=== PATIENT | female | born 1950 | race Caucasian/White ===

== ENCOUNTER 2019-08-11 16:07 | Outpatient (CLI) | payer MEDICARE, SELFPAY ==
[2019-08-11 16:37] LABS: Add Urine Microscopic? YES; Appearance Urine Clear (Clear); Bilirubin Urine Negative (Negative); Blood Urine Negative (Negative); Color Urine Yellow (Yellow); Glucose Urine UA Negative (Negative); Ketones Urine Negative (Negative); Leukocyte Esterase Ur Trace (Negative); Nitrate Urine Negative (Negative); Protein Urine Negative (Negative); Urobilinogen Urine 0.2 mg/dL (0.2-1.0); pH Urine 6.5 (5.0-8.0)
[2019-08-11 16:40] LABS: RBC Urine None seen /hpf (0-2); Squamous Epithelial Cell Urine Few /hpf (Few)
[2019-08-11 16:41] LABS: Bacteria Urine Trace /hpf
== END 2019-08-11 16:08 | disposition home or self-care (01) ==
PROVIDERS: PCP Internal Medicine; Visit Provider Internal Medicine
DX: R35.0 Frequency of micturition (principal); N39.0 Urinary tract infection, site not specified
CPT/HCPCS: 81001; 87077; 87086; 87088; 87186

== ENCOUNTER 2019-08-21 15:23 | Outpatient (CLI) | payer MEDICARE, MEDICAID, SELFPAY ==
--- NOTE | ~2019-08-21 | XR_ITS ---
EXAMINATION: XR chest 2V DATE: 08/21/2019 15:47 INDICATION: Cough, COPD TECHNIQUE: PA and lateral views of the chest are obtained. COMPARISON: 12/23/2018 FINDINGS: The lungs are free of acute opacities. There is no pleural effusion or pneumothorax. The ca rdiomediastinal silhouette is normal. There is moderate thoracic spondylosis. Surgical clips in the u pper abdomen on the lateral view are likely from prior cholecystectomy. IMPRESSION: 1. No acute cardiopulmonary abnormality. Reviewed, dictated and finalized at location A.
[2019-08-21 15:36] LABS: Basophils Absolute Auto 0.05 K/mm3 (0.00-0.10); Basophils Percent Auto 0.8 % (0.0-1.0); Eosinophils Absolute Auto 0.18 K/mm3 (0.02-0.50); Eosinophils Percent Auto 2.8 % (1.0-6.0); Hematocrit 39.3 % (35.0-42.0); Hemoglobin 12.8 g/dL (11.7-13.8); Immature Granulocyte Absolute 0.02 K/mm3 (0.00-0.00); Immature Granulocyte Percent A 0.3 % (0.0-0.0); Lymphocytes Absolute Auto 1.96 K/mm3 (1.10-4.50); Mean Corpuscular HGB Conc 32.6 g/dL (32.0-36.0); Mean Platelet Volume 10.1 fl (9.2-11.8); Monocytes Absolute Auto 0.64 K/mm3 (0.10-0.90); Monocytes Percent Auto 10.1 % (2.0-11.0); Neutrophils Absolute Auto 3.5 K/mm3 (1.7-7.2); Platelet Count Result 297 K/mm3 (150-420); Red Blood Count 4.27 M/mm3 (4.20-5.40); Red Cell Distribution Width 13.8 % (11.6-14.4); White Blood Count 6.3 K/mm3 (4.8-10.8)
[2019-08-21 16:25] LABS: Alanine Aminotransferase 20 U/L (14-59); Albumin Level 3.3 g/dL (3.4-5.0); Alkaline Phosphatase 68 U/L (46-116); Anion Gap 8.9 mmol/L (7-16); Aspartate Amino Transferase 21 U/L (15-37); Bilirubin,Total 0.3 mg/dL (0.00-1.00); Blood Urea Nitrogen 14 mg/dL (7-18); Calcium 9.4 mg/dL (8.5-10.1); Carbon Dioxide 32 mmol/L (21-32); Chloride 107 mmol/L (98-108); Estimated Glomerular Filt Rate > 60; Glucose 93 mg/dL (70-99); Osmolality Calculated 298 mOsm/kg (285-295); Potassium 3.9 mmol/L (3.5-5.1); Sodium 144 mmol/L (136-145); Total Protein 6.9 g/dL (6.4-8.2)
== END 2019-08-21 15:24 | disposition home or self-care (01) ==
LOC: CHSLAB 15:26
PROVIDERS: PCP Internal Medicine; Visit Provider Nurse Practitioner Family
DX: R05 Cough (principal); J44.9 Chronic obstructive pulmonary disease, unspecified
CPT/HCPCS: 36415; 71046; 80053; 85025

== ENCOUNTER 2019-08-24 14:34 | Outpatient (CLI) | payer MEDICARE, SELFPAY ==
[2019-08-24 15:01] LABS: Add Urine Microscopic? NO; Appearance Urine Clear (Clear); Bilirubin Urine Negative (Negative); Blood Urine Negative (Negative); Color Urine Yellow (Yellow); Glucose Urine UA Negative (Negative); Ketones Urine Negative (Negative); Leukocyte Esterase Ur Negative (Negative); Nitrate Urine Negative (Negative); Protein Urine Negative (Negative); Specific Grav Ur 1.015 (1.010-1.020); Urobilinogen Urine 0.2 mg/dL (0.2-1.0); pH Urine 5.5 (5.0-8.0)
== END 2019-08-24 14:35 | disposition home or self-care (01) ==
LOC: CHSLAB 14:36
PROVIDERS: PCP Internal Medicine; Visit Provider Nurse Practitioner Family
DX: N39.0 Urinary tract infection, site not specified (principal)
CPT/HCPCS: 81003; 87086; 87088

== ENCOUNTER 2019-09-07 08:07 | Outpatient (CLI) | payer MEDICARE, SELFPAY ==
--- NOTE | ~2019-09-07 | MM_ITS ---
EXAMINATION: MM screening [facility] BI w ginny HISTORY: Screening mammogram TECHNIQUE: Craniocaudal and mediolateral oblique 3-D tomosynthesis images were obtained and synthetic 2-D images were generated. CAD analysis was submitted and interpreted. COMPARISON: 07/08/2018, 07/05/2018, 06/24/2017, 06/21/2015 BREAST PARENCHYMAL COMPOSITION: There are scattered areas of fibroglandular density. FINDINGS: There is unchanged focal asymmetry in the upper outer quadrant of the left breast. There is no evidence of suspicious mass, calcification, or architectural distortion to suggest malignancy in either breast. There has been no suspicious interval change. IMPRESSION: 1. No mammographic evidence of malignancy. 2. Recommend routine screening mammography in one year. BI-RADS Category 2: Benign finding(s). Reviewed, dictated and finalized at location A.
== END 2019-09-07 08:08 | disposition home or self-care (01) ==
LOC: CHSIMG 08:09
PROVIDERS: PCP Internal Medicine; Visit Provider Internal Medicine
DX: Z12.31 Encounter for screening mammogram for malignant neoplasm of breast (principal)
CPT/HCPCS: 77063; 77067

== ENCOUNTER 2020-03-12 12:21 | Outpatient (CLI) | payer MEDICARE, MEDICAID, SELFPAY ==
--- NOTE | 2020-03-12 12:25 | ECG_ITS ---
Measurements Intervals [place] Rate: 74 P: 47 DC: 173 QRS: -26 QRSD: 115 T: 40 QT: 408 QTc: 455 Interpretive Statements SINUS RHYTHM ATRIAL COUPLET INTRAVENTRICULAR CONDUCTION DELAY VOLTAGE CRITERIA FOR LVH BORDERLINE R WAVE PROGRESSION, ANTERIOR LEADS MINIMAL Q WAVES- HIGH LATERAL LEADS BORDERLINE ECG Electronically Signed On 03-12-2020 12:44:07 CDT by Ronnie Schmidt D.O.
[2020-03-12 13:00] LABS: Anion Gap 8 mmol/L (8-16); Blood Urea Nitrogen 14 mg/dL (7-17); Calcium 9.3 mg/dL (8.4-10.2); Carbon Dioxide 33 mmol/L (22-30); Chloride 101 mmol/L (98-107); Estimated Glomerular Filt Rate > 60; Glucose 94 mg/dL (65-105); Potassium 3.6 mmol/L (3.4-5.0); Sodium 142 mmol/L (137-145)
== END 2020-03-12 12:22 | disposition home or self-care (01) ==
LOC: ANHSURGERY 12:25
PROVIDERS: Anesthesiology; PCP Internal Medicine; Visit Provider Urology
DX: Z01.812 Encounter for preprocedural laboratory examination (principal); N39.3 Stress incontinence (female) (male); I10 Essential (primary) hypertension; I45.9 Conduction disorder, unspecified
CPT/HCPCS: 36415; 80048; 87086; 93005

== ENCOUNTER 2020-03-14 13:00 | Outpatient (CLI) | payer MEDICARE, MEDICAID, SELFPAY ==
--- NOTE | 2020-03-14 13:09 | ECHO_ITS ---
Patient Info Name: Christiano Warner Age: 69 years : 1950 Gender: Female Ht: 62 in Wt: 261 lbs BSA: 2.35 m2 HR: 67 bpm BP: 211 / 94 mmHg Technical Quality: Fair Exam Date: 03/14/2020 1:47 PM Exam Location: [facility] Patient Status: Outpatient Admit Date: 03/14/2020 Staff Ordering Physician: Kj Carrillo MD Return To Service Inspector: Hortencia Muniz RDCS Attending Provider: Kj Carrillo MD Exam Type: CA echo dop color flow w con Study Info Indications R01.1 - Cardiac murmur, unspecified R53.83 - Other fatigue Complete two-dimensional, color flow and Doppler transthoracic echocardiogram is performed with contrast to opacify the left ventricle and to improve the deliniation of the left ventricle endocardial borders. Strain analysis performed. Contrast/Agitated Saline Contrast/Ag. Saline: Definity Amount: 5.00 ml New IV Access: Antecubital Space and Right Site Condition: No extravasation, Site dressing applied and IV removed History/Risk Factors Hypertension: Yes Dyslipidemia: No Congenital Heart Disease (CHD): No Peripheral Arterial Disease (PAD): No Myocardial Infarction (DE): No Chronic Lung Disease: No Obesity: Yes Renal Disease: No Coronary Artery Disease (CAD) No Congestive Heart Failure (CHF): No Cardiomyopathy/LV Systolic Dysfunction: No Diabetes Mellitus: No COPD: No Tobacco Use: Former Cerebrovascular Disease: No Family History: Diabetes Mellitus Deep Vein Thrombosis (DVT): None Dialysis: None Frailty Scale (CSHA): 3: Managing Well Cardiac Arrest: No Summary 1. Left ventricular chamber dimension is mildly enlarged. 2. Left ventricular systolic function is normal, estimated at 60-65%. 3. There is moderately increased left ventricular wall thickness. 4. The left ventricular diastolic function is grade I diastolic dysfunction. 5. Definity contrast administered improved wall motion interpretation. 6. E/e' 12 is mildly elevated. 7. Global longitudinal strain is normal at -20.1%. 8. Left atrial chamber dimension is mildly enlarged. 9. The mitral valve has mildy calcified annulus. 10. There is mild mitral valve regurgitation. 11. Mild pulmonary hypertension, estimated pulmonary arterial systolic pressure is 40 mmHg. 12. There is trace pulmonic regurgitation. Left Ventricle Definity contrast administered improved wall motion interpretation. E/e' 12 is mildly elevated. Global longitudinal strain is normal at -20.1%. Left ventricular chamber dimension is mildly enlarged. Left ventricular systolic function is normal, estimated at 60-65%. There is moderately increased left ventricular wall thickness. The left ventricular diastolic function is grade I diastolic dysfunction. Right Ventricle Right ventricular chamber dimension is normal. Right ventricular systolic function is normal. Left Atria Left atrial chamber dimension is mildly enlarged. Right Atria Right atrial chamber dimension is normal. Aortic Valve The aortic valve is trileaflet. There is no aortic valve stenosis. There is no aortic valve regurgitation. Pulmonic Valve There is trace pulmonic regurgitation. Mitral Valve The mitral valve has mildy calcified annulus. There is no mitral valve stenosis. There is mild mitral valve regurgitation. Tricuspid Valve There is no tricuspid valve regurgitation. Mild pulmonary hypertension, estimat
== END 2020-03-14 13:01 | disposition home or self-care (01) ==
LOC: CHSIMG 13:01
PROVIDERS: PCP Internal Medicine; Visit Provider Internal Medicine
DX: R01.1 Cardiac murmur, unspecified (principal); R53.83 Other fatigue
CPT/HCPCS: C8929

== ENCOUNTER 2020-03-15 02:41 | Outpatient (CLI) | payer MEDICARE, MEDICAID, SELFPAY ==
[2020-03-15 23:12] LABS: SARS-CoV-2 RNA PCR Negative
== END 2020-03-15 02:42 | disposition home or self-care (01) ==
LOC: ANHCOVIDDT 02:42
PROVIDERS: PCP Internal Medicine; Visit Provider Urology
DX: Z01.812 Encounter for preprocedural laboratory examination (principal); Z20.828 Contact with and (suspected) exposure to other viral communicable diseases
CPT/HCPCS: 87635; C9803; U0003

== ENCOUNTER 2020-03-18 00:15 | Day surgery (SDC) | payer MEDICARE, MEDICAID, SELFPAY ==
--- NOTE | 2020-03-09 14:18 | PM.IMHP ---
H&P: HPI History of Present Illness Date/Time: 03/09/20 14:18 Chief complaint: stress incontinence Narrative: Christiano Warner is a 69 year old female with stress incontinence. Her overactive bladder is treated with Botox. Review of Systems Review of Systems: All systems reviewed & are unremarkable except as noted in HPI and below PMFSH Family History Family History (Updated 10/29/16 @ 16:00 by DOCTOR UNKNOWN) Father Hypertension Family history of renal failure Mother Asthma Other Cerebrovascular accident Diabetes mellitus Family history of alcoholism Family history of arthritis Family history of blood dyscrasia Family history of coronary artery disease Family history of lung disease Family history of malignant neoplasm Family history of mental disorder Social History Social History Smoking status: Former smoker Alcohol intake: current Meds Home Medications and Allergies Allergies Allergy/AdvReac Type Severity Reaction Status Date / Time codeine Allergy Unknown Verified 05/07/17 13:09 Sulfa (Sulfonamide Allergy Unknown Verified 05/07/17 13:09 Antibiotics) Exam Const: General: no acute distress HENMT: Mouth: Yes moist mucous membranes Eyes: General: appearance normal, both eyes and all related structures Neck: Neck: supple Resp: Effort & Inspection: normal respiratory effort GI: GI Palp: Yes Soft to palpation Skin: General skin exam: normal color Neuro: Motor exam (neuro): Normal motor muscle tone present throughout Extrem: General: normal to inspection Psych: Mental Status: mental status grossly normal Assessment and Plan Assessment and plan (1) MELINDA (stress urinary incontinence, female): Code(s): N39.3 - Stress incontinence (female) (male) Status: Acute Assessment and Plan: urethral sling
[2020-03-11 08:52] VITALS: BMI 47.7
--- NOTE | 2020-03-18 10:02 | WPDHPUPDATE1 ---
History and Physical Update Update Date/Time: 03/18/20 10:02 History and Physical has been reviewed, including an updated exam of the patient. There are NO changes in the patient's condition. Risks, benefits, and alternatives have been discussed and questions answered. Patient agrees to proceed with procedure.
[2020-03-18 12:08] VITALS: BP 151/75; PULSE 60; RESP 18; TEMP 36.8; O2SAT 100
[2020-03-18] MEDS: LACTATED RINGERS 1,000 ML 30 ML IV CONT (12:40)
--- NOTE | 2020-03-18 13:58 | WPDANESEPPF ---
Anes - Initial Pre Proc Eval Procedure: Operation Date: 03/18/20 14:30 Proposed Procedures p Urethral Sling - Shaq Starks MD Date/Time: 03/18/20 13:58 Surgeon: Shaq Starks MD Pre Op Diagnosis: stress incontinence Patient Data Age: 69 Gender: F Height: 5 ft 2 in Weight: 117 kg Last Vital Signs Temp 36.8 C 03/18/20 12:08 Pulse 60 03/18/20 12:08 Resp 18 03/18/20 12:08 BP 151/75 H 03/18/20 12:08 Pulse Ox 100 03/18/20 12:08 Allergies Allergy/AdvReac Type Severity Reaction Status Date / Time codeine Allergy Unknown Confusion Verified 03/18/20 12:29 Sulfa (Sulfonamide Allergy Unknown HIVES AND Verified 03/18/20 12:29 Antibiotics) ITCHING Home Medications Medication Instructions Recorded Confirmed Type acetaminophen [Tylenol Extra 1,000 mg PO Q6H PRN 03/11/20 03/18/20 History Strength] albuterol sulfate [Ventolin HFA] 2 puff INHALATION QID PRN 03/11/20 03/18/20 History budesonide-formoterol [Symbicort] 2 puff INHALATION BID 03/11/20 03/18/20 History calcium carbonate-vitamin D3 1 cap PO QAM 03/11/20 03/18/20 History [Calcium 600 with Vitamin D3] cyclobenzaprine 5 mg PO HS PRN 03/11/20 03/18/20 History escitalopram oxalate 20 mg PO QAM 03/11/20 03/18/20 History famotidine 40 mg PO QPM 03/11/20 03/18/20 History hydrocodone-acetaminophen 1 tablet PO Q6H PRN 03/11/20 03/18/20 History levothyroxine 125 mcg PO QAM 03/11/20 03/18/20 History mirabegron [Myrbetriq] 25 mg PO QPM 03/11/20 03/18/20 History montelukast 10 mg PO HS 03/11/20 03/18/20 History multivitamin,ua-brcg-ldfmkpfj 1 tablet PO DAILY 03/11/20 03/18/20 History [Complete Multivitamin] nortriptyline 10 mg PO HS 03/11/20 03/18/20 History omeprazole 20 mg PO DAILY 03/11/20 03/18/20 History pregabalin 75 mg PO QAM 03/11/20 03/18/20 History pregabalin 150 mg PO HS 03/11/20 03/18/20 History spironolacton-hydrochlorothiaz 1 tablet PO QAM 03/11/20 03/18/20 History Patient hx anesthesia problems: none Family hx anesthesia problems: none [facility] Past Medical History Medical History (Updated 03/18/20 @ 13:59 by Ken Will MD) HTN (hypertension) Hypothyroidism Morbid obesity Surgical History Surgical History (Updated 03/18/20 @ 13:59 by Ken Will MD) History of appendectomy History of total knee arthroplasty Family History Family History Father Hypertension Family history of renal failure Mother Asthma Other Cerebrovascular accident Diabetes mellitus Family history of alcoholism Family history of arthritis Family history of blood dyscrasia Family history of coronary artery disease Family history of lung disease Family history of malignant neoplasm Family history of mental disorder Social History Social History Years smoked: 10 Smoking status: Former smoker Tobacco type: cigarettes Smoking end date: 06/07/69 Alcohol intake: current Living arrangements: alone Spiritual care concerns: No Anes - Eval Final PreProcedure Day of Procedure 03/18/20 13:58 Patient weight: morbidly obese Heart: regular rate and rhythm Lungs: clear to auscultation Airway: Mallampati scale class II Neurological: alert and oriented Last oral intake: >/= 8 hours ASA classification: III Anesthetic plan: proceed Anesthesia type and monitoring: general GIVS and standard monitoring Informed Consent: The patient's anesthetic plan and its attendant risks and benefits were discussed with the patient/family/POA. Questions were solicited and answers provided to the satisfaction of the patient/family/POA.
[2020-03-18] MEDS: ceFAZolin 2 GM/D5W 50 ML 2 GM/50 ML BAG IVPB (14:39)
[2020-03-18] MEDS: BUPIVACAINE/EPINEPHRINE 0.25% 50 ML VIAL INFILTRATE (15:01)
--- NOTE | 2020-03-18 15:08 | PM.PROC ---
Procedure Note - Detailed Date of procedure: 03/18/20 Pre-op diagnosis: stress incontinence Stress urinary incontinence Post-op diagnosis: same Procedure performed: Transobturator Mid-urethral sling Cystoscopy Description of procedure: Anesthesia: MAC/Local This is a patient with confirmed stress urinary incontinence. She desires correction. She understands the risks of bleeding, infection, damage to the urinary tract, lack of cure of stress incontinence, recurrence of stress incontinence, postoperative voiding dysfunction including incontinence and retention, need for ancillary procedures to loosen remove the sling, postoperative voiding dysfunction including retention and overactive bladder, hip and leg pain, dyspareunia, mesh related complications including exposure and extrusion. She agrees to proceed. She understands it will not help overactive bladder symptoms if present. She was correctly identified and informed consent obtained. She is brought to the operating room. She was given appropriate anesthesia. She was placed in the dorsal lithotomy position. All pressure points were padded. She was given appropriate perioperative antibiotics and a time-out performed. A Valdez catheter is placed. I marked out the thigh incisions anesthetize the skin and made those incisions. I anesthetized the anterior vaginal wall over the mid urethra. I made a 1 cm incision. I dissected out laterally taking great care not to injure the urethra or the vaginal wall. Passed the helical trocars 1st on the left and then on the right from the thigh incision towards the vaginal incision. Sling was connected to the trocars and brought out through the thigh incision. I tensioned the sling appropriately. I cut and removed the plastic sheaths. I closed the incision with 2 0 Vicryl. I then performed cystoscopy. There was no surgical artifact or abnormalities inside the bladder. The urethra was normal without surgical artifact. I cut the excess sling material. I closed the incisions with glue. She was awakened and transferred to the PACU in stable condition. Implants: Mid urethral sling Surgeon: Shaq Starks MD Drains: No Packing: No Pathology: none sent Complications: No immediate complications Condition: stable Disposition: PACU
[2020-03-18 15:10] VITALS: BP 138/65; PULSE 60; RESP 14; O2SAT 98
[2020-03-18 15:40] VITALS: BP 177/82; PULSE 55; RESP 14
[2020-03-18 16:51] VITALS: BP 165/76; PULSE 59; RESP 14
== END 2020-03-18 16:10 | disposition home or self-care (01) ==
PROVIDERS: PCP Internal Medicine; Visit Provider Urology
PROC: (CPT 57288; principal; 2020-03-18 14:30)
DX: N39.3 Stress incontinence (female) (male) (principal); I10 Essential (primary) hypertension; E03.9 Hypothyroidism, unspecified; E66.01 Morbid (severe) obesity due to excess calories; Z68.42 Body mass index [BMI] 45.0-49.9, adult; Z87.891 Personal history of nicotine dependence
CPT/HCPCS: 57288; A9270; C1771; J0690; J2704; J3010; J7030; J7120

== ENCOUNTER 2020-05-11 10:29 | Outpatient (CLI) | payer MEDICARE, SELFPAY ==
[2020-05-11 11:11] LABS: SARS-CoV-2 Ag Positive (Negative)
== END 2020-05-11 10:30 | disposition home or self-care (01) ==
LOC: CHSLAB 10:31
PROVIDERS: PCP Internal Medicine; Visit Provider Emergency Medicine
DX: U07.1 COVID-19 (principal)
CPT/HCPCS: 87426

== ENCOUNTER 2020-05-14 03:41 | Inpatient (IN) | payer MEDICARE, MEDICAID, SELFPAY ==
[2020-05-14] VITALS (9 sets, daily range): BP systolic 132–181; BP diastolic 68–96; PULSE 64–88; RESP 20–28; TEMP 35.9–37.2; O2SAT 89–97; BMI 46.1
--- NOTE | ~2020-05-14 | XR_ITS ---
EXAMINATION: XR chest 1V portable DATE: 05/14/2020 04:12 INDICATION: COPD, COVID and shortness of breath TECHNIQUE: frontal view of the chest was obtained. COMPARISON: Chest radiograph dated 08/21/19 FINDINGS: There are patchy bilateral airspace opacities throughout both lungs. No pleural effusion or pneumotho rax. The cardiomediastinal silhouette is normal. IMPRESSION: 1. Patchy bilateral airspace opacities consistent with pneumonia. Reviewed, dictated and finalized at location A. CE MACHINES WIRER
--- NOTE | ~2020-05-14 | XR_ITS ---
EXAMINATION: XR chest 1V portable DATE: 05/15/2020 09:17 INDICATION: Proximal aorta. Abnormal breath sounds. TECHNIQUE: frontal view of the chest was obtained. COMPARISON: Chest radiograph dated 05/14/2020 FINDINGS: Interval increase in the patchy bilateral airspace opacities throughout both lungs consistent with wo rsening multifocal pneumonia. No pleural effusion or pneumothorax. Cardiomegaly. IMPRESSION: 1. Worsening multifocal pneumonia. 2. Cardiomegaly. Reviewed, dictated and finalized at location A. HARMACEUTICAL REP
--- NOTE | ~2020-05-14 | CT_ITS ---
EXAMINATION: CTA chest PE protocol DATE: 05/14/2020 06:55 INDICATION: COPD and COVID presenting with shortness of breath TECHNIQUE: Computed tomography (CT) pulmonary angiogram of the chest was performed with 100 mL Omnipa que-350 intravenous contrast. Additional 3D reconstructions utilizing coronal maximum intensity proje ction (MIP) were performed. Automated exposure control and iterative reconstruction technique were em ployed. The dose-length product was 784.20 mGy-cm. COMPARISON: None FINDINGS: Good contrast opacification of the pulmonary arteries. There is mild streak artifact from dense contr ast in the superior vena cava and right atrium which does not significantly limit evaluation. No sign ificant motion artifact. Diffuse bilateral patchy lung disease consistent with COVID pneumonia. No se ptal line thickening to suggest pulmonary edema. Calcified nodules in the right lung consistent with old granulomatous disease. No pleural effusion or pneumothorax. Cardiomegaly. No pericardial effusion . Ectatic ascending thoracic aorta measuring up to 3.8 cm in maximal diameter. Enlargement of the miguel tral pulmonary arteries consistent with pulmonary arterial hypertension. Likely reactive mediastinal and bilateral hilar lymphadenopathy. Small sliding-type hiatal hernia with postoperative changes of l ikely prior sleeve gastrectomy. Moderate thoracic spondylosis. IMPRESSION: 1. No pulmonary embolism. 2. Diffuse bilateral lung disease consistent with computed pneumonia. 3. Cardiomegaly. 4. Enlargement of the central pulmonary arteries consistent with pulmonary arterial hypertension. 5. Small sliding-type hiatal hernia. Reviewed, dictated and finalized at location A. OR WEB APPLICATIONS DEVELOPER IMPRESSION: 1. No pulmonary embolism. 2. Diffuse bilateral lung disease consistent with computed pneumonia. 3. Cardiomegaly. 4. Enlargement of the central pulmonary arteries consistent with pulmonary cece rial hypertension. 5. Small sliding-type hiatal hernia.
--- NOTE | 2020-05-14 04:23 | ECG_ITS ---
Measurements Intervals [place] Rate: 79 P: 26 [place]: 174 QRS: -39 QRSD: 113 T: 19 QT: 391 QTc: 450 Interpretive Statements SINUS RHYTHM ATRIAL AND VENTRICULAR PREMATURE COMPLEXES LEFT AXIS DEVIATION INTRAVENTRICULAR CONDUCTION DELAY VOLTAGE CRITERIA FOR LVH POOR R WAVE PROGRESSION, ANTERIOR LEADS MINIMAL Q WAVES- HIGH LATERAL LEADS BORDERLINE ECG Electronically Signed On 05-14-2020 7:06:07 ALL AROUND GEAR MACHINE OPERATOR by Ronnie Schmidt D.O.
--- NOTE | 2020-05-14 04:38 | ED.SOB ---
HPI - SOB/Dyspnea General Chief Complaint: Shortness of Breath/Dyspnea Stated Complaint: SOB Source: patient and family Mode of arrival: ambulatory Limitations: no limitations History of Present Illness HPI Narrative: Patient comes in with COVID +, and she has had increasing shortness of breath for the last couple of days. She believes she was exposed on Thanksgiving, but is not clear on this. She has had fevers, but not lately. She was started on dexamethasone and Zithromax and had the first dose of both yesterday. Coughing has been a big issue and apparently has been wearing her out. Shortness of breath has been ongoing increasing in severity especially since yesterday. Phenergan with codeine at home has helped the cough some. She has codeine listed as an allergy, but only because it can sometimes cause confusion. She denies chest pain. She denies any leg pain, or tenderness, or history of DVT. Pertinent past history: other (HTN) Exacerbating factors: exertion, movement and coughing Relieving factors: oxygen, rest, bronchodilators and other (Bronchodilators have had minimal benefit. ) Associated symptoms: denies other symptoms Treatment prior to arrival: bronchodilator Related Data Home oxygen amount: none Home Medications Medication Instructions Recorded Confirmed Complete Multivitamin 1 tablet PO DAILY 03/11/20 05/14/20 Myrbetriq 25 mg PO QPM 03/11/20 05/14/20 acetaminophen [Tylenol Extra 1,000 mg PO Q6H PRN 03/11/20 05/14/20 Strength] albuterol sulfate [Ventolin HFA] 2 puff INHALATION QID PRN 03/11/20 05/14/20 budesonide-formoterol [Symbicort] 2 puff INHALATION BID 03/11/20 05/14/20 calcium carbonate-vitamin D3 500 cap PO QAM 03/11/20 05/14/20 [Calcium 600 with Vitamin D3] cyclobenzaprine 5 mg PO HS PRN 03/11/20 05/14/20 escitalopram oxalate 20 mg PO QAM 03/11/20 05/14/20 famotidine 40 mg PO QPM 03/11/20 05/14/20 hydrocodone-acetaminophen 1 tablet PO Q6H PRN 03/11/20 05/14/20 levothyroxine 125 mcg PO QAM 03/11/20 05/14/20 montelukast 10 mg PO HS 03/11/20 05/14/20 nortriptyline 10 mg PO HS 03/11/20 05/14/20 omeprazole 20 mg PO DAILY 03/11/20 05/14/20 pregabalin 75 mg PO QAM 03/11/20 05/14/20 pregabalin 150 mg PO HS 03/11/20 05/14/20 spironolacton-hydrochlorothiaz 1 tablet PO QAM 03/11/20 05/14/20 Allergies Allergy/AdvReac Type Severity Reaction Status Date / Time codeine Allergy Unknown Confusion Verified 05/14/20 03:57 Sulfa (Sulfonamide Allergy Unknown HIVES AND Verified 03/18/20 12:29 Antibiotics) ITCHING Review of Systems Constitutional: Comments: fatigue, malaise, frequent cough wearing her out Eyes: Eyes: Reports no additional eye complaints ENT: Reports system reviewed and no additional complaints, except as documented Cardiovascular: Cardiovascular: Reports no additional cardiovascular complaints Comments: denies chest pain Respiratory: Respiratory: Reports cough and Reports dyspnea Gastrointestinal: Gastrointestinal: Reports no additional gastrointestinal complaints Genitourinary: Genitourinary: Reports no additional female genitourinary complaints Musculoskeletal: Musculoskeletal: Reports myalgias Integumentary/Breasts: Skin/Breast: Reports system reviewed and no additional complaints, except as docu Neurologic: Reports system reviewed and no additional complaints, except as documented Psychiatric: Psychiatric: Reports no additional psychiatric complaints Endocrine: Endocrine: Reports no additional endocrine complaints Hematologic/Lymphatic: Hematologic/Lymphatic: Reports no additional hematologic/lymphatic complaints Allergic/Immunologic: Allergic/Immunologic: Reports no additional allergic/immunologic complaints [facility] Past Medical History Medical History HTN (hypertension) Hypothyroidism Morbid obesity Surgical History Surgical History History of appendectomy History of to
[2020-05-14 04:49] LABS: HCO3 ABG 24.1 mmol/L (23-29); Oxygen Content ABG 20.2 %vol (16.0-22.0); Oxygen Saturation ABG 95.5 % (95-97); Oxyhemoglobin 94.6 % (94-100); PCO2 ABG 34.4 mmHg (35-45); PO2 ABG 70.2 mmHg (75-85); Total Hemoglobin 15.2 g/dL; pH ABG 7.46 (7.35-7.45)
[2020-05-14 04:51] LABS: Hematocrit 43.5 % (35.0-42.0); Mean Corpuscular HGB Conc 32.2 g/dL (32.0-36.0); Mean Corpuscular Hemoglobin 29.2 pg (27.0-31.0); Mean Corpuscular Volume 90.6 fL (78.0-102.0); Mean Platelet Volume 11.1 fl (9.2-11.8); Platelet Count Result 231 K/mm3 (150-420); Red Cell Distribution Width 13.7 % (11.6-14.4); White Blood Count 3.6 K/mm3 (4.8-10.8)
[2020-05-14] MEDS: KETOROLAC 30 MG/ML VIAL (*BKC) IV PUSH (05:00)
[2020-05-14 05:11] LABS: Band Neutrophils Percent 0 % (0-6); Basophils Percent Manual 0 % (0-1); Eosinophils Percent Manual 0 % (1-6); Lymphocytes Absolute Manual 0.32 K/mm3 (1.1-4.5); Lymphocytes Percent Manual 9 % (18-44); Monocytes Absolute Manual 0.18 K/mm3 (0.1-0.90); Monocytes Percent Manual 5 % (3-9); Neutrophils Absolute Manual 3.09 K/mm3 (1.7-7.2); Neutrophils Percent Manual 86 % (46-73); Platelet Estimate Adequate (Adequate)
[2020-05-14 05:12] LABS: Device NASAL CANNULA; Modified Allen's Test Pass; Site Drawn RIGHT RADIAL
[2020-05-14 05:13] LABS: D Dimer 0.68 mg/L (0.19-0.50)
[2020-05-14 05:13] LABS: Alanine Aminotransferase 164 U/L (14-59); Albumin Level 2.8 g/dL (3.4-5.0); Alkaline Phosphatase 279 U/L (46-116); Anion Gap 10 mmol/L (8-16); Aspartate Amino Transferase 203 U/L (15-37); Bilirubin,Total 0.3 mg/dL (0.00-1.00); Blood Urea Nitrogen 11 mg/dL (7-18); Calcium 9.1 mg/dL (8.5-10.1); Carbon Dioxide 27 mmol/L (21-32); Chloride 102 mmol/L (98-108); Estimated Glomerular Filt Rate > 60; Glucose 122 mg/dL (70-99); Osmolality Calculated 288 mOsm/kg (285-295); Potassium 3.6 mmol/L (3.5-5.1); Sodium 139 mmol/L (136-145); Total Protein 7.9 g/dL (6.4-8.2); Troponin I 17.3 ng/L (0.00-60.4)
--- NOTE | 2020-05-14 05:14 | PC.NURSE ---
0515-Received call from Aubree in lab, states that patient has high critical D-dimer of 0.68, report given to Dr. Christianson and Mary Grace GILBERT.
[2020-05-14 05:29] LABS: Lactate Dehydrogenase 354 U/L (81-234)
[2020-05-14 05:34] LABS: Lactic Acid Reflex 1.3 mmol/L (0.4-2.0)
[2020-05-14 06:02] LABS: Influenza Control Valid (Valid)
[2020-05-14 06:02] LABS: BNP 112 pg/mL (0-100)
[2020-05-14 06:20] LABS: Lipase 92 U/L (73-393)
--- NOTE | 2020-05-14 06:20 | PC.NURSE ---
pt transported to Ct scanner via stretcher. 02 changed to 10L via regular mask for the duration of transportation between er/radiology/[address] [place] [address].
[2020-05-14 06:24] LABS: Erythrocyte Sedimentation Rate 36 mm/hr (0-20)
--- NOTE | 2020-05-14 08:33 | PM.IMHP ---
H&P: HPI History of Present Illness Date/Time: 05/14/20 08:33 <SANIA Carbajal - Last Filed: 05/14/20 12:36> Chief complaint: SOB COVID <SANIA Carbajal - Last Filed: 05/14/20 12:36> Narrative: Christiano Warner is a 70 year old female who tested positive for COVID on 05/11/2020. Patient has had increased shortness of breath for a couple days prior to coming to the hospital. She was started on Decadron and azithromycin with her 1st dose being yesterday. Patient states that she does feel little bit better this morning. Patient has a history of COPD, hypothyroidism, hypertension. <SANIA Carbajal - Last Filed: 05/14/20 12:36> Review of Systems Constitutional: Constitutional: Reports weakness <SANIA Carbajal - Last Filed: 05/14/20 12:36> Cardiovascular: Cardiovascular: Reports no additional cardiovascular complaints, Denies chest pain, Denies chest pain at rest and Denies chest pain with activity <SANIA Carbajal - Last Filed: 05/14/20 12:36> Respiratory: Respiratory: Reports cough (Occasional) and Reports dyspnea (with activity) <SANIA Carbajal - Last Filed: 05/14/20 12:36> Gastrointestinal: Gastrointestinal: Reports no additional gastrointestinal complaints <SANIA Carbajal - Last Filed: 05/14/20 12:36> Neurologic: Reports system reviewed and no additional complaints, except as documented, Denies vertigo, Denies dizziness, Denies syncope and Denies headache(s) <SANIA Carbajal - Last Filed: 05/14/20 12:36> [facility] Past Medical History Medical History: Medical History (Updated 05/14/20 @ 12:23 by SANIA Carbajal) HTN (hypertension) Hypothyroidism Morbid obesity <SANIA Carbajal - Last Filed: 05/14/20 12:36> Surgical History Surgical History: Surgical History History of appendectomy History of total knee arthroplasty <SANIA Carbajal - Last Filed: 05/14/20 12:36> Family History Family History: Family History Father Hypertension Family history of renal failure Mother Asthma Other Cerebrovascular accident Diabetes mellitus Family history of alcoholism Family history of arthritis Family history of blood dyscrasia Family history of coronary artery disease Family history of lung disease Family history of malignant neoplasm Family history of mental disorder <SANIA Carbajal - Last Filed: 05/14/20 12:36> Social History Social History: Social History Smoking packs per day: 10 Smoking cigarettes per day: 200.0 Years smoked: 10 Smoking pack-years: 100.00 Smoking status: Former smoker Tobacco type: cigarettes Smoking end date: 06/07/69 Alcohol intake: former Drinks per week: 1 Substance use: never Gender identity (if verbalized by the patient): Female Spiritual care concerns: No <SANIA Carbajal - Last Filed: 05/14/20 12:36> Meds Home Medications and Allergies Home medications: Home Medications Medication Instructions Recorded Confirmed Type Complete Multivitamin 1 tablet PO DAILY 03/11/20 05/14/20 History Myrbetriq 25 mg PO QPM 03/11/20 05/14/20 History acetaminophen [Tylenol Extra 1,000 mg PO Q6H PRN 03/11/20 05/14/20 History Strength] albuterol sulfate [Ventolin HFA] 2 puff INHALATION QID PRN 03/11/20 05/14/20 History budesonide-formoterol [Symbicort] 2 puff INHALATION BID 03/11/20 05/14/20 History calcium carbonate-vitamin D3 500 cap PO QAM 03/11/20 05/14/20 History [Calcium 600 with Vitamin D3] cyclobenzaprine 5 mg PO HS PRN 03/11/20 05/14/20 History escitalopram oxalate 20 mg PO QAM 03/11/20 05/14/20 History famotidine 40 mg PO QPM 10/05/20 12/08/20 History hydrocodone-acetaminophen 1 tablet PO Q6H PRN 03/11/20 05/14/20 History levothyroxine 125 mcg
[2020-05-14] MEDS: ENOXAPARIN 40 MG/0.4 ML SYRINGE SUB-Q (10:12)
[2020-05-14] MEDS: DEXAMETHASONE SOD PHOS INJ 4 MG/ML VIAL 6 MG IV PUSH (10:13)
[2020-05-14] MEDS: PANTOPRAZOLE SODIUM IV 40 MG VIAL IV PUSH (10:13)
[2020-05-14] MEDS: AZITHROMYCIN 250 MG TABLET 500 MG PO (10:13)
[2020-05-14] MEDS: HYDROcodone/acetaminophen (*CRX) 5-325 MG TABLET 1 TAB PO (10:14)
[2020-05-14] MEDS: hydroCHLOROthiazide 25 MG TABLET PO (10:14)
[2020-05-14] MEDS: SPIRONOLACTONE 25 MG TABLET PO (10:14)
[2020-05-14] MEDS: PREGABALIN (*CRX) 25 MG CAPSULE 75 MG PO (10:15)
[2020-05-14] MEDS: LEVOTHYROXINE SODIUM 25 MCG TABLET PO (10:15)
[2020-05-14] MEDS: CALCIUM CARBONATE (OSCAL) 500 MG TABLET PO (10:15)
[2020-05-14] MEDS: ESCITALOPRAM OXALATE 10 MG TABLET 20 MG PO (10:15)
[2020-05-14] MEDS: BUDESONIDE/FORMOTEROL 80/4.5 MCG 6.9 GM INHALER (*SP) 2 PUFF INHALATION ×2 (10:16→17:15)
[2020-05-14] MEDS: ALBUTEROL SULFATE (*SP) INHALER 2 PUFF INHALATION ×4 (10:20→22:39)
[2020-05-14] MEDS: MIRABEGRON 25 MG ER TABLET PO (17:15)
[2020-05-14] MEDS: PREGABALIN (*CRX) 50 MG CAPSULE 150 MG PO (20:58)
[2020-05-14] MEDS: MONTELUKAST SODIUM 10 MG TABLET PO (20:58)
[2020-05-14] MEDS: ACETAMINOPHEN 500 MG TABLET 1000 MG PO (23:13)
[2020-05-14] MEDS: ZOLPIDEM TARTRATE (*CRX) 5 MG TABLET 2.5 MG PO (23:13)
[2020-05-15] VITALS (10 sets, daily range): BP systolic 127–168; BP diastolic 56–90; PULSE 53–70; RESP 20–28; TEMP 35.5–37.1; O2SAT 88–100
--- NOTE | 2020-05-15 02:09 | PC.NURSE ---
Patient resting with eyes closed. Respirations regular and even.
[2020-05-15] MEDS: ALBUTEROL SULFATE (*SP) INHALER 2 PUFF INHALATION ×3 (03:30→11:15)
--- NOTE | 2020-05-15 05:01 | PC.NURSE ---
Resting quietly, respirations non labored at rest, oxygen remains at 5 L NC, droplet isolation maintained
[2020-05-15] MEDS: LEVOTHYROXINE SODIUM 25 MCG TABLET PO (05:34)
[2020-05-15] MEDS: LEVOTHYROXINE SODIUM 100 MCG TABLET PO (05:34)
[2020-05-15 05:56] LABS: Hematocrit 41.9 % (35.0-42.0); Hemoglobin 13.3 g/dL (11.7-13.8); Mean Corpuscular HGB Conc 31.7 g/dL (32.0-36.0); Mean Corpuscular Hemoglobin 29.1 pg (27.0-31.0); Mean Corpuscular Volume 91.7 fL (78.0-102.0); Mean Platelet Volume 10.9 fl (9.2-11.8); Platelet Count Result 267 K/mm3 (150-420); Red Blood Count 4.57 M/mm3 (4.20-5.40); Red Cell Distribution Width 14.1 % (11.6-14.4); White Blood Count 6.9 K/mm3 (4.8-10.8)
[2020-05-15 06:34] LABS: Alanine Aminotransferase 128 U/L (14-59); Albumin Level 2.7 g/dL (3.4-5.0); Alkaline Phosphatase 224 U/L (46-116); Anion Gap 10 mmol/L (8-16); Aspartate Amino Transferase 122 U/L (15-37); Bilirubin Direct 0.1 mg/dL (0-0.2); Bilirubin,Total 0.3 mg/dL (0.00-1.00); Blood Urea Nitrogen 20 mg/dL (7-18); Calcium 9.2 mg/dL (8.5-10.1); Carbon Dioxide 29 mmol/L (21-32); Chloride 103 mmol/L (98-108); Estimated CRCL calculation 65 ml/min; Estimated Glomerular Filt Rate > 60; Glucose 146 mg/dL (70-99); Osmolality Calculated 299 mOsm/kg (285-295); Potassium 4.3 mmol/L (3.5-5.1); Sodium 142 mmol/L (136-145)
[2020-05-15 06:43] LABS: Thyroid Stimulating Hormone 0.15 uIU/mL (0.36-3.74)
[2020-05-15] MEDS: BUDESONIDE/FORMOTEROL 80/4.5 MCG 6.9 GM INHALER (*SP) 2 PUFF INHALATION (08:04)
[2020-05-15] MEDS: PANTOPRAZOLE SODIUM IV 40 MG VIAL IV PUSH (08:05)
[2020-05-15] MEDS: DEXAMETHASONE SOD PHOS INJ 4 MG/ML VIAL 6 MG IV PUSH (08:05)
[2020-05-15] MEDS: PREGABALIN (*CRX) 25 MG CAPSULE 75 MG PO (08:06)
[2020-05-15] MEDS: AZITHROMYCIN 250 MG TABLET 500 MG PO (08:06)
[2020-05-15] MEDS: ESCITALOPRAM OXALATE 10 MG TABLET 20 MG PO (08:06)
[2020-05-15] MEDS: SPIRONOLACTONE 25 MG TABLET PO (08:06)
[2020-05-15] MEDS: hydroCHLOROthiazide 25 MG TABLET PO (08:06)
[2020-05-15] MEDS: CALCIUM CARBONATE (OSCAL) 500 MG TABLET PO (08:06)
[2020-05-15] MEDS: ENOXAPARIN 40 MG/0.4 ML SYRINGE SUB-Q (08:07)
[2020-05-15 09:09] LABS: Base Excess ABG 1.5 mmol/L (0-2); HCO3 ABG 26.4 mmol/L (23-29); Modified Allen's Test Pass; Oxygen Content ABG 19.1 %vol (16.0-22.0); Oxygen Saturation ABG 94.3 % (95-97); Oxyhemoglobin 93.5 % (94-100); PCO2 ABG 42.8 mmHg (35-45); PO2 ABG 67.5 mmHg (75-85); Site Drawn RIGHT RADIAL; Total Hemoglobin 14.5 g/dL; pH ABG 7.41 (7.35-7.45)
[2020-05-15 09:10] LABS: Device SIMPLE MASK
[2020-05-15 10:38] LABS: HCO3 ABG 23.4 mmol/L (23-29); Oxygen Content ABG 20.1 %vol (16.0-22.0); Oxygen Saturation ABG 98.8 % (95-97); Oxyhemoglobin 98.2 % (94-100); PCO2 ABG 37.9 mmHg (35-45); PO2 ABG 131.9 mmHg (75-85); Total Hemoglobin 14.4 g/dL; pH ABG 7.41 (7.35-7.45)
[2020-05-15 10:39] LABS: Modified Allen's Test Pass; Site Drawn LEFT RADIAL
[2020-05-15 10:40] LABS: Device HIGH FLOW NASAL CANN
[2020-05-15] MEDS: LORazepam INJ (*CRX) 2 MG/ML VIAL 0.5 MG IV PUSH (11:16)
--- NOTE | 2020-05-15 13:15 | PC.NURSE ---
consent for transfer obtained, ambulance called for transfer
--- NOTE | 2020-05-15 13:20 | PM.DS ---
DS: Admitting Diagnosis Admitting Diagnosis Admitting Diagnosis: SOB COVID <Elpidio DawsonALEXANDRIA WallaceC - Last Filed: 05/15/20 14:01> DS: Discharge Diagnosis Discharge Diagnosis (1) Hypothyroidism: Code(s): E03.9 - Hypothyroidism, unspecified <Elpidio DawsonTommy Horn APN-C - Last Filed: 05/15/20 14:01> Status: Inactive <Elpidio DawsonSANIA Wallace - Last Filed: 05/15/20 14:01> Assessment and Plan: 05/14/2020 chronic condition continue 125 mcg levothyroxine 05/15/2020 TSH 0.15 continue with current levothyroxine dose <Elpidio DawsonTommy Horn APN-C - Last Filed: 05/15/20 14:01> (2) HTN (hypertension): Code(s): I10 - Essential (primary) hypertension <Elpidio DawsonTommy Horn APN-C - Last Filed: 05/15/20 14:01> Status: Inactive <Elpidio DawsonSANIA Wallace - Last Filed: 05/15/20 14:01> Assessment and Plan: 05/14/2020 continue spironolactone and hydrochlorothiazide, monitor vital signs, will consider adding other blood pressure medications, BP has been 130s to 180s systolic over past 24 hours 05/15/2020 over last 24 hours blood pressure high was 168/90 otherwise vital signs stable afebrile <Elpidio DawsonTommy Horn APN-C - Last Filed: 05/15/20 14:01> (3) MELINDA (stress urinary incontinence, female): Code(s): N39.3 - Stress incontinence (female) (male) <Elpidio DawsonTommy Horn APN-C - Last Filed: 05/15/20 14:01> Status: Acute <Elpidio DawsonSANIA Wallace - Last Filed: 05/15/20 14:01> Assessment and Plan: 05/14/2020 continue with home medication Myrbetriq 05/15/2020 continue as above <Elpidio Tera Horn APN-C - Last Filed: 05/15/20 14:01> (4) COVID-19 virus detected: Code(s): U07.1 - COVID-19 <SANIA Carbajal - Last Filed: 05/15/20 14:01> Status: Acute <Elpidio DawsonSANIA Wallace - Last Filed: 05/15/20 14:01> Assessment and Plan: 05/14/2020 patient currently taking azithromycin and Decadron Remdesivir not given at this time ALT was 164, supplemental oxygen to maintain SpO2 above 92%, Albuterol and Symbicort 05/15/2020 called into the room this morning patient was up having breakfast SpO2 was in the 70s, sensor was on her finger hands were cold to the touch, nasal cannula change to simple mask at 10 liters/minute, SpO2 sensor placed on warm toe with reading of 88%, chest x-ray and ABG obtained, radiology report is as follows: FINDINGS: Interval increase in the patchy bilateral airspace opacities throughout both lungs consistent with worsening multifocal pneumonia. No pleural effusion or pneumothorax. Cardiomegaly. IMPRESSION: 1. Worsening multifocal pneumonia. 2. Cardiomegaly, initial ABG: pH 7.41 pCO2 42.8 PO2 67.5 bicarb 26.4 O2 saturation 94.3, patient changed to high-flow nasal cannula and at this time she has been weaned down to FiO2 75% flow rate 45 SpO2 maintained at 93%, ABG obtained 30 minutes after this change as follows: pH 7.41 pCO2 37.9 PO2 131.9 bicarb 23.4 O2 saturation 98.8, Dr. joel shah discussed patient condition with deputy treasurer at [facility] and with hospitalist Liz Daley who has agreed to accept this patient due to her high risk of COVID, COPD, morbid obesity, and increased oxygen demands with worsening lung images, Azithromycin and Decadron started 05/14/2020, Remdesivir not started due to elevated ALT 164 which did improve to AST 122 ALT 128, CTA from 05/14/2020 radiologist IMPRESSION:1. No pulmonary embolism. 2. Diffuse bilateral lung disease consistent with computed pneumonia. 3. Cardiomegaly. 4. Enlargement of the central pulmonary arteries consistent with pulmonary arterial hypertension. 5. Small sliding-type hiatal hernia. <SANIA Carbajal - Last Filed: 05/15/20 14:01> DS: Summary Time Spent with Patient Time attestation: Total time spent providing and/or coordinating discharge services: > 45 minutes <SANIA Carbajal - Last Filed: 05/15/20 14:01> Exam Const: General: cooperative, alert, awake and unco
[2020-05-15 13:47] LABS: Base Excess ABG -1.2 mmol/L (0-2); HCO3 ABG 23.7 mmol/L (23-29); Oxygen Content ABG 19.9 %vol (16.0-22.0); Oxygen Saturation ABG 95.5 % (95-97); Oxyhemoglobin 94.9 % (94-100); PCO2 ABG 40.2 mmHg (35-45); PO2 ABG 73.1 mmHg (75-85); Total Hemoglobin 14.9 g/dL; pH ABG 7.39 (7.35-7.45)
[2020-05-15 13:50] LABS: Device HIGH FLOW NASAL CANN; Modified Allen's Test Pass; Site Drawn LEFT RADIAL
== END 2020-05-15 14:05 | disposition short-term general hospital (02) | DRG 177 ==
LOC: CHSED 06:00 → CHS2ND 06:43
PROVIDERS: Family Medicine; Nurse Practitioner Family; Admitting Provider Emergency Medicine; Emergency Provider Emergency Medicine; PCP Internal Medicine; Visit Provider Emergency Medicine
DX: U07.1 COVID-19 (principal); J12.89 Other viral pneumonia; I10 Essential (primary) hypertension; E03.9 Hypothyroidism, unspecified; E66.01 Morbid (severe) obesity due to excess calories; Z96.659 Presence of unspecified artificial knee joint; Z87.891 Personal history of nicotine dependence; N39.3 Stress incontinence (female) (male)
CPT/HCPCS: 36415; 36600; 71045; 71275; 80053; 82248; 82805; 83605; 83615; 83690; 83880; 84145; 84443; 84484; 85025; 85027; 85380; 85652; 87804; 93005; 94667; 94668; 96374; 99285; A9270; C9113; J0696; J1100; J1650; J1885; J2060; Q9965; Q9967

== ENCOUNTER 2020-05-15 16:19 | Inpatient (IN) | payer MEDICARE, MEDICAID, SELFPAY ==
--- NOTE | ~2020-05-15 | XR_ITS ---
EXAMINATION: XR chest 1V portable DATE: 05/24/2020 12:00 INDICATION: COVID-19 pneumonia. Hypoxic respiratory failure. TECHNIQUE: A single frontal view of the chest was obtained. COMPARISON: Chest single view 05/18/2020, chest CT 05/14/2020 FINDINGS: There are patchy airspace opacities throughout the lungs bilaterally. No pleural effusion o r pneumothorax. Cardiomegaly is noted. A right upper extremity peripherally inserted central venous c atheter (PICC) is seen with tip at the superior cavoatrial junction. IMPRESSION: 1. Diffuse lung disease with slight improvement, consistent with pneumonia versus pulmonary edema. 2. Cardiomegaly. Reviewed, dictated and finalized at location A. LOADER IMPRESSION: 1. Diffuse lung disease with slight improvement, consistent with pneumonia vers us pulmonary edema. 2. Cardiomegaly.
--- NOTE | ~2020-05-15 | XR_ITS ---
EXAMINATION: XR chest 1V portable DATE: 05/18/2020 11:58 INDICATION: PICC line placement TECHNIQUE: frontal view of the chest was obtained. COMPARISON: Chest radiograph dated 05/15/2020 FINDINGS: Right upper extremity peripherally inserted central venous catheter (PICC) which coils in the cephala d to mid superior vena cava. Diffuse bilateral patchy airspace opacities throughout both lungs. No pl eural effusion or pneumothorax. Cardiomegaly. IMPRESSION: 1. Right PICC line which coils upon itself in the cephalad to mid superior vena cava. 2. No significant change in diffuse bilateral patchy airspace opacities consistent with pneumonia or less likely pulmonary edema 3. Cardiomegaly. Reviewed, dictated and finalized at location A. UNT DEVELOPMENT ASSOCIATE IMPRESSION: 1. Right PICC line which coils upon itself in the cephalad to mid superior vena cava. 2. No significant change in diffuse bilateral patchy airspace opacities consist ent with pneumonia or less likely pulmonary edema 3. Cardiomegaly.
--- NOTE | ~2020-05-15 | XR_ITS ---
EXAMINATION: XR chest 1V portable DATE: 05/18/2020 13:12 INDICATION: Reevaluate positioning of recently placed right upper extremity peripherally inserted miguel tral venous catheter. TECHNIQUE: frontal view of the chest was obtained. COMPARISON: Chest radiograph dated 05/18/2020 FINDINGS: The previously coiled distal portion of the right upper extremity peripherally inserted central venou s catheter (PICC) is uncoiled with distal tip now in the right atrium. No interval change in the diff use bilateral patchy airspace opacities throughout both lungs. No pleural effusion or pneumothorax. C ardiomegaly. IMPRESSION: 1. Right PICC line tip in the right atrium. Consider withdrawal by 3-[address] the tip at the exp ected level of the superior cavoatrial junction. 2. No significant change in diffuse bilateral patchy airspace opacities consistent with pneumonia or less likely pulmonary edema. 3. Cardiomegaly. Reviewed, dictated and finalized at location A. ING MACHINE OPERATOR IMPRESSION: 1. Right PICC line tip in the right atrium. Consider withdrawal by 3-[address] michelle the tip at the expected level of the superior cavoatrial junction. 2. No significant change in diffuse bilateral patchy airspace opacities consist ent with pneumonia or less likely pulmonary edema. 3. Cardiomegaly.
[2020-05-15 14:30] VITALS: PULSE 72; O2SAT 91
--- NOTE | 2020-05-15 15:16 | ADMIMU ---
This patient, Christiano Warner, was admitted to IMU status, and placed in Intensive Care Unit-10. Patient/family oriented to hospital policies and general routines including ID bracelet, bed and alarms, visiting hours, pain management, procedures, bathroom and other care routines, personal items, smoking policy, room service/diet, and visiting hours. Valuables list has been completed. Information on how to activate the Rapid Response Team has been discussed. Patient/Family are encouraged to report perceived risks to care and to ask questions if they do not understand what they are told or what they should do.
[2020-05-15 16:00] VITALS: BP 150/73; PULSE 62; RESP 26; TEMP 36.8; O2SAT 96
--- NOTE | 2020-05-15 16:22 | PM.IMHP ---
H&P: HPI History of Present Illness Date/Time: 05/15/20 16:22 Chief complaint: COVID pneumonia Narrative: Christiano Warner is a 70 year old female who is a direct admit from [facility]. Report was given to me by Dr. ramos she had tested COVID positive on 05/11/2020. She came to the hospital because of increased shortness of breath a couple days prior to coming hospital. The patient had been started on Decadron and and azithromycin. She has a history of COPD, hypothyroidism, and hypertension. 6 L per nasal cannula and it was felt that the patient condition was getting worse so it was decided that the patient needed to come to [facility] for further evaluation and possible ICU admission. The patient had been admitted to IMU here. She is on 6 L and her O2 saturations are in the mid 90s. She does not appear to be in any distress. Patient's AST is 122, ALT is 128 alkaline phosphatase 224. Her LDH had been 354. From what I could tell she has not been started on REM does severe because of the elevated liver enzymes. However her ALT is not 5 times the upper limit. And it appears that the patient had been on Decadron. The patient had been continued with her inhalers at [facility]. Worsening multifocal pneumonia and cardiomegaly. It was felt that she was deteriorating at [facility]. Even though the transportation sales consultant does not involve the case we did briefly discuss it. He is not on the case at this time. But he was updated in the event that the patient would get worse during the night. The patient is being admitted into inpatient status in icu as IMU status ondate of service 05/15/2020 Review of Systems Review of Systems: All systems reviewed & are unremarkable except as noted in HPI and below Constitutional: Constitutional: Reports as per HPI and Reports no additional constitutional complaints Eyes: Eyes: Reports as per HPI and Reports no additional eye complaints ENT: Reports system reviewed and no additional complaints, except as documented and Reports Normal hearing present Cardiovascular: Cardiovascular: Reports no additional cardiovascular complaints Respiratory: Respiratory: Reports no additional respiratory complaints and Reports no additional respiratory complaints Gastrointestinal: Gastrointestinal: Reports as per HPI and Reports no additional gastrointestinal complaints Musculoskeletal: Musculoskeletal: Reports no additional musculoskeletal complaints Integumentary/Breasts: Skin/Breast: Reports system reviewed and no additional complaints, except as docu and Reports as per HPI Neurologic: Reports system reviewed and no additional complaints, except as documented, Reports as per HPI and Reports Normal hearing present Psychiatric: Psychiatric: Reports no additional psychiatric complaints and Reports as per HPI Endocrine: Endocrine: Reports no additional endocrine complaints Hematologic/Lymphatic: Hematologic/Lymphatic: Reports no additional hematologic/lymphatic complaints Allergic/Immunologic: Allergic/Immunologic: Reports no additional allergic/immunologic complaints [facility] Past Medical History Medical History (Updated 05/15/20 @ 16:52 by Liz Sheikh NP) HTN (hypertension) Hypothyroidism Morbid obesity Nerve entrapment syndrome of lower extremity Surgery to repair foot drop on the right leg after right knee surgery Neuropathy Overactive bladder Surgical History Surgical History (Updated 05/15/20 @ 16:41 by Liz Sheikh NP) H/O bilateral cataract extraction History of appendectomy History of carpal tunnel release History of total knee arthroplasty Hx of cholecystectomy S/P tonsillectomy and adenoidectomy Family History Family History (Updated 05/15/20 @ 16:43 by Liz Sheikh NP) Father Hypertension Family history of renal failure Diabetes mellitus Mother Asthma Other Cerebrovascular accident Family history of alcoholism Family history of arthritis Fami
[2020-05-15 17:06] LABS: Basophils Percent Auto 0.1 % (0.2-1.2); Hematocrit 42.7 % (37.0-47.0); Immature Granulocyte Absolute 0.07 K/mm3 (0.00-0.031); Immature Granulocyte Percent A 0.8 % (0-0.5); Lymphocytes Absolute Auto 0.36 K/mm3 (0.9-3.2); Mean Corpuscular HGB Conc 32.8 g/dl (32-36); Mean Corpuscular Hemoglobin 29.7 pg (26-34); Mean Corpuscular Volume 90.7 fl (80-100); Mean Platelet Volume 10.8 fl (7.4-10.4); Monocytes Absolute Auto 0.5 K/mm3 (0.1-0.6); Monocytes Percent Auto 5.9 % (2.6-8.5); Neutrophils Percent Auto 89.2 % (45.5-73.1); Platelet Count Result 272 k/mm3 (150-375); Red Blood Count 4.71 M/mm3 (4.2-5.4); White Blood Count 8.9 K/mm3 (4.5-10.0)
[2020-05-15 17:12] LABS: Magnesium 2.1 mg/dL (1.6-2.3)
[2020-05-15] MEDS: REMDESIVIR 200 MG/NS 250 ML 200 MG/250 ML BAG 250 MG IVPB (17:53)
[2020-05-15] MEDS: MIRABEGRON 25 MG ER TABLET PO (17:55)
[2020-05-15] MEDS: FAMOTIDINE 20 MG TABLET 40 MG PO (17:55)
[2020-05-15 18:00] VITALS: PULSE 78
[2020-05-15 20:00] VITALS: BP 158/78; PULSE 60; PULSE 64; RESP 19; TEMP 36.3; O2SAT 95; O2SAT 99
[2020-05-15] MEDS: MONTELUKAST SODIUM 10 MG TABLET PO (20:43)
[2020-05-15] MEDS: PREGABALIN (*CRX) 75 MG CAPSULE 150 MG PO (20:43)
[2020-05-15] MEDS: NORTRIPTYLINE HCL 10 MG CAPSULE PO (20:43)
[2020-05-15] MEDS: ACETAMINOPHEN 500 MG TABLET 1000 MG PO (20:57)
[2020-05-15 22:00] VITALS: BP 143/78; PULSE 57; PULSE 59; RESP 25; O2SAT 97
[2020-05-15 22:37] LABS: Add Urine Microscopic? NO; Appearance Urine Clear (Clear); Bilirubin Urine Negative (Negative); Blood Urine Negative (Negative); Color Urine Yellow (Yellow); Glucose Urine UA Negative (Negative); Ketones Urine Negative (Negative); Leukocyte Esterase Ur Negative LEU/UL (NEGATIVE); Nitrate Urine Negative (Negative); Protein Urine Negative (Negative); Specific Grav Ur 1.015 (1.001-1.035); Urobilinogen Urine Negative mg/dL (<2.0)
[2020-05-16] VITALS (17 sets, daily range): BP systolic 125–171; BP diastolic 73–89; PULSE 52–72; RESP 22–28; TEMP 35.9–36.9; O2SAT 90–100
[2020-05-16] MEDS: LEVOTHYROXINE SODIUM 125 MCG TABLET PO (06:58)
[2020-05-16] MEDS: PREGABALIN (*CRX) 75 MG CAPSULE PO (08:24)
[2020-05-16] MEDS: PANTOPRAZOLE 40 MG TABLET PO (08:25)
[2020-05-16] MEDS: THERAPEUTIC MULTIVITAMINS/MINERALS TAB (*BKC) 1 TABLET PO (08:25)
[2020-05-16] MEDS: CYCLOBENZAPRINE HCL 5 MG TABLET PO (08:25)
--- NOTE | 2020-05-16 08:25 | PCOTNOTE ---
OT evaluation attempted. Per nursing patient is unable to tolerate therapy evaluation at this time due to increased oxygen demands and shortness of breath. Will attempt as appropriate.
[2020-05-16] MEDS: SPIRONOLACTONE 25 MG TABLET PO (08:26)
[2020-05-16] MEDS: ESCITALOPRAM OXALATE 10 MG TABLET 20 MG PO (08:26)
[2020-05-16] MEDS: DEXAMETHASONE SOD PHOS INJ 4 MG/ML VIAL 6 MG IV PUSH (08:27)
[2020-05-16] MEDS: hydroCHLOROthiazide 25 MG TABLET PO (08:27)
[2020-05-16] MEDS: ENOXAPARIN 40 MG/0.4 ML SYRINGE SUB-Q (08:27)
--- NOTE | 2020-05-16 08:29 | PCPTNOTE ---
Attempted PT evaluation this AM, per mnursing hold this AM due to increasing SOB on 15L on non rebreather and decreased saturation with repositioning in bed. Will attempt later if condition improves.
[2020-05-16] MEDS: ACETAMINOPHEN 500 MG TABLET 1000 MG PO (08:48)
[2020-05-16 12:26] LABS: Basophils Percent Auto 0.1 % (0.2-1.2); Hematocrit 42.4 % (37.0-47.0); Immature Granulocyte Percent A 0.9 % (0-0.5); Lymphocytes Percent Auto 3.4 % (18.3-44.2); Mean Corpuscular Hemoglobin 29.6 pg (26-34); Mean Corpuscular Volume 89.6 fl (80-100); Mean Platelet Volume 10.2 fl (7.4-10.4); Monocytes Absolute Auto 0.8 K/mm3 (0.1-0.6); Monocytes Percent Auto 6.8 % (2.6-8.5); Neutrophils Absolute Auto 10.3 K/mm3 (1.3-6.7); Neutrophils Percent Auto 88.8 % (45.5-73.1); Platelet Count Result 284 k/mm3 (150-375); Red Blood Count 4.73 M/mm3 (4.2-5.4); White Blood Count 11.6 K/mm3 (4.5-10.0)
[2020-05-16 12:35] LABS: INR 0.9; Prothrombin Time 13.1 Seconds (11.1-14.7)
[2020-05-16 12:36] LABS: Partial Thromboplastin Time 28.1 SECONDS (22.3-36.8)
[2020-05-16 12:37] LABS: Alanine Aminotransferase 90 U/L (4-35); Albumin Level 3.3 g/dL (3.5-5.1); Alkaline Phosphatase 178 U/L (38-126); Anion Gap 4 mmol/L (8-16); Aspartate Amino Transferase 115 U/L (14-36); Bilirubin,Total 0.4 mg/dL (0.2-1.3); Blood Urea Nitrogen 20 mg/dL (7-17); Calcium 9.2 mg/dL (8.4-10.2); Carbon Dioxide 33 mmol/L (22-30); Chloride 101 mmol/L (98-107); Estimated Glomerular Filt Rate > 60; Glucose 115 mg/dL (65-105); Magnesium 1.9 mg/dL (1.6-2.3); Potassium 4.2 mmol/L (3.4-5.0); Sodium 138 mmol/L (137-145)
[2020-05-16 12:41] LABS: Aspartate Amino Transferase 121 U/L (14-36)
[2020-05-16] MEDS: ACETAMINOPHEN 325 MG TABLET PO (16:39)
[2020-05-16] MEDS: MIRABEGRON 25 MG ER TABLET PO (18:34)
[2020-05-16] MEDS: FAMOTIDINE 20 MG TABLET 40 MG PO (18:34)
[2020-05-16] MEDS: MONTELUKAST SODIUM 10 MG TABLET PO (22:28)
[2020-05-16] MEDS: NORTRIPTYLINE HCL 10 MG CAPSULE PO (22:28)
[2020-05-16] MEDS: HYDROcodone/acetaminophen (*CRX) 5-325 MG TABLET 1 TAB PO (22:29)
[2020-05-16] MEDS: PREGABALIN (*CRX) 75 MG CAPSULE 150 MG PO (22:30)
[2020-05-16] MEDS: REMDESIVIR 100 MG/NS 250 ML 100 MG/250 ML BAG 250 MG IVPB (22:32)
[2020-05-17] VITALS (17 sets, daily range): BP systolic 148–174; BP diastolic 81–89; PULSE 50–76; RESP 20–24; TEMP 36.3–37.2; O2SAT 84–97
--- NOTE | 2020-05-17 02:55 | PC.NURSE ---
This patient, Christiano Warner, was transferred to [IMU room 209 ] on 05/17/20 at 0045. Personal belongings sent with patient. Report given to [RAY GILBERT ]. Appropriate documentation sent with patient.
[2020-05-17] MEDS: LEVOTHYROXINE SODIUM 125 MCG TABLET PO (04:54)
[2020-05-17 06:59] LABS: Basophils Percent Auto 0.2 % (0.2-1.2); Hematocrit 43.1 % (37.0-47.0); Hemoglobin 14.1 g/dL (12.0-15.0); Immature Granulocyte Absolute 0.14 K/mm3 (0.00-0.031); Immature Granulocyte Percent A 1.2 % (0-0.5); Lymphocytes Absolute Auto 0.79 K/mm3 (0.9-3.2); Lymphocytes Percent Auto 6.7 % (18.3-44.2); Mean Corpuscular HGB Conc 32.7 g/dl (32-36); Mean Corpuscular Hemoglobin 29.6 pg (26-34); Mean Corpuscular Volume 90.5 fl (80-100); Mean Platelet Volume 10.5 fl (7.4-10.4); Monocytes Absolute Auto 0.7 K/mm3 (0.1-0.6); Monocytes Percent Auto 5.6 % (2.6-8.5); Neutrophils Absolute Auto 10.1 K/mm3 (1.3-6.7); Neutrophils Percent Auto 86.3 % (45.5-73.1); Platelet Count Result 288 k/mm3 (150-375); Red Blood Count 4.76 M/mm3 (4.2-5.4); White Blood Count 11.7 K/mm3 (4.5-10.0)
[2020-05-17 07:09] LABS: Partial Thromboplastin Time 27.3 SECONDS (22.3-36.8); Prothrombin Time 13.6 Seconds (11.1-14.7)
[2020-05-17 07:12] LABS: Alanine Aminotransferase 82 U/L (4-35); Albumin Level 3.2 g/dL (3.5-5.1); Alkaline Phosphatase 179 U/L (38-126); Anion Gap 3 mmol/L (8-16); Aspartate Amino Transferase 72 U/L (14-36); Bilirubin,Total 0.5 mg/dL (0.2-1.3); Blood Urea Nitrogen 18 mg/dL (7-17); Calcium 9.3 mg/dL (8.4-10.2); Carbon Dioxide 35 mmol/L (22-30); Chloride 101 mmol/L (98-107); Estimated Glomerular Filt Rate > 60; Glucose 99 mg/dL (65-105); Magnesium 1.9 mg/dL (1.6-2.3); Potassium 4.2 mmol/L (3.4-5.0); Sodium 139 mmol/L (137-145)
[2020-05-17] MEDS: ENOXAPARIN 40 MG/0.4 ML SYRINGE SUB-Q ×2 (08:38→20:53)
[2020-05-17] MEDS: DEXAMETHASONE SOD PHOS INJ 4 MG/ML VIAL 6 MG IV PUSH (08:38)
[2020-05-17] MEDS: PANTOPRAZOLE 40 MG TABLET PO (08:38)
[2020-05-17] MEDS: SPIRONOLACTONE 25 MG TABLET PO (08:38)
[2020-05-17] MEDS: THERAPEUTIC MULTIVITAMINS/MINERALS TAB (*BKC) 1 TABLET PO (08:39)
[2020-05-17] MEDS: hydroCHLOROthiazide 25 MG TABLET PO (08:39)
[2020-05-17] MEDS: PREGABALIN (*CRX) 75 MG CAPSULE PO (08:39)
[2020-05-17] MEDS: ESCITALOPRAM OXALATE 10 MG TABLET 20 MG PO (08:39)
[2020-05-17] MEDS: ALPRAZolam (*CRX) 0.25 MG TABLET PO (12:38)
[2020-05-17] MEDS: HYDROcodone/acetaminophen (*CRX) 5-325 MG TABLET 1 TAB PO (12:39)
--- NOTE | 2020-05-17 13:35 | PCOTNOTE ---
05/17/20: Per nursing hold therapy until further notice due to O2/medical concerns ; patient currently on Airvo/High flow 60L at 90%; will follow up as appropriate for therapy session at later time/date.
--- NOTE | 2020-05-17 14:13 | PCPTNOTE ---
The PT treatment was unable to be completed today due to change in patient's medical condition. Per RN hold PT/OT services until patients SpO2 improves.
[2020-05-17] MEDS: FAMOTIDINE 20 MG TABLET 40 MG PO (18:12)
[2020-05-17] MEDS: MIRABEGRON 25 MG ER TABLET PO (18:12)
--- NOTE | 2020-05-17 18:32 | PM.IMPN ---
Progress Note: A&P Assessment and Plan (1) 2019 novel coronavirus–infected pneumonia (NCIP)#8211;infected pneumonia (NCIP): Code(s): U07.1 - COVID-19; J12.89 - Other viral pneumonia Status: Acute Assessment and Plan: Continue to monitor her liver enzymes. At this point her ALT is not 5 times above the high end of normal. So she is able to get room does severe and Decadron at this time. Encouraged incentive spirometer and encourage the patient to get up. I also encouraged the patient to lie prone if able. The patient is on oxygen at 6 L per nasal cannula. Make consider changing her to air bubble. May also downgrade her to another floor if she is not requiring more oxygen. However she is IMU status placed inside of ICU at this time. Patient is a full code. Continue with her inhalers. Encouraged the patient to sit on the side the bed get up in the chair. 05/17/20 18:32 Patient is an 78-year-old female with history of COPD hypertension patient was tested positive for COVID-19 on May 11 and was admitted at the [facility] patient was started on dexamethasone azithromycin and requiring 6 L of oxygen feel the patient's symptoms or worsening and patient was transferred to the hospital here. Here patient was started on Remdesivir patient baseline LFT are will continue to monitor not to reach 5 times a normal level, currently patient is on high-flow oxygen FiO2 80, and flow rate 60, patient does complaint of cough shortness of breath but no fever, will continue to monitor will consult boilermaker fitter for further recommendation. (2) Asthma: Code(s): J45.909 - Unspecified asthma, uncomplicated Status: Acute Assessment and Plan: Continue with Singulair and her Symbicort (3) HTN (hypertension): Code(s): I10 - Essential (primary) hypertension Status: Chronic Assessment and Plan: Continue with her home medications. (4) Neuropathy: Code(s): G62.9 - Polyneuropathy, unspecified Status: Chronic Assessment and Plan: Continue with gabapentin. (5) Hypothyroidism: Code(s): E03.9 - Hypothyroidism, unspecified Status: Chronic Assessment and Plan: She had a recent TSH and continue with her levothyroxine. (6) MELINDA (stress urinary incontinence, female): Code(s): N39.3 - Stress incontinence (female) (male) Status: Acute Assessment and Plan: Continue Myrbetriq if we have it. Time Spent With Patient Time with patient: 15 - 25 minutes Subjective Date/time seen: 05/17/20 18:32 Patient is an 78-year-old female with history of COPD hypertension patient was tested positive for COVID-19 on May 11 and was admitted at the [facility] patient was started on dexamethasone azithromycin and requiring 6 L of oxygen feel the patient's symptoms or worsening and patient was transferred to the hospital here. Here patient was started on Remdesivir patient baseline LFT are will continue to monitor not to reach 5 times a normal level, currently patient is on high-flow oxygen FiO2 80, and flow rate 60, patient does complaint of cough shortness of breath but no fever, will continue to monitor will consult boilermaker fitter for further recommendation. Review of Systems Review of Systems: ROS unobtainable: Yes unobtainable due to medical condition Objective Data Vital Signs Vital Signs: Vital Signs - 24 hr 05/16/20 20:00 05/16/20 20:41 05/16/20 20:42 Temperature 97.6 F Pulse Rate 63 64 72 Respiratory Rate 27 H 28 H 22 H Blood Pressure 171/83 H Pulse Oximetry 94 92 05/16/20 22:00 05/16/20 23:53 05/17/20 00:00 Temperature 97.8 F Pulse Rate 60 56 L 56 L Respiratory Rate 23 H 23 H Blood Pressure 154/88 H 154/88 H Pulse Oximetry 92 92 05/17/20 02:00 05/17/20 03:40 05/17/20 04:00 Temperature 97.3 F L Pulse Rate 50 L 51 L 51 L Respiratory Rate 20 Blood Pressure 157/81 H Pulse Oximetry 97
[2020-05-17] MEDS: PREGABALIN (*CRX) 75 MG CAPSULE 150 MG PO (20:53)
[2020-05-17] MEDS: REMDESIVIR 100 MG/NS 250 ML 100 MG/250 ML BAG 250 MG IVPB (20:53)
[2020-05-17] MEDS: NORTRIPTYLINE HCL 10 MG CAPSULE PO (20:53)
[2020-05-17] MEDS: MONTELUKAST SODIUM 10 MG TABLET PO (20:53)
[2020-05-18] VITALS (19 sets, daily range): BP systolic 147–186; BP diastolic 74–102; PULSE 61–102; RESP 20–40; TEMP 36–37.9; O2SAT 90–97
[2020-05-18] MEDS: ALPRAZolam (*CRX) 0.25 MG TABLET PO (04:00)
[2020-05-18 04:56] LABS: Basophils Percent Auto 0.2 % (0.2-1.2); Hematocrit 43.3 % (37.0-47.0); Hemoglobin 14.3 g/dL (12.0-15.0); Immature Granulocyte Absolute 0.19 K/mm3 (0.00-0.031); Immature Granulocyte Percent A 1.6 % (0-0.5); Lymphocytes Absolute Auto 0.71 K/mm3 (0.9-3.2); Lymphocytes Percent Auto 5.9 % (18.3-44.2); Mean Corpuscular Hemoglobin 29.6 pg (26-34); Mean Corpuscular Volume 89.6 fl (80-100); Mean Platelet Volume 10.3 fl (7.4-10.4); Monocytes Absolute Auto 0.7 K/mm3 (0.1-0.6); Monocytes Percent Auto 5.4 % (2.6-8.5); Neutrophils Absolute Auto 10.5 K/mm3 (1.3-6.7); Neutrophils Percent Auto 86.9 % (45.5-73.1); Platelet Count Result 248 k/mm3 (150-375); Red Blood Count 4.83 M/mm3 (4.2-5.4); Red Cell Distribution Width 13.9 % (11.5-14.5); White Blood Count 12.1 K/mm3 (4.5-10.0)
[2020-05-18 05:11] LABS: INR 1.1; Partial Thromboplastin Time 30.5 SECONDS (22.3-36.8); Prothrombin Time 14.7 Seconds (11.1-14.7)
[2020-05-18 05:12] LABS: Alanine Aminotransferase 64 U/L (4-35); Albumin Level 3.1 g/dL (3.5-5.1); Alkaline Phosphatase 162 U/L (38-126); Anion Gap 5 mmol/L (8-16); Aspartate Amino Transferase 51 U/L (14-36); Bilirubin,Total 0.6 mg/dL (0.2-1.3); Blood Urea Nitrogen 19 mg/dL (7-17); Calcium 9.5 mg/dL (8.4-10.2); Carbon Dioxide 31 mmol/L (22-30); Chloride 101 mmol/L (98-107); Estimated Glomerular Filt Rate > 60; Glucose 111 mg/dL (65-105); Magnesium 1.7 mg/dL (1.6-2.3); Potassium 3.9 mmol/L (3.4-5.0); Sodium 137 mmol/L (137-145)
[2020-05-18] MEDS: LEVOTHYROXINE SODIUM 125 MCG TABLET PO (05:39)
--- NOTE | 2020-05-18 08:13 | PCPTNOTE ---
Patient placed on hold per Dr. Menon due to patient desaturating with activity. Spoke with Dr. Menon on the phone concerning this patient.
[2020-05-18] MEDS: PREGABALIN (*CRX) 75 MG CAPSULE PO (09:57)
[2020-05-18] MEDS: ENOXAPARIN 40 MG/0.4 ML SYRINGE SUB-Q ×2 (09:58→21:56)
[2020-05-18] MEDS: DEXAMETHASONE SOD PHOS INJ 4 MG/ML VIAL 6 MG IV PUSH (09:58)
[2020-05-18] MEDS: PANTOPRAZOLE 40 MG TABLET PO (09:59)
[2020-05-18] MEDS: ESCITALOPRAM OXALATE 10 MG TABLET 20 MG PO (09:59)
--- NOTE | 2020-05-18 10:56 | PM.CNPUL ---
Assessment and Plan Assessment and plan (1) COVID-19 virus detected: Code(s): U07.1 - COVID-19 Status: Acute Assessment and Plan: - Will start BIPAP as she is showing signs of respiratory muscle fatigue. 18/01, backup rate of 18 and titrate FiO2 for sats of 88% or better. She can alternate between high flow and BIPAP based on comfort and toleratbility. - I did explain to her daughters that she may have to get intubated and the were in agreement with that although I told them that her prognosis for recovery is very low at this point - agree with Dexamathsone 6 mg IV daily X 10 days and Remdesivir 100 mg IV daily for 5-10 days depending on response. Monitor LFT's and Cr, LFT upper limit is > 10X the upper limit of normal. - she's also dehdrated today so I will hold her HCTZ, Spironlactone and start LR at 75 cc/hr. - She may have to go back to ICU if she does not improve with BIPAP (2) Asthma: Code(s): J45.909 - Unspecified asthma, uncomplicated Status: Acute Assessment and Plan: - will hold Symbicort and start Pulmicort 0.5 mg Q12h + albuterol 2.5 mg/Atrovent 0.5 mg Q6h History of Present Illness History of Present Illness Consult date: 05/18/20 Chief complaint: COVID pneumonia Narrative: 70 y/o female with history of Asthma, chronic pain, neuropathy presents with COVID-19. Her daughter were on speaker phone and they tell me that she started for feel ill on 05/04/20 but didn't get tested until 05/10/20 when she was found to be positive for SARS-CoV-2. She has diffuse bilateral multiple infiltrates and she's in acute hypoxemic respiratory. She's currently on high flow nasal cannula at 60 liters and 80% but claims that she feels fatigue and tired. She's a bit lethargic and has no appetite and appears slightly dehydrated. She's on Remdesivir and Dexamethsone day 3 today. Review of Systems Review of Systems: All systems reviewed & are unremarkable except as noted in HPI and below PMFSH Past Medical History Medical History (Updated 05/15/20 @ 16:52 by Liz Sheikh NP) HTN (hypertension) Hypothyroidism Morbid obesity Nerve entrapment syndrome of lower extremity Surgery to repair foot drop on the right leg after right knee surgery Neuropathy Overactive bladder Surgical History Surgical History (Updated 05/15/20 @ 16:41 by Liz Sheikh NP) H/O bilateral cataract extraction History of appendectomy History of carpal tunnel release History of total knee arthroplasty Hx of cholecystectomy S/P tonsillectomy and adenoidectomy Family History Family History (Updated 05/15/20 @ 16:43 by Liz Sheikh NP) Father Hypertension Family history of renal failure Diabetes mellitus Mother Asthma Other Cerebrovascular accident Family history of alcoholism Family history of arthritis Family history of blood dyscrasia Family history of coronary artery disease Family history of lung disease Family history of malignant neoplasm Family history of mental disorder Social History Social History (Updated 05/15/20 @ 16:47 by Liz Sheikh NP) Social History: The patient stated that she never and had 2 children. Both of her daughters Lex and mark she desires to have is her durable power personal injury attorney for healthcare. The patient is a full code. 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 She quit smoking in the 70s. She does not use any alcohol marijuana or illicit drugs. Smoking packs per day: 10 Smoking cigarettes per day: 200.0 Years smoked: 10 Smoking pack-years: 100.00 Smoking status: Former smoker Tobacco type: cigarettes Smoking end date: 06/07/69 Alcohol intake: never Drinks per week: 1 Substance use: never Gender identity (if verbalized by the patient): Female Spiritual care concerns: No Meds Home Medications and Allergies Home Medications Medication Instructions Recorded Confirmed Type Complete
[2020-05-18] MEDS: LIDOCAINE HCL 1% PF INJ 5 ML VIAL INFILTRATE (12:05)
[2020-05-18] MEDS: IPRATROPIUM BR 0.02% INH SOLN 0.5 MG/2.5 ML VIAL INHALATION ×2 (13:08→21:04)
[2020-05-18] MEDS: BUDESONIDE RESPULE NEB 0.5 MG/2 ML AMP INHALATION ×2 (13:08→21:05)
[2020-05-18] MEDS: ALBUTEROL SULFATE NEB 2.5 MG/0.5 ML INH INHALATION ×2 (13:08→21:05)
--- NOTE | 2020-05-18 13:28 | PC.NURSE ---
Geoffrey Presley, PICC nurse with [facility], notified of chest x-ray that PICC needs to be withdrawn 3-4cm for correct positioning. he stated I will return to the facility as soon as I am available.
--- NOTE | 2020-05-18 14:20 | PC.NURSE ---
Geoffrey, PICC nurse, arrived to facility and withdrew PICC line 3 cm per radiologist request. New dressing applied
[2020-05-18] MEDS: MIDAZOLAM HCL (*CRX) 2 MG/2 ML VIAL 1 MG IV PUSH (14:25)
--- NOTE | 2020-05-18 15:49 | PM.IMPN ---
Progress Note: A&P Assessment and Plan (1) 2019 novel coronavirus–infected pneumonia (NCIP)#8211;infected pneumonia (NCIP): Code(s): U07.1 - COVID-19; J12.89 - Other viral pneumonia Status: Acute Assessment and Plan: Continue to monitor her liver enzymes. At this point her ALT is not 5 times above the high end of normal. So she is able to get room does severe and Decadron at this time. Encouraged incentive spirometer and encourage the patient to get up. I also encouraged the patient to lie prone if able. The patient is on oxygen at 6 L per nasal cannula. Make consider changing her to air bubble. May also downgrade her to another floor if she is not requiring more oxygen. However she is IMU status placed inside of ICU at this time. Patient is a full code. Continue with her inhalers. Encouraged the patient to sit on the side the bed get up in the chair. 05/18/20 15:49 Patient is an 78-year-old female with history of COPD hypertension patient was tested positive for COVID-19 on May 11 and was admitted at the [facility] patient was started on dexamethasone azithromycin and requiring 6 L of oxygen feel the patient's symptoms or worsening and patient was transferred to the hospital here. Here patient was started on Remdesivir patient baseline LFT were elevated upon arrival now trending down, patient was on high-flow oxygen and was seen by flour mixer today and switch her over to BiPAP as her symptoms are worsening and patient may need to be intubated if there is no improvement, appreciated flour mixer, will continue to monitor patient (2) Asthma: Code(s): J45.909 - Unspecified asthma, uncomplicated Status: Acute Assessment and Plan: Continue with Singulair and her Symbicort (3) HTN (hypertension): Code(s): I10 - Essential (primary) hypertension Status: Chronic Assessment and Plan: Continue with her home medications. (4) Neuropathy: Code(s): G62.9 - Polyneuropathy, unspecified Status: Chronic Assessment and Plan: Continue with gabapentin. (5) Hypothyroidism: Code(s): E03.9 - Hypothyroidism, unspecified Status: Chronic Assessment and Plan: She had a recent TSH and continue with her levothyroxine. (6) MELINDA (stress urinary incontinence, female): Code(s): N39.3 - Stress incontinence (female) (male) Status: Acute Assessment and Plan: Continue Myrbetriq if we have it. Subjective Date/time seen: 05/18/20 15:49 Patient is an 78-year-old female with history of COPD hypertension patient was tested positive for COVID-19 on May 11 and was admitted at the [facility] patient was started on dexamethasone azithromycin and requiring 6 L of oxygen feel the patient's symptoms or worsening and patient was transferred to the hospital here. Here patient was started on Remdesivir patient baseline LFT were elevated upon arrival now trending down, patient was on high-flow oxygen and was seen by flour mixer today and switch her over to BiPAP as her symptoms are worsening and patient may need to be intubated if there is no improvement, appreciated flour mixer, will continue to monitor patient Review of Systems Review of Systems: ROS unobtainable: Yes unobtainable due to medical condition Exam Narrative: Exam Narrative: Elderly frail Patient is comfortable, NAD HEENT: On BiPAP LUNGS: Mild respiratory distress ABD: Minimally distended Lower extremities: no edema SKIN: nonjaundiced Neuro: On BiPAP. Objective Data Vital Signs Vital Signs: Vital Signs - 24 hr 05/17/20 16:00 05/17/20 18:00 05/17/20 20:00 Temperature 97.3 F L 97.4 F L Pulse Rate 58 L 64 56 L Respiratory Rate 22 H 20 Blood Pressure 162/85 H 174/84 H Pulse Oximetry 91 90 05/17/20 21:25 05/17/20 22:00 05/18/20 00:00 Temperature 97.5 F L Pulse Rate 63 61 Respiratory Rate 22 H Blood Pressur
[2020-05-18] MEDS: LACTATED RINGERS 1,000 ML 75 ML IV CONT (18:09)
[2020-05-18] MEDS: ACETAMINOPHEN 325 MG TABLET PO (18:10)
[2020-05-18] MEDS: REMDESIVIR 100 MG/NS 250 ML 100 MG/250 ML BAG 250 MG IVPB (21:56)
[2020-05-18] MEDS: FAMOTIDINE 20 MG/2 ML VIAL 40 MG IV PUSH (21:57)
[2020-05-18] MEDS: LORazepam INJ (*CRX) 2 MG/ML VIAL 0.5 MG IV PUSH (21:57)
[2020-05-18] MEDS: CENTRAL LINE FLUSH 10 ML IV PUSH (21:58)
[2020-05-19] VITALS (27 sets, daily range): BP systolic 146–178; BP diastolic 77–93; PULSE 63–100; RESP 12–34; TEMP 35.7–36.5; O2SAT 86–97
[2020-05-19] MEDS: IPRATROPIUM BR 0.02% INH SOLN 0.5 MG/2.5 ML VIAL INHALATION ×4 (02:00→20:20)
[2020-05-19] MEDS: LEVOTHYROXINE SODIUM INJ 100 MCG/5 ML VIAL 62.5 MCG IV PUSH (07:32)
[2020-05-19] MEDS: CENTRAL LINE FLUSH 10 ML IV PUSH ×3 (07:33→21:19)
[2020-05-19 07:48] LABS: Basophils Percent Auto 0.2 % (0.2-1.2); Hematocrit 41.2 % (37.0-47.0); Immature Granulocyte Absolute 0.24 K/mm3 (0.00-0.031); Immature Granulocyte Percent A 1.8 % (0-0.5); Lymphocytes Absolute Auto 0.48 K/mm3 (0.9-3.2); Lymphocytes Percent Auto 3.5 % (18.3-44.2); Mean Corpuscular Volume 85.5 fl (80-100); Mean Platelet Volume 9.8 fl (7.4-10.4); Monocytes Absolute Auto 0.7 K/mm3 (0.1-0.6); Monocytes Percent Auto 4.8 % (2.6-8.5); Neutrophils Absolute Auto 12.3 K/mm3 (1.3-6.7); Neutrophils Percent Auto 89.7 % (45.5-73.1); Platelet Count Result 250 k/mm3 (150-375); Red Blood Count 4.82 M/mm3 (4.2-5.4); Red Cell Distribution Width 13.6 % (11.5-14.5); White Blood Count 13.7 K/mm3 (4.5-10.0)
[2020-05-19 07:59] LABS: INR 1.2
[2020-05-19 08:00] LABS: Partial Thromboplastin Time 33.2 SECONDS (22.3-36.8)
[2020-05-19 08:05] LABS: Alanine Aminotransferase 48 U/L (4-35); Alkaline Phosphatase 154 U/L (38-126); Anion Gap 9 mmol/L (8-16); Aspartate Amino Transferase 44 U/L (14-36); Bilirubin,Total 0.7 mg/dL (0.2-1.3); Blood Urea Nitrogen 19 mg/dL (7-17); Calcium 9.3 mg/dL (8.4-10.2); Carbon Dioxide 25 mmol/L (22-30); Chloride 104 mmol/L (98-107); Estimated Glomerular Filt Rate > 60; Glucose 107 mg/dL (65-105); Magnesium 1.7 mg/dL (1.6-2.3); Sodium 138 mmol/L (137-145)
[2020-05-19] MEDS: ALBUTEROL SULFATE NEB 2.5 MG/0.5 ML INH INHALATION ×3 (09:32→20:20)
[2020-05-19] MEDS: BUDESONIDE RESPULE NEB 0.5 MG/2 ML AMP INHALATION ×2 (09:33→20:20)
[2020-05-19] MEDS: LACTATED RINGERS 1,000 ML 75 ML IV CONT ×2 (09:56→20:18)
[2020-05-19] MEDS: DEXAMETHASONE SOD PHOS INJ 4 MG/ML VIAL 6 MG IV PUSH (10:12)
[2020-05-19] MEDS: PANTOPRAZOLE SODIUM IV 40 MG VIAL IV PUSH (10:12)
[2020-05-19] MEDS: ENOXAPARIN 40 MG/0.4 ML SYRINGE SUB-Q ×2 (10:13→20:18)
--- NOTE | 2020-05-19 13:42 | PM.PNPUL ---
Progress Note: A&P Assessment and Plan (1) Pneumonia due to COVID-19 virus: Code(s): U07.1 - COVID-19; J12.89 - Other viral pneumonia Status: Acute Assessment and Plan: - continue Dexamethasone 6 mg daily for 10 days - I renewed her Remedesivir today to continue for a total of 10 days (2) Acute hypoxemic respiratory failure: Code(s): J96.01 - Acute respiratory failure with hypoxia Status: Acute Assessment and Plan: - change BIPAP settings to 05/14 today with backup rate of 18, titrate FiO2 for sats of 88% or better. - alternate between HFNC 60 liters/90% and BIPAP as tolerated. (3) ARDS (adult respiratory distress syndrome): Code(s): J80 - Acute respiratory distress syndrome Status: Acute (4) Asthma: Code(s): J45.909 - Unspecified asthma, uncomplicated Status: Acute Assessment and Plan: - continue current nebulized albuterol/atrovent/pulmicort as ordered. Subjective Date/time seen: 05/19/20 13:42 Interval history: She's more awake today, feels a little better she tells me. Tolerating BIPAP therapy. Review of Systems Review of Systems: All systems reviewed & are unremarkable except as noted in HPI and below Exam Const: General: ill appearing and tired appearing Nutritional Appearance: overweight Orientation/consciousness: oriented to person, oriented to place, oriented to time and lethargic HENMT: Head: normal to inspection, normocephalic and atraumatic Eyes: General: appearance normal, both eyes and all related structures Neck: Neck: trachea midline and supple Resp: Effort & Inspection: labored Auscultation: clear to auscultation bilaterally and diminished lung sounds Cardio: Jugular venous distension: no JVD Rate: regular rate Rhythm: regular rhythm Heart sounds: S1 normal heart sound present and S2 normal heart sound present GI: Inspection: normal to inspection Auscultation: normal bowel sounds Skin: General skin exam: no rashes or lesions noted Neuro: General: oriented to person, oriented to place and oriented to time Speech: normal speech Psych: Appearance: grossly normal Objective Data Vital Signs Vital Signs: Vital Signs - 24 hr 05/18/20 14:00 05/18/20 15:45 05/18/20 16:00 Temperature 37.9 C H Pulse Rate 75 78 80 Respiratory Rate 40 H 26 H Blood Pressure 167/102 H Pulse Oximetry 90 97 05/18/20 18:00 05/18/20 20:00 05/18/20 21:05 Temperature 36.0 C L Pulse Rate 73 66 67 Respiratory Rate 30 H 28 H Blood Pressure 157/74 H Pulse Oximetry 92 95 05/18/20 21:10 05/18/20 22:00 05/19/20 00:00 Temperature 36.0 C L Pulse Rate 67 70 71 Respiratory Rate 28 H 30 H Blood Pressure 152/85 H Pulse Oximetry 94 05/19/20 01:45 05/19/20 02:00 05/19/20 02:25 Temperature Pulse Rate 70 71 Respiratory Rate 32 H Blood Pressure Pulse Oximetry 95 94 05/19/20 04:00 05/19/20 06:00 05/19/20 08:00 Temperature 36.3 C L 36.5 C Pulse Rate 70 70 63 Respiratory Rate 32 H 24 H Blood Pressure 159/91 H 173/93 H Pulse Oximetry 92 97 05/19/20 09:34 05/19/20 10:00 05/19/20 10:07 Temperature Pulse Rate 99 81 92 Respiratory Rate 32 H 34 H Blood Pressure Pulse Oximetry 90 05/19/20 11:57 Temperature Pulse Rate Respiratory Rate Blood Pressure Pulse Oximetry 97 Intake/Output Intake/Output: Intake & Output 05/16/20 05/17/20 05/18/20 05/19/20 23:59 23:59 23:59 23:59 Intake Total 1280 204 320 8447 Output Total 1475 1600 1050 200 Balance -195 -760 -300 800 Meds/Results Medications: Active Medications Generic Name Dose Route Start Last Admin Trade Name Freq PRN Reason Stop Dose Admin Acetaminophen 325 mg 05/16/20 16:20 05/18/20 18:10 Acetaminophen 325 Mg Tablet PO 325 mg Q6H PRN Administration Mild Pain (1-3) or Fever Hydrocodone Bitart/Acetaminophen 1 tab 05/15/20 16:54 05/17/20 12:39 Hydrocodone/Acetaminophen (*Crx) 5-325 Mg Tabl
--- NOTE | 2020-05-19 16:47 | PM.IMPN ---
Progress Note: A&P Assessment and Plan (1) 2019 novel coronavirus–infected pneumonia (NCIP)#8211;infected pneumonia (NCIP): Code(s): U07.1 - COVID-19; J12.89 - Other viral pneumonia Status: Acute Assessment and Plan: Continue to monitor her liver enzymes. At this point her ALT is not 5 times above the high end of normal. So she is able to get room does severe and Decadron at this time. Encouraged incentive spirometer and encourage the patient to get up. I also encouraged the patient to lie prone if able. The patient is on oxygen at 6 L per nasal cannula. Make consider changing her to air bubble. May also downgrade her to another floor if she is not requiring more oxygen. However she is IMU status placed inside of ICU at this time. Patient is a full code. Continue with her inhalers. Encouraged the patient to sit on the side the bed get up in the chair. 05/19/20 16:47 Patient is an 78-year-old female with history of COPD hypertension patient was tested positive for COVID-19 on May 11 and was admitted at the [facility] patient was started on dexamethasone azithromycin and requiring 6 L of oxygen feel the patient's symptoms or worsening and patient was transferred to the hospital here. Here patient was started on Remdesivir patient baseline LFT are will continue to monitor not to reach 5 times a normal level, currently patient is on high-flow oxygen FiO2 80, and flow rate 60, patient does complaint of cough shortness of breath but no fever, patient is seen by horizontal boring mill set up operator adjusted BiPAP, patient completed today 5 days of Remdesivir and pulmonology recommended to continue another 5 days for total of 10 days, will continue dexamethasone 11/14 patient clinically symptoms are stable will continue to monitor and further recommendation to follow (2) Asthma: Code(s): J45.909 - Unspecified asthma, uncomplicated Status: Acute Assessment and Plan: Continue with Singulair and her Symbicort (3) HTN (hypertension): Code(s): I10 - Essential (primary) hypertension Status: Chronic Assessment and Plan: Continue with her home medications. (4) Neuropathy: Code(s): G62.9 - Polyneuropathy, unspecified Status: Chronic Assessment and Plan: Continue with gabapentin. (5) Hypothyroidism: Code(s): E03.9 - Hypothyroidism, unspecified Status: Chronic Assessment and Plan: She had a recent TSH and continue with her levothyroxine. (6) MELINDA (stress urinary incontinence, female): Code(s): N39.3 - Stress incontinence (female) (male) Status: Acute Assessment and Plan: Continue Myrbetriq if we have it. Subjective Date/time seen: 05/19/20 16:47 Patient is an 78-year-old female with history of COPD hypertension patient was tested positive for COVID-19 on May 11 and was admitted at the [facility] patient was started on dexamethasone azithromycin and requiring 6 L of oxygen feel the patient's symptoms or worsening and patient was transferred to the hospital here. Here patient was started on Remdesivir patient baseline LFT are will continue to monitor not to reach 5 times a normal level, currently patient is on high-flow oxygen FiO2 80, and flow rate 60, patient does complaint of cough shortness of breath but no fever, patient is seen by horizontal boring mill set up operator adjusted BiPAP, patient completed today 5 days of Remdesivir and pulmonology recommended to continue another 5 days for total of 10 days, will continue dexamethasone 11/14 patient clinically symptoms are stable will continue to monitor and further recommendation to follow Review of Systems Review of Systems: ROS unobtainable: Yes unobtainable due to medical condition Exam Narrative: Exam Narrative: Elderly frail Patient is comfortable, NAD HEENT: On BiPAP LUNGS: Mild respiratory distress ABD: Minimally distended Lower extremities: no edema SKIN: nonjaundice
[2020-05-19] MEDS: fentaNYL CITRATE INJ (*CRX) 100 MCG/2 ML VIAL 25 MCG IV PUSH (20:10)
[2020-05-19] MEDS: LORazepam INJ (*CRX) 2 MG/ML VIAL 0.5 MG IV PUSH (20:12)
[2020-05-19] MEDS: FAMOTIDINE 20 MG/2 ML VIAL 40 MG IV PUSH (20:18)
[2020-05-19 21:03] LABS: Alanine Aminotransferase 44 U/L (4-35)
[2020-05-19] MEDS: REMDESIVIR 100 MG/NS 250 ML 100 MG/250 ML BAG 250 MG IVPB (21:19)
--- NOTE | 2020-05-19 22:03 | PC.NURSE ---
INSTRUCTED PATIENT WHILE SHE WAS FACE TIMING WITH DAUGHTER THAT I WAS OK WITH IT UNTIL SHE STARTS TO DECOMPENSATE. ONCE IT STARTS TO AFFECT HER HEALTH THEN I WILL INTERFERE. UNTIL THEN I AM OK. I TOLD HER THAT SHE IS MY PRIORITY AND THAT I HAVE TO TAKE CARE OF HER AND I WILL UPDATE THE DAUGHTER NEEDED.
[2020-05-20] VITALS (27 sets, daily range): BP systolic 146–163; BP diastolic 70–96; PULSE 60–93; RESP 20–42; TEMP 35.7–37; O2SAT 90–94
[2020-05-20] MEDS: ALBUTEROL SULFATE NEB 2.5 MG/0.5 ML INH INHALATION ×5 (02:00→20:16)
[2020-05-20] MEDS: IPRATROPIUM BR 0.02% INH SOLN 0.5 MG/2.5 ML VIAL INHALATION ×4 (02:41→20:16)
[2020-05-20 05:49] LABS: Basophils Percent Auto 0.2 % (0.2-1.2); Hematocrit 40.4 % (37.0-47.0); Hemoglobin 13.8 g/dL (12.0-15.0); Immature Granulocyte Absolute 0.29 K/mm3 (0.00-0.031); Immature Granulocyte Percent A 1.8 % (0-0.5); Lymphocytes Absolute Auto 0.33 K/mm3 (0.9-3.2); Mean Corpuscular HGB Conc 34.2 g/dl (32-36); Mean Corpuscular Hemoglobin 29.3 pg (26-34); Mean Corpuscular Volume 85.8 fl (80-100); Mean Platelet Volume 10.9 fl (7.4-10.4); Monocytes Percent Auto 6.2 % (2.6-8.5); Neutrophils Absolute Auto 14.9 K/mm3 (1.3-6.7); Neutrophils Percent Auto 89.8 % (45.5-73.1); Platelet Count Result 297 k/mm3 (150-375); Red Blood Count 4.71 M/mm3 (4.2-5.4); Red Cell Distribution Width 13.6 % (11.5-14.5); White Blood Count 16.6 K/mm3 (4.5-10.0)
[2020-05-20 05:59] LABS: INR 1.3; Prothrombin Time 16.4 Seconds (11.1-14.7)
[2020-05-20 06:01] LABS: Alanine Aminotransferase 40 U/L (4-35); Alkaline Phosphatase 139 U/L (38-126); Anion Gap 6 mmol/L (8-16); Aspartate Amino Transferase 42 U/L (14-36); Bilirubin,Total 0.6 mg/dL (0.2-1.3); Blood Urea Nitrogen 19 mg/dL (7-17); Calcium 9.4 mg/dL (8.4-10.2); Carbon Dioxide 27 mmol/L (22-30); Chloride 104 mmol/L (98-107); Estimated Glomerular Filt Rate > 60; Glucose 114 mg/dL (65-105); Magnesium 1.8 mg/dL (1.6-2.3); Potassium 4.2 mmol/L (3.4-5.0); Sodium 137 mmol/L (137-145)
[2020-05-20] MEDS: LEVOTHYROXINE SODIUM INJ 100 MCG/5 ML VIAL 62.5 MCG IV PUSH (06:19)
[2020-05-20] MEDS: CENTRAL LINE FLUSH 10 ML IV PUSH ×3 (06:20→20:30)
[2020-05-20] MEDS: BUDESONIDE RESPULE NEB 0.5 MG/2 ML AMP INHALATION ×2 (08:36→20:16)
[2020-05-20] MEDS: LORazepam INJ (*CRX) 2 MG/ML VIAL 0.5 MG IV PUSH ×2 (09:29→16:01)
[2020-05-20] MEDS: ENOXAPARIN 40 MG/0.4 ML SYRINGE SUB-Q ×2 (09:30→20:30)
[2020-05-20] MEDS: LACTATED RINGERS 1,000 ML 75 ML IV CONT ×2 (09:30→19:30)
[2020-05-20] MEDS: DEXAMETHASONE SOD PHOS INJ 4 MG/ML VIAL 6 MG IV PUSH (09:30)
[2020-05-20] MEDS: PANTOPRAZOLE SODIUM IV 40 MG VIAL IV PUSH (09:30)
--- NOTE | 2020-05-20 15:16 | PM.PNPUL ---
Progress Note: A&P Assessment and Plan (1) Pneumonia due to COVID-19 virus: Code(s): U07.1 - COVID-19; J12.89 - Other viral pneumonia Status: Acute Assessment and Plan: - continue Dexamethasone 6 mg daily for 10 days - I renewed her Remedesivir today to continue for a total of 10 days (2) Acute hypoxemic respiratory failure: Code(s): J96.01 - Acute respiratory failure with hypoxia Status: Acute Assessment and Plan: - change BIPAP settings to 8 today with backup rate of 18, titrate FiO2 for sats of 88% or better. - alternate between HFNC 60 liters/90% and BIPAP as tolerated. (3) ARDS (adult respiratory distress syndrome): Code(s): J80 - Acute respiratory distress syndrome Status: Acute (4) Asthma: Code(s): J45.909 - Unspecified asthma, uncomplicated Status: Acute Assessment and Plan: - continue current nebulized albuterol/atrovent/pulmicort as ordered. Subjective Date/time seen: 05/20/20 15:16 Interval history: Seems to be slowly improving with decrease in oxygen demands. Currently on BIPAP 05/14 with backup rate of 18 and FiO2 of around 50%. Will try HFNC while taking oral intake Review of Systems Review of Systems: All systems reviewed & are unremarkable except as noted in HPI and below Exam Const: General: ill appearing and tired appearing Nutritional Appearance: overweight Orientation/consciousness: oriented to person, oriented to place, oriented to time and lethargic HENMT: Head: normal to inspection, normocephalic and atraumatic Eyes: General: appearance normal, both eyes and all related structures Neck: Neck: trachea midline and supple Resp: Effort & Inspection: labored Auscultation: clear to auscultation bilaterally and diminished lung sounds Cardio: Jugular venous distension: no JVD Rate: regular rate Rhythm: regular rhythm Heart sounds: S1 normal heart sound present and S2 normal heart sound present GI: Inspection: normal to inspection Auscultation: normal bowel sounds Skin: General skin exam: no rashes or lesions noted Neuro: General: oriented to person, oriented to place and oriented to time Speech: normal speech Psych: Appearance: grossly normal Objective Data Vital Signs Vital Signs: Vital Signs - 24 hr 05/19/20 15:45 05/19/20 16:00 05/19/20 17:02 Temperature 35.7 C L Pulse Rate 72 75 Respiratory Rate 28 H 29 H Blood Pressure 178/93 H Pulse Oximetry 86 L 96 93 05/19/20 18:00 05/19/20 20:00 05/19/20 20:29 Temperature 36.3 C L Pulse Rate 76 71 72 Respiratory Rate 31 H 34 H Blood Pressure 177/80 H Pulse Oximetry 91 91 05/19/20 20:30 05/19/20 20:39 05/19/20 22:00 Temperature Pulse Rate 72 88 74 Respiratory Rate 34 H 31 H Blood Pressure Pulse Oximetry 05/19/20 23:05 05/19/20 23:45 05/20/20 00:00 Temperature 36.2 C L Pulse Rate 83 83 72 Respiratory Rate 30 H 33 H 33 H Blood Pressure 146/77 H Pulse Oximetry 94 93 93 05/20/20 02:00 05/20/20 02:42 05/20/20 02:56 Temperature Pulse Rate 69 72 83 Respiratory Rate 27 H 42 H Blood Pressure Pulse Oximetry 92 05/20/20 03:05 05/20/20 04:00 05/20/20 06:00 Temperature 36.4 C L Pulse Rate 89 67 Respiratory Rate 34 H Blood Pressure 150/73 H Pulse Oximetry 93 90 05/20/20 08:00 05/20/20 08:01 05/20/20 08:25 Temperature 36.1 C L Pulse Rate 73 82 Respiratory Rate 30 H 30 H Blood Pressure 146/76 H Pulse Oximetry 93 93 05/20/20 08:35 05/20/20 08:45 05/20/20 10:00 Temperature Pulse Rate 71 73 79 Respiratory Rate 30 H 30 H Blood Pressure Pulse Oximetry 05/20/20 12:00 05/20/20 12:39 05/20/20 14:00 Temperature 37.0 C Pulse Rate 76 93 69 Respiratory Rate 33 H Blood Pressure 159/75 H Pulse Oximetry 93 Intake/Output Intake/Output: Intake & Output 05/17/20 05/18/20 05/19/20 05/20/20 23:59 23:59 23:59 23:59 Intake Total 041 652 8255 1540 Output To
[2020-05-20] MEDS: ACETAMINOPHEN 325 MG TABLET PO (16:01)
--- NOTE | 2020-05-20 18:01 | PM.IMPN ---
Progress Note: A&P Assessment and Plan (1) 2019 novel coronavirus–infected pneumonia (NCIP)#8211;infected pneumonia (NCIP): Code(s): U07.1 - COVID-19; J12.89 - Other viral pneumonia Status: Acute Assessment and Plan: Continue to monitor her liver enzymes. At this point her ALT is not 5 times above the high end of normal. So she is able to get room does severe and Decadron at this time. Encouraged incentive spirometer and encourage the patient to get up. I also encouraged the patient to lie prone if able. The patient is on oxygen at 6 L per nasal cannula. Make consider changing her to air bubble. May also downgrade her to another floor if she is not requiring more oxygen. However she is IMU status placed inside of ICU at this time. Patient is a full code. Continue with her inhalers. Encouraged the patient to sit on the side the bed get up in the chair. 05/20/20 18:001 Patient is an 78-year-old female with history of COPD hypertension patient was tested positive for COVID-19 on May 11 and was admitted at the [facility] patient was started on dexamethasone azithromycin and requiring 6 L of oxygen feel the patient's symptoms or worsening and patient was transferred to the hospital here. Here patient was started on Remdesivir patient baseline LFT are will continue to monitor not to reach 5 times a normal level, currently patient is on high-flow oxygen FiO2 80, and flow rate 60, patient does complaint of cough shortness of breath but no fever, patient is seen by chairman & chief executive officer adjusted BiPAP, patient completed 5 days of Remdesivir on 05/19 and pulmonology recommended to continue another 5 days for total of 610 days, will continue dexamethasone 11/14, today 05/20 patient's symptoms are improving she is able to be off BiPAP long enough to eat some and take her oral medication while on high-flow nasal cannula, patient is seen by pulmonology recommending to alternate with BiPAP and high-flow oxygen, patient states is feeling better, no fever or chills (2) Asthma: Code(s): J45.909 - Unspecified asthma, uncomplicated Status: Acute Assessment and Plan: Continue with Singulair and her Symbicort (3) HTN (hypertension): Code(s): I10 - Essential (primary) hypertension Status: Chronic Assessment and Plan: Continue with her home medications. (4) Neuropathy: Code(s): G62.9 - Polyneuropathy, unspecified Status: Chronic Assessment and Plan: Continue with gabapentin. (5) Hypothyroidism: Code(s): E03.9 - Hypothyroidism, unspecified Status: Chronic Assessment and Plan: She had a recent TSH and continue with her levothyroxine. (6) MELINDA (stress urinary incontinence, female): Code(s): N39.3 - Stress incontinence (female) (male) Status: Acute Assessment and Plan: Continue Myrbetriq if we have it. Subjective Date/time seen: 05/20/20 18:001 Patient is an 78-year-old female with history of COPD hypertension patient was tested positive for COVID-19 on May 11 and was admitted at the [facility] patient was started on dexamethasone azithromycin and requiring 6 L of oxygen feel the patient's symptoms or worsening and patient was transferred to the hospital here. Here patient was started on Remdesivir patient baseline LFT are will continue to monitor not to reach 5 times a normal level, currently patient is on high-flow oxygen FiO2 80, and flow rate 60, patient does complaint of cough shortness of breath but no fever, patient is seen by chairman & chief executive officer adjusted BiPAP, patient completed 5 days of Remdesivir on 05/19 and pulmonology recommended to continue another 5 days for total of 610 days, will continue dexamethasone 11/14, today 05/20 patient's symptoms are improving she is able to be off BiPAP long enough to eat some and take her oral medication while on high-flow nasal cannula, patient is seen by pulmonology rec
[2020-05-20] MEDS: fentaNYL CITRATE INJ (*CRX) 100 MCG/2 ML VIAL 25 MCG IV PUSH (19:30)
[2020-05-20] MEDS: REMDESIVIR 100 MG/NS 250 ML 100 MG/250 ML BAG 250 MG IVPB (20:29)
[2020-05-20] MEDS: FAMOTIDINE 20 MG/2 ML VIAL 40 MG IV PUSH (20:29)
[2020-05-21] VITALS (26 sets, daily range): BP systolic 146–187; BP diastolic 76–99; PULSE 57–98; RESP 20–28; TEMP 35.5–36.4; O2SAT 89–95
[2020-05-21] MEDS: ALBUTEROL SULFATE NEB 2.5 MG/0.5 ML INH INHALATION ×4 (01:55→22:14)
[2020-05-21] MEDS: IPRATROPIUM BR 0.02% INH SOLN 0.5 MG/2.5 ML VIAL INHALATION ×4 (01:55→22:14)
[2020-05-21] MEDS: fentaNYL CITRATE INJ (*CRX) 100 MCG/2 ML VIAL 25 MCG IV PUSH ×3 (05:10→17:24)
[2020-05-21] MEDS: LEVOTHYROXINE SODIUM INJ 100 MCG/5 ML VIAL 62.5 MCG IV PUSH (05:11)
[2020-05-21] MEDS: CENTRAL LINE FLUSH 10 ML IV PUSH ×3 (05:11→20:16)
[2020-05-21] MEDS: LACTATED RINGERS 1,000 ML 75 ML IV CONT (05:12)
[2020-05-21 05:28] LABS: Basophils Percent Auto 0.2 % (0.2-1.2); Hemoglobin 13.3 g/dL (12.0-15.0); Lymphocytes Absolute Auto 0.45 K/mm3 (0.9-3.2); Mean Corpuscular HGB Conc 34.1 g/dl (32-36); Mean Platelet Volume 10.4 fl (7.4-10.4); Monocytes Percent Auto 6.3 % (2.6-8.5); Neutrophils Absolute Auto 13.3 K/mm3 (1.3-6.7); Neutrophils Percent Auto 88.5 % (45.5-73.1); Platelet Count Result 298 k/mm3 (150-375); Red Blood Count 4.59 M/mm3 (4.2-5.4); Red Cell Distribution Width 13.6 % (11.5-14.5); White Blood Count 15.1 K/mm3 (4.5-10.0)
[2020-05-21 05:41] LABS: INR 1.2; Prothrombin Time 15.5 Seconds (11.1-14.7)
[2020-05-21 05:42] LABS: Partial Thromboplastin Time 32.9 SECONDS (22.3-36.8)
[2020-05-21 05:52] LABS: Alanine Aminotransferase 34 U/L (4-35); Albumin Level 2.8 g/dL (3.5-5.1); Alkaline Phosphatase 120 U/L (38-126); Anion Gap 3 mmol/L (8-16); Aspartate Amino Transferase 39 U/L (14-36); Bilirubin,Total 0.6 mg/dL (0.2-1.3); Blood Urea Nitrogen 16 mg/dL (7-17); Calcium 9.1 mg/dL (8.4-10.2); Carbon Dioxide 29 mmol/L (22-30); Chloride 105 mmol/L (98-107); Estimated CRCL calculation 103 ml/min; Estimated Glomerular Filt Rate > 60; Glucose 101 mg/dL (65-105); Magnesium 1.8 mg/dL (1.6-2.3); Potassium 4.1 mmol/L (3.4-5.0); Sodium 137 mmol/L (137-145)
[2020-05-21] MEDS: BUDESONIDE RESPULE NEB 0.5 MG/2 ML AMP INHALATION ×2 (08:34→22:14)
[2020-05-21] MEDS: ENOXAPARIN 40 MG/0.4 ML SYRINGE SUB-Q ×2 (08:48→20:13)
[2020-05-21] MEDS: PANTOPRAZOLE SODIUM IV 40 MG VIAL IV PUSH (08:48)
[2020-05-21] MEDS: LORazepam INJ (*CRX) 2 MG/ML VIAL 0.5 MG IV PUSH ×2 (08:48→20:15)
[2020-05-21] MEDS: DEXAMETHASONE SOD PHOS INJ 4 MG/ML VIAL 6 MG IV PUSH (08:48)
--- NOTE | 2020-05-21 13:00 | PM.PNPUL ---
Progress Note: A&P Assessment and Plan (1) Pneumonia due to COVID-19 virus: Code(s): U07.1 - COVID-19; J12.89 - Other viral pneumonia Status: Acute Assessment and Plan: - continue Dexamethasone 6 mg daily for 10 days - I renewed her Remedesivir today to continue for a total of 10 days (2) Acute hypoxemic respiratory failure: Code(s): J96.01 - Acute respiratory failure with hypoxia Status: Acute Assessment and Plan: - change BIPAP settings to 05/14 today with backup rate of 18, titrate FiO2 for sats of 88% or better. - alternate between HFNC and BIPAP as tolerated. Would wean FiO2 down to 50% first before starting to wean flow - agree with holding or minimizing sedatives and narcotics as she is a bit more sleepy today. (3) ARDS (adult respiratory distress syndrome): Code(s): J80 - Acute respiratory distress syndrome Status: Acute (4) Asthma: Code(s): J45.909 - Unspecified asthma, uncomplicated Status: Acute Assessment and Plan: - continue current nebulized albuterol/atrovent/pulmicort as ordered. Subjective Date/time seen: 05/21/20 13:00 Interval history: Seems to be tolerating high flow nasal cannula much better today. Currently at 45 liters and 60%. She's more sleep today though but arouses to commands. Review of Systems Review of Systems: All systems reviewed & are unremarkable except as noted in HPI and below Exam Const: General: ill appearing and tired appearing Nutritional Appearance: overweight Orientation/consciousness: oriented to person, oriented to place, oriented to time and lethargic HENMT: Head: normal to inspection, normocephalic and atraumatic Eyes: General: appearance normal, both eyes and all related structures Neck: Neck: trachea midline and supple Resp: Effort & Inspection: labored Auscultation: clear to auscultation bilaterally and diminished lung sounds Cardio: Jugular venous distension: no JVD Rate: regular rate Rhythm: regular rhythm Heart sounds: S1 normal heart sound present and S2 normal heart sound present GI: Inspection: normal to inspection Auscultation: normal bowel sounds Skin: General skin exam: no rashes or lesions noted Neuro: General: oriented to person, oriented to place and oriented to time Speech: normal speech Psych: Appearance: grossly normal Objective Data Vital Signs Vital Signs: Vital Signs - 24 hr 05/20/20 14:00 05/20/20 16:00 05/20/20 17:00 Temperature Pulse Rate 69 70 Respiratory Rate Blood Pressure Pulse Oximetry 94 93 05/20/20 17:48 05/20/20 18:00 05/20/20 20:00 Temperature 35.7 C L 36.2 C L Pulse Rate 66 76 72 Respiratory Rate 23 H 22 H Blood Pressure 146/70 H 163/96 H Pulse Oximetry 93 90 05/20/20 20:17 05/20/20 20:37 05/20/20 22:00 Temperature Pulse Rate 77 73 65 Respiratory Rate 28 H 26 H Blood Pressure Pulse Oximetry 94 05/20/20 23:28 05/20/20 23:52 05/21/20 00:00 Temperature 36.2 C L Pulse Rate 60 68 Respiratory Rate 20 Blood Pressure 159/79 H Pulse Oximetry 90 90 05/21/20 01:56 05/21/20 02:00 05/21/20 02:07 Temperature Pulse Rate 77 58 L 80 Respiratory Rate 26 H 28 H Blood Pressure Pulse Oximetry 05/21/20 04:00 05/21/20 06:00 05/21/20 08:00 Temperature 36.4 C L 35.8 C L Pulse Rate 63 57 L 75 Respiratory Rate 20 24 H Blood Pressure 149/76 H 187/99 H Pulse Oximetry 90 89 L 05/21/20 08:30 05/21/20 08:34 05/21/20 08:44 Temperature Pulse Rate 75 77 Respiratory Rate 20 20 Blood Pressure Pulse Oximetry 89 L 92 05/21/20 10:00 05/21/20 11:52 Temperature 35.6 C L Pulse Rate 62 67 Respiratory Rate 24 H Blood Pressure 178/77 H Pulse Oximetry 90 Intake/Output Intake/Output: Intake & Output 05/18/20 05/19/20 05/20/20 05/21/20 23:59 23:59 23:59 23:59 Intake Total 750 2170 2910 1000 Output Total 2962 150 4291 600 Balance -300 1370 1810 400 Meds/Result
--- NOTE | 2020-05-21 15:15 | PM.IMPN ---
Progress Note: A&P Assessment and Plan (1) ARDS (adult respiratory distress syndrome): Code(s): J80 - Acute respiratory distress syndrome Status: Acute Assessment and Plan: Currently requiring BiPAP alternating with HFNC O2 sats at around 88% Appreciate Pulmonology note. (2) Acute hypoxemic respiratory failure: Code(s): J96.01 - Acute respiratory failure with hypoxia Status: Acute Assessment and Plan: Requiring NIPPV and HFNC. (3) Pneumonia due to COVID-19 virus: Code(s): U07.1 - COVID-19; J12.89 - Other viral pneumonia Status: Acute Assessment and Plan: Remdesivir and Dexamethasone (4) Neuropathy: Code(s): G62.9 - Polyneuropathy, unspecified Status: Chronic Assessment and Plan: Unchanged Continue Pregabalin (5) Asthma: Code(s): J45.909 - Unspecified asthma, uncomplicated Status: Acute Assessment and Plan: Albuterol, Budesonide,Montelukast. (6) HTN (hypertension): Code(s): I10 - Essential (primary) hypertension Status: Chronic Assessment and Plan: Stable Continue home meds. Subjective Date/time seen: 05/21/20 15:15 I'm fine. Review of Systems Review of Systems: Narrative: Unable to obtain as patient is currently on HFNC and nonrebreather. Exam Narrative: Exam Narrative: Lying in bed. Const: General: cooperative, comfortable, tired appearing and other (Sleepy but easily arousable.) Nutritional Appearance: average body habitus Limitations: no limitations HENMT: Head: normal to inspection and normocephalic Eyes: General: appearance normal, both eyes and all related structures Pupils: Equal, round and reactive pupils present EOM: EOMs intact bilaterally Neck: Neck: normal visual inspection, no lymphadenopathy, supple and no JVD Resp: Effort & Inspection: normal respiratory effort Auscultation: diminished lung sounds Cardio: Rate: regular rate Rhythm: regular rhythm GI: Inspection: normal to inspection GI Palp: Yes Soft to palpation and Yes No hepatosplenomegaly present Skin: General skin exam: normal color Lesions: no lesions Wounds: no wounds Neuro: General: patient oriented x3, CN's II-XI intact bilaterally and other (Drowsy but easily arousable to command.) Cranial nerves: Yes CN's II-XII intact bilaterally Cognition (Neuro): normal cognition Speech: normal speech Motor exam (neuro): 5/5 motor strength present throughout Sensory Exam: normal sensation Extrem: General: full ROM and no pedal edema Objective Data Vital Signs Vital Signs: Vital Signs - 24 hr 05/20/20 16:00 05/20/20 17:00 05/20/20 17:48 Temperature 96.2 F L Pulse Rate 70 66 Respiratory Rate 23 H Blood Pressure 146/70 H Pulse Oximetry 94 93 93 05/20/20 18:00 05/20/20 20:00 05/20/20 20:17 Temperature 97.1 F L Pulse Rate 76 72 77 Respiratory Rate 22 H 28 H Blood Pressure 163/96 H Pulse Oximetry 90 94 05/20/20 20:37 05/20/20 22:00 05/20/20 23:28 Temperature 97.2 F L Pulse Rate 73 65 60 Respiratory Rate 26 H 20 Blood Pressure 159/79 H Pulse Oximetry 90 05/20/20 23:52 05/21/20 00:00 05/21/20 01:56 Temperature Pulse Rate 68 77 Respiratory Rate 26 H Blood Pressure Pulse Oximetry 90 05/21/20 02:00 05/21/20 02:07 05/21/20 04:00 Temperature 97.5 F L Pulse Rate 58 L 80 63 Respiratory Rate 28 H 20 Blood Pressure 149/76 H Pulse Oximetry 90 05/21/20 06:00 05/21/20 08:00 05/21/20 08:30 Temperature 96.4 F L Pulse Rate 57 L 75 Respiratory Rate 24 H Blood Pressure 187/99 H Pulse Oximetry 89 L 89 L 05/21/20 08:34 05/21/20 08:44 05/21/20 10:00 Temperature Pulse Rate 75 77 62 Respiratory Rate 20 20 Blood Pressure Pulse Oximetry 92 05/21/20 11:52 05/21/20 12:00 05/21/20 13:47 Temperature 96.1 F L Pulse Rate 67 61 72 Respiratory Rate 24 H 20 Blood Pressure 178/77 H Pulse Oximetry 90 90 05/21/20 13:57
[2020-05-21] MEDS: ACETAMINOPHEN 325 MG TABLET PO (20:13)
[2020-05-21] MEDS: FAMOTIDINE 20 MG/2 ML VIAL 40 MG IV PUSH (20:13)
[2020-05-21] MEDS: REMDESIVIR 100 MG/NS 250 ML 100 MG/250 ML BAG 250 MG IVPB (20:14)
[2020-05-22] VITALS (29 sets, daily range): BP systolic 120–161; BP diastolic 56–92; PULSE 54–78; RESP 18–30; TEMP 35.9–36.6; O2SAT 89–97; BMI 48.4
[2020-05-22] MEDS: IPRATROPIUM BR 0.02% INH SOLN 0.5 MG/2.5 ML VIAL INHALATION ×4 (04:13→22:15)
[2020-05-22] MEDS: ALBUTEROL SULFATE NEB 2.5 MG/0.5 ML INH INHALATION ×4 (04:13→22:14)
[2020-05-22] MEDS: ACETAMINOPHEN 325 MG TABLET PO ×3 (05:38→20:24)
[2020-05-22] MEDS: CENTRAL LINE FLUSH 10 ML IV PUSH ×3 (05:39→20:34)
[2020-05-22] MEDS: LEVOTHYROXINE SODIUM INJ 100 MCG/5 ML VIAL 62.5 MCG IV PUSH (05:45)
[2020-05-22 06:14] LABS: Alanine Aminotransferase 33 U/L (4-35)
[2020-05-22] MEDS: LACTATED RINGERS 1,000 ML 50 ML IV CONT (07:14)
[2020-05-22] MEDS: PANTOPRAZOLE SODIUM IV 40 MG VIAL IV PUSH (08:09)
[2020-05-22] MEDS: DEXAMETHASONE SOD PHOS INJ 4 MG/ML VIAL 6 MG IV PUSH (08:09)
[2020-05-22] MEDS: ENOXAPARIN 40 MG/0.4 ML SYRINGE SUB-Q ×2 (08:10→20:24)
[2020-05-22] MEDS: BUDESONIDE RESPULE NEB 0.5 MG/2 ML AMP INHALATION ×2 (08:16→22:15)
[2020-05-22] MEDS: fentaNYL CITRATE INJ (*CRX) 100 MCG/2 ML VIAL 25 MCG IV PUSH ×2 (08:27→17:31)
[2020-05-22] MEDS: LORazepam INJ (*CRX) 2 MG/ML VIAL 0.5 MG IV PUSH ×2 (08:27→21:03)
--- NOTE | 2020-05-22 12:48 | PM.IMPN ---
Progress Note: A&P Assessment and Plan (1) Acute hypoxemic respiratory failure: Code(s): J96.01 - Acute respiratory failure with hypoxia Status: Acute Assessment and Plan: Continue BiPAP and high flow Down on her requirements from yesterday Continues pulse ox. (2) Pneumonia due to COVID-19 virus: Code(s): U07.1 - COVID-19; J12.89 - Other viral pneumonia Status: Acute Assessment and Plan: On Remdesivir and Dexamethasone Breathing treatments. (3) HTN (hypertension): Code(s): I10 - Essential (primary) hypertension Status: Chronic Assessment and Plan: Stable Continue to monitor Subjective Date/time seen: 05/22/20 12:48 Patient is feeling better today. Review of Systems Review of Systems: Narrative: States that feels better today.Unable to get a thorough review as patient still having high requirements of Oxygen. Exam Narrative: Exam Narrative: Lying in bed. Const: General: cooperative, alert, awake, Physically active and ill appearing Nutritional Appearance: average body habitus Orientation/consciousness: patient oriented x3 HENMT: Head: normocephalic Ears: hearing grossly normal bilaterally General nose exam: Normal external nose present Face and sinus: normal facial exam Eyes: General: appearance normal, both eyes and all related structures Pupils: Equal, round and reactive pupils present EOM: EOMs intact bilaterally Neck: Neck: normal visual inspection, no lymphadenopathy and no JVD Resp: Auscultation: diminished lung sounds Cardio: Jugular venous distension: no JVD Rate: regular rate Rhythm: regular rhythm GI: GI Palp: Yes Soft to palpation and Yes No hepatosplenomegaly present Skin: General skin exam: normal color Rashes: no rashes Neuro: General: patient oriented x3 and CN's II-XI intact bilaterally Cranial nerves: Yes CN's II-XII intact bilaterally and Yes Equal, round and reactive pupils present Cognition (Neuro): normal cognition Speech: normal speech Motor exam (neuro): 5/5 motor strength present throughout Extrem: General: full ROM, no joint enlargement and no pedal edema Objective Data Vital Signs Vital Signs: Vital Signs - 24 hr 05/21/20 13:47 05/21/20 13:57 05/21/20 14:00 Temperature Pulse Rate 72 74 66 Respiratory Rate 20 20 Blood Pressure Pulse Oximetry 05/21/20 15:43 05/21/20 15:46 05/21/20 16:00 Temperature 96 F L Pulse Rate 98 76 Respiratory Rate 24 H Blood Pressure 146/81 H Pulse Oximetry 93 95 05/21/20 18:00 05/21/20 20:00 05/21/20 22:00 Temperature 96.2 F L Pulse Rate 88 67 61 Respiratory Rate 20 Blood Pressure 155/81 H Pulse Oximetry 93 05/21/20 22:14 05/21/20 22:16 05/21/20 22:44 Temperature Pulse Rate 57 L 57 L 62 Respiratory Rate 26 H 20 26 H Blood Pressure Pulse Oximetry 93 05/21/20 23:57 05/22/20 00:00 05/22/20 02:00 Temperature 97.6 F Pulse Rate 60 59 L 54 L Respiratory Rate 20 Blood Pressure 170/79 H Pulse Oximetry 95 05/22/20 04:00 05/22/20 04:13 05/22/20 04:14 Temperature 97.7 F Pulse Rate 59 L 59 L 59 L Respiratory Rate 20 22 H 22 H Blood Pressure 155/74 H Pulse Oximetry 95 95 05/22/20 04:20 05/22/20 06:00 05/22/20 07:55 Temperature 97.3 F L Pulse Rate 58 L 57 L 60 Respiratory Rate 22 H 26 H Blood Pressure 148/73 H Pulse Oximetry 89 L 05/22/20 08:00 05/22/20 08:10 05/22/20 08:21 Temperature Pulse Rate 62 62 Respiratory Rate 18 Blood Pressure Pulse Oximetry 92 93 05/22/20 08:31 05/22/20 10:00 05/22/20 12:00 Temperature 96.7 F L Pulse Rate 62 63 65 Respiratory Rate 18 30 H Blood Pressure 154/72 H Pulse Oximetry 93 Intake/Output Intake/Output: Intake & Output 05/19/20 05/20/20 05/21/20 05/22/20 23:59 23:59 23:59 23:59 Intake Total 2170 2910 1500 870 Output Total 800 1100 1925 400 Balance 1370 1810 -425 470 Meds/Results Medications: Active Medications
--- NOTE | 2020-05-22 15:26 | PM.PNPUL ---
Progress Note: A&P Assessment and Plan (1) Pneumonia due to COVID-19 virus: Code(s): U07.1 - COVID-19; J12.89 - Other viral pneumonia Status: Acute Assessment and Plan: - continue Dexamethasone 6 mg daily for 10 days - I renewed her Remedesivir today to continue for a total of 10 days (2) Acute hypoxemic respiratory failure: Code(s): J96.01 - Acute respiratory failure with hypoxia Status: Acute Assessment and Plan: - change BIPAP settings to 05/14 today with backup rate of 18, titrate FiO2 for sats of 88% or better. - alternate between HFNC and BIPAP as tolerated. Would wean FiO2 down to 50% first before starting to wean flow - agree with holding or minimizing sedatives and narcotics as she is a bit more sleepy today. (3) ARDS (adult respiratory distress syndrome): Code(s): J80 - Acute respiratory distress syndrome Status: Acute (4) Asthma: Code(s): J45.909 - Unspecified asthma, uncomplicated Status: Acute Assessment and Plan: - continue current nebulized albuterol/atrovent/pulmicort as ordered. Subjective Date/time seen: 05/22/20 15:26 Interval history: Seems to be slowly improving. Tolerating high flow weaning. taking oral intake a bit more Objective Data Vital Signs Vital Signs: Vital Signs - 24 hr 05/21/20 15:43 05/21/20 15:46 05/21/20 16:00 Temperature 35.5 C L Pulse Rate 98 76 Respiratory Rate 24 H Blood Pressure 146/81 H Pulse Oximetry 93 95 05/21/20 18:00 05/21/20 20:00 05/21/20 22:00 Temperature 35.7 C L Pulse Rate 88 67 61 Respiratory Rate 20 Blood Pressure 155/81 H Pulse Oximetry 93 05/21/20 22:14 05/21/20 22:16 05/21/20 22:44 Temperature Pulse Rate 57 L 57 L 62 Respiratory Rate 26 H 20 26 H Blood Pressure Pulse Oximetry 93 05/21/20 23:57 05/22/20 00:00 05/22/20 02:00 Temperature 36.4 C Pulse Rate 60 59 L 54 L Respiratory Rate 20 Blood Pressure 170/79 H Pulse Oximetry 95 05/22/20 04:00 05/22/20 04:13 05/22/20 04:14 Temperature 36.5 C Pulse Rate 59 L 59 L 59 L Respiratory Rate 20 22 H 22 H Blood Pressure 155/74 H Pulse Oximetry 95 95 05/22/20 04:20 05/22/20 06:00 05/22/20 07:55 Temperature 36.3 C L Pulse Rate 58 L 57 L 60 Respiratory Rate 22 H 26 H Blood Pressure 148/73 H Pulse Oximetry 89 L 05/22/20 08:00 05/22/20 08:10 05/22/20 08:21 Temperature Pulse Rate 62 62 Respiratory Rate 18 Blood Pressure Pulse Oximetry 92 93 05/22/20 08:31 05/22/20 10:00 05/22/20 12:00 Temperature 35.9 C L Pulse Rate 62 63 64 Respiratory Rate 18 30 H Blood Pressure 154/72 H Pulse Oximetry 93 05/22/20 14:00 05/22/20 14:36 05/22/20 14:40 Temperature Pulse Rate 60 67 61 Respiratory Rate 18 Blood Pressure Pulse Oximetry 94 05/22/20 14:46 Temperature Pulse Rate 67 Respiratory Rate 18 Blood Pressure Pulse Oximetry Intake/Output Intake/Output: Intake & Output 05/19/20 05/20/20 05/21/20 05/22/20 23:59 23:59 23:59 23:59 Intake Total 2170 2910 1500 870 Output Total 800 1100 1925 400 Balance 1370 1810 -425 470 Meds/Results Medications: Active Medications Generic Name Dose Route Start Last Admin Trade Name Freq PRN Reason Stop Dose Admin Acetaminophen 325 mg 05/16/20 16:20 05/22/20 13:25 Acetaminophen 325 Mg Tablet PO 325 mg Q6H PRN Administration Mild Pain (1-3) or Fever Hydrocodone Bitart/Acetaminophen 1 tab 05/15/20 16:54 05/17/20 12:39 Hydrocodone/Acetaminophen (*Crx) 5-325 Mg Tablet PO 1 tab Q6H PRN Administration Pain (Scale Score 4-6) Albuterol 2 puff 05/15/20 16:54 Albuterol Sulfate (*Sp) Aerosol 1 Puff INHALATION QID PRN Shortness Of Breath Albuterol 2.5 mg 05/18/20 11:05 05/22/20 14:36 Albuterol Sulfate Neb 2.5 Mg/0.5 Ml Inh INHALATION 2.5 mg Q6HRT COOKIE Administration Alprazolam 0.25 mg 05/17/20 12:28 05/18/20 04:00 Alprazol
[2020-05-22] MEDS: REMDESIVIR 100 MG/NS 250 ML 100 MG/250 ML BAG 250 MG IVPB (20:24)
[2020-05-22] MEDS: FAMOTIDINE 20 MG/2 ML VIAL 40 MG IV PUSH (20:25)
[2020-05-23] VITALS (27 sets, daily range): BP systolic 144–158; BP diastolic 69–82; PULSE 53–103; RESP 18–32; TEMP 35.6–36.9; O2SAT 90–98
[2020-05-23] MEDS: IPRATROPIUM BR 0.02% INH SOLN 0.5 MG/2.5 ML VIAL INHALATION ×5 (03:23→19:35)
[2020-05-23] MEDS: ALBUTEROL SULFATE NEB 2.5 MG/0.5 ML INH INHALATION ×5 (03:23→19:35)
[2020-05-23] MEDS: LACTATED RINGERS 1,000 ML 50 ML IV CONT (03:47)
[2020-05-23 04:18] LABS: Anion Gap 3 mmol/L (8-16); Blood Urea Nitrogen 19 mg/dL (7-17); Calcium 8.9 mg/dL (8.4-10.2); Carbon Dioxide 30 mmol/L (22-30); Chloride 103 mmol/L (98-107); Estimated CRCL calculation 105 ml/min; Estimated Glomerular Filt Rate > 60; Glucose 98 mg/dL (65-105); Magnesium 1.8 mg/dL (1.6-2.3); Potassium 4.1 mmol/L (3.4-5.0); Sodium 136 mmol/L (137-145)
[2020-05-23 04:19] LABS: Alanine Aminotransferase 32 U/L (4-35)
[2020-05-23] MEDS: CENTRAL LINE FLUSH 10 ML IV PUSH ×3 (05:10→22:19)
[2020-05-23] MEDS: LEVOTHYROXINE SODIUM INJ 100 MCG/5 ML VIAL 62.5 MCG IV PUSH (05:11)
[2020-05-23] MEDS: fentaNYL CITRATE INJ (*CRX) 100 MCG/2 ML VIAL 25 MCG IV PUSH (05:12)
--- NOTE | 2020-05-23 06:14 | PC.NURSE ---
Pt had 2 episodes of torsades asymptomatic approx 0330 05/23/2020. I notified Dr. Gandhi, did EKG, and sent down stat BMP and mag.
[2020-05-23] MEDS: BUDESONIDE RESPULE NEB 0.5 MG/2 ML AMP INHALATION ×2 (08:13→19:36)
[2020-05-23] MEDS: DEXAMETHASONE SOD PHOS INJ 4 MG/ML VIAL 6 MG IV PUSH (08:34)
[2020-05-23] MEDS: ENOXAPARIN 40 MG/0.4 ML SYRINGE SUB-Q ×2 (08:35→21:10)
[2020-05-23] MEDS: PANTOPRAZOLE SODIUM IV 40 MG VIAL IV PUSH (08:35)
[2020-05-23] MEDS: LORazepam INJ (*CRX) 2 MG/ML VIAL 0.5 MG IV PUSH ×2 (09:22→22:10)
--- NOTE | 2020-05-23 10:28 | PM.PNPUL ---
Progress Note: A&P Assessment and Plan (1) Pneumonia due to COVID-19 virus: Code(s): U07.1 - COVID-19; J12.89 - Other viral pneumonia Status: Acute Assessment and Plan: - continue Dexamethasone 6 mg daily for 10 days - I renewed her Remedesivir today to continue for a total of 10 days from start (2) Acute hypoxemic respiratory failure: Code(s): J96.01 - Acute respiratory failure with hypoxia Status: Acute Assessment and Plan: - change BIPAP settings to 12 today with backup rate of 18, titrate FiO2 for sats of 88% or better. - alternate between HFNC and BIPAP as tolerated. Would wean FiO2 down to 50% first before starting to wean flow - agree with holding or minimizing sedatives and narcotics as she is a bit more sleepy today. (3) ARDS (adult respiratory distress syndrome): Code(s): J80 - Acute respiratory distress syndrome Status: Acute (4) Asthma: Code(s): J45.909 - Unspecified asthma, uncomplicated Status: Acute Assessment and Plan: - continue current nebulized albuterol/atrovent/pulmicort as ordered. Subjective Date/time seen: 05/23/20 10:28 Interval history: Seems to be doing better. Tolerating more oral diet. HFNC is weaning Review of Systems Review of Systems: All systems reviewed & are unremarkable except as noted in HPI and below Exam Const: General: ill appearing and tired appearing Nutritional Appearance: overweight Orientation/consciousness: oriented to person, oriented to place, oriented to time and lethargic HENMT: Head: normal to inspection, normocephalic and atraumatic Eyes: General: appearance normal, both eyes and all related structures Neck: Neck: trachea midline and supple Resp: Effort & Inspection: labored Auscultation: clear to auscultation bilaterally and diminished lung sounds Cardio: Jugular venous distension: no JVD Rate: regular rate Rhythm: regular rhythm Heart sounds: S1 normal heart sound present and S2 normal heart sound present GI: Inspection: normal to inspection Auscultation: normal bowel sounds Skin: General skin exam: no rashes or lesions noted Neuro: General: oriented to person, oriented to place and oriented to time Speech: normal speech Psych: Appearance: grossly normal Objective Data Vital Signs Vital Signs: Vital Signs - 24 hr 05/22/20 12:00 12/16/20 14:00 05/22/20 14:36 Temperature 35.9 C L Pulse Rate 64 60 67 Respiratory Rate 30 H 18 Blood Pressure 154/72 H Pulse Oximetry 93 05/22/20 14:40 05/22/20 14:46 05/22/20 15:35 Temperature Pulse Rate 61 67 Respiratory Rate 18 Blood Pressure Pulse Oximetry 94 93 05/22/20 15:36 05/22/20 16:00 05/22/20 18:00 Temperature 36.4 C Pulse Rate 76 63 78 Respiratory Rate 26 H Blood Pressure 120/62 Pulse Oximetry 92 05/22/20 18:41 05/22/20 19:59 05/22/20 20:00 Temperature 36.5 C 36.5 C Pulse Rate 72 62 58 L Respiratory Rate 22 H 20 Blood Pressure 140/56 L 153/84 H Pulse Oximetry 93 95 95 05/22/20 22:00 05/22/20 22:15 05/22/20 23:48 Temperature 36.6 C Pulse Rate 58 L 70 55 L Respiratory Rate 20 20 Blood Pressure 161/92 H Pulse Oximetry 93 97 05/22/20 23:56 05/23/20 00:00 05/23/20 02:00 Temperature Pulse Rate 54 L 53 L Respiratory Rate Blood Pressure Pulse Oximetry 95 05/23/20 03:29 05/23/20 03:30 05/23/20 03:36 Temperature Pulse Rate 74 74 55 L Respiratory Rate Blood Pressure Pulse Oximetry 98 05/23/20 04:00 05/23/20 06:00 05/23/20 08:00 Temperature 36.9 C Pulse Rate 59 L 58 L 62 Respiratory Rate 20 Blood Pressure 158/79 H Pulse Oximetry 95 05/23/20 08:06 05/23/20 08:14 05/23/20 08:15 Temperature 36.1 C L Pulse Rate 62 53 L 53 L Respiratory Rate 32 H Blood Pressure 152/82 H Pulse Oximetry 91 93 05/23/20 10:00 Temperature Pulse Rate 67 Respiratory Rate Blood Pressure Pulse Oximetry Intake/Outpu
[2020-05-23] MEDS: ACETAMINOPHEN 325 MG TABLET PO ×2 (10:30→22:11)
--- NOTE | 2020-05-23 13:59 | PM.IMPN ---
Progress Note: A&P Assessment and Plan (1) ARDS (adult respiratory distress syndrome): Code(s): J80 - Acute respiratory distress syndrome Status: Acute Assessment and Plan: On high flow oxygen by Airvo alternating the use of BiPAP Weaning FiO2 down (2) Acute hypoxemic respiratory failure: Code(s): J96.01 - Acute respiratory failure with hypoxia Status: Acute Assessment and Plan: There has been some improvement but still very tenuous Airvo/BiPAP Appreciate Pulmonology note. (3) Pneumonia due to COVID-19 virus: Code(s): U07.1 - COVID-19; J12.89 - Other viral pneumonia Status: Acute Assessment and Plan: Remdesivir + Dexamethasone. (4) Asthma: Code(s): J45.909 - Unspecified asthma, uncomplicated Status: Acute Assessment and Plan: Breathing treatments schedulled. (5) HTN (hypertension): Code(s): I10 - Essential (primary) hypertension Status: Chronic Assessment and Plan: Stable Continue home meds. Subjective Date/time seen: 05/23/20 13:59 States that feels tired. Review of Systems Review of Systems: Narrative: Feels tired.Unable to get a thorough review as patient is on high flow oxygen. Exam Narrative: Exam Narrative: Lying in bed. Const: General: ill appearing and tired appearing Nutritional Appearance: overweight Orientation/consciousness: patient oriented x3 HENMT: Head: normal to inspection, normocephalic and atraumatic Face and sinus: normal facial exam Eyes: General: appearance normal, both eyes and all related structures Pupils: Equal, round and reactive pupils present EOM: EOMs intact bilaterally Neck: Neck: no lymphadenopathy, supple and no JVD Resp: Auscultation: diminished lung sounds Cardio: Jugular venous distension: no JVD Rate: regular rate Rhythm: regular rhythm GI: GI Palp: Yes Soft to palpation and Yes No hepatosplenomegaly present Skin: General skin exam: normal color Lesions: no lesions Rashes: no rashes Neuro: General: patient oriented x3 and CN's II-XI intact bilaterally Cranial nerves: Yes CN's II-XII intact bilaterally and Yes Equal, round and reactive pupils present Cognition (Neuro): normal cognition Motor exam (neuro): 5/5 motor strength present throughout Extrem: General: no joint enlargement and no pedal edema Objective Data Vital Signs Vital Signs: Vital Signs - 24 hr 05/22/20 14:00 05/22/20 14:36 05/22/20 14:40 Temperature Pulse Rate 60 67 61 Respiratory Rate 18 Blood Pressure Pulse Oximetry 94 05/22/20 14:46 05/22/20 15:35 05/22/20 15:36 Temperature 97.6 F Pulse Rate 67 76 Respiratory Rate 18 26 H Blood Pressure 120/62 Pulse Oximetry 93 92 05/22/20 16:00 05/22/20 18:00 05/22/20 18:41 Temperature 97.7 F Pulse Rate 63 78 72 Respiratory Rate 22 H Blood Pressure 140/56 L Pulse Oximetry 93 05/22/20 19:59 05/22/20 20:00 05/22/20 22:00 Temperature 97.7 F Pulse Rate 62 58 L 58 L Respiratory Rate 20 Blood Pressure 153/84 H Pulse Oximetry 95 95 05/22/20 22:15 05/22/20 23:48 05/22/20 23:56 Temperature 97.8 F Pulse Rate 70 55 L Respiratory Rate 20 20 Blood Pressure 161/92 H Pulse Oximetry 93 97 95 05/23/20 00:00 05/23/20 02:00 05/23/20 03:29 Temperature Pulse Rate 54 L 53 L 74 Respiratory Rate Blood Pressure Pulse Oximetry 98 05/23/20 03:30 05/23/20 03:36 05/23/20 04:00 Temperature 98.5 F Pulse Rate 74 55 L 59 L Respiratory Rate 20 Blood Pressure 158/79 H Pulse Oximetry 95 05/23/20 06:00 05/23/20 08:00 05/23/20 08:06 Temperature 97.0 F L Pulse Rate 58 L 62 62 Respiratory Rate 32 H Blood Pressure 152/82 H Pulse Oximetry 93 91 05/23/20 08:14 05/23/20 08:15 05/23/20 10:00 Temperature Pulse Rate 53 L 53 L 67 Respiratory Rate Blood Pressure Pulse Oximetry 93 05/23/20 11:19 05/23/20 11:33 05/23/20 12:00 Temperature 96.1 F L
[2020-05-23] MEDS: ACETAMINOPHEN 500 MG TABLET 1000 MG PO (17:17)
[2020-05-23] MEDS: FAMOTIDINE 20 MG/2 ML VIAL 40 MG IV PUSH (21:10)
[2020-05-23] MEDS: REMDESIVIR 100 MG/NS 250 ML 100 MG/250 ML BAG 250 MG IVPB (22:11)
[2020-05-24] VITALS (32 sets, daily range): BP systolic 126–155; BP diastolic 68–95; PULSE 69–105; RESP 22–40; TEMP 36.1–36.6; O2SAT 90–100
[2020-05-24] MEDS: IPRATROPIUM BR 0.02% INH SOLN 0.5 MG/2.5 ML VIAL INHALATION ×5 (00:04→21:04)
[2020-05-24] MEDS: ALBUTEROL SULFATE NEB 2.5 MG/0.5 ML INH INHALATION ×5 (00:04→21:04)
[2020-05-24] MEDS: LACTATED RINGERS 1,000 ML 50 ML IV CONT ×2 (00:27→21:47)
[2020-05-24] MEDS: ACETAMINOPHEN 325 MG TABLET PO ×3 (05:48→21:45)
[2020-05-24] MEDS: LEVOTHYROXINE SODIUM INJ 100 MCG/5 ML VIAL 62.5 MCG IV PUSH (05:48)
[2020-05-24] MEDS: CENTRAL LINE FLUSH 10 ML IV PUSH ×2 (05:49→12:51)
[2020-05-24] MEDS: BUDESONIDE RESPULE NEB 0.5 MG/2 ML AMP INHALATION ×2 (07:43→21:04)
[2020-05-24] MEDS: DEXAMETHASONE SOD PHOS INJ 4 MG/ML VIAL 6 MG IV PUSH (07:57)
[2020-05-24] MEDS: ENOXAPARIN 40 MG/0.4 ML SYRINGE SUB-Q ×2 (07:58→20:08)
[2020-05-24] MEDS: PANTOPRAZOLE SODIUM IV 40 MG VIAL IV PUSH (07:58)
[2020-05-24] MEDS: LORazepam INJ (*CRX) 2 MG/ML VIAL 0.5 MG IV PUSH ×2 (09:06→21:44)
[2020-05-24 09:44] LABS: Alanine Aminotransferase 32 U/L (4-35)
[2020-05-24 09:55] LABS: Basophils Percent Auto 0.2 % (0.2-1.2); Hematocrit 42.6 % (37.0-47.0); Hemoglobin 14.4 g/dL (12.0-15.0); Immature Granulocyte Absolute 0.32 K/mm3 (0.00-0.031); Immature Granulocyte Percent A 1.7 % (0-0.5); Lymphocytes Absolute Auto 0.57 K/mm3 (0.9-3.2); Lymphocytes Percent Auto 3.1 % (18.3-44.2); Mean Corpuscular HGB Conc 33.8 g/dl (32-36); Mean Corpuscular Hemoglobin 29.2 pg (26-34); Mean Corpuscular Volume 86.4 fl (80-100); Mean Platelet Volume 10.4 fl (7.4-10.4); Monocytes Absolute Auto 1.5 K/mm3 (0.1-0.6); Monocytes Percent Auto 7.9 % (2.6-8.5); Neutrophils Absolute Auto 16.1 K/mm3 (1.3-6.7); Neutrophils Percent Auto 87.1 % (45.5-73.1); Platelet Count Result 355 k/mm3 (150-375); Red Blood Count 4.93 M/mm3 (4.2-5.4); Red Cell Distribution Width 13.6 % (11.5-14.5); White Blood Count 18.5 K/mm3 (4.5-10.0)
--- NOTE | 2020-05-24 11:27 | PM.PNPUL ---
Progress Note: A&P Assessment and Plan (1) Pneumonia due to COVID-19 virus: Code(s): U07.1 - COVID-19; J12.89 - Other viral pneumonia Status: Acute Assessment and Plan: - continue Dexamethasone 6 mg daily for 10 days - I renewed her Remedesivir today to continue for a total of 10 days from start (2) Acute hypoxemic respiratory failure: Code(s): J96.01 - Acute respiratory failure with hypoxia Status: Acute Assessment and Plan: - continue BIPAP 12/8 with backuprate of 18 and titrate for sats of 88% or better. - tachypnea will worsen her gas exchange and hypoxia. Ok to give small doses of benzos or narcotics from time to time to slow her breathing down - alternate between HFNC and BIPAP as tolerated. Would wean FiO2 down to 50% first before starting to wean flow (3) ARDS (adult respiratory distress syndrome): Code(s): J80 - Acute respiratory distress syndrome Status: Acute (4) Asthma: Code(s): J45.909 - Unspecified asthma, uncomplicated Status: Acute Assessment and Plan: - continue current nebulized albuterol/atrovent/pulmicort as ordered. Subjective Date/time seen: 05/24/20 11:27 Interval history: She had an episode of acute worsening of hypoxia while she was being turned for routine care last night and has has difficult time recovering. She's currently back on BIPAP 12/8 with 100% FiO2 and RR in mid 30's but she's a wake and alert and is feeling a bit better. Review of Systems Review of Systems: All systems reviewed & are unremarkable except as noted in HPI and below Exam Const: General: ill appearing and tired appearing Nutritional Appearance: overweight Orientation/consciousness: oriented to person, oriented to place, oriented to time and lethargic HENMT: Head: normal to inspection, normocephalic and atraumatic Eyes: General: appearance normal, both eyes and all related structures Neck: Neck: trachea midline and supple Resp: Effort & Inspection: labored Auscultation: clear to auscultation bilaterally and diminished lung sounds Cardio: Jugular venous distension: no JVD Rate: regular rate Rhythm: regular rhythm Heart sounds: S1 normal heart sound present and S2 normal heart sound present GI: Inspection: normal to inspection Auscultation: normal bowel sounds Skin: General skin exam: no rashes or lesions noted Neuro: General: oriented to person, oriented to place and oriented to time Speech: normal speech Psych: Appearance: grossly normal Objective Data Vital Signs Vital Signs: Vital Signs - 24 hr 05/23/20 11:33 05/23/20 12:00 05/23/20 14:00 Temperature 35.6 C L Pulse Rate 62 62 70 Respiratory Rate 32 H Blood Pressure 144/72 H Pulse Oximetry 94 93 05/23/20 15:06 05/23/20 15:22 05/23/20 16:00 Temperature Pulse Rate 65 62 70 Respiratory Rate Blood Pressure Pulse Oximetry 94 92 05/23/20 16:43 05/23/20 18:00 05/23/20 19:37 Temperature 36.6 C Pulse Rate 73 103 H 88 Respiratory Rate 28 H Blood Pressure 149/77 H Pulse Oximetry 94 92 05/23/20 19:39 05/23/20 19:49 05/23/20 20:00 Temperature 36.2 C L Pulse Rate 95 98 102 H Respiratory Rate 18 24 H 24 H Blood Pressure 145/80 H Pulse Oximetry 97 97 05/23/20 22:00 05/23/20 23:53 05/24/20 00:00 Temperature 36.3 C L Pulse Rate 86 71 70 Respiratory Rate 18 22 H Blood Pressure 151/69 H Pulse Oximetry 90 90 05/24/20 00:05 05/24/20 00:15 05/24/20 02:00 Temperature Pulse Rate 69 75 82 Respiratory Rate 22 H 22 H Blood Pressure Pulse Oximetry 05/24/20 03:45 05/24/20 03:53 05/24/20 04:00 Temperature 36.4 C Pulse Rate 69 75 88 Respiratory Rate 22 H Blood Pressure 148/70 H Pulse Oximetry 90 05/24/20 05:45 05/24/20 06:00 05/24/20 07:44 Temperature Pulse Rate 86 79 86 Respiratory Rate 35 H 35 H Blood Pressure Pulse Oximetry 93 05/24/20 07:45 05/24/20 08:00 05/24/20 08:03 T
--- NOTE | 2020-05-24 11:47 | PCNFU ---
Nutrition Follow-Up Complete: Suboptimal oral intake related to COVID pneumonia as evidenced by intakes 50% or less. Goal: Patient to consume 50% of meals/supplements or greater. Patient is progressing towards goal. We will continue current goal. Pt current nutrition is Heart Healthy. Nutrition recommendation: Agree. Last recorded weight is 114.6 kg down from 120.2 kg. Bowel Motility:NO BM reported Labs Reviewed:Cr 0.5,BUN 19,Na 136 Meds Noted:Remdesivir, Protonix,Synthroid, LR. Additional Notes: Nutrition follow up. Spoke with nursing today due to COVID precautions. Patient currently on continuous Bipap. Had a bad night, refused breakfast. She will remain on a heart heathy diet with Ensure Enlive TID, providing an additional 350 kcals and 20 gms protein. Monitoring: Follow up every 3 days.
--- NOTE | 2020-05-24 13:34 | PM.IMPN ---
Progress Note: A&P Assessment and Plan (1) ARDS (adult respiratory distress syndrome): Code(s): J80 - Acute respiratory distress syndrome Status: Acute Assessment and Plan: On HNC and BiPAP Breathing treatments (2) Acute hypoxemic respiratory failure: Code(s): J96.01 - Acute respiratory failure with hypoxia Status: Acute Assessment and Plan: Continuous BiPAP at night time Alternate day time with HFNC/Airvo Appreciate Pulmonology note (3) Pneumonia due to COVID-19 virus: Code(s): U07.1 - COVID-19; J12.89 - Other viral pneumonia Status: Acute Assessment and Plan: Will complete 10 days of Remdesivir Dexamethasone as well (4) HTN (hypertension): Code(s): I10 - Essential (primary) hypertension Status: Chronic Assessment and Plan: Continue to monitor Continue home meds. (5) Asthma: Code(s): J45.909 - Unspecified asthma, uncomplicated Status: Acute Assessment and Plan: Breathing treatments Likely exacerbated with superimposed ARDS/Covid pneumonia. Subjective Date/time seen: 05/24/20 13:34 Feels ok. Overnight there was an episode of desaturation while she was turned for routine care. Review of Systems Review of Systems: Narrative: Unable to get a full reviewed as patient is on BiPAP. Exam Narrative: Exam Narrative: Lying in bed on BiPAP. Const: General: cooperative, no acute distress (However on BiPAP), alert, awake and Physically active Nutritional Appearance: well nourished HENMT: Head: normal to inspection and normocephalic Ears: hearing grossly normal bilaterally General nose exam: Normal external nose present Face and sinus: normal facial exam Eyes: General: appearance normal, both eyes and all related structures Pupils: Equal, round and reactive pupils present EOM: EOMs intact bilaterally Neck: Neck: normal visual inspection, no lymphadenopathy, supple and no JVD Resp: Auscultation: diminished lung sounds Cardio: Rate: regular rate Rhythm: regular rhythm GI: Inspection: normal to inspection GI Palp: Yes Soft to palpation and Yes No hepatosplenomegaly present Skin: General skin exam: normal color Rashes: no rashes Neuro: General: patient oriented x3 and CN's II-XI intact bilaterally Cranial nerves: Yes CN's II-XII intact bilaterally Cognition (Neuro): normal cognition Motor exam (neuro): 5/5 motor strength present throughout Extrem: General: no pedal edema Objective Data Vital Signs Vital Signs: Vital Signs - 24 hr 05/23/20 14:00 05/23/20 15:06 05/23/20 15:22 Temperature Pulse Rate 70 65 62 Respiratory Rate Blood Pressure Pulse Oximetry 94 05/23/20 16:00 05/23/20 16:43 05/23/20 18:00 Temperature 97.9 F Pulse Rate 70 73 103 H Respiratory Rate 28 H Blood Pressure 149/77 H Pulse Oximetry 92 94 05/23/20 19:37 05/23/20 19:39 05/23/20 19:49 Temperature 97.2 F L Pulse Rate 88 95 98 Respiratory Rate 18 24 H Blood Pressure 145/80 H Pulse Oximetry 92 97 05/23/20 20:00 05/23/20 22:00 05/23/20 23:53 Temperature 97.3 F L Pulse Rate 102 H 86 71 Respiratory Rate 24 H 18 Blood Pressure 151/69 H Pulse Oximetry 97 90 05/24/20 00:00 05/24/20 00:05 05/24/20 00:15 Temperature Pulse Rate 70 69 75 Respiratory Rate 22 H 22 H 22 H Blood Pressure Pulse Oximetry 90 05/24/20 02:00 05/24/20 03:45 05/24/20 03:53 Temperature Pulse Rate 82 69 75 Respiratory Rate Blood Pressure Pulse Oximetry 05/24/20 04:00 05/24/20 05:45 05/24/20 06:00 Temperature 97.6 F Pulse Rate 88 86 79 Respiratory Rate 22 H 35 H Blood Pressure 148/70 H Pulse Oximetry 90 93 05/24/20 07:44 05/24/20 07:45 05/24/20 08:00 Temperature 97.9 F Pulse Rate 86 86 81 Respiratory Rate 35 H 35 H 22 H Blood Pressure 148/94 H Pulse Oximetry 93 93 05/24/20 08:03 05/24/20 11:35 05/24/20 11:36 Temperature Pulse Rate 100 75 75 Respiratory
[2020-05-24] MEDS: FAMOTIDINE 20 MG/2 ML VIAL 40 MG IV PUSH (20:07)
[2020-05-24] MEDS: REMDESIVIR 100 MG/NS 250 ML 100 MG/250 ML BAG 250 MG IVPB (21:45)
[2020-05-25] VITALS (22 sets, daily range): BP systolic 123–144; BP diastolic 73–94; PULSE 69–106; RESP 20–33; TEMP 36.2–36.8; O2SAT 92–99
--- NOTE | 2020-05-25 02:03 | PCRCNOTE ---
Window of time for administration has passed. See next scheduled administration.
[2020-05-25] MEDS: CENTRAL LINE FLUSH 10 ML IV PUSH ×4 (02:07→23:07)
[2020-05-25] MEDS: ALBUTEROL SULFATE NEB 2.5 MG/0.5 ML INH INHALATION ×5 (03:39→20:26)
[2020-05-25] MEDS: IPRATROPIUM BR 0.02% INH SOLN 0.5 MG/2.5 ML VIAL INHALATION ×5 (03:39→20:26)
[2020-05-25] MEDS: LEVOTHYROXINE SODIUM INJ 100 MCG/5 ML VIAL 62.5 MCG IV PUSH (06:16)
[2020-05-25] MEDS: ENOXAPARIN 40 MG/0.4 ML SYRINGE SUB-Q ×2 (07:33→22:25)
[2020-05-25] MEDS: PANTOPRAZOLE SODIUM IV 40 MG VIAL IV PUSH (07:33)
[2020-05-25] MEDS: DEXAMETHASONE SOD PHOS INJ 4 MG/ML VIAL 6 MG IV PUSH (07:33)
[2020-05-25] MEDS: ACETAMINOPHEN 325 MG TABLET PO ×2 (07:34→22:26)
[2020-05-25] MEDS: BUDESONIDE RESPULE NEB 0.5 MG/2 ML AMP INHALATION ×2 (09:25→20:25)
[2020-05-25] MEDS: LORazepam INJ (*CRX) 2 MG/ML VIAL 0.5 MG IV PUSH ×2 (11:23→22:25)
--- NOTE | 2020-05-25 13:56 | PM.PNPUL ---
Progress Note: A&P Assessment and Plan (1) Pneumonia due to COVID-19 virus: Code(s): U07.1 - COVID-19; J12.89 - Other viral pneumonia Status: Acute Assessment and Plan: - this is the 14th day from her (+) SARS-CoV-2 PCR, so she is not considered infectious any longer, - she completed Dexamethasone 6 mg daily for 10 days - she completed Remedesivir yesterday - last CXR was May 24, yesterday with decreasing mild bilateral infiltrates (2) Acute hypoxemic respiratory failure: Code(s): J96.01 - Acute respiratory failure with hypoxia Status: Acute Assessment and Plan: - continue BIPAP 05/14 with back up rate of 18 and titrate for sats of 88% or better when she exerts herself or sleeps - as tachypnea will worsen her gas exchange and hypoxia, it's Ok to give small doses of benzos or narcotics from time to time to slow her breathing down - alternate between HFNC and BIPAP as tolerated; she is doing well with regular NC at 6 L/min now, improving. (3) Asthma: Qualifiers: Asthma complication type: unspecified Asthma persistence: unspecified Asthma severity: unspecified severity Qualified Code(s): J45.909 - Unspecified asthma, uncomplicated Code(s): J45.909 - Unspecified asthma, uncomplicated Status: Acute Assessment and Plan: - continue current nebulized albuterol/atrovent/pulmicort as ordered. Subjective Date/time seen: 05/25/20 13:56 Interval history: This 70 year-old female is seen in follow up for COVID pneumonia with acute hypoxemic respiratory. She feels better today, still tired and has a headache. She has been using BIPAP 05/14 with 100% FiO2 when she turns to use the bedpan or exerts herself because she has little reserve and desaturates. She has PT scheduled, but says she has not gotten out of her bed lately. Review of Systems Review of Systems: ROS unobtainable: Yes other (headaches) Exam Narrative: Exam Narrative: Alert, speaks clearly, appears tired but not in distress. Const: General: ill appearing and tired appearing Nutritional Appearance: overweight Orientation/consciousness: oriented to person, oriented to place, oriented to time and lethargic HENMT: Head: normal to inspection, normocephalic and atraumatic Eyes: General: appearance normal, both eyes and all related structures Neck: Neck: trachea midline and supple Resp: Effort & Inspection: labored Auscultation: clear to auscultation bilaterally and diminished lung sounds Cardio: Jugular venous distension: no JVD Rate: regular rate Rhythm: regular rhythm Heart sounds: S1 normal heart sound present and S2 normal heart sound present GI: Inspection: normal to inspection Auscultation: normal bowel sounds Skin: General skin exam: no rashes or lesions noted Neuro: General: oriented to person, oriented to place and oriented to time Speech: normal speech Extrem: General: no clubbing, cyanosis or edema Psych: Appearance: grossly normal Mental Status: mental status grossly normal Objective Data Vital Signs Vital Signs: Vital Signs - 24 hr 05/24/20 14:00 05/24/20 15:54 05/24/20 16:00 Temperature 36.4 C Pulse Rate 96 92 97 Respiratory Rate 24 H Blood Pressure 155/85 H Pulse Oximetry 90 93 05/24/20 16:51 05/24/20 16:59 05/24/20 18:00 Temperature Pulse Rate 92 90 94 Respiratory Rate 24 H 24 H Blood Pressure Pulse Oximetry 05/24/20 20:00 05/24/20 21:05 05/24/20 21:06 Temperature 36.4 C L Pulse Rate 91 87 85 Respiratory Rate 22 H 22 H Blood Pressure 149/95 H Pulse Oximetry 92 90 05/24/20 21:21 05/24/20 22:00 05/24/20 23:38 Temperature 36.1 C L Pulse Rate 94 105 H 93 Respiratory Rate 26 H 36 H Blood Pressure 126/68 Pulse Oximetry 95
--- NOTE | 2020-05-25 14:49 | PM.IMPN ---
Progress Note: A&P Assessment and Plan (1) ARDS (adult respiratory distress syndrome): Code(s): J80 - Acute respiratory distress syndrome Status: Acute Assessment and Plan: Improved Will continue with BiPAP/HFNC Continuous BiPAP at night time for naps and after exertion HFNC in between. Continue systemic steroids (2) Acute hypoxemic respiratory failure: Code(s): J96.01 - Acute respiratory failure with hypoxia Status: Acute Assessment and Plan: Breathing treatments O2 sat at 88% or higher. (3) Pneumonia due to COVID-19 virus: Code(s): U07.1 - COVID-19; J12.89 - Other viral pneumonia Status: Acute Assessment and Plan: One more dose of Remdesivir to complete 10 days Will continue Dexamethasone 6 mg po daily. (4) Neuropathy: Code(s): G62.9 - Polyneuropathy, unspecified Status: Chronic Assessment and Plan: Continue home meds. (5) Asthma: Qualifiers: Asthma severity: unspecified severity Asthma persistence: unspecified Asthma complication type: unspecified Qualified Code(s): J45.909 - Unspecified asthma, uncomplicated Code(s): J45.909 - Unspecified asthma, uncomplicated Status: Acute Assessment and Plan: No wheezing Will continue breathing treatments. (6) HTN (hypertension): Code(s): I10 - Essential (primary) hypertension Status: Chronic Assessment and Plan: Stable Continue home meds. Subjective Date/time seen: 05/25/20 14:49 Feeling much better today. Review of Systems Review of Systems: Narrative: Unable to get a thorough review as patient is still with mild respiratory distress, currently at the time seen was receiving a treatment. However states that she feels much better. Exam Narrative: Exam Narrative: Sitting in bed. Const: General: cooperative, comfortable, no acute distress, alert, awake and Physically active Nutritional Appearance: well nourished Limitations: no limitations HENMT: Head: normal to inspection and normocephalic Ears: hearing grossly normal bilaterally General nose exam: Normal external nose present Face and sinus: normal facial exam Eyes: General: appearance normal, both eyes and all related structures Pupils: Equal, round and reactive pupils present EOM: EOMs intact bilaterally Neck: Neck: no lymphadenopathy, supple and no JVD Resp: Auscultation: diminished lung sounds Cardio: Rate: regular rate Rhythm: regular rhythm GI: GI Palp: Yes Soft to palpation and Yes No hepatosplenomegaly present Skin: General skin exam: normal color Lesions: no lesions Rashes: no rashes Wounds: no wounds Neuro: General: patient oriented x3 and CN's II-XI intact bilaterally Cranial nerves: Yes CN's II-XII intact bilaterally and Yes Equal, round and reactive pupils present Cognition (Neuro): normal cognition Speech: normal speech Motor exam (neuro): 5/5 motor strength present throughout Extrem: General: normal to inspection, full ROM and no pedal edema Objective Data Vital Signs Vital Signs: Vital Signs - 24 hr 05/24/20 15:54 05/24/20 16:00 05/24/20 16:51 Temperature 97.6 F Pulse Rate 92 97 92 Respiratory Rate 24 H 24 H Blood Pressure 155/85 H Pulse Oximetry 90 93 05/24/20 16:59 05/24/20 18:00 05/24/20 20:00 Temperature 97.5 F L Pulse Rate 90 94 91 Respiratory Rate 24 H 22 H Blood Pressure 149/95 H Pulse Oximetry 92 05/24/20 21:05 05/24/20 21:06 05/24/20 21:21 Temperature Pulse Rate 87 85 94 Respiratory Rate 22 H 26 H Blood Pressure Pulse Oximetry 90 05/24/20 22:00 05/24/20 23:38 05/24/20 23:59 Temperature 96.9 F L Pulse Rate 105 H 93 82 Respiratory Rate 36 H 30 H Blood Pressure 126/68 Pulse Oximetry 95 95 05/25/20 00:00 05/25/20 02:00 05/25/20 03:40 Temperature Pulse Rate 89 77 78 Respiratory Rate 22 H Blood Pressure Pulse Oximetry 95 05/25/20 03:48 05/25/20 03:49 05/25/20 04
[2020-05-25] MEDS: LACTATED RINGERS 1,000 ML 50 ML IV CONT (15:45)
[2020-05-25] MEDS: FAMOTIDINE 20 MG/2 ML VIAL 40 MG IV PUSH (22:25)
[2020-05-26] VITALS (18 sets, daily range): BP systolic 123–155; BP diastolic 66–82; PULSE 66–111; RESP 18–40; TEMP 35.6–36.7; O2SAT 91–97
[2020-05-26] MEDS: IPRATROPIUM BR 0.02% INH SOLN 0.5 MG/2.5 ML VIAL INHALATION ×4 (02:58→20:12)
[2020-05-26] MEDS: ALBUTEROL SULFATE NEB 2.5 MG/0.5 ML INH INHALATION ×4 (02:58→20:12)
[2020-05-26] MEDS: LEVOTHYROXINE SODIUM INJ 100 MCG/5 ML VIAL 62.5 MCG IV PUSH (06:52)
[2020-05-26] MEDS: CENTRAL LINE FLUSH 10 ML IV PUSH ×3 (06:56→22:07)
[2020-05-26] MEDS: ENOXAPARIN 40 MG/0.4 ML SYRINGE SUB-Q ×2 (07:40→21:54)
[2020-05-26] MEDS: PANTOPRAZOLE SODIUM IV 40 MG VIAL IV PUSH (07:41)
[2020-05-26] MEDS: DEXAMETHASONE 2 MG TABLET 6 MG PO (07:41)
[2020-05-26] MEDS: BUDESONIDE RESPULE NEB 0.5 MG/2 ML AMP INHALATION ×2 (08:25→20:13)
--- NOTE | 2020-05-26 09:25 | PCDIET ---
Nutrition Follow-Up Complete: Suboptimal oral intake related to COVID pneumonia as evidenced by intakes 50% or less. Patient to consume 50% of meals/supplements or greater. Goal:Goal met. Continue goal. Pt current nutrition is Heart Healthy + Enlive TID Nutrition recommendation: agree Last recorded weight is 115.5 kg (down from 120.2kg on assessment) Labs Reviewed:WBC 18.5 Meds: Remdesivir, Dexamethasone, Synthroid, Multivitamin, Lactated ringers Additional Notes: Pt on a heart healthy diet, getting Ensure Enlive TID. Ensure Enlive provides 350kcal, 20g of protein, and 26 essential vitamins and minerals per serving. Pt is drinking shake and eating an average of 56% of meals. We will continue to monitor for adequate intake every five days.
[2020-05-26] MEDS: LACTATED RINGERS 1,000 ML 50 ML IV CONT (11:51)
[2020-05-26] MEDS: LORazepam INJ (*CRX) 2 MG/ML VIAL 0.5 MG IV PUSH ×2 (11:51→22:31)
[2020-05-26] MEDS: ACETAMINOPHEN 325 MG TABLET PO ×2 (12:41→22:30)
--- NOTE | 2020-05-26 14:27 | PM.IMPN ---
Progress Note: A&P Assessment and Plan (1) ARDS (adult respiratory distress syndrome): Code(s): J80 - Acute respiratory distress syndrome Status: Acute Assessment and Plan: Improved oxygen needs Continue BiPAP alternating with HFNC Weaning as needed (2) Acute hypoxemic respiratory failure: Code(s): J96.01 - Acute respiratory failure with hypoxia Status: Acute Assessment and Plan: Improved. BiPAP continuous at night time PRN BiPAP during day time HFNC as needed (3) Pneumonia due to COVID-19 virus: Code(s): U07.1 - COVID-19; J12.89 - Other viral pneumonia Status: Acute Assessment and Plan: To complete 10 days of Remdesivir. Continue Dexamethasone. (4) HTN (hypertension): Code(s): I10 - Essential (primary) hypertension Status: Chronic Assessment and Plan: Stable Continue home meds (5) Physical deconditioning: Code(s): R53.81 - Other malaise Status: Acute Assessment and Plan: PT/OT consult. Likely due to acute illness. Subjective Date/time seen: 05/26/20 14:27 I feel better. Review of Systems Review of Systems: Narrative: Unable to obtain a thorough review as patient is very weak. Constitutional: Constitutional: Reports fatigue Exam Narrative: Exam Narrative: Lying in bed. Const: General: cooperative, comfortable, alert, awake, Physically active and ill appearing Nutritional Appearance: overweight HENMT: Head: normal to inspection and normocephalic Ears: hearing grossly normal bilaterally General nose exam: Normal external nose present Face and sinus: normal facial exam Eyes: General: appearance normal, both eyes and all related structures Pupils: Equal, round and reactive pupils present EOM: EOMs intact bilaterally Neck: Neck: no lymphadenopathy, supple and no JVD Resp: Auscultation: diminished lung sounds Cardio: Jugular venous distension: no JVD Rate: regular rate Rhythm: regular rhythm GI: GI Palp: Yes Soft to palpation and Yes No hepatosplenomegaly present Skin: General skin exam: normal color Neuro: General: patient oriented x3 and CN's II-XI intact bilaterally Cranial nerves: Yes CN's II-XII intact bilaterally and Yes Equal, round and reactive pupils present Cognition (Neuro): normal cognition Speech: normal speech Extrem: General: normal to inspection, full ROM and no pedal edema Objective Data Vital Signs Vital Signs: Vital Signs - 24 hr 05/25/20 15:15 05/25/20 16:00 05/25/20 20:00 Temperature 97.8 F 97.1 F L Pulse Rate 95 97 79 Respiratory Rate 22 H 22 H 26 H Blood Pressure 142/81 H 123/94 H Pulse Oximetry 95 92 05/25/20 20:26 05/25/20 23:00 05/26/20 00:00 Temperature 97.2 F L Pulse Rate 75 76 75 Respiratory Rate 22 H 30 H 40 H Blood Pressure 143/69 H Pulse Oximetry 99 91 05/26/20 02:58 05/26/20 02:59 05/26/20 04:00 Temperature 97.4 F L Pulse Rate 66 66 66 Respiratory Rate 27 H 27 H 28 H Blood Pressure 150/73 H Pulse Oximetry 92 96 05/26/20 08:00 05/26/20 08:25 05/26/20 08:35 Temperature Pulse Rate 104 H 101 H 104 H Respiratory Rate 24 H 28 H Blood Pressure Pulse Oximetry 95 05/26/20 08:52 05/26/20 12:00 05/26/20 12:28 Temperature 96.1 F L Pulse Rate 111 H 99 90 Respiratory Rate 32 H 24 H Blood Pressure 155/80 H 134/66 Pulse Oximetry 96 97 05/26/20 12:59 Temperature Pulse Rate Respiratory Rate Blood Pressure Pulse Oximetry 92 Intake/Output Intake/Output: Intake & Output 05/23/20 05/24/20 05/25/20 05/26/20 23:59 23:59 23:59 23:59 Intake Total 2219 2250 1780 1120 Output Total 2850 1750 1725 550 Balance -631 500 55 570 Meds/Results Medications: Active Medications Generic Name Dose Route Start Last Admin Trade Name Freq PRN Reason Stop Dose Admin Acetaminophen 325 mg 05/16/20 16:20 05/26/20 12:41 Acetaminophen 325 Mg Tablet PO 325 mg Q6H PRN Administration Mild Pain (1-3) or
[2020-05-26 15:19] LABS: Basophils Percent Auto 0.3 % (0.2-1.2); Hematocrit 40.8 % (37.0-47.0); Hemoglobin 13.8 g/dL (12.0-15.0); Immature Granulocyte Absolute 0.28 K/mm3 (0.00-0.031); Immature Granulocyte Percent A 1.9 % (0-0.5); Lymphocytes Absolute Auto 0.25 K/mm3 (0.9-3.2); Lymphocytes Percent Auto 1.7 % (18.3-44.2); Mean Corpuscular HGB Conc 33.8 g/dl (32-36); Mean Corpuscular Hemoglobin 30.1 pg (26-34); Mean Corpuscular Volume 88.9 fl (80-100); Mean Platelet Volume 10.2 fl (7.4-10.4); Monocytes Absolute Auto 0.6 K/mm3 (0.1-0.6); Neutrophils Absolute Auto 13.7 K/mm3 (1.3-6.7); Neutrophils Percent Auto 92.1 % (45.5-73.1); Platelet Count Result 353 k/mm3 (150-375); Red Blood Count 4.59 M/mm3 (4.2-5.4); Red Cell Distribution Width 13.8 % (11.5-14.5); White Blood Count 14.9 K/mm3 (4.5-10.0)
--- NOTE | 2020-05-26 15:25 | PCRCNOTE ---
SCHEDULED TIME HAS PASSED. SEE NEXT DOSE.
[2020-05-26 15:30] LABS: Anion Gap 5 mmol/L (8-16); Blood Urea Nitrogen 15 mg/dL (7-17); Calcium 8.8 mg/dL (8.4-10.2); Carbon Dioxide 28 mmol/L (22-30); Chloride 103 mmol/L (98-107); Estimated CRCL calculation 102 ml/min; Estimated Glomerular Filt Rate > 60; Glucose 139 mg/dL (65-105); Potassium 4.2 mmol/L (3.4-5.0); Sodium 136 mmol/L (137-145)
--- NOTE | 2020-05-26 15:55 | PC.NURSE ---
Patient transferred to room 309, all belongings sent with patient. Report given to Leanne GILBERT and all questions answered.
[2020-05-26] MEDS: FAMOTIDINE 20 MG/2 ML VIAL 40 MG IV PUSH (21:54)
[2020-05-27] VITALS (19 sets, daily range): BP systolic 132–161; BP diastolic 60–85; PULSE 61–85; RESP 16–30; TEMP 36.2–36.7; O2SAT 89–100
[2020-05-27] MEDS: ALBUTEROL SULFATE NEB 2.5 MG/0.5 ML INH INHALATION ×6 (02:27→20:57)
[2020-05-27] MEDS: IPRATROPIUM BR 0.02% INH SOLN 0.5 MG/2.5 ML VIAL INHALATION ×6 (02:27→20:57)
[2020-05-27] MEDS: LEVOTHYROXINE SODIUM INJ 100 MCG/5 ML VIAL 62.5 MCG IV PUSH (06:40)
[2020-05-27] MEDS: CENTRAL LINE FLUSH 10 ML IV PUSH ×3 (06:40→21:04)
[2020-05-27] MEDS: PANTOPRAZOLE SODIUM IV 40 MG VIAL IV PUSH (08:17)
[2020-05-27] MEDS: ENOXAPARIN 40 MG/0.4 ML SYRINGE SUB-Q ×2 (08:18→21:06)
[2020-05-27] MEDS: DEXAMETHASONE 2 MG TABLET 6 MG PO (08:18)
[2020-05-27] MEDS: LACTATED RINGERS 1,000 ML 50 ML IV CONT (08:18)
[2020-05-27] MEDS: ACETAMINOPHEN 325 MG TABLET PO (08:26)
[2020-05-27] MEDS: BUDESONIDE RESPULE NEB 0.5 MG/2 ML AMP INHALATION ×2 (08:29→20:56)
--- NOTE | 2020-05-27 14:38 | PM.IMPN ---
Progress Note: A&P Assessment and Plan (1) Physical deconditioning: Code(s): R53.81 - Other malaise Status: Acute Assessment and Plan: Participating with PT/OT in therapy. (2) ARDS (adult respiratory distress syndrome): Code(s): J80 - Acute respiratory distress syndrome Status: Acute Assessment and Plan: Improved BiPAP continuous at night time and prn during day time Doing well with NC Continue to monitor (3) Acute hypoxemic respiratory failure: Code(s): J96.01 - Acute respiratory failure with hypoxia Status: Acute Assessment and Plan: Improved Continue present management. (4) Pneumonia due to COVID-19 virus: Code(s): U07.1 - COVID-19; J12.89 - Other viral pneumonia Status: Acute Assessment and Plan: Completed Remdesivir Continue Dexamethasone. (5) Neuropathy: Code(s): G62.9 - Polyneuropathy, unspecified Status: Chronic Assessment and Plan: Stable. (6) HTN (hypertension): Code(s): I10 - Essential (primary) hypertension Status: Chronic Assessment and Plan: Stable Continue to monitor. Subjective Date/time seen: 05/27/20 14:38 I feel much better. Review of Systems Review of Systems: Narrative: Unable to get as patient just finished working with PT and is recovering. Exam Narrative: Exam Narrative: Sitting in bed. Const: General: cooperative, no acute distress, alert, awake and Physically active Nutritional Appearance: average body habitus Orientation/consciousness: patient oriented x3 Limitations: no limitations HENMT: Head: normal to inspection and normocephalic Ears: hearing grossly normal bilaterally General nose exam: Normal external nose present Face and sinus: normal facial exam Eyes: General: appearance normal, both eyes and all related structures Pupils: Equal, round and reactive pupils present EOM: EOMs intact bilaterally Neck: Neck: normal visual inspection, no lymphadenopathy, supple and no JVD Resp: Auscultation: diminished lung sounds Cardio: Rate: regular rate Rhythm: regular rhythm GI: GI Palp: Yes Soft to palpation and Yes No hepatosplenomegaly present Skin: General skin exam: normal color Wounds: no wounds Neuro: General: patient oriented x3 and CN's II-XI intact bilaterally Cranial nerves: Yes CN's II-XII intact bilaterally and Yes Equal, round and reactive pupils present Cognition (Neuro): normal cognition Speech: normal speech Motor exam (neuro): 5/5 motor strength present throughout Extrem: General: normal to inspection and no pedal edema Objective Data Vital Signs Vital Signs: Vital Signs - 24 hr 05/26/20 15:18 05/26/20 15:30 05/26/20 16:00 Temperature 98.1 F Pulse Rate 74 85 83 Respiratory Rate 24 H 24 H 18 Blood Pressure 141/71 H Pulse Oximetry 95 05/26/20 16:29 05/26/20 20:00 05/26/20 20:10 Temperature 97.9 F Pulse Rate 79 88 Respiratory Rate 18 24 H Blood Pressure 123/82 Pulse Oximetry 96 96 91 05/26/20 22:24 05/27/20 00:00 05/27/20 02:27 Temperature 97.9 F Pulse Rate 82 72 76 Respiratory Rate 33 H 18 24 H Blood Pressure 138/79 Pulse Oximetry 94 96 05/27/20 04:00 05/27/20 04:47 05/27/20 08:00 Temperature 97.4 F L 97.5 F L Pulse Rate 67 68 Respiratory Rate 20 30 H 16 Blood Pressure 132/77 153/75 H Pulse Oximetry 100 95 95 05/27/20 08:21 05/27/20 08:30 05/27/20 08:53 Temperature 97.5 F L Pulse Rate 68 64 Respiratory Rate 22 H 20 Blood Pressure Pulse Oximetry 93 05/27/20 10:21 05/27/20 12:00 05/27/20 12:53 Temperature 97.8 F Pulse Rate 81 61 Respiratory Rate 24 H 20 Blood Pressure 161/74 H Pulse Oximetry 97 95 05/27/20 12:59 Temperature Pulse Rate 70 Respiratory Rate 20 Blood Pressure Pulse Oximetry Intake/Output Intake/Output: Intake & Output 05/24/20 05/25/20 05/26/20 05/27/20 23:59 23:59 23:59 23:59 Intake Total 2250 1780 1540 1610 Output To
[2020-05-27] MEDS: SUMAtriptan SUCCINATE 25 MG TABLET PO (15:01)
--- NOTE | 2020-05-27 19:57 | PM.PNPUL ---
Progress Note: A&P Assessment and Plan (1) Pneumonia due to COVID-19 virus: Code(s): U07.1 - COVID-19; J12.89 - Other viral pneumonia Status: Acute Assessment and Plan: - this is the 14th day from her (+) SARS-CoV-2 PCR, so she is not considered infectious any longer, - she completed Dexamethasone 6 mg daily for 10 days - she completed Remedesivir yesterday - last CXR was May 24, with decreasing mild bilateral infiltrates (2) Acute hypoxemic respiratory failure: Code(s): J96.01 - Acute respiratory failure with hypoxia Status: Acute Assessment and Plan: - stop BIPAP 05/14 with sleep as she is improving and does not rest as well wearing it; Can continue to use for sats of 88% lower when she exerts herself or sleeps - as tachypnea will worsen her gas exchange and hypoxia, it's Ok to give small doses of benzos or narcotics from time to time to slow her breathing down - She has Xanax 0.25 mg on her med list to use Q 6 hours p.r.n anxiety - alternate between HFNC and BIPAP as tolerated; she is doing well with regular NC at 65 L/min now, improving. (3) Asthma: Qualifiers: Asthma severity: unspecified severity Asthma persistence: unspecified Asthma complication type: unspecified Qualified Code(s): J45.909 - Unspecified asthma, uncomplicated Code(s): J45.909 - Unspecified asthma, uncomplicated Status: Acute Assessment and Plan: - continue current nebulized albuterol/atrovent/pulmicort as ordered. (4) Anxiety: Code(s): F41.9 - Anxiety disorder, unspecified Status: Acute Assessment and Plan: she has Xanax 0.25 mg p.r.n. Q 6 hours for anxiety will ask RN to offer to her now and hold off on starting new anxiolytic Subjective Date/time seen: 05/27/20 19:57 Interval history: This 70 year-old female is seen in follow up for COVID pneumonia with acute hypoxemic respiratory. She feels better today, still tired and has a headache. She has been using BIPAP 05/14 with 100% FiO2 with exertion; she does not want to wear it with sleep as it is too tight, and she does not sleep well. She says that she feels panic at times. She has started physical therapy. Feeling less short of breath. Review of Systems Review of Systems: All systems reviewed & are unremarkable except as noted in HPI and below ROS unobtainable: Yes other (headaches) Exam Narrative: Exam Narrative: Alert, speaks clearly, appears tired but not in distress. HENMT: Head: normal to inspection Ears: hearing grossly normal bilaterally Face and sinus: normal facial exam Eyes: General: appearance normal, both eyes and all related structures Chest: Chest palpation & inspection: normal inspection of the chest Resp: Effort & Inspection: normal respiratory effort Auscultation: diminished lung sounds Cardio: Rate: regular rate Rhythm: regular rhythm Heart sounds: S1 normal heart sound present, S2 normal heart sound present, no gallops and no murmurs Skin: General skin exam: normal color and no rashes or lesions noted Extrem: General: no clubbing, cyanosis or edema Psych: Mental Status: mental status grossly normal Objective Data Vital Signs Vital Signs: Vital Signs - 24 hr 05/26/20 20:00 05/26/20 20:10 05/26/20 22:24 Temperature 36.6 C Pulse Rate 79 88 82 Respiratory Rate 18 24 H 33 H Blood Pressure 123/82 Pulse Oximetry 96 91 94 05/27/20 00:00 05/27/20 02:27 05/27/20 04:00 Temperature 36.6 C 36.3 C L Pulse Rate 72 76 67 Respiratory Rate 18 24 H 20 Blood Pressure 138/79 132/77 Pulse Oximetry 96 100 05/27/20 04:47 05/27/20 08:00 05/27/20 08:21 Temperature 36.4 C L 36.4 C L Pulse Rate 68 Respi
[2020-05-27] MEDS: FAMOTIDINE 20 MG/2 ML VIAL 40 MG IV PUSH (21:04)
[2020-05-27] MEDS: LORazepam INJ (*CRX) 2 MG/ML VIAL 0.5 MG IV PUSH (21:05)
[2020-05-28] VITALS (15 sets, daily range): BP systolic 147–155; BP diastolic 71–94; PULSE 61–86; RESP 18–22; TEMP 36.1–36.6; O2SAT 89–99
--- NOTE | 2020-05-28 03:09 | PCRCNOTE ---
Window of time for administration has passed. See next scheduled administration.
[2020-05-28] MEDS: IPRATROPIUM BR 0.02% INH SOLN 0.5 MG/2.5 ML VIAL INHALATION ×5 (03:14→21:09)
[2020-05-28] MEDS: ALBUTEROL SULFATE NEB 2.5 MG/0.5 ML INH INHALATION ×5 (03:14→21:09)
[2020-05-28] MEDS: LACTATED RINGERS 1,000 ML 50 ML IV CONT (05:45)
[2020-05-28] MEDS: LEVOTHYROXINE SODIUM INJ 100 MCG/5 ML VIAL 62.5 MCG IV PUSH (05:45)
[2020-05-28] MEDS: CENTRAL LINE FLUSH 10 ML IV PUSH ×3 (05:47→20:42)
[2020-05-28 07:14] LABS: Basophils Percent Auto 0.2 % (0.2-1.2); Hematocrit 39.8 % (37.0-47.0); Hemoglobin 13.4 g/dL (12.0-15.0); Immature Granulocyte Absolute 0.25 K/mm3 (0.00-0.031); Immature Granulocyte Percent A 2.2 % (0-0.5); Lymphocytes Absolute Auto 0.81 K/mm3 (0.9-3.2); Lymphocytes Percent Auto 7.1 % (18.3-44.2); Mean Corpuscular HGB Conc 33.7 g/dl (32-36); Mean Corpuscular Hemoglobin 29.8 pg (26-34); Mean Corpuscular Volume 88.4 fl (80-100); Monocytes Absolute Auto 1.1 K/mm3 (0.1-0.6); Monocytes Percent Auto 9.5 % (2.6-8.5); Neutrophils Absolute Auto 9.3 K/mm3 (1.3-6.7); Platelet Count Result 410 k/mm3 (150-375); White Blood Count 11.5 K/mm3 (4.5-10.0)
[2020-05-28 07:33] LABS: Anion Gap 2 mmol/L (8-16); Blood Urea Nitrogen 16 mg/dL (7-17); Calcium 9.1 mg/dL (8.4-10.2); Carbon Dioxide 33 mmol/L (22-30); Chloride 101 mmol/L (98-107); Estimated CRCL calculation 87 ml/min; Estimated Glomerular Filt Rate > 60; Glucose 95 mg/dL (65-105); Sodium 136 mmol/L (137-145)
[2020-05-28] MEDS: ACETAMINOPHEN 325 MG TABLET PO ×2 (08:03→20:45)
[2020-05-28] MEDS: DEXAMETHASONE 2 MG TABLET 6 MG PO (08:04)
[2020-05-28] MEDS: ENOXAPARIN 40 MG/0.4 ML SYRINGE SUB-Q ×2 (08:04→20:39)
[2020-05-28] MEDS: PANTOPRAZOLE SODIUM IV 40 MG VIAL IV PUSH (08:04)
[2020-05-28] MEDS: BUDESONIDE RESPULE NEB 0.5 MG/2 ML AMP INHALATION ×2 (08:19→21:09)
--- NOTE | 2020-05-28 08:24 | PCRCNOTE ---
05/26/20 1200 done not given. Window of time for administration has passed. See next scheduled administration.
--- NOTE | 2020-05-28 10:51 | PM.IMPN ---
Progress Note: A&P Assessment and Plan (1) Physical deconditioning: Code(s): R53.81 - Other malaise Status: Acute Assessment and Plan: Participating with PT/OT in therapy. (2) ARDS (adult respiratory distress syndrome): Code(s): J80 - Acute respiratory distress syndrome Status: Acute Assessment and Plan: Improved BiPAP continuous at night time and prn during day time Doing well with NC Continue to monitor oxygen (3) Acute hypoxemic respiratory failure: Code(s): J96.01 - Acute respiratory failure with hypoxia Status: Acute Assessment and Plan: Improved Continue present management. and monitor oxygen (4) Pneumonia due to COVID-19 virus: Code(s): U07.1 - COVID-19; J12.89 - Other viral pneumonia Status: Acute Assessment and Plan: Completed remdesivir and dexamethasone. (5) Neuropathy: Code(s): G62.9 - Polyneuropathy, unspecified Status: Chronic Assessment and Plan: Stable. (6) HTN (hypertension): Code(s): I10 - Essential (primary) hypertension Status: Chronic Assessment and Plan: Stable Continue to monitor. Subjective Date/time seen: 05/28/20 10:51 Interval history: Patient was seen during the morning rounds today, has mild sob,no chest pain, mood slightly anxious. She has been using BIPAP 05/14 with 100% FiO2 with exertion; she does not want to wear it with sleep as it is too tight, and she does not sleep well. She says that she feels panic at times. She has started physical therapy. Review of Systems Review of Systems: All systems reviewed & are unremarkable except as noted in HPI and below ROS unobtainable: Yes unobtainable due to medical condition Constitutional: Constitutional: Reports as per HPI, Reports no additional constitutional complaints and Reports fatigue Eyes: Eyes: Reports as per HPI and Reports no additional eye complaints ENT: Reports system reviewed and no additional complaints, except as documented and Reports Normal hearing present Cardiovascular: Cardiovascular: Reports no additional cardiovascular complaints Respiratory: Respiratory: Reports no additional respiratory complaints and Reports no additional respiratory complaints Gastrointestinal: Gastrointestinal: Reports as per HPI and Reports no additional gastrointestinal complaints Musculoskeletal: Musculoskeletal: Reports no additional musculoskeletal complaints Integumentary/Breasts: Skin/Breast: Reports system reviewed and no additional complaints, except as docu and Reports as per HPI Neurologic: Reports system reviewed and no additional complaints, except as documented, Reports as per HPI and Reports Normal hearing present Psychiatric: Psychiatric: Reports no additional psychiatric complaints and Reports as per HPI Endocrine: Endocrine: Reports no additional endocrine complaints and Reports fatigue Hematologic/Lymphatic: Hematologic/Lymphatic: Reports no additional hematologic/lymphatic complaints Allergic/Immunologic: Allergic/Immunologic: Reports no additional allergic/immunologic complaints Exam Narrative: Exam Narrative: Sitting in bed. Const: General: cooperative, healthy appearing, comfortable, no acute distress, well developed, alert, awake, Physically active, ill appearing, tired appearing and other (Sleepy but easily arousable.) Nutritional Appearance: average body habitus, well nourished and overweight Orientation/consciousness: oriented to person, oriented to place, oriented to time and patient oriented x3 Limitations: no limitations HENMT: Head: normal to inspection, No palpable skull fracture present, normocephalic and atraumatic Ears: hearing grossly normal bilaterally and external ears normal General nose exam: Normal external nose present, Normal nares present and No nasal polyps present Face and sinus: normal facial exam Mouth: Yes Normal oral and palatal mucosa present Eyes: General: appearance
[2020-05-28] MEDS: FAMOTIDINE 20 MG/2 ML VIAL 40 MG IV PUSH (20:39)
[2020-05-29] VITALS (11 sets, daily range): BP systolic 145–150; BP diastolic 75–89; PULSE 66–92; RESP 16–20; TEMP 36.3–36.6; O2SAT 92–96
[2020-05-29] MEDS: IPRATROPIUM BR 0.02% INH SOLN 0.5 MG/2.5 ML VIAL INHALATION ×4 (00:59→21:02)
[2020-05-29] MEDS: ALBUTEROL SULFATE NEB 2.5 MG/0.5 ML INH INHALATION ×4 (00:59→21:02)
[2020-05-29] MEDS: LACTATED RINGERS 1,000 ML 50 ML IV CONT (04:09)
[2020-05-29] MEDS: LORazepam INJ (*CRX) 2 MG/ML VIAL 0.5 MG IV PUSH (04:25)
[2020-05-29] MEDS: CENTRAL LINE FLUSH 10 ML IV PUSH ×3 (06:05→20:44)
[2020-05-29] MEDS: LEVOTHYROXINE SODIUM INJ 100 MCG/5 ML VIAL 62.5 MCG IV PUSH (06:05)
[2020-05-29] MEDS: ENOXAPARIN 40 MG/0.4 ML SYRINGE SUB-Q ×2 (08:09→20:44)
[2020-05-29] MEDS: DEXAMETHASONE 2 MG TABLET 6 MG PO (08:09)
[2020-05-29] MEDS: PANTOPRAZOLE SODIUM IV 40 MG VIAL IV PUSH (08:10)
--- NOTE | 2020-05-29 10:44 | P.PNIM_ITS ---
Progress Note: A&P Assessment and Plan (1) Physical deconditioning: Code(s): R53.81 - Other malaise Status: Acute Assessment and Plan: Participating with PT/OT in therapy. (2) ARDS (adult respiratory distress syndrome): Code(s): J80 - Acute respiratory distress syndrome Status: Acute Assessment and Plan: Improved BiPAP continuous at night time and prn during day time Doing well with NC Continue to monitor oxygen (3) Acute hypoxemic respiratory failure: Code(s): J96.01 - Acute respiratory failure with hypoxia Status: Acute Assessment and Plan: Improved Continue present management. and monitor oxygen (4) Pneumonia due to COVID-19 virus: Code(s): U07.1 - COVID-19; J12.89 - Other viral pneumonia Status: Acute Assessment and Plan: Completed remdesivir and dexamethasone. (5) Neuropathy: Code(s): G62.9 - Polyneuropathy, unspecified Status: Chronic Assessment and Plan: Stable. (6) HTN (hypertension): Code(s): I10 - Essential (primary) hypertension Status: Chronic Assessment and Plan: Stable Continue to monitor. Subjective Date/time seen: 05/29/20 10:44 Interval history: Patient was seen during the morning rounds today, has mild sob,no chest pain, mood slightly anxious. She has been using BIPAP 05/14 with 100% FiO2 with exertion; she does not want to wear it with sleep as it is too tight, and she does not sleep well. She says that she feels panic at times. She has started physical therapy. No new complaints Review of Systems Review of Systems: All systems reviewed & are unremarkable except as noted in HPI and below ROS unobtainable: Yes unobtainable due to medical condition Constitutional: Constitutional: Reports as per HPI, Reports no additional constitutional complaints and Reports fatigue Eyes: Eyes: Reports as per HPI and Reports no additional eye complaints ENT: Reports system reviewed and no additional complaints, except as documented and Reports Normal hearing present Cardiovascular: Cardiovascular: Reports no additional cardiovascular complaints Respiratory: Respiratory: Reports no additional respiratory complaints and Reports no additional respiratory complaints Gastrointestinal: Gastrointestinal: Reports as per HPI and Reports no additional gastrointestinal complaints Musculoskeletal: Musculoskeletal: Reports no additional musculoskeletal complaints Integumentary/Breasts: Skin/Breast: Reports system reviewed and no additional complaints, except as docu and Reports as per HPI Neurologic: Reports system reviewed and no additional complaints, except as documented, Reports as per HPI and Reports Normal hearing present Psychiatric: Psychiatric: Reports no additional psychiatric complaints and Reports as per HPI Endocrine: Endocrine: Reports no additional endocrine complaints and Reports fatigue Hematologic/Lymphatic: Hematologic/Lymphatic: Reports no additional hematologic/lymphatic complaints Allergic/Immunologic: Allergic/Immunologic: Reports no additional allergic/immunologic complaints Exam Narrative: Exam Narrative: Sitting in bed. Const: General: cooperative, healthy appearing, comfortable, no acute distress, well developed, alert, awake, Physically active, ill appearing, tired appearing and other (Sleepy but easily arousable.) Nutritional Appearance: average body habitus, well nourished and overwei
[2020-05-29] MEDS: FAMOTIDINE 20 MG/2 ML VIAL 40 MG IV PUSH (20:44)
[2020-05-29] MEDS: BUDESONIDE RESPULE NEB 0.5 MG/2 ML AMP INHALATION (21:03)
[2020-05-30] MEDS: LACTATED RINGERS 1,000 ML 50 ML IV CONT (00:38)
[2020-05-30] MEDS: ACETAMINOPHEN 325 MG TABLET PO (01:37)
[2020-05-30 03:38] VITALS: PULSE 79; RESP 18
[2020-05-30] MEDS: IPRATROPIUM BR 0.02% INH SOLN 0.5 MG/2.5 ML VIAL INHALATION ×3 (03:38→13:56)
[2020-05-30] MEDS: ALBUTEROL SULFATE NEB 2.5 MG/0.5 ML INH INHALATION ×3 (03:38→13:56)
[2020-05-30] MEDS: LEVOTHYROXINE SODIUM INJ 100 MCG/5 ML VIAL 62.5 MCG IV PUSH (05:28)
[2020-05-30] MEDS: CENTRAL LINE FLUSH 10 ML IV PUSH (05:32)
[2020-05-30 06:00] VITALS: BP 147/73; PULSE 68; RESP 20; TEMP 36.1; O2SAT 97
[2020-05-30 08:30] VITALS: PULSE 79; RESP 18; O2SAT 95
[2020-05-30] MEDS: BUDESONIDE RESPULE NEB 0.5 MG/2 ML AMP INHALATION (08:53)
[2020-05-30 08:56] VITALS: PULSE 79; RESP 18; O2SAT 95
[2020-05-30] MEDS: DEXAMETHASONE 2 MG TABLET 6 MG PO (08:58)
[2020-05-30] MEDS: ENOXAPARIN 40 MG/0.4 ML SYRINGE SUB-Q (08:58)
[2020-05-30] MEDS: PANTOPRAZOLE SODIUM IV 40 MG VIAL IV PUSH (08:58)
[2020-05-30 09:13] VITALS: PULSE 79; RESP 18
--- NOTE | 2020-05-30 09:34 | PM.DS ---
DS: Admitting Diagnosis Admitting Diagnosis Admitting Diagnosis: 1. COVID pneumonia 2. Hypertension 3. Neuropathy DS: Discharge Diagnosis Discharge Diagnosis (1) Physical deconditioning: Code(s): R53.81 - Other malaise Status: Acute Assessment and Plan: Participating with PT/OT in therapy. (2) ARDS (adult respiratory distress syndrome): Code(s): J80 - Acute respiratory distress syndrome Status: Acute Assessment and Plan: Improved BiPAP continuous at night time and prn during day time Doing well with NC Continue to monitor oxygen (3) Acute hypoxemic respiratory failure: Code(s): J96.01 - Acute respiratory failure with hypoxia Status: Acute Assessment and Plan: Improved Continue present management. and monitor oxygen (4) Pneumonia due to COVID-19 virus: Code(s): U07.1 - COVID-19; J12.89 - Other viral pneumonia Status: Acute Assessment and Plan: Completed remdesivir and dexamethasone. (5) Neuropathy: Code(s): G62.9 - Polyneuropathy, unspecified Status: Chronic Assessment and Plan: Stable. (6) HTN (hypertension): Code(s): I10 - Essential (primary) hypertension Status: Chronic Assessment and Plan: Stable Continue to monitor. DS: Summary Hospital Course Reason for hospitalization: 1. COVID pneumonia 2. Neuropathy 3. Hypertension Hospital Course: Chief complaint: COVID pneumonia Narrative: Christiano Warner is a 70 year old female who is a direct admit from [facility]. Report was given to me by Dr. ramos she had tested COVID positive on 05/11/2020. She came to the hospital because of increased shortness of breath a couple days prior to coming hospital. The patient had been started on Decadron and and azithromycin. She has a history of COPD, hypothyroidism, and hypertension. 6 L per nasal cannula and it was felt that the patient condition was getting worse so it was decided that the patient needed to come to [facility] for further evaluation and possible ICU admission. The patient had been admitted to IMU here. She is on 6 L and her O2 saturations are in the mid 90s. She does not appear to be in any distress. Patient's AST is 122, ALT is 128 alkaline phosphatase 224. Her LDH had been 354. From what I could tell she has not been started on REM does severe because of the elevated liver enzymes. However her ALT is not 5 times the upper limit. And it appears that the patient had been on Decadron. The patient had been continued with her inhalers at [facility]. Worsening multifocal pneumonia and cardiomegaly. It was felt that she was deteriorating at [facility]. Even though the delivery and mail sorter does not involve the case we did briefly discuss it. He is not on the case at this time. But he was updated in the event that the patient would get worse during the night. The patient is being admitted into inpatient status in icu as IMU status ondate of service 05/15/2020 Patient was admitted in the hospital. Patient was given treatment for COVID pneumonia. Patient is getting better still requiring some oxygen. Patient will be discharged to long-term [facility] for further treatment, will continue medication and oxygen and taper it off at the time progress. Status at Discharge Cognitive/behavioral status at discharge: Stable Functional status at discharge: independent ambulation (Ambulation with help) Overall status at discharge: patient is progressing back to baseline Time Spent with Patient Time attestation: Total time spent providing and/or coordinating discharge services: Time spent: Greater than 30 minutes Specific discharge activities: Patient will get rehab and physical therapy in the long-term care facility Exam Narrative: Exam Narrative: Sitting in bed. Const: General: cooperative, healthy appearing, comfortable, no acute distress, well developed, alert, awake, Physically active, ill
[2020-05-30] MEDS: LORazepam (*CRX) 0.5 MG TABLET PO (12:53)
[2020-05-30 13:58] VITALS: PULSE 80; RESP 18
--- NOTE | 2020-05-30 15:08 | PC.NURSE ---
picc line removed from right upper arm, tip intact. no bleeding.
== END 2020-05-30 14:25 | DRG 177 ==
LOC: ANHICU 05-16 02:20 → ANHIMU 05-17 11:35 → ANH3MEDSUR 05-30 09:27 → ANHICU 06-03 12:26 → ANHIMU 06-03 12:26
PROVIDERS: Family Medicine; Internal Medicine Critical Care Medicine; Nurse Practitioner; Student in an Organized Health Care Education/Training Program; Admitting Provider Internal Medicine; PCP Internal Medicine; Visit Provider Internal Medicine
DX: U07.1 COVID-19 (principal); J12.89 Other viral pneumonia; J80 Acute respiratory distress syndrome; Z68.42 Body mass index [BMI] 45.0-49.9, adult; J44.9 Chronic obstructive pulmonary disease, unspecified; E03.9 Hypothyroidism, unspecified; I10 Essential (primary) hypertension; I51.7 Cardiomegaly; E66.01 Morbid (severe) obesity due to excess calories; G62.9 Polyneuropathy, unspecified; N32.81 Overactive bladder; Z87.891 Personal history of nicotine dependence; N39.3 Stress incontinence (female) (male)
CPT/HCPCS: 36415; 36569; 71045; 80048; 80053; 81003; 83735; 84450; 84460; 85025; 85610; 85730; 87040; 87086; 94002; 94003; 94640; 97110; 97162; 97165; 97530; 97535; A9270; C1751; C9113; J0131; J1100; J1650; J2060; J2250; J3010; J7120; J8540

== ENCOUNTER 2020-05-30 15:18 | Inpatient (IN) | payer MEDICARE, MEDICAID, SELFPAY ==
--- NOTE | ~2020-05-30 | XR_ITS ---
XR chest 1V portable DATE: 06/10/2020 17:01 INDICATION: Shortness of breath, congestive heart failure. Previous Covid-positive pneumonia. TECHNIQUE: Portable upright AP chest on 06/10/2020 at 1703 hours COMPARISON: 05/24/2020 portable AP chest FINDINGS: There are persistent diffuse bilateral prominent pulmonary infiltrates, which may be due to extensive bilateral pneumonia, ARDS or less likely pulmonary edema. The infiltrates appear moderatel y increased in severity since 05/24/2020. Heart size is not optimally evaluated on AP projection because of magnification but is likely enlarge d. Is aortic arch calcification. No pleural effusion is evident. No pneumothorax is detected. Prominent osteoarthritic change at the left glenohumeral joint. IMPRESSION: Extensive bilateral pulmonary infiltrates, moderately increased in severity since 020 Reviewed, dictated and finalized at location B. UNICATIONS PROGRAMMER IMPRESSION: Extensive bilateral pulmonary infiltrates, moderately increased in severity since 05/24/2020
--- NOTE | ~2020-05-30 | XR_ITS ---
XR chest 1V portable 06/13/2020 09:31 Indication: Shortness of breath and edema. History of Covid. Procedure: AP portable chest Comparison: Comparison to multiple prior studies sequentially, with oldest reviewed study dated 05/07. Findings: Diffuse bilateral airspace disease. No pleural effusion or pneumothorax. Cardiomegaly. No a cute osseous abnormality. Impression: 1: Diffuse bilateral airspace disease, which may represent pneumonia and/or edema. No significant int erval change. Reviewed, dictated and finalized at location A. ERY SUPERVISOR Impression: 1: Diffuse bilateral airspace disease, which may represent pneumonia and/or heavenly ma. No significant interval change.
[2020-05-30 15:25] VITALS: PULSE 80; RESP 20; O2SAT 96; BMI 44.1
--- NOTE | 2020-05-30 15:25 | ADMGEN ---
This patient, Christiano Warner, was admitted to 2nd Floor Room 208-2. Patient/family oriented to hospital policies and general routines including ID bracelet, bed and alarms, visiting hours, pain management, procedures, bathroom and other care routines, personal items, smoking policy, room service/diet, and visiting hours. Information on how to activate the Rapid Response Team has been discussed. Patient/Family are encouraged to report perceived risks to care and to ask questions if they do not understand what they are told or what they should do.
--- NOTE | 2020-05-30 17:27 | PM.IMHP ---
H&P: HPI History of Present Illness Date/Time: 05/30/20 17:27 Chief Complaint: weakness, dyspnea Narrative: 70 year old woman with a history of COPD, HTN, obesity and peripheral neuropathy Transferred from [facility] to our swing bed after being treated for 15 days for ARDS and hypoxic respiratory failure from COVID. patient was admitted to this hospital on May 14 with dyspnea and hypoxia. Her respiratory failure became worse and she was transferred [place] [facility] [place] where she was treated with remdesivir, dexamethasone, NIPPV, and high-flow oxygen. She had no invasive ventilation. On treatment with remdesivir, she had elevation in her LFTs however they did not reach 5 times normal level so the treatment was continued. Review of Systems Constitutional: Constitutional: Denies chills, Reports fatigue and Denies fever(s) Eyes: Eyes: Denies change in vision ENT: Denies otalgia, Denies nasal congestion and Denies sore throat Cardiovascular: Cardiovascular: Denies chest pain and Denies rapid heart rate Respiratory: Respiratory: Reports cough, Denies pain with cough and Reports dyspnea on exertion Gastrointestinal: Gastrointestinal: Denies abdominal pain, Denies diarrhea, Denies nausea and Denies vomiting Genitourinary: Comments: labial pain Musculoskeletal: Musculoskeletal: Denies arthralgias, Denies joint swelling and Denies numbness Integumentary/Breasts: Skin/Breast: Reports skin ulcer Neurologic: Denies confusion, Denies vertigo, Denies focal weakness and Reports weakness Psychiatric: Psychiatric: Reports anxiety Hematologic/Lymphatic: Hematologic/Lymphatic: Denies easy bleeding and Reports easy bruising Allergic/Immunologic: Allergic/Immunologic: Denies urticaria, Denies throat swelling and Denies tongue swelling PMF Past Medical History Medical History HTN (hypertension) Hypothyroidism Morbid obesity Nerve entrapment syndrome of lower extremity Surgery to repair foot drop on the right leg after right knee surgery Neuropathy Overactive bladder Surgical History Surgical History H/O bilateral cataract extraction History of appendectomy History of carpal tunnel release History of total knee arthroplasty Hx of cholecystectomy S/P tonsillectomy and adenoidectomy Family History Family History (Updated 05/15/20 @ 16:43 by Liz Sheikh NP) Father Hypertension Family history of renal failure Diabetes mellitus Mother Asthma Other Cerebrovascular accident Family history of alcoholism Family history of arthritis Family history of blood dyscrasia Family history of coronary artery disease Family history of lung disease Family history of malignant neoplasm Family history of mental disorder Social History Social History Social History: The patient stated that she never and had 2 children. Both of her daughters Lex and mark she desires to have is her durable power state's attorney for healthcare. The patient is a full code. 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 She quit smoking in the 70s. She does not use any alcohol marijuana or illicit drugs. Smoking packs per day: 10 Smoking cigarettes per day: 200.0 Years smoked: 10 Smoking pack-years: 100.00 Smoking status: Former smoker Tobacco type: cigarettes Smoking end date: 06/07/69 Alcohol intake: never Drinks per week: 1 Substance use: never Gender identity (if verbalized by the patient): Female Sexual Orientation (if Verbalized by the Patient): Straight or Heterosexual Spiritual care concerns: No Meds Home Medications and Allergies Home Medications Medication Instructions Recorded Confirmed Type Complete Multivitamin 1 tablet PO DAILY 30 Days #30 05/30/20 05/30/20 Rx tabl
[2020-05-30] MEDS: ALBUTEROL SULFATE NEB 2.5 MG/3 ML INH INHALATION ×2 (17:49→22:46)
[2020-05-30] MEDS: BUDESONIDE RESPULE NEB 0.5 MG/2 ML AMP INHALATION (17:49)
[2020-05-30] MEDS: HYDROcodone/acetaminophen (*CRX) 5-325 MG TABLET 1 TAB PO (17:52)
[2020-05-30] MEDS: FAMOTIDINE 20 MG TABLET 40 MG PO (17:52)
[2020-05-30] MEDS: MIRABEGRON 25 MG ER TABLET PO (17:52)
[2020-05-30 17:53] VITALS: PULSE 53; RESP 20; O2SAT 98
[2020-05-30 18:00] VITALS: PULSE 105; RESP 20; O2SAT 99
[2020-05-30] MEDS: PREGABALIN (*CRX) 50 MG CAPSULE 150 MG PO (21:08)
[2020-05-30] MEDS: MONTELUKAST SODIUM 10 MG TABLET PO (21:08)
[2020-05-30] MEDS: ENOXAPARIN 40 MG/0.4 ML SYRINGE SUB-Q (21:08)
[2020-05-30] MEDS: NORTRIPTYLINE HCL 10 MG CAPSULE PO (21:09)
[2020-05-30 22:48] VITALS: PULSE 65; RESP 18; O2SAT 98
[2020-05-30 22:56] VITALS: PULSE 58; RESP 18; O2SAT 98
[2020-05-30 23:45] VITALS: BP 128/57; PULSE 82; RESP 20; TEMP 37.6; O2SAT 95
[2020-05-31] VITALS (9 sets, daily range): BP systolic 113–142; BP diastolic 58–82; PULSE 62–78; RESP 18–20; TEMP 35.8–36; O2SAT 93–100
--- NOTE | 2020-05-31 02:05 | PC.NURSE ---
pt sleeping, respirations even and regular, no evidence of distress noted
[2020-05-31] MEDS: ALBUTEROL SULFATE NEB 2.5 MG/3 ML INH INHALATION ×3 (05:46→18:21)
[2020-05-31] MEDS: BUDESONIDE RESPULE NEB 0.5 MG/2 ML AMP INHALATION ×2 (05:46→18:21)
[2020-05-31] MEDS: LEVOTHYROXINE SODIUM 25 MCG TABLET PO (05:46)
[2020-05-31] MEDS: LEVOTHYROXINE SODIUM 100 MCG TABLET PO (05:46)
[2020-05-31] MEDS: ENOXAPARIN 40 MG/0.4 ML SYRINGE SUB-Q ×2 (08:59→21:24)
[2020-05-31] MEDS: hydroCHLOROthiazide 25 MG TABLET PO (08:59)
[2020-05-31] MEDS: SPIRONOLACTONE 25 MG TABLET PO (08:59)
[2020-05-31] MEDS: DEXAMETHASONE 2 MG TABLET 6 MG PO (08:59)
[2020-05-31] MEDS: HYDROcodone/acetaminophen (*CRX) 5-325 MG TABLET 1 TAB PO (09:00)
[2020-05-31] MEDS: CALCIUM CARBONATE (OSCAL) 500 MG TABLET PO (09:00)
[2020-05-31] MEDS: PREGABALIN (*CRX) 25 MG CAPSULE 75 MG PO (09:00)
[2020-05-31] MEDS: THERAPEUTIC MULTIVITAMINS/MINERALS TAB (*BKC) 1 TABLET PO (09:00)
[2020-05-31] MEDS: PANTOPRAZOLE 40 MG TABLET PO (09:00)
--- NOTE | 2020-05-31 09:39 | WPDPN ---
Progress Note: A&P Assessment and Plan (1) Physical deconditioning: Code(s): R53.81 - Other malaise Status: Acute Assessment and Plan: Exhibit tolerance during physical activity as evidenced by a normal fluctuation of vital signs during physical activity. ? Patient will be ability to perform required activities of daily living. ? Provide appropriate nutrition for healing and strength. ? Use appropriate to prevent falls. ? Continue physical therapy/occupational therapy. (2) Anxiety: Code(s): F41.9 - Anxiety disorder, unspecified Status: Acute Assessment and Plan: Continue Xanax 0.25 mg p.o. q.6-8 hours (3) Pneumonia due to COVID-19 virus: Code(s): U07.1 - COVID-19; J12.89 - Other viral pneumonia Status: Acute Assessment and Plan: Continue inhalers Completed remdesivir and dexamethasone at [facility] (4) Overactive bladder: Code(s): N32.81 - Overactive bladder Status: Chronic Assessment and Plan: continue mirabegron (5) Neuropathy: Code(s): G62.9 - Polyneuropathy, unspecified Status: Chronic Assessment and Plan: Continue pregabalin (6) Asthma: Qualifiers: Asthma severity: unspecified severity Asthma persistence: unspecified Asthma complication type: unspecified Qualified Code(s): J45.909 - Unspecified asthma, uncomplicated Code(s): J45.909 - Unspecified asthma, uncomplicated Status: Acute Assessment and Plan: Continue inhalers and supplementary oxygen (7) HTN (hypertension): Code(s): I10 - Essential (primary) hypertension Status: Chronic Assessment and Plan: Blood pressure 127/58 Continue HCTZ 25 mg daily and spironolactone 25 mg daily Vital signs as ordered Will adjust medication as needed (8) Hypothyroidism: Code(s): E03.9 - Hypothyroidism, unspecified Status: Chronic Assessment and Plan: Continue Synthroid 125 mg daily (9) MELINDA (stress urinary incontinence, female): Code(s): N39.3 - Stress incontinence (female) (male) Status: Acute Assessment and Plan: continue mirabegron (10) Skin abnormality: Code(s): L98.9 - Disorder of the skin and subcutaneous tissue, unspecified Status: Acute Assessment and Plan: Continue antifungal Skin care orders placed Review of Systems Review of Systems: All systems reviewed & are unremarkable except as noted in HPI and below (10 point system review) ROS unobtainable: Yes unobtainable due to medical condition Exam Narrative: Exam Narrative: GENERAL: This is a well-nourished, well-developed patient, in no apparent distress. HEAD: normocephalic, atraumatic. EYES: PERRL. Sclera clear/white. Vision is grossly intact. EARS: External ears normal, auditory canals clear and without drainage, TMs normal without perforation. Hearing grossly intact. NOSE: External nose normal with no obvious nasal discharge, nares without redness, no rhinorrhea. THROAT: Mucous membranes moist, posterior pharynx clear. NECK: Neck supple, non-tender without lymphadenopathy, masses or thyromegaly. CARDIOVASCULAR: Regular rate and rhythm without murmurs, gallops, or rubs. RESPIRATORY: Clear to auscultation. Breath sounds equal bilaterally. No wheezes, rales, or rhonchi. GASTROINTESTINAL: Abdomen soft, non-tender, nondistended. Bowel sounds are active. No hepato-splenomegaly, or palpable masses. No guarding. SKIN: ulcer at coccyx and buttocks area refer to H&P diagram for specifics, macerated skin to buttock and panniculus NEURO: awake, alert, and oriented to person, place and time. There were no obvious focal neurologic abnormalities. St EXTREMITIES: Normal range of motion. No edema. No calf tenderness. BACK: Nontender without deformity or crepitance. No flank tenderness. Objective Data Vital Signs Vital Signs: Vital Signs - 24 hr 05/30/20 15:25 05/30/20 17:53 05/30/20
[2020-05-31] MEDS: ESCITALOPRAM OXALATE 10 MG TABLET 20 MG PO (09:45)
[2020-05-31] MEDS: ACETAMINOPHEN 325 MG TABLET 650 MG PO (16:39)
[2020-05-31] MEDS: FAMOTIDINE 20 MG TABLET 40 MG PO (18:21)
[2020-05-31] MEDS: MIRABEGRON 25 MG ER TABLET PO (18:21)
[2020-05-31] MEDS: DOCUSATE SODIUM 100 MG CAPSULE PO (21:24)
[2020-05-31] MEDS: NORTRIPTYLINE HCL 10 MG CAPSULE PO (21:24)
[2020-05-31] MEDS: PREGABALIN (*CRX) 50 MG CAPSULE 150 MG PO (21:24)
[2020-05-31] MEDS: diphenhydrAMINE HCl CAP 25 MG CAPSULE 50 MG PO (21:24)
[2020-05-31] MEDS: MONTELUKAST SODIUM 10 MG TABLET PO (21:24)
[2020-06-01] VITALS (11 sets, daily range): BP systolic 138–143; BP diastolic 73–84; PULSE 58–115; RESP 16–20; TEMP 35.8–36.2; O2SAT 90–100
[2020-06-01] MEDS: ALBUTEROL SULFATE NEB 2.5 MG/3 ML INH INHALATION ×4 (00:58→18:04)
[2020-06-01] MEDS: BUDESONIDE RESPULE NEB 0.5 MG/2 ML AMP INHALATION ×2 (06:09→18:04)
[2020-06-01] MEDS: LEVOTHYROXINE SODIUM 25 MCG TABLET PO (06:10)
[2020-06-01] MEDS: LEVOTHYROXINE SODIUM 100 MCG TABLET PO (06:10)
[2020-06-01] MEDS: ALBUTEROL SULFATE (*SP) INHALER 2 PUFF INHALATION (07:40)
[2020-06-01] MEDS: hydroCHLOROthiazide 25 MG TABLET PO (09:14)
[2020-06-01] MEDS: DOCUSATE SODIUM 100 MG CAPSULE PO ×2 (09:14→21:29)
[2020-06-01] MEDS: PANTOPRAZOLE 40 MG TABLET PO (09:14)
[2020-06-01] MEDS: SPIRONOLACTONE 25 MG TABLET PO (09:14)
[2020-06-01] MEDS: CALCIUM CARBONATE (OSCAL) 500 MG TABLET PO (09:14)
[2020-06-01] MEDS: THERAPEUTIC MULTIVITAMINS/MINERALS TAB (*BKC) 1 TABLET PO (09:14)
[2020-06-01] MEDS: PREGABALIN (*CRX) 25 MG CAPSULE 75 MG PO (09:14)
[2020-06-01] MEDS: ENOXAPARIN 40 MG/0.4 ML SYRINGE SUB-Q ×2 (09:15→21:30)
[2020-06-01] MEDS: ESCITALOPRAM OXALATE 10 MG TABLET 20 MG PO (09:15)
[2020-06-01] MEDS: ALPRAZolam (*CRX) 0.25 MG TABLET PO (09:15)
[2020-06-01] MEDS: FAMOTIDINE 20 MG TABLET 40 MG PO (18:03)
[2020-06-01] MEDS: MIRABEGRON 25 MG ER TABLET PO (18:03)
[2020-06-01] MEDS: MONTELUKAST SODIUM 10 MG TABLET PO (21:29)
[2020-06-01] MEDS: PREGABALIN (*CRX) 50 MG CAPSULE 150 MG PO (21:29)
[2020-06-01] MEDS: NORTRIPTYLINE HCL 10 MG CAPSULE PO (21:30)
[2020-06-02] VITALS (7 sets, daily range): BP systolic 111–134; BP diastolic 56–68; PULSE 58–90; RESP 18; TEMP 36.4–36.7; O2SAT 96–100
[2020-06-02] MEDS: ALBUTEROL SULFATE NEB 2.5 MG/3 ML INH INHALATION ×5 (01:14→23:42)
[2020-06-02] MEDS: BUDESONIDE RESPULE NEB 0.5 MG/2 ML AMP INHALATION ×2 (05:45→18:49)
[2020-06-02] MEDS: LEVOTHYROXINE SODIUM 100 MCG TABLET PO (05:45)
[2020-06-02] MEDS: LEVOTHYROXINE SODIUM 25 MCG TABLET PO (05:45)
[2020-06-02 08:38] LABS: Hematocrit 41.3 % (35.0-42.0); Hemoglobin 13.2 g/dL (11.7-13.8); Mean Corpuscular Hemoglobin 28.7 pg (27.0-31.0); Mean Corpuscular Volume 89.8 fL (78.0-102.0); Mean Platelet Volume 10.7 fl (9.2-11.8); Platelet Count Result 426 K/mm3 (150-420); White Blood Count 10.8 K/mm3 (4.8-10.8)
[2020-06-02 08:48] LABS: Anion Gap 9 mmol/L (8-16); Blood Urea Nitrogen 17 mg/dL (7-18); Calcium 9.1 mg/dL (8.5-10.1); Carbon Dioxide 29 mmol/L (21-32); Chloride 96 mmol/L (98-108); Estimated CRCL calculation 67 ml/min; Estimated Glomerular Filt Rate > 60; Glucose 90 mg/dL (70-99); Osmolality Calculated 279 mOsm/kg (285-295); Sodium 134 mmol/L (136-145)
[2020-06-02] MEDS: ENOXAPARIN 40 MG/0.4 ML SYRINGE SUB-Q ×2 (09:20→20:50)
[2020-06-02] MEDS: DOCUSATE SODIUM 100 MG CAPSULE PO (09:20)
[2020-06-02] MEDS: CALCIUM CARBONATE (OSCAL) 500 MG TABLET PO (09:20)
[2020-06-02] MEDS: SPIRONOLACTONE 25 MG TABLET PO (09:20)
[2020-06-02] MEDS: PREGABALIN (*CRX) 25 MG CAPSULE 75 MG PO (09:20)
[2020-06-02] MEDS: ESCITALOPRAM OXALATE 10 MG TABLET 20 MG PO (09:20)
[2020-06-02] MEDS: hydroCHLOROthiazide 25 MG TABLET PO (09:20)
[2020-06-02] MEDS: PANTOPRAZOLE 40 MG TABLET PO (09:20)
[2020-06-02] MEDS: THERAPEUTIC MULTIVITAMINS/MINERALS TAB (*BKC) 1 TABLET PO (09:20)
[2020-06-02 10:11] LABS: Magnesium 1.6 mg/dL (1.8-2.4)
[2020-06-02] MEDS: POTASSIUM CHLORIDE 20 MEQ TABLET 40 MEQ PO (10:26)
[2020-06-02 11:12] LABS: Add Urine Microscopic? YES; Appearance Urine Sl Cloudy (Clear); Bilirubin Urine Negative (Negative); Blood Urine Negative (Negative); Color Urine Yellow (Yellow); Glucose Urine UA Negative (Negative); Ketones Urine Negative (Negative); Leukocyte Esterase Ur 2+ (Negative); Nitrate Urine Positive (Negative); Protein Urine Negative (Negative); Urobilinogen Urine 0.2 mg/dL (0.2-1.0); pH Urine 7.5 (5.0-8.0)
[2020-06-02 11:21] LABS: Bacteria Urine Trace /hpf; RBC Urine 0-2 /hpf (0-2); Squamous Epithelial Cell Urine Occasional /hpf (Few)
--- NOTE | 2020-06-02 13:32 | WPDPN ---
Progress Note: A&P Assessment and Plan (1) Physical deconditioning: Code(s): R53.81 - Other malaise Status: Acute Assessment and Plan: Exhibit tolerance during physical activity as evidenced by a normal fluctuation of vital signs during physical activity. ? Patient will be ability to perform required activities of daily living. ? Provide appropriate nutrition for healing and strength. ? Use appropriate to prevent falls. ? Continue physical therapy/occupational therapy. 06/02/2020 Pt continues to work with PT and is improving (2) Anxiety: Code(s): F41.9 - Anxiety disorder, unspecified Status: Acute Assessment and Plan: Continue Xanax 0.25 mg p.o. q.6-8 hours 06/02/2020 Pt is doing well with this regimen (3) Pneumonia due to COVID-19 virus: Code(s): U07.1 - COVID-19; J12.89 - Other viral pneumonia Status: Acute Assessment and Plan: Continue inhalers Completed remdesivir and dexamethasone at [facility] 06/02/2020 Continues to improve (4) Overactive bladder: Code(s): N32.81 - Overactive bladder Status: Chronic Assessment and Plan: continue mirabegron (5) Neuropathy: Code(s): G62.9 - Polyneuropathy, unspecified Status: Chronic Assessment and Plan: Continue pregabalin (6) Asthma: Qualifiers: Asthma severity: unspecified severity Asthma persistence: unspecified Asthma complication type: unspecified Qualified Code(s): J45.909 - Unspecified asthma, uncomplicated Code(s): J45.909 - Unspecified asthma, uncomplicated Status: Acute Assessment and Plan: Continue inhalers and supplementary oxygen (7) HTN (hypertension): Code(s): I10 - Essential (primary) hypertension Status: Chronic Assessment and Plan: 06/02/2020 Vital signs stable, Continue HCTZ 25 mg daily and spironolactone 25 mg daily (8) Hypothyroidism: Code(s): E03.9 - Hypothyroidism, unspecified Status: Chronic Assessment and Plan: Continue Synthroid 125 mg daily (9) MELINDA (stress urinary incontinence, female): Code(s): N39.3 - Stress incontinence (female) (male) Status: Acute Assessment and Plan: continue mirabegron (10) Skin abnormality: Code(s): L98.9 - Disorder of the skin and subcutaneous tissue, unspecified Status: Acute Assessment and Plan: Continue antifungal Skin care orders placed Review of Systems Constitutional: Constitutional: Reports no additional constitutional complaints Cardiovascular: Cardiovascular: Reports no additional cardiovascular complaints, Denies chest pain, Denies chest pain at rest and Denies chest pain with activity Respiratory: Respiratory: Reports no additional respiratory complaints Gastrointestinal: Gastrointestinal: Reports no additional gastrointestinal complaints Musculoskeletal: Musculoskeletal: Reports muscle weakness Exam Const: General: cooperative, comfortable, no acute distress, alert, awake and Physically active Resp: Effort & Inspection: normal respiratory effort (a little labored with activity) Auscultation: clear to auscultation bilaterally Cardio: Rate: regular rate Rhythm: regular rhythm Heart sounds: S1 normal heart sound present and S2 normal heart sound present GI: GI Palp: Yes Soft to palpation and No Tenderness to palpation present (GI) Auscultation: normal bowel sounds Objective Data Vital Signs Vital Signs: Vital Signs - 24 hr 06/01/20 16:00 06/02/20 00:00 06/02/20 08:00 Temperature 97.1 F L 97.6 F 97.9 F Pulse Rate 82 58 L 74 Respiratory Rate 20 18 18 Blood Pressure 143/73 H 134/64 132/56 L Pulse Oximetry 95 99 99 Intake/Output Intake/Output: Intake & Output 05/30/20 05/31/20 06/01/20 06/02/20 23:59 23:59 23:59 23:59 Intake Total 610 1600 870 640 Output Total 100 1100 1550 Balance 610 9204 -230 910 Meds/Results Medications: Active Medications
[2020-06-02] MEDS: MAGNESIUM OXIDE 400 MG TABLET PO ×2 (13:50→18:47)
[2020-06-02] MEDS: FAMOTIDINE 20 MG TABLET 40 MG PO (18:48)
[2020-06-02] MEDS: MIRABEGRON 25 MG ER TABLET PO (18:48)
[2020-06-02] MEDS: PREGABALIN (*CRX) 50 MG CAPSULE 150 MG PO (20:50)
[2020-06-02] MEDS: MONTELUKAST SODIUM 10 MG TABLET PO (20:50)
[2020-06-02] MEDS: NORTRIPTYLINE HCL 10 MG CAPSULE PO (20:50)
[2020-06-02] MEDS: CIPROFLOXACIN 500 MG TAB PO (20:50)
[2020-06-03] VITALS (14 sets, daily range): BP systolic 115–137; BP diastolic 66–85; PULSE 60–80; RESP 18–20; TEMP 36.6–36.9; O2SAT 90–99
[2020-06-03] MEDS: LEVOTHYROXINE SODIUM 25 MCG TABLET PO (05:49)
[2020-06-03] MEDS: LEVOTHYROXINE SODIUM 100 MCG TABLET PO (05:49)
[2020-06-03] MEDS: ALBUTEROL SULFATE NEB 2.5 MG/3 ML INH INHALATION ×4 (05:53→22:57)
[2020-06-03] MEDS: BUDESONIDE RESPULE NEB 0.5 MG/2 ML AMP INHALATION ×2 (05:54→17:37)
[2020-06-03 07:06] LABS: Hematocrit 38.2 % (35.0-42.0); Hemoglobin 12.1 g/dL (11.7-13.8); Mean Corpuscular HGB Conc 31.7 g/dL (32.0-36.0); Mean Corpuscular Hemoglobin 28.4 pg (27.0-31.0); Mean Corpuscular Volume 89.7 fL (78.0-102.0); Mean Platelet Volume 10.2 fl (9.2-11.8); Platelet Count Result 319 K/mm3 (150-420); Red Blood Count 4.26 M/mm3 (4.20-5.40); Red Cell Distribution Width 14.1 % (11.6-14.4); White Blood Count 9.3 K/mm3 (4.8-10.8)
[2020-06-03 07:17] LABS: Anion Gap 8 mmol/L (8-16); Blood Urea Nitrogen 11 mg/dL (7-18); Calcium 8.8 mg/dL (8.5-10.1); Carbon Dioxide 28 mmol/L (21-32); Chloride 97 mmol/L (98-108); Estimated CRCL calculation 76 ml/min; Estimated Glomerular Filt Rate > 60; Glucose 122 mg/dL (70-99); Magnesium 1.6 mg/dL (1.8-2.4); Osmolality Calculated 276 mOsm/kg (285-295); Potassium 3.3 mmol/L (3.5-5.1); Sodium 133 mmol/L (136-145)
[2020-06-03] MEDS: PREGABALIN (*CRX) 25 MG CAPSULE 75 MG PO (09:01)
[2020-06-03] MEDS: ENOXAPARIN 40 MG/0.4 ML SYRINGE SUB-Q ×2 (09:01→21:09)
[2020-06-03] MEDS: THERAPEUTIC MULTIVITAMINS/MINERALS TAB (*BKC) 1 TABLET PO (09:02)
[2020-06-03] MEDS: hydroCHLOROthiazide 25 MG TABLET PO (09:02)
[2020-06-03] MEDS: CALCIUM CARBONATE (OSCAL) 500 MG TABLET PO (09:02)
[2020-06-03] MEDS: ESCITALOPRAM OXALATE 10 MG TABLET 20 MG PO (09:02)
[2020-06-03] MEDS: MAGNESIUM OXIDE 400 MG TABLET PO ×2 (09:02→17:28)
[2020-06-03] MEDS: CIPROFLOXACIN 500 MG TAB PO ×2 (09:02→21:09)
[2020-06-03] MEDS: POTASSIUM CHLORIDE 20 MEQ TABLET 40 MEQ PO (09:02)
[2020-06-03] MEDS: PANTOPRAZOLE 40 MG TABLET PO (09:02)
[2020-06-03] MEDS: SPIRONOLACTONE 25 MG TABLET PO (09:02)
[2020-06-03] MEDS: HYDROcodone/acetaminophen (*CRX) 5-325 MG TABLET 1 TAB PO (15:12)
[2020-06-03] MEDS: FAMOTIDINE 20 MG TABLET 40 MG PO (17:28)
[2020-06-03] MEDS: MIRABEGRON 25 MG ER TABLET PO (17:28)
[2020-06-03] MEDS: PREGABALIN (*CRX) 50 MG CAPSULE 150 MG PO (21:09)
[2020-06-03] MEDS: MONTELUKAST SODIUM 10 MG TABLET PO (21:09)
[2020-06-03] MEDS: NORTRIPTYLINE HCL 10 MG CAPSULE PO (21:09)
[2020-06-04] VITALS (13 sets, daily range): BP systolic 120–147; BP diastolic 54–79; PULSE 67–96; RESP 18–20; TEMP 36–36.6; O2SAT 80–99
--- NOTE | 2020-06-04 02:27 | PC.NURSE ---
pt sleeping no evidence of distress noted at this time, belongings within reach
[2020-06-04] MEDS: BUDESONIDE RESPULE NEB 0.5 MG/2 ML AMP INHALATION ×2 (05:36→17:42)
[2020-06-04] MEDS: ALBUTEROL SULFATE NEB 2.5 MG/3 ML INH INHALATION ×4 (05:36→22:55)
[2020-06-04] MEDS: LEVOTHYROXINE SODIUM 100 MCG TABLET PO (05:53)
[2020-06-04] MEDS: LEVOTHYROXINE SODIUM 25 MCG TABLET PO (05:53)
[2020-06-04] MEDS: SPIRONOLACTONE 25 MG TABLET PO (08:33)
[2020-06-04] MEDS: ESCITALOPRAM OXALATE 10 MG TABLET 20 MG PO (08:33)
[2020-06-04] MEDS: PANTOPRAZOLE 40 MG TABLET PO (08:33)
[2020-06-04] MEDS: PREGABALIN (*CRX) 25 MG CAPSULE 75 MG PO (08:34)
[2020-06-04] MEDS: CIPROFLOXACIN 500 MG TAB PO ×2 (08:34→20:29)
[2020-06-04] MEDS: hydroCHLOROthiazide 25 MG TABLET PO (08:34)
[2020-06-04] MEDS: MAGNESIUM OXIDE 400 MG TABLET PO ×2 (08:35→17:40)
[2020-06-04] MEDS: ENOXAPARIN 40 MG/0.4 ML SYRINGE SUB-Q ×2 (08:35→20:29)
[2020-06-04] MEDS: THERAPEUTIC MULTIVITAMINS/MINERALS TAB (*BKC) 1 TABLET PO (08:35)
[2020-06-04] MEDS: CALCIUM CARBONATE (OSCAL) 500 MG TABLET PO (08:35)
--- NOTE | 2020-06-04 08:44 | PCPTNOTE ---
Currently OT orders cannot be fullfilled due to our current OT testing positive for Covid 19. The current OT will be removed from isolation precautions on 06/07/20 and OT services with be initiated on this date. PT services will address some upper extremity ADL activities. Henrry Turner, MPT
[2020-06-04] MEDS: FAMOTIDINE 20 MG TABLET 40 MG PO (17:41)
[2020-06-04] MEDS: MIRABEGRON 25 MG ER TABLET PO (17:41)
[2020-06-04] MEDS: MONTELUKAST SODIUM 10 MG TABLET PO (20:28)
[2020-06-04] MEDS: NORTRIPTYLINE HCL 10 MG CAPSULE PO (20:28)
[2020-06-04] MEDS: PREGABALIN (*CRX) 50 MG CAPSULE 150 MG PO (20:29)
[2020-06-04] MEDS: HYDROcodone/acetaminophen (*CRX) 5-325 MG TABLET 1 TAB PO (20:29)
[2020-06-05] VITALS (16 sets, daily range): BP systolic 115–143; BP diastolic 55–75; PULSE 58–98; RESP 18–20; TEMP 36.1–36.7; O2SAT 94–99
--- NOTE | 2020-06-05 02:30 | PC.NURSE ---
Patient sleeping. No apparent distress. Call light and needed items within reach.
[2020-06-05] MEDS: ALBUTEROL SULFATE NEB 2.5 MG/3 ML INH INHALATION ×4 (05:31→22:49)
[2020-06-05] MEDS: BUDESONIDE RESPULE NEB 0.5 MG/2 ML AMP INHALATION ×2 (05:32→17:39)
[2020-06-05 05:54] LABS: Anion Gap 5 mmol/L (8-16); Blood Urea Nitrogen 8 mg/dL (7-18); Calcium 8.8 mg/dL (8.5-10.1); Carbon Dioxide 33 mmol/L (21-32); Chloride 101 mmol/L (98-108); Estimated CRCL calculation 83 ml/min; Estimated Glomerular Filt Rate > 60; Glucose 102 mg/dL (70-99); Magnesium 1.6 mg/dL (1.8-2.4); Osmolality Calculated 286 mOsm/kg (285-295); Potassium 3.3 mmol/L (3.5-5.1); Sodium 139 mmol/L (136-145)
[2020-06-05] MEDS: LEVOTHYROXINE SODIUM 100 MCG TABLET PO (06:04)
[2020-06-05] MEDS: LEVOTHYROXINE SODIUM 25 MCG TABLET PO (06:04)
--- NOTE | 2020-06-05 09:04 | PM.EVENT ---
Event Note Event Note Event Note: 06/05/2020 Monitoring electrolytes, Mag and K have been a touch low, currently tanking 400 mg Mag Ox BID and Potassium 20 mg BID for 3 doses, will need to recheck electrolytes on 06/07/2020. labs already placed for that date.
[2020-06-05] MEDS: POTASSIUM CHLORIDE 20 MEQ TABLET 40 MEQ PO (09:21)
[2020-06-05] MEDS: THERAPEUTIC MULTIVITAMINS/MINERALS TAB (*BKC) 1 TABLET PO (09:22)
[2020-06-05] MEDS: PANTOPRAZOLE 40 MG TABLET PO (09:22)
[2020-06-05] MEDS: MAGNESIUM OXIDE 400 MG TABLET PO ×2 (09:22→16:49)
[2020-06-05] MEDS: CIPROFLOXACIN 500 MG TAB PO ×2 (09:22→20:28)
[2020-06-05] MEDS: PREGABALIN (*CRX) 25 MG CAPSULE 75 MG PO (09:22)
[2020-06-05] MEDS: ESCITALOPRAM OXALATE 10 MG TABLET 20 MG PO (09:22)
[2020-06-05] MEDS: CALCIUM CARBONATE (OSCAL) 500 MG TABLET PO (09:22)
[2020-06-05] MEDS: SPIRONOLACTONE 25 MG TABLET PO (09:22)
[2020-06-05] MEDS: hydroCHLOROthiazide 25 MG TABLET PO (09:23)
[2020-06-05] MEDS: ENOXAPARIN 40 MG/0.4 ML SYRINGE SUB-Q (09:23)
--- NOTE | 2020-06-05 11:15 | PC.NURSE ---
Patient sleeping quietly in recliner with BLE elevated. Patient has call light and belongings in reach. No distress noted.
[2020-06-05 15:32] LABS: Add Urine Microscopic? NO; Appearance Urine Clear (Clear); Bilirubin Urine Negative (Negative); Blood Urine Negative (Negative); Color Urine Yellow (Yellow); Glucose Urine UA Negative (Negative); Ketones Urine Negative (Negative); Leukocyte Esterase Ur Negative (Negative); Nitrate Urine Negative (Negative); Protein Urine Negative (Negative); Specific Grav Ur 1.015 (1.010-1.020); Urobilinogen Urine 0.2 mg/dL (0.2-1.0)
[2020-06-05] MEDS: POTASSIUM CHLORIDE 20 MEQ TABLET PO (16:48)
[2020-06-05] MEDS: MIRABEGRON 25 MG ER TABLET PO (17:03)
[2020-06-05] MEDS: FAMOTIDINE 20 MG TABLET 40 MG PO (17:03)
--- NOTE | 2020-06-05 18:50 | PC.NURSE ---
pt amb to bed, requests to sit up at bedside for a bit, puts on nightgown unassisted, 2l 02 on, call light and phone in reach
[2020-06-05] MEDS: MONTELUKAST SODIUM 10 MG TABLET PO (20:27)
[2020-06-05] MEDS: carvediloL 3.125 MG TABLET PO (20:28)
[2020-06-05] MEDS: NORTRIPTYLINE HCL 10 MG CAPSULE PO (20:28)
[2020-06-05] MEDS: PREGABALIN (*CRX) 50 MG CAPSULE 150 MG PO (20:29)
--- NOTE | 2020-06-05 23:44 | PC.NURSE ---
Pt. sitting up in bed watching TV. Pt. deneis any c/o at this time. Pt. assisted to BR using walker and portable O2. Pt. antelmo well and back to bed. VSS, call aldridge in reach.
[2020-06-06] VITALS (17 sets, daily range): BP systolic 76–124; BP diastolic 35–85; PULSE 53–90; RESP 18–24; TEMP 35.8–37.1; O2SAT 82–99
--- NOTE | 2020-06-06 03:11 | PM.OP ---
Procedure Note - Brief Procedure Note - Brief Date of procedure: 06/06/20 Pre-op diagnosis: Rehab Surgeon: Radames Christianson MD She appears to be doing better, improving slowly. Urine culture not back yet. Reviewed echo. We will stop aldactone, continue HCTZ. We will start lopressor 25mg bid. She ought to have an michelle inhibitor as well, but we will hold on that for now as I doubt she could tolerate both.
[2020-06-06] MEDS: ALBUTEROL SULFATE NEB 2.5 MG/3 ML INH INHALATION ×4 (05:44→22:48)
[2020-06-06] MEDS: BUDESONIDE RESPULE NEB 0.5 MG/2 ML AMP INHALATION ×2 (05:45→17:33)
[2020-06-06] MEDS: LEVOTHYROXINE SODIUM 25 MCG TABLET PO (06:12)
[2020-06-06] MEDS: LEVOTHYROXINE SODIUM 100 MCG TABLET PO (06:12)
--- NOTE | 2020-06-06 08:05 | PC.NURSE ---
o2 sat down low 80's after washing self up and dressing self and walking to and fro from br. o2 back up to 2l per nc and spo2 up 86-88%. pt in room and works with her. sits on side of bed and eats breakfast.-------renny sharp
[2020-06-06] MEDS: DOCUSATE SODIUM 100 MG CAPSULE PO (08:57)
[2020-06-06] MEDS: carvediloL 3.125 MG TABLET PO ×2 (08:57→20:27)
[2020-06-06] MEDS: ESCITALOPRAM OXALATE 10 MG TABLET 20 MG PO (08:57)
[2020-06-06] MEDS: PANTOPRAZOLE 40 MG TABLET PO (08:57)
[2020-06-06] MEDS: ENOXAPARIN 40 MG/0.4 ML SYRINGE SUB-Q (08:57)
[2020-06-06] MEDS: METOPROLOL TARTRATE 25 MG TABLET PO ×2 (08:58→20:28)
[2020-06-06] MEDS: PREGABALIN (*CRX) 25 MG CAPSULE 75 MG PO (08:58)
[2020-06-06] MEDS: CALCIUM CARBONATE (OSCAL) 500 MG TABLET PO (08:58)
[2020-06-06] MEDS: THERAPEUTIC MULTIVITAMINS/MINERALS TAB (*BKC) 1 TABLET PO (08:58)
[2020-06-06] MEDS: hydroCHLOROthiazide 25 MG TABLET PO (08:59)
[2020-06-06] MEDS: POTASSIUM CHLORIDE 20 MEQ TABLET PO ×2 (08:59→17:21)
[2020-06-06] MEDS: MAGNESIUM OXIDE 400 MG TABLET PO ×2 (08:59→17:21)
[2020-06-06] MEDS: CIPROFLOXACIN 500 MG TAB PO ×2 (09:00→20:28)
--- NOTE | 2020-06-06 10:27 | PC.NURSE ---
up to br and back to recliner. 02 drops with exeertion. down to 70's. o2 back up to 2 l. spo2 rises up to 91% when she relaxes and kicks feet up. 91%. o2 back to 1 liter at this time. encouraged to report any sob.
[2020-06-06] MEDS: FAMOTIDINE 20 MG TABLET 40 MG PO (17:20)
[2020-06-06] MEDS: MIRABEGRON 25 MG ER TABLET PO (17:23)
[2020-06-06] MEDS: PREGABALIN (*CRX) 50 MG CAPSULE 150 MG PO (20:28)
[2020-06-06] MEDS: MONTELUKAST SODIUM 10 MG TABLET PO (20:28)
[2020-06-06] MEDS: NORTRIPTYLINE HCL 10 MG CAPSULE PO (20:28)
--- NOTE | 2020-06-06 23:52 | ECG_ITS ---
Measurements Intervals [place] Rate: 65 P: 23 OR: 185 QRS: -24 QRSD: 115 T: 10 QT: 398 QTc: 416 Interpretive Statements SINUS RHYTHM INCOMPLETE RIGHT BUNDLE BRANCH BLOCK VOLTAGE CRITERIA FOR LVH BORDERLINE R WAVE PROGRESSION, ANTERIOR LEADS MINIMAL Q WAVES- HIGH LATERAL LEADS BASELINE ARTIFACT- I, II, III, AVR, AVL, AVF, V1 BORDERLINE ECG Electronically Signed On 06-07-2020 12:00:26 RECREATIONAL THERAPY TECHNICIAN by Ronnie Schmidt D.O.
--- NOTE | 2020-06-06 23:53 | PC.NURSE ---
Dr. Guerrier notified of pt's low blood pressure; New orders received and noted.
--- NOTE | 2020-06-06 23:58 | PC.NURSE ---
Dr. Guerrier here to see pt.
[2020-06-07] VITALS (13 sets, daily range): BP systolic 108–128; BP diastolic 38–78; PULSE 58–80; RESP 18–20; TEMP 36.6–36.7; O2SAT 90–100
[2020-06-07] MEDS: SODIUM CHLORIDE 0.9% IV 1,000 ML 999 ML IV CONT (00:10)
--- NOTE | 2020-06-07 00:42 | PC.NURSE ---
Pt's blood pressure of 111/38 and pulse of [address] Guerrier; No new orders at this time.
--- NOTE | 2020-06-07 01:06 | PC.NURSE ---
Dr. Guerrier notified of pt's blood pressure of 112/53; New orders received and noted.
--- NOTE | 2020-06-07 02:34 | PC.NURSE ---
Brendan Warner RN notified of pt's blood pressure of 112/53; She will relay the results to Dr. Guerrier.
[2020-06-07 05:34] LABS: Anion Gap 5 mmol/L (8-16); Blood Urea Nitrogen 9 mg/dL (7-18); Calcium 8.9 mg/dL (8.5-10.1); Carbon Dioxide 29 mmol/L (21-32); Chloride 104 mmol/L (98-108); Estimated CRCL calculation 92 ml/min; Estimated Glomerular Filt Rate > 60; Glucose 100 mg/dL (70-99); Magnesium 1.5 mg/dL (1.8-2.4); Osmolality Calculated 284 mOsm/kg (285-295); Potassium 3.7 mmol/L (3.5-5.1); Sodium 138 mmol/L (136-145)
[2020-06-07] MEDS: LEVOTHYROXINE SODIUM 25 MCG TABLET PO (05:46)
[2020-06-07] MEDS: ALBUTEROL SULFATE NEB 2.5 MG/3 ML INH INHALATION ×4 (05:46→23:41)
[2020-06-07] MEDS: LEVOTHYROXINE SODIUM 100 MCG TABLET PO (05:46)
[2020-06-07] MEDS: BUDESONIDE RESPULE NEB 0.5 MG/2 ML AMP INHALATION ×2 (05:46→17:53)
[2020-06-07] MEDS: MAGNESIUM OXIDE 400 MG TABLET PO ×2 (08:52→17:52)
[2020-06-07] MEDS: CIPROFLOXACIN 500 MG TAB PO (08:52)
[2020-06-07] MEDS: THERAPEUTIC MULTIVITAMINS/MINERALS TAB (*BKC) 1 TABLET PO (08:52)
[2020-06-07] MEDS: hydroCHLOROthiazide 25 MG TABLET PO (08:52)
[2020-06-07] MEDS: PANTOPRAZOLE 40 MG TABLET PO (08:52)
[2020-06-07] MEDS: PREGABALIN (*CRX) 25 MG CAPSULE 75 MG PO (08:53)
[2020-06-07] MEDS: ENOXAPARIN 40 MG/0.4 ML SYRINGE SUB-Q (08:53)
[2020-06-07] MEDS: CALCIUM CARBONATE (OSCAL) 500 MG TABLET PO (08:53)
[2020-06-07] MEDS: MIRABEGRON 25 MG ER TABLET PO (17:52)
[2020-06-07] MEDS: FAMOTIDINE 20 MG TABLET 40 MG PO (17:53)
[2020-06-07] MEDS: MONTELUKAST SODIUM 10 MG TABLET PO (20:23)
[2020-06-07] MEDS: PREGABALIN (*CRX) 50 MG CAPSULE 150 MG PO (20:23)
[2020-06-07] MEDS: NORTRIPTYLINE HCL 10 MG CAPSULE PO (20:23)
[2020-06-07] MEDS: DOCUSATE SODIUM 100 MG CAPSULE PO (20:23)
[2020-06-08] VITALS (11 sets, daily range): BP systolic 122–137; BP diastolic 48–88; PULSE 70–92; RESP 16–20; TEMP 36.3–37; O2SAT 91–100
[2020-06-08] MEDS: LEVOTHYROXINE SODIUM 100 MCG TABLET PO (05:50)
[2020-06-08] MEDS: LEVOTHYROXINE SODIUM 25 MCG TABLET PO (05:50)
[2020-06-08] MEDS: BUDESONIDE RESPULE NEB 0.5 MG/2 ML AMP INHALATION ×2 (05:51→18:36)
[2020-06-08] MEDS: ALBUTEROL SULFATE NEB 2.5 MG/3 ML INH INHALATION ×4 (05:51→23:22)
--- NOTE | 2020-06-08 08:25 | WPDPN ---
Progress Note: A&P Assessment and Plan (1) Physical deconditioning: Code(s): R53.81 - Other malaise Status: Acute Assessment and Plan: Exhibit tolerance during physical activity as evidenced by a normal fluctuation of vital signs during physical activity. ? Patient will be ability to perform required activities of daily living. ? Provide appropriate nutrition for healing and strength. ? Use appropriate to prevent falls. ? Continue physical therapy/occupational therapy. (2) Anxiety: Code(s): F41.9 - Anxiety disorder, unspecified Status: Acute Assessment and Plan: Continue Xanax 0.25 mg p.o. q.6-8 hours as needed (3) Pneumonia due to COVID-19 virus: Code(s): U07.1 - COVID-19; J12.89 - Other viral pneumonia Status: Acute Assessment and Plan: Continue inhalers Completed remdesivir and dexamethasone at [facility] (4) Overactive bladder: Code(s): N32.81 - Overactive bladder Status: Chronic Assessment and Plan: continue mirabegron (5) Neuropathy: Code(s): G62.9 - Polyneuropathy, unspecified Status: Chronic Assessment and Plan: Continue pregabalin (6) Asthma: Qualifiers: Asthma severity: unspecified severity Asthma persistence: unspecified Asthma complication type: unspecified Qualified Code(s): J45.909 - Unspecified asthma, uncomplicated Code(s): J45.909 - Unspecified asthma, uncomplicated Status: Acute Assessment and Plan: Continue inhalers and supplementary oxygen (7) HTN (hypertension): Code(s): I10 - Essential (primary) hypertension Status: Chronic Assessment and Plan: Blood pressure 129/59 Continue HCTZ 25 mg daily and spironolactone 25 mg daily Vital signs as ordered Will adjust medication as needed (8) Hypothyroidism: Code(s): E03.9 - Hypothyroidism, unspecified Status: Chronic Assessment and Plan: Continue Synthroid 125 mg daily (9) MELINDA (stress urinary incontinence, female): Code(s): N39.3 - Stress incontinence (female) (male) Status: Acute Assessment and Plan: continue mirabegron (10) Skin abnormality: Code(s): L98.9 - Disorder of the skin and subcutaneous tissue, unspecified Status: Acute Assessment and Plan: Continue antifungal Skin care orders placed Review of Systems Review of Systems: All systems reviewed & are unremarkable except as noted in HPI and below (10 point system review) ROS unobtainable: Yes unobtainable due to medical condition Exam Narrative: Exam Narrative: GENERAL: This is a well-nourished, well-developed patient, in no apparent distress. HEAD: normocephalic, atraumatic. EYES: PERRL. Sclera clear/white. Vision is grossly intact. EARS: External ears normal, auditory canals clear and without drainage, TMs normal without perforation. Hearing grossly intact. NOSE: External nose normal with no obvious nasal discharge, nares without redness, no rhinorrhea. THROAT: Mucous membranes moist, posterior pharynx clear. NECK: Neck supple, non-tender without lymphadenopathy, masses or thyromegaly. CARDIOVASCULAR: Regular rate and rhythm without murmurs, gallops, or rubs. RESPIRATORY: Clear to auscultation. Breath sounds equal bilaterally. No wheezes, rales, or rhonchi. GASTROINTESTINAL: Abdomen soft, non-tender, nondistended. Bowel sounds are active. No hepato-splenomegaly, or palpable masses. No guarding. SKIN: ulcer at coccyx and buttocks area refer to H&P diagram for specifics, macerated skin to buttock and panniculus NEURO: awake, alert, and oriented to person, place and time. There were no obvious focal neurologic abnormalities. St EXTREMITIES: Normal range of motion. No edema. No calf tenderness. BACK: Nontender without deformity or crepitance. No flank tenderness. Objective Data Vital Signs Vital Signs: Vital Signs - 24 hr 06/07/20 13:05 06/07/20 13
[2020-06-08] MEDS: MAGNESIUM OXIDE 400 MG TABLET PO ×2 (08:49→17:31)
[2020-06-08] MEDS: CALCIUM CARBONATE (OSCAL) 500 MG TABLET PO (08:50)
[2020-06-08] MEDS: hydroCHLOROthiazide 25 MG TABLET PO (08:50)
[2020-06-08] MEDS: ESCITALOPRAM OXALATE 10 MG TABLET 20 MG PO (08:50)
[2020-06-08] MEDS: PREGABALIN (*CRX) 25 MG CAPSULE 75 MG PO (08:51)
[2020-06-08] MEDS: THERAPEUTIC MULTIVITAMINS/MINERALS TAB (*BKC) 1 TABLET PO (08:51)
[2020-06-08] MEDS: PANTOPRAZOLE 40 MG TABLET PO (08:51)
[2020-06-08] MEDS: ENOXAPARIN 40 MG/0.4 ML SYRINGE SUB-Q (08:52)
[2020-06-08] MEDS: FAMOTIDINE 20 MG TABLET 40 MG PO (17:31)
[2020-06-08] MEDS: MIRABEGRON 25 MG ER TABLET PO (17:31)
[2020-06-08] MEDS: NORTRIPTYLINE HCL 10 MG CAPSULE PO (21:02)
[2020-06-08] MEDS: DOCUSATE SODIUM 100 MG CAPSULE PO (21:03)
[2020-06-08] MEDS: MONTELUKAST SODIUM 10 MG TABLET PO (21:03)
[2020-06-08] MEDS: PREGABALIN (*CRX) 50 MG CAPSULE 150 MG PO (21:03)
[2020-06-08] MEDS: ACETAMINOPHEN 325 MG TABLET 650 MG PO (21:18)
[2020-06-09] VITALS (14 sets, daily range): BP systolic 110–139; BP diastolic 68–74; PULSE 66–84; RESP 16–20; TEMP 36.1–36.9; O2SAT 90–100
--- NOTE | 2020-06-09 02:18 | PC.NURSE ---
pt sleeping, no evidence of distress noted at this time
[2020-06-09] MEDS: BUDESONIDE RESPULE NEB 0.5 MG/2 ML AMP INHALATION ×2 (05:33→17:50)
[2020-06-09] MEDS: ALBUTEROL SULFATE NEB 2.5 MG/3 ML INH INHALATION ×4 (05:34→23:44)
[2020-06-09 05:39] LABS: Magnesium 1.5 mg/dL (1.8-2.4)
[2020-06-09] MEDS: LEVOTHYROXINE SODIUM 25 MCG TABLET PO (05:57)
[2020-06-09] MEDS: LEVOTHYROXINE SODIUM 100 MCG TABLET PO (05:58)
[2020-06-09] MEDS: MAGNESIUM OXIDE 400 MG TABLET PO ×2 (09:59→17:28)
[2020-06-09] MEDS: DOCUSATE SODIUM 100 MG CAPSULE PO ×2 (09:59→20:45)
[2020-06-09] MEDS: THERAPEUTIC MULTIVITAMINS/MINERALS TAB (*BKC) 1 TABLET PO (09:59)
[2020-06-09] MEDS: PANTOPRAZOLE 40 MG TABLET PO (09:59)
[2020-06-09] MEDS: hydroCHLOROthiazide 25 MG TABLET PO (09:59)
[2020-06-09] MEDS: ESCITALOPRAM OXALATE 10 MG TABLET 20 MG PO (10:00)
[2020-06-09] MEDS: CALCIUM CARBONATE (OSCAL) 500 MG TABLET PO (10:00)
[2020-06-09] MEDS: PREGABALIN (*CRX) 25 MG CAPSULE 75 MG PO (10:00)
--- NOTE | 2020-06-09 13:37 | PC.NURSE ---
Pox:100% P:80, R. 18 on 3L O2; Dozing and states headache better since oxygen turned down from 5L per nc. O2 turned down to 2L per n.c.
[2020-06-09] MEDS: FAMOTIDINE 20 MG TABLET 40 MG PO (17:28)
[2020-06-09] MEDS: MIRABEGRON 25 MG ER TABLET PO (17:29)
[2020-06-09] MEDS: NORTRIPTYLINE HCL 10 MG CAPSULE PO (20:44)
[2020-06-09] MEDS: MONTELUKAST SODIUM 10 MG TABLET PO (20:45)
[2020-06-09] MEDS: PREGABALIN (*CRX) 50 MG CAPSULE 150 MG PO (20:45)
[2020-06-09] MEDS: ACETAMINOPHEN 325 MG TABLET 650 MG PO (20:46)
[2020-06-10] VITALS (13 sets, daily range): BP systolic 111–133; BP diastolic 63–85; PULSE 59–89; RESP 16–24; TEMP 36.3–37.1; O2SAT 91–100
--- NOTE | 2020-06-10 02:29 | PC.NURSE ---
pt sleeping, no evidence of distress noted, belongings within reach
[2020-06-10] MEDS: ALBUTEROL SULFATE NEB 2.5 MG/3 ML INH INHALATION ×4 (05:34→22:56)
[2020-06-10] MEDS: BUDESONIDE RESPULE NEB 0.5 MG/2 ML AMP INHALATION ×2 (05:35→18:31)
[2020-06-10] MEDS: LEVOTHYROXINE SODIUM 25 MCG TABLET PO (05:54)
[2020-06-10] MEDS: LEVOTHYROXINE SODIUM 100 MCG TABLET PO (05:54)
[2020-06-10] MEDS: DOCUSATE SODIUM 100 MG CAPSULE PO ×2 (08:54→20:57)
[2020-06-10] MEDS: hydroCHLOROthiazide 25 MG TABLET PO (08:54)
[2020-06-10] MEDS: ESCITALOPRAM OXALATE 10 MG TABLET 20 MG PO (08:54)
[2020-06-10] MEDS: PREGABALIN (*CRX) 25 MG CAPSULE 75 MG PO (08:54)
[2020-06-10] MEDS: MAGNESIUM OXIDE 400 MG TABLET PO ×2 (08:54→17:14)
[2020-06-10] MEDS: PANTOPRAZOLE 40 MG TABLET PO (08:54)
[2020-06-10] MEDS: CALCIUM CARBONATE (OSCAL) 500 MG TABLET PO (08:54)
[2020-06-10] MEDS: THERAPEUTIC MULTIVITAMINS/MINERALS TAB (*BKC) 1 TABLET PO (08:54)
[2020-06-10 17:05] LABS: Basophils Absolute Auto 0.03 K/mm3 (0.00-0.10); Basophils Percent Auto 0.4 % (0.0-1.0); Eosinophils Absolute Auto 0.57 K/mm3 (0.02-0.50); Eosinophils Percent Auto 8.4 % (1.0-6.0); Hematocrit 37.4 % (35.0-42.0); Hemoglobin 11.9 g/dL (11.7-13.8); Immature Granulocyte Absolute 0.02 K/mm3 (0.00-0.00); Immature Granulocyte Percent A 0.3 % (0.0-0.0); Lymphocytes Absolute Auto 1.09 K/mm3 (1.10-4.50); Mean Corpuscular HGB Conc 31.8 g/dL (32.0-36.0); Mean Corpuscular Hemoglobin 29.7 pg (27.0-31.0); Mean Corpuscular Volume 93.3 fL (78.0-102.0); Mean Platelet Volume 10.6 fl (9.2-11.8); Monocytes Absolute Auto 0.64 K/mm3 (0.10-0.90); Monocytes Percent Auto 9.4 % (2.0-11.0); Neutrophils Absolute Auto 4.5 K/mm3 (1.7-7.2); Neutrophils Percent Auto 65.5 % (50.0-70.0); Platelet Count Result 180 K/mm3 (150-420); Red Blood Count 4.01 M/mm3 (4.20-5.40); Red Cell Distribution Width 15.3 % (11.6-14.4); White Blood Count 6.8 K/mm3 (4.8-10.8)
[2020-06-10] MEDS: FAMOTIDINE 20 MG TABLET 40 MG PO (17:14)
[2020-06-10 17:19] LABS: BNP 43.5 pg/mL (0-100)
[2020-06-10 17:38] LABS: Alanine Aminotransferase 29 U/L (14-59); Albumin Level 2.7 g/dL (3.4-5.0); Alkaline Phosphatase 63 U/L (46-116); Anion Gap 5 mmol/L (8-16); Aspartate Amino Transferase 20 U/L (15-37); Bilirubin,Total 0.3 mg/dL (0.00-1.00); Blood Urea Nitrogen 9 mg/dL (7-18); Calcium 9.1 mg/dL (8.5-10.1); Carbon Dioxide 33 mmol/L (21-32); Chloride 102 mmol/L (98-108); Estimated CRCL calculation 94 ml/min; Estimated Glomerular Filt Rate > 60; Glucose 98 mg/dL (70-99); Osmolality Calculated 288 mOsm/kg (285-295); Potassium 3.4 mmol/L (3.5-5.1); Sodium 140 mmol/L (136-145); Total Protein 7.1 g/dL (6.4-8.2)
[2020-06-10 17:41] LABS: Free T4 Free Thyroxine 1.25 ng/dL (0.76-1.46); Thyroid Stimulating Hormone 0.44 uIU/mL (0.36-3.74)
[2020-06-10 17:53] LABS: Magnesium 1.7 mg/dL (1.8-2.4)
[2020-06-10] MEDS: MIRABEGRON 25 MG ER TABLET PO (18:04)
[2020-06-10] MEDS: POTASSIUM CHLORIDE 20 MEQ TABLET 40 MEQ PO (19:29)
[2020-06-10] MEDS: FUROSEMIDE INJ 40 MG/4 ML VIAL IV PUSH (19:30)
[2020-06-10] MEDS: MAGNESIUM SULF 4 GM/WATER100ML 4 GM/100 ML BAG IVPB (19:44)
[2020-06-10] MEDS: PREGABALIN (*CRX) 50 MG CAPSULE 150 MG PO (20:56)
[2020-06-10] MEDS: NORTRIPTYLINE HCL 10 MG CAPSULE PO (20:57)
[2020-06-10] MEDS: POTASSIUM CHLORIDE 20 MEQ TABLET (20:57)
[2020-06-10] MEDS: MONTELUKAST SODIUM 10 MG TABLET PO (20:57)
[2020-06-10] MEDS: ACETAMINOPHEN 325 MG TABLET 650 MG PO (23:48)
[2020-06-11] VITALS (13 sets, daily range): BP systolic 110–141; BP diastolic 70–87; PULSE 70–85; RESP 16–22; TEMP 36–37; O2SAT 92–100
[2020-06-11] MEDS: POTASSIUM CHLORIDE 20 MEQ TABLET 40 MEQ PO ×3 (03:27→17:43)
[2020-06-11] MEDS: BUDESONIDE RESPULE NEB 0.5 MG/2 ML AMP INHALATION ×2 (05:34→17:31)
[2020-06-11] MEDS: ALBUTEROL SULFATE NEB 2.5 MG/3 ML INH INHALATION ×4 (05:34→22:46)
[2020-06-11 06:01] LABS: Anion Gap 5 mmol/L (8-16); Blood Urea Nitrogen 9 mg/dL (7-18); Calcium 8.7 mg/dL (8.5-10.1); Carbon Dioxide 33 mmol/L (21-32); Chloride 104 mmol/L (98-108); Estimated CRCL calculation 83 ml/min; Estimated Glomerular Filt Rate > 60; Glucose 98 mg/dL (70-99); Osmolality Calculated 292 mOsm/kg (285-295); Potassium 3.7 mmol/L (3.5-5.1); Sodium 142 mmol/L (136-145)
[2020-06-11] MEDS: LEVOTHYROXINE SODIUM 25 MCG TABLET PO (06:05)
[2020-06-11] MEDS: LEVOTHYROXINE SODIUM 100 MCG TABLET PO (06:05)
--- NOTE | 2020-06-11 06:38 | PM.OP ---
Procedure Note - Brief Procedure Note - Brief Date of procedure: 06/11/20 Pre-op diagnosis: Rehab Surgeon: Radames Christianson MD Last pm about 5pm I was called to the floor for a care conference in her room. It seems she has gained 6.6 pounds since I discontinued her Aldactone a few days ago. My goal at that time was to start a tiny dose of a beta noe, which I thought would help her more, after I reviewed her echo. She did not seem to have enough blood pressure to manage the HCTZ she was on, the Aldactone and much of a beta noe. Somehow she was given both Coreg and Metoprolol though, and her blood pressure dropped requiring a fluid bolus. Then both drugs were stopped, and she was not resumed on her Aldactone. As a result she had gained weight about 6.6 pounds. At the time when I saw her last pm, she was having increasing difficulty ambulating and increasing shortness of breath. I ordered a BNP, chemistry, Mg, CBC, and a portable chest. Her lung sounds were decreased, but I did not hear any crackles. She had probably 2+ edema in her ankles. Heart sounds were regular and no tachycardia. Her labs were reviewed, the BNP was not elevated above baseline. Her CXR was definitely worse though, even worse than when she first came in and was found to have Covid. She was given lasix 40mg IV, magnesium 4gms IV, and repeated doses of potassium. Labs this am are acceptable, and she has put out two liters. We have resumed her Aldactone and started KCL 40meq bid. I do believe she would benefit from a tiny dose of a beta noe later, but she clearly needs to be kept on the dry side for now.
[2020-06-11] MEDS: DOCUSATE SODIUM 100 MG CAPSULE PO ×2 (08:52→20:50)
[2020-06-11] MEDS: ESCITALOPRAM OXALATE 10 MG TABLET 20 MG PO (08:52)
[2020-06-11] MEDS: SPIRONOLACTONE 25 MG TABLET PO (08:52)
[2020-06-11] MEDS: CALCIUM CARBONATE (OSCAL) 500 MG TABLET PO (08:52)
[2020-06-11] MEDS: PREGABALIN (*CRX) 25 MG CAPSULE 75 MG PO (08:52)
[2020-06-11] MEDS: hydroCHLOROthiazide 25 MG TABLET PO (08:52)
[2020-06-11] MEDS: MAGNESIUM OXIDE 400 MG TABLET PO ×2 (08:53→17:43)
[2020-06-11] MEDS: THERAPEUTIC MULTIVITAMINS/MINERALS TAB (*BKC) 1 TABLET PO (08:53)
[2020-06-11] MEDS: PANTOPRAZOLE 40 MG TABLET PO (08:53)
[2020-06-11] MEDS: MIRABEGRON 25 MG ER TABLET PO (17:43)
[2020-06-11] MEDS: FAMOTIDINE 20 MG TABLET 40 MG PO (17:43)
[2020-06-11] MEDS: NORTRIPTYLINE HCL 10 MG CAPSULE PO (20:49)
[2020-06-11] MEDS: PREGABALIN (*CRX) 50 MG CAPSULE 150 MG PO (20:50)
[2020-06-11] MEDS: MONTELUKAST SODIUM 10 MG TABLET PO (20:50)
[2020-06-12] VITALS (11 sets, daily range): BP systolic 122–150; BP diastolic 66–84; PULSE 62–87; RESP 16–24; TEMP 36.7–36.8; O2SAT 88–100
[2020-06-12] MEDS: ALBUTEROL SULFATE NEB 2.5 MG/3 ML INH INHALATION ×4 (05:33→23:03)
[2020-06-12] MEDS: BUDESONIDE RESPULE NEB 0.5 MG/2 ML AMP INHALATION ×2 (05:33→17:42)
--- NOTE | 2020-06-12 05:35 | PC.NURSE ---
0530-Pt walked to the BR with walker and portable 02 at 4 L. Voided 200 ml dark concentrated urine. Walked back to bed. Spot check of 02 showed 82 %- Increased to 89% after resting. 02 reconnected to wall unit but increased to 3 L. Sp02 increased to 94%. Respiratory here to give morning neb treatment.
[2020-06-12 06:04] LABS: Anion Gap 5 mmol/L (8-16); Blood Urea Nitrogen 11 mg/dL (7-18); Calcium 9.4 mg/dL (8.5-10.1); Carbon Dioxide 31 mmol/L (21-32); Chloride 104 mmol/L (98-108); Estimated CRCL calculation 88 ml/min; Estimated Glomerular Filt Rate > 60; Glucose 86 mg/dL (70-99); Magnesium 1.7 mg/dL (1.8-2.4); Osmolality Calculated 288 mOsm/kg (285-295); Potassium 4.5 mmol/L (3.5-5.1); Sodium 140 mmol/L (136-145)
[2020-06-12] MEDS: LEVOTHYROXINE SODIUM 100 MCG TABLET PO (06:11)
[2020-06-12] MEDS: LEVOTHYROXINE SODIUM 25 MCG TABLET PO (06:11)
[2020-06-12] MEDS: hydroCHLOROthiazide 25 MG TABLET PO (09:09)
[2020-06-12] MEDS: CALCIUM CARBONATE (OSCAL) 500 MG TABLET PO (09:09)
[2020-06-12] MEDS: ESCITALOPRAM OXALATE 10 MG TABLET 20 MG PO (09:10)
[2020-06-12] MEDS: MAGNESIUM OXIDE 400 MG TABLET PO ×2 (09:10→17:21)
[2020-06-12] MEDS: PANTOPRAZOLE 40 MG TABLET PO (09:10)
[2020-06-12] MEDS: PREGABALIN (*CRX) 25 MG CAPSULE 75 MG PO (09:10)
[2020-06-12] MEDS: SPIRONOLACTONE 25 MG TABLET PO (09:10)
[2020-06-12] MEDS: THERAPEUTIC MULTIVITAMINS/MINERALS TAB (*BKC) 1 TABLET PO (09:11)
[2020-06-12] MEDS: POTASSIUM CHLORIDE 20 MEQ TABLET 40 MEQ PO ×2 (09:13→17:21)
[2020-06-12] MEDS: MAGNESIUM SULF 4 GM/WATER100ML 4 GM/100 ML BAG IVPB (09:18)
[2020-06-12] MEDS: DOCUSATE SODIUM 100 MG CAPSULE PO ×2 (09:31→20:16)
--- NOTE | 2020-06-12 11:25 | P.PN_ITS ---
Progress Note: A&P Assessment and Plan (1) Physical deconditioning: Code(s): R53.81 - Other malaise <Elpidio HornALEXIS-C - Last Filed: 06/12/20 12:13> Status: Acute <Elpidio Horn DRAFTING INSTRUCTOR-C - Last Filed: 06/12/20 12:13> Assessment and Plan: 06/12/2020 patient will be working with physical therapy for r econditioning so the patient may return home and be better able to perform activities of daily living with minimal to no assistance, encouraging proper diet, encouraging patient mobility with regard to oxygen needs <Elpidio HornKIRAN-C - Last Filed: 06/12/20 12:13> (2) Anxiety: Code(s): F41.9 - Anxiety disorder, unspecified <Elpidio HornALEXIS-C - Last Filed: 06/12/20 12:13> Status: Acute <Elpidio HornALEXIS-C - Last Filed: 06/12/20 12:13> Assessment and Plan: * Continue Xanax 0.25 mg p.o. q.6-8 hours as needed <Elpidio HornKIRAN-C - Last Filed: 06/12/20 12:13> (3) Pneumonia due to COVID-19 virus: Code(s): U07.1 - COVID-19; J12.89 - Other viral pneumonia <Elpidio HornKIRAN-C - Last Filed: 06/12/20 12:13> Status: Acute <Elpidio HornALEXIS-C - Last Filed: 06/12/20 12:13> Assessment and Plan: * Continue inhalers * Completed remdesivir and dexamethasone at [facility] <Elpidio LongoriaKIRA penaN-C - Last Filed: 06/12/20 12:13> (4) Overactive bladder: Code(s): N32.81 - Overactive bladder <Elpidio Horn DRAFTING INSTRUCTOR-C - Last Filed: 06/12/20 12:13> Status: Chronic <Elpidio HornKIRAN-C - Last Filed: 06/12/20 12:13> Assessment and Plan: * continue mirabegron <Elpidio Horn DRAFTING INSTRUCTOR-C - Last Filed: 06/12/20 12:13> (5) Neuropathy: Code(s): G62.9 - Polyneuropathy, unspecified <KIRA CarbajalN-C - Last Filed: 06/12/20 12:13> Status: Chronic <KIRA CarbaajlN-C - Last Filed: 06/12/20 12:13> Assessment and Plan: * Continue pregabalin <KIRA CarbajalN-C - Last Filed: 06/12/20 12:13> (6) Asthma: Qualifiers: Asthma complication type: unspecified Asthma persistence: unspecified Asthma severity: unspecified severity Qualified Code(s): J45.909 - Unspecified asthma, uncomplicated <Elpidio Horn DRAFTING INSTRUCTOR-C - Last Filed: 06/12/20 12:13> Code(s): J45.909 - Unspecified asthma, uncomplicated <Elpidio Horn DRAFTING INSTRUCTOR-C - Last Filed: 06/12/20 12:13> Status: Acute <KIRA CarbajalN-C - Last Filed: 06/12/20 12:13> Assessment and Plan: * Continue inhalers and supplementary oxygen <Elpidio Horn DRAFTING INSTRUCTOR-C - Last Filed: 06/12/20 12:13> (7) HTN (hypertension): Code(s): I10 - Essential (primary) hypertension <Elpidio HornALEXIS-C - Last Filed: 06/12/20 12:13> Status: Chronic <Elpidio Horn DRAFTING INSTRUCTOR-C - Last Filed: 06/12/20 12:13> Assessment and Plan: * Blood pressure 122/66 today * Continue HCTZ 25 mg daily and spironolactone 25 mg daily * Vital signs as ordered * Will adjust medication as needed <Elpidio HornALEXIS-C - Last Filed: 06/12/20 12:13> (8) Hypothyroidism: Code(s): E03.9 - Hypothyroidism, unspecified <Elpidio HornALEXIS-C - Last Filed: 06/12/20 12:13> Status: Chronic <Elpidio HornALEXIS-C - Last Filed: 06/12/20 12:13> Assessment and Plan: * Continue Synthroid 125 mg daily <SANIA Carbajal - Last Filed: 06/12/20 12:13> (9) MELINDA (stress urinary incontinence, female): Code(s): N39.3 - Stress incontinence (female) (male) <SANIA Carbajal - [place]
--- NOTE | 2020-06-12 11:25 | WPDPN ---
Progress Note: A&P Assessment and Plan (1) Physical deconditioning: Code(s): R53.81 - Other malaise <Elpidio HornALEXIS-C - Last Filed: 06/12/20 12:13> Status: Acute <Elpidio Horn HAIR OR BEAUTY SALON MANAGER-C - Last Filed: 06/12/20 12:13> Assessment and Plan: 06/12/2020 patient will be working with physical therapy for reconditioning so the patient may return home and be better able to perform activities of daily living with minimal to no assistance, encouraging proper diet, encouraging patient mobility with regard to oxygen needs <Elpidio HornKIRAN-C - Last Filed: 06/12/20 12:13> (2) Anxiety: Code(s): F41.9 - Anxiety disorder, unspecified <Elpidio HornALEXIS-C - Last Filed: 06/12/20 12:13> Status: Acute <Elpidio HornALEXIS-C - Last Filed: 06/12/20 12:13> Assessment and Plan: Continue Xanax 0.25 mg p.o. q.6-8 hours as needed <Elpidio HornALEXIS-C - Last Filed: 06/12/20 12:13> (3) Pneumonia due to COVID-19 virus: Code(s): U07.1 - COVID-19; J12.89 - Other viral pneumonia <Elpidio HornALXEIS-C - Last Filed: 06/12/20 12:13> Status: Acute <Elpidio HornALEXIS-C - Last Filed: 06/12/20 12:13> Assessment and Plan: Continue inhalers Completed remdesivir and dexamethasone at [facility] <Elpidio HornKIRAN-C - Last Filed: 06/12/20 12:13> (4) Overactive bladder: Code(s): N32.81 - Overactive bladder <Elpidio HornALEXIS-C - Last Filed: 06/12/20 12:13> Status: Chronic <Elpidio HornALEXIS-C - Last Filed: 06/12/20 12:13> Assessment and Plan: continue mirabegron <Elpidio LongoriaALEXIS pena-C - Last Filed: 06/12/20 12:13> (5) Neuropathy: Code(s): G62.9 - Polyneuropathy, unspecified <KIRA CarbajalN-C - Last Filed: 06/12/20 12:13> Status: Chronic <KIRA CarbajalN-C - Last Filed: 06/12/20 12:13> Assessment and Plan: Continue pregabalin <KIRA CarbajalN-C - Last Filed: 06/12/20 12:13> (6) Asthma: Qualifiers: Asthma complication type: unspecified Asthma persistence: unspecified Asthma severity: unspecified severity Qualified Code(s): J45.909 - Unspecified asthma, uncomplicated <Elpidio Horn HAIR OR BEAUTY SALON MANAGER-C - Last Filed: 06/12/20 12:13> Code(s): J45.909 - Unspecified asthma, uncomplicated <Elpidio Horn HAIR OR BEAUTY SALON MANAGER-C - Last Filed: 06/12/20 12:13> Status: Acute <Elpidio Horn HAIR OR BEAUTY SALON MANAGER-C - Last Filed: 06/12/20 12:13> Assessment and Plan: Continue inhalers and supplementary oxygen <Elpidio Horn HAIR OR BEAUTY SALON MANAGER-C - Last Filed: 06/12/20 12:13> (7) HTN (hypertension): Code(s): I10 - Essential (primary) hypertension <Elpidio Horn HAIR OR BEAUTY SALON MANAGER-C - Last Filed: 06/12/20 12:13> Status: Chronic <Elpidio Horn HAIR OR BEAUTY SALON MANAGER-C - Last Filed: 06/12/20 12:13> Assessment and Plan: Blood pressure 122/66 today Continue HCTZ 25 mg daily and spironolactone 25 mg daily Vital signs as ordered Will adjust medication as needed <Elpidio HornALEXIS-C - Last Filed: 06/12/20 12:13> (8) Hypothyroidism: Code(s): E03.9 - Hypothyroidism, unspecified <Elpidio HornKIRAN-C - Last Filed: 06/12/20 12:13> Status: Chronic <Elpidio Horn HAIR OR BEAUTY SALON MANAGER-C - Last Filed: 06/12/20 12:13> Assessment and Plan: Continue Synthroid 125 mg daily <SANIA Carbajal - Last Filed: 06/12/20 12:13> (9) MELINDA (stress urinary incontinence, female): Code(s): N39.3 - Stress incontinence (female) (male) <SANIA Carbajal - Last Filed: 06/12/20 12:13> Status: Acute <SANIA Carbajal - Last Filed: 06/12/20 12:13> Assessment and Plan: continue mirabegron <SANIA Carbajal - Last Filed: 06/12/20 12:13> (10) Skin abnormality: Code(s): L98.9 - Disorder of the skin and subcutaneous tissue, unspecified <Elpidio Horn A
[2020-06-12] MEDS: FUROSEMIDE INJ 40 MG/4 ML VIAL 20 MG IV PUSH (12:38)
[2020-06-12] MEDS: FAMOTIDINE 20 MG TABLET 40 MG PO (17:21)
[2020-06-12] MEDS: NORTRIPTYLINE HCL 10 MG CAPSULE PO (20:15)
[2020-06-12] MEDS: MIRABEGRON 25 MG ER TABLET PO (20:15)
[2020-06-12] MEDS: MONTELUKAST SODIUM 10 MG TABLET PO (20:15)
[2020-06-12] MEDS: PREGABALIN (*CRX) 50 MG CAPSULE 150 MG PO (20:16)
[2020-06-13] VITALS (27 sets, daily range): BP systolic 115–147; BP diastolic 49–79; PULSE 58–102; RESP 16–20; TEMP 36.6–36.8; O2SAT 75–99
--- NOTE | 2020-06-13 02:17 | PC.NURSE ---
pt sleeping, no evidence of distress noted, belongings within reach
[2020-06-13 05:37] LABS: Hematocrit 35.5 % (35.0-42.0); Hemoglobin 11.1 g/dL (11.7-13.8); Mean Corpuscular HGB Conc 31.3 g/dL (32.0-36.0); Mean Corpuscular Hemoglobin 29.3 pg (27.0-31.0); Mean Corpuscular Volume 93.7 fL (78.0-102.0); Mean Platelet Volume 10.3 fl (9.2-11.8); Platelet Count Result 157 K/mm3 (150-420); Red Blood Count 3.79 M/mm3 (4.20-5.40); Red Cell Distribution Width 15.5 % (11.6-14.4); White Blood Count 6.4 K/mm3 (4.8-10.8)
[2020-06-13] MEDS: BUDESONIDE RESPULE NEB 0.5 MG/2 ML AMP INHALATION ×2 (05:39→17:30)
[2020-06-13] MEDS: ALBUTEROL SULFATE NEB 2.5 MG/3 ML INH INHALATION ×3 (05:39→17:30)
[2020-06-13 05:48] LABS: Anion Gap 4 mmol/L (8-16); Blood Urea Nitrogen 11 mg/dL (7-18); Calcium 9.1 mg/dL (8.5-10.1); Carbon Dioxide 32 mmol/L (21-32); Chloride 104 mmol/L (98-108); Estimated CRCL calculation 78 ml/min; Estimated Glomerular Filt Rate > 60; Glucose 97 mg/dL (70-99); Magnesium 1.7 mg/dL (1.8-2.4); Osmolality Calculated 289 mOsm/kg (285-295); Potassium 4.4 mmol/L (3.5-5.1); Sodium 140 mmol/L (136-145)
[2020-06-13] MEDS: LEVOTHYROXINE SODIUM 100 MCG TABLET PO (05:59)
[2020-06-13] MEDS: LEVOTHYROXINE SODIUM 25 MCG TABLET PO (05:59)
[2020-06-13] MEDS: ACETAMINOPHEN 325 MG TABLET 650 MG PO (07:50)
[2020-06-13] MEDS: MAGNESIUM SULF 4 GM/WATER100ML 4 GM/100 ML BAG IVPB (08:16)
[2020-06-13] MEDS: POTASSIUM CHLORIDE 20 MEQ TABLET 40 MEQ PO ×2 (08:18→17:00)
[2020-06-13] MEDS: MAGNESIUM OXIDE 400 MG TABLET PO ×2 (08:19→17:00)
[2020-06-13] MEDS: ESCITALOPRAM OXALATE 10 MG TABLET 20 MG PO (08:19)
[2020-06-13] MEDS: PANTOPRAZOLE 40 MG TABLET PO (08:19)
[2020-06-13] MEDS: CALCIUM CARBONATE (OSCAL) 500 MG TABLET PO (08:19)
[2020-06-13] MEDS: hydroCHLOROthiazide 25 MG TABLET PO (08:19)
[2020-06-13] MEDS: DOCUSATE SODIUM 100 MG CAPSULE PO (08:19)
[2020-06-13] MEDS: THERAPEUTIC MULTIVITAMINS/MINERALS TAB (*BKC) 1 TABLET PO (08:19)
[2020-06-13] MEDS: SPIRONOLACTONE 25 MG TABLET PO (08:20)
[2020-06-13] MEDS: PREGABALIN (*CRX) 25 MG CAPSULE 75 MG PO (08:20)
[2020-06-13 10:58] LABS: BNP 33 pg/mL (0-100)
--- NOTE | 2020-06-13 14:41 | PM.EVENT ---
Event Note Event Note Event Note: 06/13/[address] Dumont pulmonology regarding miss prudence condition. His recommendations are to continue diuresing the patient while replenishing electrolytes that may be lost. He believes that this is due to COVID scarring. And he states that the goal would be to make sure patient is adequately oxygenated on about 6 L nasal cannula. This should include both at rest and with minimal activity while not becoming hypoxic.
--- NOTE | 2020-06-13 14:53 | HOMEO2EVAL ---
Home Oxygen Evaluation RC: Home Oxygen (O2) Evaluation Start: 06/13/20 12:54 Freq: ONCE Status: Active Protocol: RPE Activity Type Activity Date Activity User E-Sign Co-Sign Detail Recorded Client Recorded Date Recorded By Document 06/13/20 13:35 SJB [id number] 06/13/20 14:53 SJB Document 06/13/20 13:37 SJB [id number] 06/13/20 14:53 SJB Document 06/13/20 13:39 SJB [id number] 06/13/20 14:53 SJB Document 06/13/20 13:41 SJB [id number] 06/13/20 14:53 SJB Document 06/13/20 13:43 SJB [id number] 06/13/20 14:53 SJB Document 06/13/20 13:45 SJB [id number] 06/13/20 14:53 SJB Document 06/13/20 13:47 SJB [id number] 06/13/20 14:53 SJB Document 06/13/20 13:49 SJB [id number] 06/13/20 14:53 SJB Document 06/13/20 13:51 SJB [id number] 06/13/20 14:53 SJB Document 06/13/20 13:53 SJB [id number] 06/13/20 14:53 SJB Document 06/13/20 13:55 SJB [id number] 06/13/20 14:53 SJB Document 06/13/20 13:57 SJB [id number] 06/13/20 14:53 SJB Document 06/13/20 13:59 SJB [id number] 06/13/20 14:53 SJB Document 06/13/20 14:01 SJB [id number] 06/13/20 14:53 SJB Document 06/13/20 14:04 SJB [id number] 06/13/20 14:53 SJB 06/13/20 06/13/20 06/13/20 13:35 13:37 13:39 Home O2 Evaluation Test Phase Resting Exercise Exercise Oxygen Delivery Room Air Room Air Nasal Cannula Oxygen Flow Rate (L/min) 2 Pulse Oximetry (90-100 %) 94 75 L 75 L Pulse Rate (60-100 beats/min) 78 102 H 80 Activity Tolerance Poor Poor Rating of Perceived Dyspnea (PD) +2 Mild, Some +3 Moderate +4 Severe Difficulty, Difficulty, But Difficulty, Noticeable to Can Continue Participant the Observer Cannot Continue Rate of Perceived Exertion (PE) 12 15 Hard 17 Very Hard Ambulation Distance (feet) 15 0 Home Oxygen Evaluation Comments This was still at 15 ft, trying to bring Sp02 up. Will increase O2. Treatment Charges O2 Evaluation 06/13/20 06/13/20 06/13/20 13:41 13:43 13:45 Home O2 Evaluation Test Phase Exercise Exercise Exercise Oxygen Delivery Nasal Cannula Nasal Cannula Nasal Cannula Oxygen Flow Rate (L/min) 3 4 6 Pulse Oximetry (90-100 %) 80 L 82 L 86 L Pulse Rate (60-100 beats/min) 92 88 96 Activity Tolerance Poor Poor Poor Rating of Perceived Dyspnea (PD) +4 Severe +4 Severe +4 Severe Difficulty, Difficulty, Difficulty, Participant Participant Participant Cannot Continue Cannot Continue Cannot Continue Rate of Perceived Exertion (PE) 17 Very Hard 17 Very Hard 17 Very Hard Ambulation Distance (feet) 0 0 0 Home Oxygen Evaluation Comments Will need to Will increase Still standing increase oxygen liter flow at doorway. before again at this Will increase continuing. time. oxygen at this time. Treatment Charges 06/13/20 06/13/20 06/13/20 13:47 13:49 13:51 Home O2 Evaluation Test Phase Exercise Resting Resting Oxygen Delivery Nasal Cannula Nasal Cannula Oxymizer Oxygen Flow Rate (L/min) 8 6 3 Pulse Oximetry (90-100 %) 89 L 94 97 Pulse Rate (60-100 beats/min) 82 80 76 Activity Tolerance Poor Poor Fair Rating of Perceived Dyspnea (PD) +4 Severe +3 Moderate +3 Moderate Difficulty, Difficulty, But Difficulty, But Participant Can Continue Can Continue Cannot Continue Rate of Perceived Exertion (PE) 17 Very Hard 17 Very Hard 15 Hard Ambulation Distance (feet) 0 0 0 Home Oxygen Evaluation Comments Pt uable to PLB continually Pt now on continue encouraged. oxymizer and we standing, back Will recover will restart to chair. back to 3 lpm walk. Complains of and restart nose burning walk. with high liter flow. Treatment Charges 06/13/20 06/13/20 06/13/20 13:53 13:55 13:57 Home O2 Evaluation Test Phase Exercise Exercise Exercise Oxygen Delivery Oxymizer Oxymizer Oxymizer Oxygen Flow
--- NOTE | 2020-06-13 16:51 | PM.DS ---
DS: Admitting Diagnosis Admitting Diagnosis Admitting Diagnosis: Physical deconditioning, Pneumonia r/t COVID (viral) DS: Discharge Diagnosis Discharge Diagnosis (1) Physical deconditioning: Code(s): R53.81 - Other malaise Status: Acute Assessment and Plan: 06/12/2020 patient will be working with physical therapy for reconditioning so the patient may return home and be better able to perform activities of daily living with minimal to no assistance, encouraging proper diet, encouraging patient mobility with regard to oxygen need 06/13/2020 Pt performed a 6 minute walk which the Pt failed to the point it would not be safe to send the Pt home even with home oxygen (2) Anxiety: Code(s): F41.9 - Anxiety disorder, unspecified Status: Acute Assessment and Plan: Continue Xanax 0.25 mg p.o. q.6-8 hours as needed (3) Pneumonia due to COVID-19 virus: Code(s): U07.1 - COVID-19; J12.89 - Other viral pneumonia Status: Acute Assessment and Plan: Continue inhalers Completed remdesivir and dexamethasone at [facility] 06/13/[address] Dumont, straight knife cutter machine, who reviewed the Pt chart with me and the images. The end result was to continue with diuresis while replacing electrolytes with the end goal of maintaining appropriate SpO2 while up and walking so that she can return home with home oxygen. The other part is to have home health with PT/OT for her physical deconditioning. During the 6 minute walk test Pt walked to the door of her room and has decreased SpO2 into the 70%. Per RT it took the Pt a while to recover. Then had Pt attempt to walk with her NC at 6 L/minute. RT increased the NC flow to 8 L/minute and the Pt dropped into the mid 80's%. (4) Overactive bladder: Code(s): N32.81 - Overactive bladder Status: Chronic Assessment and Plan: continue mirabegron (5) Neuropathy: Code(s): G62.9 - Polyneuropathy, unspecified Status: Chronic Assessment and Plan: Continue pregabalin (6) Asthma: Qualifiers: Asthma complication type: unspecified Asthma persistence: unspecified Asthma severity: unspecified severity Qualified Code(s): J45.909 - Unspecified asthma, uncomplicated Code(s): J45.909 - Unspecified asthma, uncomplicated Status: Acute Assessment and Plan: Continue inhalers and supplementary oxygen (7) HTN (hypertension): Code(s): I10 - Essential (primary) hypertension Status: Chronic Assessment and Plan: Blood pressure 122/66 today Continue HCTZ 25 mg daily and spironolactone 25 mg daily Vital signs as ordered Will adjust medication as needed (8) Hypothyroidism: Code(s): E03.9 - Hypothyroidism, unspecified Status: Chronic Assessment and Plan: Continue Synthroid 125 mg daily (9) MELINDA (stress urinary incontinence, female): Code(s): N39.3 - Stress incontinence (female) (male) Status: Acute Assessment and Plan: continue mirabegron (10) Skin abnormality: Code(s): L98.9 - Disorder of the skin and subcutaneous tissue, unspecified Status: Acute Assessment and Plan: Continue antifungal Skin care orders placed DS: Summary Hospital Course Hospital Course: Pt was doing well however she ended up with increased oxygen needs during PT/OT. SpO2 decreased into the 80s with NC at 3-6 L/min. She did not do well with the 6 minute walk test so that she could be sent home. Pt needs to be changed to an inpatient status for further treatment of her lung status post COVID. Time Spent with Patient Time attestation: Total time spent providing and/or coordinating discharge services: > 40 minutes Talking with Pt and daughter regarding admit to inpatient, contacted Dispensary Attendant, discussing with RT the need for 6 minute walk test for home oxygen. Exam Const: General: cooperative, comfortable and no acute distress Resp: Effort &
[2020-06-13] MEDS: FUROSEMIDE INJ 40 MG/4 ML VIAL 20 MG IV PUSH (16:59)
[2020-06-13] MEDS: FAMOTIDINE 20 MG TABLET 40 MG PO (16:59)
[2020-06-13] MEDS: MIRABEGRON 25 MG ER TABLET PO (17:00)
== END 2020-06-13 17:56 | disposition critical access hospital (66) | DRG 177 ==
PROVIDERS: Emergency Medicine; Nurse Practitioner; Nurse Practitioner Family; Admitting Provider Emergency Medicine; PCP Internal Medicine; Visit Provider Emergency Medicine
DX: U07.1 COVID-19 (principal); J12.82 Pneumonia due to coronavirus disease 2019; B94.8 Sequelae of other specified infectious and parasitic diseases; R53.81 Other malaise; R09.02 Hypoxemia; E87.70 Fluid overload, unspecified; I95.2 Hypotension due to drugs; T44.7X5A Adverse effect of beta-adrenoreceptor antagonists, initial encounter; E87.6 Hypokalemia; E83.42 Hypomagnesemia; J44.9 Chronic obstructive pulmonary disease, unspecified; L89.152 Pressure ulcer of sacral region, stage 2; L89.891 Pressure ulcer of other site, stage 1; I10 Essential (primary) hypertension; E66.9 Obesity, unspecified; E03.9 Hypothyroidism, unspecified; N32.81 Overactive bladder; N39.3 Stress incontinence (female) (male); G62.9 Polyneuropathy, unspecified; F41.9 Anxiety disorder, unspecified; Z96.1 Presence of intraocular lens; Z96.659 Presence of unspecified artificial knee joint; Z87.891 Personal history of nicotine dependence; Z98.42 Cataract extraction status, left eye; Z98.41 Cataract extraction status, right eye; Z90.49 Acquired absence of other specified parts of digestive tract
CPT/HCPCS: 36415; 71045; 80048; 80053; 81001; 81003; 83735; 83880; 84439; 84443; 85025; 85027; 87077; 87086; 87088; 87186; 93005; 94618; 94640; 94668; 97110; 97116; 97161; 97165; 97530; 97535; A9270; J1650; J1940; J3475; J7030; J8540

== ENCOUNTER 2020-06-13 17:57 | Inpatient (IN) | payer MEDICARE, MEDICAID, SELFPAY ==
--- NOTE | ~2020-06-13 | CT_ITS ---
EXAMINATION: CTA chest DATE: 06/14/2020 08:16 INDICATION: Dyspnea on exertion. COVID-19 positive on 05/11/2020. TECHNIQUE: Computed tomography angiography (CTA) of the chest was performed with 100 mL Omnipaque-350 intravenous contrast timed to evaluate the pulmonary arteries. Coronal maximum intensity projection 3D-reconstructions were created by the technologist. Automated exposure control and iterative reconst ruction technique were employed. The dose-length product was 693.51 mGy-cm. COMPARISON: Chest CT 05/14/2020, abdomen CT 01/15/2016 FINDINGS: The lung volumes are small. There are airspace and groundglass opacities and septal thicken ing throughout the lungs bilaterally with architectural distortion. Calcified right lung nodules and calcified right hilar lymph nodes are consistent with old granulomatous disease. No pleural effusion. Cardiomegaly is noted. There are coronary artery calcifications. No pericardial effusion. The centra l pulmonary arteries are enlarged, consistent with pulmonary arterial hypertension. There are acute p ulmonary emboli in segmental or subsegmental pulmonary arteries in the right upper lobe, right middle lobe, and right lower lobe. There is a small sliding hiatal hernia. There are surgical changes in th e stomach. Calcifications in the spleen are consistent with old granulomatous disease. There is a 3.8 cm mass in left adrenal gland measuring soft tissue attenuation, stable from 01/15/2016 when it measu red low-attenuation, consistent with an adenoma. There is moderate thoracic spondylosis. IMPRESSION: 1. Acute pulmonary emboli in segmental and subsegmental pulmonary arteries in right lung. I called th is result to Dr. Dukes on 06/14/20 at 8:47 AM. 2. Worsened diffuse lung disease, likely a combination of pneumonia and diffuse alveolar damage. Reviewed, dictated and finalized at location A. CE EQUIPMENT TECHNICIAN IMPRESSION: 1. Acute pulmonary emboli in segmental and subsegmental pulmonary arteries in r ight lung. I called this result to Dr. Dukes on 06/14/20 at 8:47 AM. 2. Worsened diffuse lung disease, likely a combination of pneumonia and diffuse alveolar damage.
--- NOTE | 2020-06-13 18:31 | PM.IMHP ---
H&P: HPI History of Present Illness Date/Time: 06/13/20 18:31 Chief Complaint: Shortness of Breath with Activity Narrative: Christiano Warner is a 70 year old female who initially came to the hospital positive for COVID. Patient was about to be discharged however she had increased oxygen demand requiring her to go into an inpatient status. This began to resolve and she was able to go to swing bed. Unfortunately her respiratory status began to decline again and she was unsuccessful with performing a 6 minutes walk test for home oxygen. Chest images show a wax and wane of improvement with the last x-ray showing slight improvement while she was being treated for fluid overload. Due to the fluid, inability discharge because of increased oxygen demand, and only slight improvement on images patient required to be readmitted as inpatient. Consulted with Dr. Dumont, director geophysical laboratory, who reviewed the Pt chart with me and the images yesterday. The end result was to continue with diuresis while replacing electrolytes with the end goal of maintaining appropriate SpO2 while up and walking so that she can return home with home oxygen. The other part is to have home health with PT/OT for her physical deconditioning. During the 6 minute walk test Pt walked to the door of her room and had decreased SpO2 into the 70%. Per RT it took the Pt a while to recover. Then had Pt attempt to walk with her NC at 6 L/minute. RT increased the NC flow to 8 L/minute and the Pt dropped into the mid 80's%. Review of Systems Constitutional: Constitutional: Denies body ache(s), Denies fatigue, Denies fever(s) and Reports weakness Cardiovascular: Cardiovascular: Denies chest pain, Denies chest pain at rest and Denies chest pain with activity Respiratory: Respiratory: Denies chest congestion, Denies cough, Denies dyspnea and Reports dyspnea on exertion Gastrointestinal: Gastrointestinal: Reports no additional gastrointestinal complaints Genitourinary: Genitourinary: Reports no additional female genitourinary complaints Musculoskeletal: Musculoskeletal: Reports muscle weakness Neurologic: Reports system reviewed and no additional complaints, except as documented PMFSH Past Medical History Medical History HTN (hypertension) Hypothyroidism Morbid obesity Nerve entrapment syndrome of lower extremity Surgery to repair foot drop on the right leg after right knee surgery Neuropathy Overactive bladder Surgical History Surgical History H/O bilateral cataract extraction History of appendectomy History of carpal tunnel release History of total knee arthroplasty Hx of cholecystectomy S/P tonsillectomy and adenoidectomy Family History Family History Father Hypertension Family history of renal failure Diabetes mellitus Mother Asthma Other Cerebrovascular accident Family history of alcoholism Family history of arthritis Family history of blood dyscrasia Family history of coronary artery disease Family history of lung disease Family history of malignant neoplasm Family history of mental disorder Social History Social History Social History: The patient stated that she never and had 2 children. Both of her daughters Lex and mark she desires to have is her durable power privacy attorney for healthcare. The patient is a full code. 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 She quit smoking in the 70s. She does not use any alcohol marijuana or illicit drugs. Smoking packs per day: 10 Smoking cigarettes per day: 200.0 Years smoked: 10 Smoking pack-years: 100.00 Smoking status: Former smoker Tobacco type: cigarettes Second hand tobacco smoke exposure: Yes Smoking end date: 06/07/69 Noni
[2020-06-13 18:36] VITALS: BMI 44.3
[2020-06-13 18:39] VITALS: O2SAT 99
--- NOTE | 2020-06-13 19:31 | ADMGEN ---
This patient, Christiano Warner, was admitted to 2nd Floor Room 208-2. Patient/family oriented to hospital policies and general routines including ID bracelet, bed and alarms, visiting hours, pain management, procedures, bathroom and other care routines, personal items, smoking policy, room service/diet, and visiting hours. Patient moved from swing to inpatient Information on how to activate the Rapid Response Team has been discussed. Patient/Family are encouraged to report perceived risks to care and to ask questions if they do not understand what they are told or what they should do.
[2020-06-13 19:45] VITALS: O2SAT 99
[2020-06-13] MEDS: MONTELUKAST SODIUM 10 MG TABLET PO (21:10)
[2020-06-13] MEDS: NORTRIPTYLINE HCL 10 MG CAPSULE PO (21:10)
[2020-06-13] MEDS: PREGABALIN (*CRX) 50 MG CAPSULE 150 MG PO (21:10)
[2020-06-13] MEDS: DOCUSATE SODIUM 100 MG CAPSULE PO (21:11)
[2020-06-13] MEDS: FAMOTIDINE 20 MG TABLET 40 MG PO (22:25)
[2020-06-13] MEDS: ALBUTEROL SULFATE NEB 2.5 MG/3 ML INH INHALATION (22:48)
[2020-06-13 22:49] VITALS: PULSE 72; RESP 20; O2SAT 99
[2020-06-13 22:59] VITALS: PULSE 75; RESP 20; O2SAT 99
[2020-06-14] VITALS (17 sets, daily range): BP systolic 117–139; BP diastolic 62–79; PULSE 66–97; RESP 16–24; TEMP 36.6–36.9; O2SAT 92–100
[2020-06-14] MEDS: LEVOTHYROXINE SODIUM 100 MCG TABLET PO (05:31)
[2020-06-14] MEDS: LEVOTHYROXINE SODIUM 25 MCG TABLET PO (05:31)
[2020-06-14] MEDS: BUDESONIDE RESPULE NEB 0.5 MG/2 ML AMP INHALATION ×2 (05:33→17:29)
[2020-06-14] MEDS: ALBUTEROL SULFATE NEB 2.5 MG/3 ML INH INHALATION ×4 (05:33→22:48)
[2020-06-14 05:43] LABS: Basophils Absolute Auto 0.04 K/mm3 (0.00-0.10); Basophils Percent Auto 0.7 % (0.0-1.0); Eosinophils Absolute Auto 0.55 K/mm3 (0.02-0.50); Hematocrit 34.9 % (35.0-42.0); Hemoglobin 11.3 g/dL (11.7-13.8); Immature Granulocyte Absolute 0.01 K/mm3 (0.00-0.00); Immature Granulocyte Percent A 0.2 % (0.0-0.0); Lymphocytes Percent Auto 19.9 % (18.0-42.0); Mean Corpuscular HGB Conc 32.4 g/dL (32.0-36.0); Mean Corpuscular Hemoglobin 30.2 pg (27.0-31.0); Mean Corpuscular Volume 93.3 fL (78.0-102.0); Mean Platelet Volume 10.5 fl (9.2-11.8); Monocytes Absolute Auto 0.63 K/mm3 (0.10-0.90); Monocytes Percent Auto 11.4 % (2.0-11.0); Neutrophils Absolute Auto 3.2 K/mm3 (1.7-7.2); Neutrophils Percent Auto 57.8 % (50.0-70.0); Platelet Count Result 154 K/mm3 (150-420); Red Blood Count 3.74 M/mm3 (4.20-5.40); Red Cell Distribution Width 15.3 % (11.6-14.4); White Blood Count 5.5 K/mm3 (4.8-10.8)
[2020-06-14 06:04] LABS: Alanine Aminotransferase 21 U/L (14-59); Albumin Level 2.6 g/dL (3.4-5.0); Alkaline Phosphatase 59 U/L (46-116); Anion Gap 5 mmol/L (8-16); Aspartate Amino Transferase 14 U/L (15-37); Bilirubin,Total 0.6 mg/dL (0.00-1.00); Blood Urea Nitrogen 11 mg/dL (7-18); Carbon Dioxide 32 mmol/L (21-32); Chloride 105 mmol/L (98-108); Estimated CRCL calculation 79 ml/min; Estimated Glomerular Filt Rate > 60; Glucose 87 mg/dL (70-99); Magnesium 1.7 mg/dL (1.8-2.4); Osmolality Calculated 292 mOsm/kg (285-295); Potassium 4.2 mmol/L (3.5-5.1); Sodium 142 mmol/L (136-145); Total Protein 6.2 g/dL (6.4-8.2)
--- NOTE | 2020-06-14 07:36 | ECHO_ITS ---
Patient Info Name: Christiano Warner Age: 70 years : 1950 Gender: Female Ht: 62 in Wt: 242 lbs BSA: 2.26 m2 HR: 76 bpm BP: 152 / 54 mmHg Heart Rhythm: Sinus Rhythm Technical Quality: Fair Exam Date: 06/14/2020 8:06 AM Exam Location: [facility] Patient Status: Inpatient Admit Date: 06/13/2020 Staff Ordering Physician: Elpidio Horn Senior Credit Analyst: Hortencia Muniz RDCS Attending Provider: Henrry Ayala MD Referring Physician: Kory MORALES; Exam Type: CA echo dop color flow w con Study Info Indications J81.0 - Acute pulmonary edema Complete two-dimensional, color flow and Doppler transthoracic echocardiogram is performed with contrast to opacify the left ventricle and to improve the deliniation of the left ventricle endocardial borders. Strain analysis performed. Contrast/Agitated Saline Contrast/Ag. Saline: Definity Amount: 4.00 ml Existing IV Access: Yes IV Access Condition: patent with no signs of infiltration Site Condition: No extravasation History/Risk Factors Hypertension: Yes Dyslipidemia: No Congenital Heart Disease (CHD): No Peripheral Arterial Disease (PAD): No Myocardial Infarction (CT): No Chronic Lung Disease: No Obesity: Yes Renal Disease: No Coronary Artery Disease (CAD) No Congestive Heart Failure (CHF): No Cardiomyopathy/LV Systolic Dysfunction: No Diabetes Mellitus: No COPD: No Tobacco Use: Former Cerebrovascular Disease: No Family History: Diabetes Mellitus Deep Vein Thrombosis (DVT): None Dialysis: None Frailty Scale (CSHA): 3: Managing Well Cardiac Arrest: No Summary 1. Left ventricular chamber dimension is normal. 2. Left ventricular systolic function is normal, estimated at 60-65%. 3. There is moderately increased left ventricular wall thickness. 4. The left ventricular diastolic function is grade I diastolic dysfunction. 5. E/e' 18 is elevated. 6. Global longitudinal strain is normal at -20.8%. 7. There is mild mitral valve regurgitation. 8. There is trace tricuspid valve regurgitation. 9. There is mild pulmonic regurgitation. 10. The aortic root size at the sinus of Valsalva is borderline dilated at 4.0 cm.. Left Ventricle E/e' 18 is elevated. Global longitudinal strain is normal at -20.8%. Left ventricular chamber dimension is normal. Left ventricular systolic function is normal, estimated at 60-65%. There is moderately increased left ventricular wall thickness. The left ventricular diastolic function is grade I diastolic dysfunction. Right Ventricle Right ventricular chamber dimension is normal. Right ventricular systolic function is normal. Left Atria Left atrial chamber dimension is normal. Right Atria Right atrial chamber dimension is normal. Aortic Valve The aortic valve is trileaflet. There is no aortic valve stenosis. There is no aortic valve regurgitation. Pulmonic Valve There is mild pulmonic regurgitation. Mitral Valve There is no mitral valve stenosis. There is mild mitral valve regurgitation. Tricuspid Valve RVSP is not calculated due to an inadequate TR jet. There is trace tricuspid valve regurgitation. Pericardium/Pleural There is no pericardial effusion. Inferior Vena Cava Normal inferior vena cava with >50% collapse upon inspiration consistent with normal right atrial pressure, 5 mmHg. Aorta The a
[2020-06-14] MEDS: MAGNESIUM OXIDE 400 MG TABLET PO ×3 (09:16→16:46)
[2020-06-14] MEDS: POTASSIUM CHLORIDE 20 MEQ TABLET 40 MEQ PO ×2 (09:17→16:47)
[2020-06-14] MEDS: SPIRONOLACTONE 25 MG TABLET PO (09:17)
[2020-06-14] MEDS: DOCUSATE SODIUM 100 MG CAPSULE PO ×2 (09:17→20:39)
[2020-06-14] MEDS: hydroCHLOROthiazide 25 MG TABLET PO (09:17)
[2020-06-14] MEDS: CALCIUM CARBONATE (OSCAL) 500 MG TABLET PO (09:18)
[2020-06-14] MEDS: ESCITALOPRAM OXALATE 10 MG TABLET 20 MG PO (09:18)
[2020-06-14] MEDS: THERAPEUTIC MULTIVITAMINS/MINERALS TAB (*BKC) 1 TABLET PO (09:18)
[2020-06-14] MEDS: PREGABALIN (*CRX) 25 MG CAPSULE 75 MG PO (09:18)
[2020-06-14] MEDS: PANTOPRAZOLE SODIUM IV 40 MG VIAL IV PUSH (09:19)
[2020-06-14] MEDS: FAMOTIDINE 20 MG TABLET 40 MG PO ×2 (09:19→20:39)
[2020-06-14] MEDS: FUROSEMIDE INJ 40 MG/4 ML VIAL 20 MG IV PUSH ×2 (09:19→17:28)
[2020-06-14] MEDS: ENOXAPARIN 120 MG/0.8 ML SYRINGE 110 MG SUB-Q ×2 (09:20→20:39)
[2020-06-14] MEDS: MAGNESIUM SULF 4 GM/WATER100ML 4 GM/100 ML BAG IVPB (09:42)
--- NOTE | 2020-06-14 10:16 | WPDPN ---
Progress Note: A&P Assessment and Plan (1) Physical deconditioning: Code(s): R53.81 - Other malaise Status: Acute Assessment and Plan: 06/13/2020 patient will be working with physical therapy and occupational therapy to increase strength that the patient can return home and perform most activities of daily living 06/14/2020 continue torque physical therapy and occupational therapy as tolerated (2) Pneumonia due to COVID-19 virus: Code(s): U07.1 - COVID-19; J12.89 - Other viral pneumonia Status: Acute Assessment and Plan: 06/13/2020 spoke with radius corner machine operator likely patient having sequelae from her COVID infection such as COVID scarring, images of the chest indicate edema, patient will be diuresed with closely monitoring fluid status and electrolytes as well as respiratory status 06/14/2020 CTA this morning indicates PE (3) HTN (hypertension): Code(s): I10 - Essential (primary) hypertension Status: Chronic Assessment and Plan: 06/13/2020 continue with HCTZ and spironolactone, monitor vital signs closely, adjust medications as needed 06/14/2020 continue to monitor closely 134/75 (4) Asthma: Qualifiers: Asthma complication type: unspecified Asthma persistence: unspecified Asthma severity: unspecified severity Qualified Code(s): J45.909 - Unspecified asthma, uncomplicated Code(s): J45.909 - Unspecified asthma, uncomplicated Status: Acute Assessment and Plan: 06/13/2020 continue albuterol and budesonide, make any additions or changes as needed 06/14/2020 patient has had no complaints of wheezing or increased shortness of breath in addition to her baseline (5) Neuropathy: Code(s): G62.9 - Polyneuropathy, unspecified Status: Chronic Assessment and Plan: 06/13/2020 continue pregabalin 06/14/2020 patient has had no complaints will continue with regimen (6) Anxiety: Code(s): F41.9 - Anxiety disorder, unspecified Status: Acute Assessment and Plan: 06/13/2020 continue Xanax and nortriptyline 06/14/2020 continue as above (7) Skin abnormality: Code(s): L98.9 - Disorder of the skin and subcutaneous tissue, unspecified Status: Acute Assessment and Plan: 06/13/2020 continue with antifungal 06/14/2020 no change (8) Increased oxygen demand: Code(s): R68.89 - Other general symptoms and signs Status: Acute Assessment and Plan: 06/13/2020 patient has increased oxygen demand while up and active, she has not been able to be as active as previously, will attempt to wean oxygen down while maintaining appropriate SpO2, will continue to diurese while monitoring blood pressure and respiratory status 06/14/2020 patient was found to have a pulmonary embolism on the right-hand side via CTA and radiology report today likely a major contributor factor to this increased oxygen demand, will continue to monitor respiratory status and maintain appropriate SpO2 (9) Overactive bladder: Code(s): N32.81 - Overactive bladder Status: Chronic Assessment and Plan: 06/13/2020 continue Myrbetriq 06/14/2020 no changes (10) Hypomagnesemia: Code(s): E83.42 - Hypomagnesemia Status: Acute Assessment and Plan: 06/14/2020 Magnesium 1.7 this morning replaced with 4 g IV magnesium will recheck in the morning (11) Pulmonary emboli: Code(s): I26.99 - Other pulmonary embolism without acute cor pulmonale Status: Acute Assessment and Plan: 06/14/2020 CTA radiology report indicates PE right side, initiated therapeutic Lovenox, will monitor respiratory status Review of Systems Constitutional: Constitutional: Reports no additional constitutional complaints Cardiovascular: Cardiovascular: Reports no additional cardiovascular complaints, Denies chest pain, Denies chest pain at rest and Denies chest pain with activity Respiratory: Respiratory: Reports no additional respiratory complaints, D
[2020-06-14 12:58] LABS: Phosphorus 4.1 mg/dL (2.6-4.7)
[2020-06-14] MEDS: MIRABEGRON 25 MG ER TABLET PO (16:48)
--- NOTE | 2020-06-14 17:18 | PC.NURSE ---
food tray given, no complaints or needs at this time. able to feed self.
--- NOTE | 2020-06-14 18:07 | PC.NURSE ---
up to commode. tolerating well.
--- NOTE | 2020-06-14 19:18 | PC.NURSE ---
report to lila lópez. pt resting in bed. no complaints or needs at this time.
[2020-06-14] MEDS: MONTELUKAST SODIUM 10 MG TABLET PO (20:39)
[2020-06-14] MEDS: PREGABALIN (*CRX) 50 MG CAPSULE 150 MG PO (20:40)
[2020-06-14] MEDS: NORTRIPTYLINE HCL 10 MG CAPSULE PO (20:40)
[2020-06-14] MEDS: ACETAMINOPHEN 325 MG TABLET PO (23:47)
[2020-06-15] VITALS (18 sets, daily range): BP systolic 93–130; BP diastolic 47–81; PULSE 64–136; RESP 16–20; TEMP 36.3–37.1; O2SAT 96–100
[2020-06-15] MEDS: BUDESONIDE RESPULE NEB 0.5 MG/2 ML AMP INHALATION ×2 (05:44→17:31)
[2020-06-15] MEDS: LEVOTHYROXINE SODIUM 100 MCG TABLET PO (05:44)
[2020-06-15] MEDS: LEVOTHYROXINE SODIUM 25 MCG TABLET PO (05:44)
[2020-06-15] MEDS: ALBUTEROL SULFATE NEB 2.5 MG/3 ML INH INHALATION ×3 (05:44→17:31)
[2020-06-15 06:06] LABS: Hematocrit 33.9 % (35.0-42.0); Hemoglobin 10.8 g/dL (11.7-13.8); Mean Corpuscular HGB Conc 31.9 g/dL (32.0-36.0); Mean Corpuscular Hemoglobin 29.5 pg (27.0-31.0); Mean Corpuscular Volume 92.6 fL (78.0-102.0); Mean Platelet Volume 10.9 fl (9.2-11.8); Platelet Count Result 165 K/mm3 (150-420); Red Blood Count 3.66 M/mm3 (4.20-5.40); Red Cell Distribution Width 15.2 % (11.6-14.4); White Blood Count 5.1 K/mm3 (4.8-10.8)
[2020-06-15 06:17] LABS: Anion Gap 7 mmol/L (8-16); Blood Urea Nitrogen 13 mg/dL (7-18); Calcium 9.1 mg/dL (8.5-10.1); Carbon Dioxide 32 mmol/L (21-32); Chloride 104 mmol/L (98-108); Estimated CRCL calculation 85 ml/min; Estimated Glomerular Filt Rate > 60; Glucose 89 mg/dL (70-99); Magnesium 1.9 mg/dL (1.8-2.4); Osmolality Calculated 295 mOsm/kg (285-295); Sodium 143 mmol/L (136-145)
--- NOTE | 2020-06-15 06:25 | PC.NURSE ---
pt sitting on the side of bed washing up and getting dressed, no assistance needed other than setup.
--- NOTE | 2020-06-15 08:12 | PM.IMPN ---
Progress Note: A&P Assessment and Plan (1) Physical deconditioning: Code(s): R53.81 - Other malaise Status: Acute Assessment and Plan: 06/13/2020 patient will be working with physical therapy and occupational therapy to increase strength that the patient can return home and perform most activities of daily living 06/14/2020 continue torque physical therapy and occupational therapy as tolerated 06/15/2020 Discussed with patient working with physical occupational therapy, given this is the weekend not sure which day PT OT will be here, patient is looking forward to continue working with them (2) Pneumonia due to COVID-19 virus: Code(s): U07.1 - COVID-19; J12.89 - Other viral pneumonia Status: Acute Assessment and Plan: 06/13/2020 spoke with ophthalmic aide likely patient having sequelae from her COVID infection such as COVID scarring, images of the chest indicate edema, patient will be diuresed with closely monitoring fluid status and electrolytes as well as respiratory status 06/14/2020 CTA this morning indicates PE 06/15/2020 continue with Lovenox with the intent of transitioning to Eliquis however will have case management check insurance to ensure Eliquis is covered. (3) HTN (hypertension): Code(s): I10 - Essential (primary) hypertension Status: Chronic Assessment and Plan: 06/13/2020 continue with HCTZ and spironolactone, monitor vital signs closely, adjust medications as needed 06/14/2020 continue to monitor closely 134/75 06/15/2020 Blood pressure has been stable however patient has new onset atrial fibrillation requiring Cardizem so will be monitoring blood pressure closely (4) Asthma: Qualifiers: Asthma complication type: unspecified Asthma persistence: unspecified Asthma severity: unspecified severity Qualified Code(s): J45.909 - Unspecified asthma, uncomplicated Code(s): J45.909 - Unspecified asthma, uncomplicated Status: Acute Assessment and Plan: 06/13/2020 continue albuterol and budesonide, make any additions or changes as needed 06/14/2020 patient has had no complaints of wheezing or increased shortness of breath in addition to her baseline 06/15/2020 patient has been without any wheezing or asthma symptoms (5) Neuropathy: Code(s): G62.9 - Polyneuropathy, unspecified Status: Chronic Assessment and Plan: 06/13/2020 continue pregabalin 06/14/2020 patient has had no complaints will continue with regimen 06/15/2020 continue (6) Anxiety: Code(s): F41.9 - Anxiety disorder, unspecified Status: Acute Assessment and Plan: 06/13/2020 continue Xanax and nortriptyline 06/14/2020 continue as above 06/15/2020 patient appears relaxed (7) Skin abnormality: Code(s): L98.9 - Disorder of the skin and subcutaneous tissue, unspecified Status: Acute Assessment and Plan: 06/13/2020 continue with antifungal 06/14/2020 no change 06/15/2020 continue (8) Increased oxygen demand: Code(s): R68.89 - Other general symptoms and signs Status: Acute Assessment and Plan: 06/13/2020 patient has increased oxygen demand while up and active, she has not been able to be as active as previously, will attempt to wean oxygen down while maintaining appropriate SpO2, will continue to diurese while monitoring blood pressure and respiratory status 06/14/2020 patient was found to have a pulmonary embolism on the right-hand side via CTA and radiology report today likely a major contributor factor to this increased oxygen demand, will continue to monitor respiratory status and maintain appropriate SpO2 06/15/2020 patient states her breathing is good at rest, has concern about the PE, understands treatment, is accepting this well (9) Overactive bladder: Code(s): N32.81 - Overactive bladder Status: Chronic Assessment and Plan: 06/13/2020 continue Myrbetriq 06/14/2020 no changes 06/15/2020 continue (10) Hypomagnesemia:
[2020-06-15] MEDS: ENOXAPARIN 120 MG/0.8 ML SYRINGE 110 MG SUB-Q ×2 (09:27→20:47)
[2020-06-15] MEDS: MAGNESIUM SULF 2 GM/WATER 50ML 2 GM/50 ML BAG IVPB (09:27)
[2020-06-15] MEDS: PANTOPRAZOLE SODIUM IV 40 MG VIAL IV PUSH (09:27)
[2020-06-15] MEDS: FUROSEMIDE INJ 40 MG/4 ML VIAL 20 MG IV PUSH ×2 (09:28→16:47)
[2020-06-15] MEDS: THERAPEUTIC MULTIVITAMINS/MINERALS TAB (*BKC) 1 TABLET PO (09:28)
[2020-06-15] MEDS: FAMOTIDINE 20 MG TABLET 40 MG PO ×2 (09:28→20:45)
[2020-06-15] MEDS: POTASSIUM CHLORIDE 20 MEQ TABLET 40 MEQ PO ×2 (09:28→16:47)
[2020-06-15] MEDS: CALCIUM CARBONATE (OSCAL) 500 MG TABLET PO (09:29)
[2020-06-15] MEDS: ESCITALOPRAM OXALATE 10 MG TABLET 20 MG PO (09:29)
[2020-06-15] MEDS: MAGNESIUM OXIDE 400 MG TABLET PO ×3 (09:29→16:47)
[2020-06-15] MEDS: DOCUSATE SODIUM 100 MG CAPSULE PO ×2 (09:29→20:46)
[2020-06-15] MEDS: PREGABALIN (*CRX) 25 MG CAPSULE 75 MG PO (09:29)
[2020-06-15] MEDS: SPIRONOLACTONE 25 MG TABLET PO (09:29)
[2020-06-15] MEDS: hydroCHLOROthiazide 25 MG TABLET PO (09:29)
--- NOTE | 2020-06-15 09:47 | ECG_ITS ---
Measurements Intervals [place] Rate: 112 P: LA: 0 QRS: -30 QRSD: 110 T: 17 QT: 336 QTc: 460 Interpretive Statements ATRIAL FLUTTER/TACHYCARDIA WITH RAPID VENTRICULAR RESPONSE INCOMPLETE RIGHT BUNDLE BRANCH BLOCK VOLTAGE CRITERIA FOR LVH POOR R WAVE PROGRESSION, ANTERIOR LEADS MINIMAL Q WAVES- HIGH LATERAL LEADS BORDERLINE T WAVE ABNORMALITY- INFERIOR LEADS ABNORMAL ECG Electronically Signed On 06-16-2020 16:39:58 DIELECTRIC TESTER by Ronnie Schmidt D.O.
[2020-06-15] MEDS: dilTIAZem HCl INJ 25 MG/5 ML VIAL 10 MG IV PUSH (11:20)
[2020-06-15] MEDS: ACETAMINOPHEN 325 MG TABLET PO (11:28)
[2020-06-15] MEDS: dilTIAZem HCL CD 180 MG CAP.ER.24H PO (13:00)
[2020-06-15] MEDS: MIRABEGRON 25 MG ER TABLET PO (20:45)
[2020-06-15] MEDS: PREGABALIN (*CRX) 50 MG CAPSULE 150 MG PO (20:46)
[2020-06-15] MEDS: NORTRIPTYLINE HCL 10 MG CAPSULE PO (20:46)
[2020-06-15] MEDS: MONTELUKAST SODIUM 10 MG TABLET PO (20:47)
[2020-06-16] VITALS (12 sets, daily range): BP systolic 117–142; BP diastolic 51–78; PULSE 64–82; RESP 18–22; TEMP 36.2–36.7; O2SAT 97–100
[2020-06-16] MEDS: ALBUTEROL SULFATE NEB 2.5 MG/3 ML INH INHALATION ×4 (00:38→17:57)
[2020-06-16] MEDS: LEVOTHYROXINE SODIUM 100 MCG TABLET PO (05:33)
[2020-06-16] MEDS: LEVOTHYROXINE SODIUM 25 MCG TABLET PO (05:33)
[2020-06-16] MEDS: BUDESONIDE RESPULE NEB 0.5 MG/2 ML AMP INHALATION ×2 (05:35→17:57)
[2020-06-16 06:26] LABS: Hematocrit 35.4 % (35.0-42.0); Hemoglobin 11.3 g/dL (11.7-13.8); Mean Corpuscular HGB Conc 31.9 g/dL (32.0-36.0); Mean Corpuscular Hemoglobin 29.8 pg (27.0-31.0); Mean Corpuscular Volume 93.4 fL (78.0-102.0); Mean Platelet Volume 11.2 fl (9.2-11.8); Platelet Count Result 189 K/mm3 (150-420); Red Blood Count 3.79 M/mm3 (4.20-5.40); Red Cell Distribution Width 15.3 % (11.6-14.4); White Blood Count 5.4 K/mm3 (4.8-10.8)
[2020-06-16 06:40] LABS: Alanine Aminotransferase 18 U/L (14-59); Albumin Level 2.5 g/dL (3.4-5.0); Alkaline Phosphatase 56 U/L (46-116); Anion Gap 6 mmol/L (8-16); Aspartate Amino Transferase 14 U/L (15-37); Bilirubin,Total 0.6 mg/dL (0.00-1.00); Blood Urea Nitrogen 17 mg/dL (7-18); Calcium 9.2 mg/dL (8.5-10.1); Carbon Dioxide 32 mmol/L (21-32); Chloride 102 mmol/L (98-108); Estimated CRCL calculation 73 ml/min; Estimated Glomerular Filt Rate > 60; Glucose 110 mg/dL (70-99); Osmolality Calculated 292 mOsm/kg (285-295); Sodium 140 mmol/L (136-145); Total Protein 6.8 g/dL (6.4-8.2)
[2020-06-16 06:56] LABS: Band Neutrophils Percent 0 % (0-6); Basophils Absolute Manual 0.05 K/mm3 (0-0.1); Basophils Percent Manual 1 % (0-1); Eosinophils Absolute Manual 0.54 K/mm3 (0.02-0.5); Eosinophils Percent Manual 10 % (1-6); Lymphocytes Absolute Manual 1.18 K/mm3 (1.1-4.5); Lymphocytes Percent Manual 22 % (18-44); Monocytes Absolute Manual 0.21 K/mm3 (0.1-0.90); Monocytes Percent Manual 4 % (3-9); Neutrophils Percent Manual 63 % (46-73); Total Cells Counted 100
[2020-06-16 06:57] LABS: Platelet Estimate Adequate (Adequate)
[2020-06-16 07:53] LABS: Magnesium 1.7 mg/dL (1.8-2.4)
[2020-06-16] MEDS: POTASSIUM CHLORIDE 20 MEQ TABLET 40 MEQ PO (09:22)
[2020-06-16] MEDS: PREGABALIN (*CRX) 25 MG CAPSULE 75 MG PO (09:22)
[2020-06-16] MEDS: DOCUSATE SODIUM 100 MG CAPSULE PO ×2 (09:23→20:20)
[2020-06-16] MEDS: SPIRONOLACTONE 25 MG TABLET PO (09:23)
[2020-06-16] MEDS: MAGNESIUM OXIDE 400 MG TABLET PO ×3 (09:23→17:56)
[2020-06-16] MEDS: CALCIUM CARBONATE (OSCAL) 500 MG TABLET PO (09:23)
[2020-06-16] MEDS: ESCITALOPRAM OXALATE 10 MG TABLET 20 MG PO (09:23)
[2020-06-16] MEDS: dilTIAZem HCL CD 180 MG CAP.ER.24H PO (09:23)
[2020-06-16] MEDS: THERAPEUTIC MULTIVITAMINS/MINERALS TAB (*BKC) 1 TABLET PO (09:23)
[2020-06-16] MEDS: FUROSEMIDE INJ 40 MG/4 ML VIAL 20 MG IV PUSH (10:04)
[2020-06-16] MEDS: FAMOTIDINE 20 MG TABLET 40 MG PO ×2 (10:05→20:20)
[2020-06-16] MEDS: PANTOPRAZOLE SODIUM IV 40 MG VIAL IV PUSH (10:05)
[2020-06-16] MEDS: ENOXAPARIN 120 MG/0.8 ML SYRINGE 110 MG SUB-Q ×2 (10:05→20:19)
[2020-06-16] MEDS: MAGNESIUM SULF 4 GM/WATER100ML 4 GM/100 ML BAG IVPB (11:32)
--- NOTE | 2020-06-16 12:06 | PM.IMPN ---
Progress Note: A&P Assessment and Plan (1) Physical deconditioning: Code(s): R53.81 - Other malaise Status: Acute Assessment and Plan: 06/13/2020 patient will be working with physical therapy and occupational therapy to increase strength that the patient can return home and perform most activities of daily living 06/14/2020 continue torque physical therapy and occupational therapy as tolerated 06/15/2020 Discussed with patient working with physical occupational therapy, given this is the weekend not sure which day PT will arrive 06/16/2020 patient continues to work with physical therapy, today saturations dropped to the upper 70s for SpO2 (2) Pneumonia due to COVID-19 virus: Code(s): U07.1 - COVID-19; J12.89 - Other viral pneumonia Status: Acute Assessment and Plan: 06/13/2020 spoke with rebeamer likely patient having sequelae from her COVID infection such as COVID scarring, images of the chest indicate edema, patient will be diuresed with closely monitoring fluid status and electrolytes as well as respiratory status 06/14/2020 CTA this morning indicates PE 06/15/2020 continue with Lovenox with the intent of transitioning to Eliquis however will have case management check insurance to ensure Eliquis is covered. 06/16/2020 no change in plan at this time (3) HTN (hypertension): Code(s): I10 - Essential (primary) hypertension Status: Chronic Assessment and Plan: 06/13/2020 continue with HCTZ and spironolactone, monitor vital signs closely, adjust medications as needed 06/14/2020 continue to monitor closely 134/75 06/15/2020 Blood pressure has been stable however patient has new onset atrial fibrillation requiring Cardizem so will be monitoring blood pressure closely 06/16/2020 stable continue as above with the exception of the HCTZ (4) Asthma: Qualifiers: Asthma complication type: unspecified Asthma persistence: unspecified Asthma severity: unspecified severity Qualified Code(s): J45.909 - Unspecified asthma, uncomplicated Code(s): J45.909 - Unspecified asthma, uncomplicated Status: Acute Assessment and Plan: 06/13/2020 continue albuterol and budesonide, make any additions or changes as needed 06/14/2020 patient has had no complaints of wheezing or increased shortness of breath in addition to her baseline 06/15/2020 patient has been without any wheezing or asthma symptoms 06/16/2020 patient has been stable no complaints (5) Neuropathy: Code(s): G62.9 - Polyneuropathy, unspecified Status: Chronic Assessment and Plan: 06/13/2020 continue pregabalin 06/14/2020 patient has had no complaints will continue with regimen 06/15/2020 continue 06/16/2020 no change (6) Anxiety: Code(s): F41.9 - Anxiety disorder, unspecified Status: Acute Assessment and Plan: 06/13/2020 continue Xanax and nortriptyline 06/14/2020 continue as above 06/15/2020 patient appears relaxed 06/16/2020 no change (7) Skin abnormality: Code(s): L98.9 - Disorder of the skin and subcutaneous tissue, unspecified Status: Acute Assessment and Plan: 06/13/2020 continue with antifungal 06/14/2020 no change 06/15/2020 continue 06/16/2020 continue (8) Increased oxygen demand: Code(s): R68.89 - Other general symptoms and signs Status: Acute Assessment and Plan: 06/13/2020 patient has increased oxygen demand while up and active, she has not been able to be as active as previously, will attempt to wean oxygen down while maintaining appropriate SpO2, will continue to diurese while monitoring blood pressure and respiratory status 06/14/2020 patient was found to have a pulmonary embolism on the right-hand side via CTA and radiology report today likely a major contributor factor to this increased oxygen demand, will continue to monitor respiratory status and maintain appropriate SpO2 06/15/2020 patient states her breathing is good at rest, has concern
[2020-06-16] MEDS: PREGABALIN (*CRX) 50 MG CAPSULE 150 MG PO (20:19)
[2020-06-16] MEDS: MIRABEGRON 25 MG ER TABLET PO (20:19)
[2020-06-16] MEDS: MONTELUKAST SODIUM 10 MG TABLET PO (20:19)
[2020-06-16] MEDS: NORTRIPTYLINE HCL 10 MG CAPSULE PO (20:19)
[2020-06-17] VITALS (18 sets, daily range): BP systolic 127–141; BP diastolic 67–83; PULSE 58–98; RESP 16–20; TEMP 36.3–37; O2SAT 93–100
[2020-06-17] MEDS: ALBUTEROL SULFATE NEB 2.5 MG/3 ML INH INHALATION ×5 (00:53→22:51)
[2020-06-17] MEDS: BUDESONIDE RESPULE NEB 0.5 MG/2 ML AMP INHALATION ×2 (05:34→17:30)
[2020-06-17] MEDS: LEVOTHYROXINE SODIUM 25 MCG TABLET PO (06:07)
[2020-06-17] MEDS: LEVOTHYROXINE SODIUM 100 MCG TABLET PO (06:07)
[2020-06-17 06:21] LABS: Anion Gap 5 mmol/L (8-16); Blood Urea Nitrogen 15 mg/dL (7-18); Calcium 9.2 mg/dL (8.5-10.1); Carbon Dioxide 32 mmol/L (21-32); Chloride 102 mmol/L (98-108); Estimated CRCL calculation 79 ml/min; Estimated Glomerular Filt Rate > 60; Glucose 90 mg/dL (70-99); Magnesium 1.9 mg/dL (1.8-2.4); Osmolality Calculated 288 mOsm/kg (285-295); Potassium 4.3 mmol/L (3.5-5.1); Sodium 139 mmol/L (136-145)
--- NOTE | 2020-06-17 07:30 | PM.IMPN ---
Progress Note: A&P Assessment and Plan (1) Physical deconditioning: Code(s): R53.81 - Other malaise <SANIA Carbajal - Last Filed: 06/17/20 10:24> Status: Acute <Elpidio Haley SANIA Horn - Last Filed: 06/17/20 10:24> Assessment and Plan: 06/13/2020 patient will be working with physical therapy and occupational therapy to increase strength that the patient can return home and perform most activities of daily living 06/14/2020 continue torque physical therapy and occupational therapy as tolerated 06/15/2020 Discussed with patient working with physical occupational therapy, given this is the weekend not sure which day PT will arrive 06/16/2020 patient continues to work with physical therapy, today saturations dropped to the upper 70s for SpO2 06/17/2020 no changes at this time <SANIA Carbajal - Last Filed: 06/17/20 10:24> (2) Pneumonia due to COVID-19 virus: Code(s): U07.1 - COVID-19; J12.89 - Other viral pneumonia <SANIA Carbajal - Last Filed: 06/17/20 10:24> Status: Acute <SANIA Carbajal - Last Filed: 06/17/20 10:24> Assessment and Plan: 06/13/2020 spoke with commercial real estate assistant likely patient having sequelae from her COVID infection such as COVID scarring, images of the chest indicate edema, patient will be diuresed with closely monitoring fluid status and electrolytes as well as respiratory status 06/14/2020 CTA this morning indicates PE 06/15/2020 continue with Lovenox with the intent of transitioning to Eliquis however will have case management check insurance to ensure Eliquis is covered. 06/16/2020 no change in plan at this time 06/17/2020 .... <SANIA Carbajal - Last Filed: 06/17/20 10:24> (3) HTN (hypertension): Code(s): I10 - Essential (primary) hypertension <SANIA Carbajal - Last Filed: 06/17/20 10:24> Status: Chronic <Elpidio HornALEXANDRIAC - Last Filed: 06/17/20 10:24> Assessment and Plan: 06/13/2020 continue with HCTZ and spironolactone, monitor vital signs closely, adjust medications as needed 06/14/2020 continue to monitor closely 134/75 06/15/2020 Blood pressure has been stable however patient has new onset atrial fibrillation requiring Cardizem so will be monitoring blood pressure closely 06/16/2020 stable continue as above with the exception of the HCTZ 06/17/2020 vital signs stable <Elpidio HornALEXANDRIAC - Last Filed: 06/17/20 10:24> (4) Asthma: Qualifiers: Asthma complication type: unspecified Asthma persistence: unspecified Asthma severity: unspecified severity Qualified Code(s): J45.909 - Unspecified asthma, uncomplicated <Elpidio LongoriaALEXIS pena-C - Last Filed: 06/17/20 10:24> Code(s): J45.909 - Unspecified asthma, uncomplicated <Elpidio LongoriaALEXIS pena-C - Last Filed: 06/17/20 10:24> Status: Acute <Elpidio LongoriaALEXIS pena-C - Last Filed: 06/17/20 10:24> Assessment and Plan: 06/13/2020 continue albuterol and budesonide, make any additions or changes as needed 06/14/2020 patient has had no complaints of wheezing or increased shortness of breath in addition to her baseline 06/15/2020 patient has been without any wheezing or asthma symptoms 06/16/2020 patient has been stable no complaints 06/17/2020 .... <Elpidio LongoriaALEXIS pena-C - Last Filed: 06/17/20 10:24> (5) Neuropathy: Code(s): G62.9 - Polyneuropathy, unspecified <Elpidio DawsonALEXANDRIA WallaceC - Last Filed: 06/17/20 10:24> Status: Chronic <Elpidio LongoriaALEXIS pena-C - Last Filed: 06/17/20 10:24> Assessment and Plan: 06/13/2020 continue pregabalin 06/14/2020 patient has had no complaints will continue with regimen 06/15/2020 continue 06/16/2020 no change 06/17/2020 .... <SANIA Carbajal - Last Filed: 06/17/20 10:24> (6) Anxiety: Code(s): F41.9 - Anxiety disorder, unspecified <SANIA Carbajal - Last Filed: 06/17/20 10:24> Status:
[2020-06-17] MEDS: ESCITALOPRAM OXALATE 10 MG TABLET 20 MG PO (08:55)
[2020-06-17] MEDS: PANTOPRAZOLE SODIUM IV 40 MG VIAL IV PUSH (08:55)
[2020-06-17] MEDS: dilTIAZem HCL CD 180 MG CAP.ER.24H PO (08:55)
[2020-06-17] MEDS: PREGABALIN (*CRX) 25 MG CAPSULE 75 MG PO (08:55)
[2020-06-17] MEDS: MAGNESIUM OXIDE 400 MG TABLET PO ×3 (08:55→17:28)
[2020-06-17] MEDS: DOCUSATE SODIUM 100 MG CAPSULE PO ×2 (08:55→20:11)
[2020-06-17] MEDS: FAMOTIDINE 20 MG TABLET 40 MG PO ×2 (08:55→20:11)
[2020-06-17] MEDS: CALCIUM CARBONATE (OSCAL) 500 MG TABLET PO (08:56)
[2020-06-17] MEDS: SPIRONOLACTONE 25 MG TABLET PO (08:56)
[2020-06-17] MEDS: THERAPEUTIC MULTIVITAMINS/MINERALS TAB (*BKC) 1 TABLET PO (08:56)
[2020-06-17] MEDS: ENOXAPARIN 120 MG/0.8 ML SYRINGE 110 MG SUB-Q ×2 (08:56→20:11)
[2020-06-17] MEDS: MONTELUKAST SODIUM 10 MG TABLET PO (20:11)
[2020-06-17] MEDS: PREGABALIN (*CRX) 50 MG CAPSULE 150 MG PO (20:11)
[2020-06-17] MEDS: NORTRIPTYLINE HCL 10 MG CAPSULE PO (20:12)
[2020-06-17] MEDS: MIRABEGRON 25 MG ER TABLET PO (20:12)
[2020-06-17] MEDS: ACETAMINOPHEN 325 MG TABLET PO (20:14)
--- NOTE | 2020-06-17 23:35 | PCDIET ---
Pt requires 6L O2 on portable tank. Once back to bed she recovers quickly on 3L O2.
[2020-06-18] VITALS (9 sets, daily range): BP systolic 115–117; BP diastolic 68–71; PULSE 61–83; RESP 16–20; TEMP 36.2–36.8; O2SAT 93–100
--- NOTE | 2020-06-18 00:40 | PCDIET ---
Pt sleeping. No distress noted.
--- NOTE | 2020-06-18 01:32 | PC.NURSE ---
Pt up to BR and back to bed using portable O2 tank, requiring 6L of O2. Once back to bed patient recovers quickly on 3L.
--- NOTE | 2020-06-18 01:54 | PC.NURSE ---
Sleeping, respirations even and unlabored.
--- NOTE | 2020-06-18 03:36 | PC.NURSE ---
Pt sleeping, appears comfortable. No distress noted.
[2020-06-18] MEDS: ALBUTEROL SULFATE NEB 2.5 MG/3 ML INH INHALATION ×2 (05:33→12:25)
[2020-06-18] MEDS: BUDESONIDE RESPULE NEB 0.5 MG/2 ML AMP INHALATION (05:34)
[2020-06-18 05:52] LABS: Hematocrit 34.3 % (35.0-42.0); Hemoglobin 10.7 g/dL (11.7-13.8); Mean Corpuscular HGB Conc 31.2 g/dL (32.0-36.0); Mean Corpuscular Hemoglobin 29.2 pg (27.0-31.0); Mean Corpuscular Volume 93.7 fL (78.0-102.0); Mean Platelet Volume 10.8 fl (9.2-11.8); Platelet Count Result 204 K/mm3 (150-420); Red Blood Count 3.66 M/mm3 (4.20-5.40); Red Cell Distribution Width 14.7 % (11.6-14.4); White Blood Count 3.8 K/mm3 (4.8-10.8)
[2020-06-18] MEDS: LEVOTHYROXINE SODIUM 25 MCG TABLET PO (05:54)
[2020-06-18] MEDS: LEVOTHYROXINE SODIUM 100 MCG TABLET PO (05:54)
[2020-06-18 06:12] LABS: Alanine Aminotransferase 23 U/L (14-59); Albumin Level 2.6 g/dL (3.4-5.0); Alkaline Phosphatase 58 U/L (46-116); Anion Gap 4 mmol/L (8-16); Aspartate Amino Transferase 18 U/L (15-37); Bilirubin,Total 0.4 mg/dL (0.00-1.00); Blood Urea Nitrogen 9 mg/dL (7-18); Carbon Dioxide 33 mmol/L (21-32); Chloride 104 mmol/L (98-108); Estimated CRCL calculation 91 ml/min; Estimated Glomerular Filt Rate > 60; Glucose 88 mg/dL (70-99); Magnesium 1.7 mg/dL (1.8-2.4); Osmolality Calculated 289 mOsm/kg (285-295); Potassium 4.1 mmol/L (3.5-5.1); Sodium 141 mmol/L (136-145); Total Protein 6.3 g/dL (6.4-8.2)
[2020-06-18 07:11] LABS: Ionized Calcium 5.3 mg/dL (4.8-5.6)
[2020-06-18] MEDS: THERAPEUTIC MULTIVITAMINS/MINERALS TAB (*BKC) 1 TABLET PO (09:29)
[2020-06-18] MEDS: PANTOPRAZOLE SODIUM IV 40 MG VIAL IV PUSH (09:29)
[2020-06-18] MEDS: MAGNESIUM OXIDE 400 MG TABLET PO ×2 (09:29→13:30)
[2020-06-18] MEDS: ENOXAPARIN 120 MG/0.8 ML SYRINGE 110 MG SUB-Q (09:29)
[2020-06-18] MEDS: ESCITALOPRAM OXALATE 10 MG TABLET 20 MG PO (09:29)
[2020-06-18] MEDS: DOCUSATE SODIUM 100 MG CAPSULE PO (09:29)
[2020-06-18] MEDS: PREGABALIN (*CRX) 25 MG CAPSULE 75 MG PO (09:29)
[2020-06-18] MEDS: SPIRONOLACTONE 25 MG TABLET PO (09:29)
[2020-06-18] MEDS: CALCIUM CARBONATE (OSCAL) 500 MG TABLET PO (09:30)
[2020-06-18] MEDS: dilTIAZem HCL CD 180 MG CAP.ER.24H PO (09:30)
[2020-06-18] MEDS: FAMOTIDINE 20 MG TABLET 40 MG PO (09:33)
--- NOTE | 2020-06-18 13:30 | PC.NURSE ---
Patient discharged from IP to [facility] status.
--- NOTE | 2020-06-18 13:47 | PM.DS ---
DS: Admitting Diagnosis Admitting Diagnosis Admitting Diagnosis: Shortness of breath with increased oxygen demand possibly secondary to PE or residual from Covid DS: Discharge Diagnosis Discharge Diagnosis (1) Physical deconditioning: Code(s): R53.81 - Other malaise Status: Acute Assessment and Plan: Will transition into PT/OT swing bed (2) Pulmonary emboli: Qualifiers: Pulmonary embolism type: unspecified Chronicity: acute Acute cor pulmonale presence: unspecified Qualified Code(s): I26.99 - Other pulmonary embolism without acute cor pulmonale Code(s): I26.99 - Other pulmonary embolism without acute cor pulmonale Status: Acute Assessment and Plan: Continue Eliquis (3) Atrial fibrillation with RVR: Code(s): I48.91 - Unspecified atrial fibrillation Status: Acute Assessment and Plan: Stable (4) Hypomagnesemia: Code(s): E83.42 - Hypomagnesemia Status: Acute (5) Increased oxygen demand: Code(s): R68.89 - Other general symptoms and signs Status: Acute (6) Anxiety: Code(s): F41.9 - Anxiety disorder, unspecified Status: Acute (7) Asthma: Qualifiers: Asthma severity: unspecified severity Asthma persistence: unspecified Asthma complication type: unspecified Qualified Code(s): J45.909 - Unspecified asthma, uncomplicated Code(s): J45.909 - Unspecified asthma, uncomplicated Status: Acute (8) HTN (hypertension): Qualifiers: Hypertension type: essential hypertension Qualified Code(s): I10 - Essential (primary) hypertension Code(s): I10 - Essential (primary) hypertension Status: Chronic (9) Neuropathy: Code(s): G62.9 - Polyneuropathy, unspecified Status: Chronic (10) Hypothyroidism: Qualifiers: Hypothyroidism type: unspecified Qualified Code(s): E03.9 - Hypothyroidism, unspecified Code(s): E03.9 - Hypothyroidism, unspecified Status: Chronic DS: Summary Hospital Course Reason for hospitalization: Rehab Hospital Course: Patient was admitted to this hospital on 05/30/2020 to our swing bed post Covid. Patient was about to be discharged however she had increased oxygen demand requiring her to go into an inpatient status. This began to resolve and she was able to go to swing bed. Unfortunately her respiratory status began to decline again and she was unsuccessful with performing a 6 minutes walk test for home oxygen. Chest images show a wax and wane of improvement with the last x-ray showing slight improvement while she was being treated for fluid overload. Patient unable to discharge because do increased oxygen demand, and only slight improvement on images patient required to be readmitted as inpatient. Today patient condition has improved she will transition back into a swing bed today . Time Spent with Patient Time attestation: Total time spent providing and/or coordinating discharge services: DS: Data Data Completed and Pending Labs on day of discharge: Labs from last 24 hours 06/18/20 06/18/20 06/14/20 05:03 05:03 12:50 WBC 3.8 L RBC 3.66 L Hgb 10.7 L Hct 34.3 L MCV 93.7 MCH 29.2 MCHC 31.2 L RDW 14.7 H Plt Count 204 MPV 10.8 Sodium 141 Potassium 4.1 Chloride 104 Carbon Dioxide 33 H Anion Gap 4 L BUN 9 Creatinine 0.56 Estim Creat Clear Calc 91 Estimated GFR > 60 Glucose 88 Calculated Osmolality 289 Calcium 9.0 Ionized Calcium Silas 5.3 Magnesium 1.7 L Total Bilirubin 0.4 AST 18 ALT 23 Alkaline Phosphatase 58 Total Protein 6.3 L Albumin 2.6 L Discharge Plan Discharge Attending physician on discharge: Radames Christianson Discharging Clinician: herb Anticipated Discharge Date/Time: 06/18/20 13:44 Patient Disposition: Hospital Swing Bed Activity: as tolerated Diet: heart healthy Discharge In
--- NOTE | 2020-06-24 13:58 | PC.NURSE ---
Pt states she received and understood her discharge instructions. She also states It was wonderful and I couldn't have asked for anything better .
== END 2020-06-18 13:30 | disposition swing bed (61) | DRG 175 ==
PROVIDERS: Nurse Practitioner Family; Admitting Provider Emergency Medicine; PCP Internal Medicine; Visit Provider Emergency Medicine
DX: I26.99 Other pulmonary embolism without acute cor pulmonale (principal); J12.82 Pneumonia due to coronavirus disease 2019; B94.8 Sequelae of other specified infectious and parasitic diseases; R53.81 Other malaise; E87.70 Fluid overload, unspecified; E83.42 Hypomagnesemia; I48.91 Unspecified atrial fibrillation; I10 Essential (primary) hypertension; I37.1 Nonrheumatic pulmonary valve insufficiency; I34.0 Nonrheumatic mitral (valve) insufficiency; E03.9 Hypothyroidism, unspecified; E66.01 Morbid (severe) obesity due to excess calories; J45.909 Unspecified asthma, uncomplicated; N32.81 Overactive bladder; G62.9 Polyneuropathy, unspecified; F41.9 Anxiety disorder, unspecified; Z96.659 Presence of unspecified artificial knee joint; Z96.1 Presence of intraocular lens; Z98.42 Cataract extraction status, left eye; Z98.41 Cataract extraction status, right eye; Z90.49 Acquired absence of other specified parts of digestive tract; Z87.891 Personal history of nicotine dependence
CPT/HCPCS: 36415; 71275; 80048; 80053; 82330; 83735; 84100; 85025; 85027; 93005; 94640; 97110; 97162; 97165; 97530; 97535; A9270; C8929; C9113; J1650; J1940; J3475; Q9965; Q9967

== ENCOUNTER 2020-06-18 13:31 | Inpatient (IN) | payer MEDICARE, MEDICAID, SELFPAY ==
[2020-06-18 13:31] VITALS: BMI 45.8
--- NOTE | 2020-06-18 13:35 | PC.NURSE ---
Patient switched from inpatient to swing bed status
[2020-06-18 14:08] VITALS: PULSE 68; RESP 18; O2SAT 100
--- NOTE | 2020-06-18 15:13 | WPDREHABHP ---
H&P: HPI History of Present Illness Date/Time: 06/18/20 15:13 Chief Complaint: Generalized weakness Narrative: Christiano Warner is a 70 year old female who admitted to this hospital on 05/30/2020 to our swing bed post Covid. Patient was about to be discharged however she had increased oxygen demand requiring her to go into an inpatient status. This began to resolve and she was able to go to swing bed. Unfortunately her respiratory status began to decline again and she was unsuccessful with performing a 6 minutes walk test for home oxygen. Chest images show a wax and wane of improvement with the last x-ray showing slight improvement while she was being treated for fluid overload. Patient unable to discharge because do increased oxygen demand, and only slight improvement on images patient required to be readmitted as inpatient. Today patient condition has improved she will transition back into a swing bed today . The patient denies, CP, palpitation, extremity numbness, lightheadedness, dizziness, constipation, diarrhea, chills, or fever. Patient admits to being short of breath on exertion. Patient requires a wheeled walker to perform ADLs in the home due to shortness of breath requiring supplementary oxygen possibly secondary to Covid patient is not able to perform ADLs using. Functional mobility deficiency will be significantly resolved by using walker. Patient is able to safely use walker and agree to use walker This document was completed by using [employer] speech recognition software, therefore medical office professional instructor variances may occur. Despite proofreading, typographical errors may also occur. Review of Systems Review of Systems All systems reviewed & are unremarkable except as noted in HPI and below (10 point system review) [facility] Past Medical History Medical History HTN (hypertension) Hypothyroidism Morbid obesity Nerve entrapment syndrome of lower extremity Surgery to repair foot drop on the right leg after right knee surgery Neuropathy Overactive bladder Surgical History Surgical History H/O bilateral cataract extraction History of appendectomy History of carpal tunnel release History of total knee arthroplasty Hx of cholecystectomy S/P tonsillectomy and adenoidectomy Family History Family History Father Hypertension Family history of renal failure Diabetes mellitus Mother Asthma Other Cerebrovascular accident Family history of alcoholism Family history of arthritis Family history of blood dyscrasia Family history of coronary artery disease Family history of lung disease Family history of malignant neoplasm Family history of mental disorder Social History Social History Social History: The patient stated that she never and had 2 children. Both of her daughters Lex and mark she desires to have is her durable power divorce attorney for healthcare. The patient is a full code. 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 She quit smoking in the 70s. She does not use any alcohol marijuana or illicit drugs. Smoking packs per day: 10 Smoking cigarettes per day: 200.0 Years smoked: 10 Smoking pack-years: 100.00 Smoking status: Former smoker Tobacco type: cigarettes Second hand tobacco smoke exposure: Yes Smoking end date: 06/07/69 Alcohol intake: never Drinks per week: 1 Substance use: never Substance use type: does not use Gender identity (if verbalized by the patient): Female Spiritual care concerns: No Meds Home Medications and Allergies Home Medications Medication Instructions Recorded Confirmed Type Complete Multivitamin 1 tablet PO DAILY 30 Days #30 05/30/20 06/18/20 Rx tablet Myrbetriq 25
[2020-06-18 16:25] VITALS: BP 132/71; PULSE 62; RESP 20; TEMP 36.6; O2SAT 95
[2020-06-18 18:30] VITALS: PULSE 69; RESP 18; O2SAT 99
[2020-06-18] MEDS: FAMOTIDINE 20 MG TABLET 40 MG PO (18:32)
[2020-06-18] MEDS: MIRABEGRON 25 MG ER TABLET PO (18:32)
[2020-06-18 18:35] VITALS: PULSE 73; RESP 18; O2SAT 100
[2020-06-18] MEDS: ALBUTEROL SULFATE NEB 2.5 MG/3 ML INH INHALATION (18:35)
[2020-06-18] MEDS: BUDESONIDE RESPULE NEB 0.5 MG/2 ML AMP INHALATION (18:35)
[2020-06-18] MEDS: APIXABAN 2.5 MG TABLET 5 MG PO (21:07)
[2020-06-18] MEDS: MONTELUKAST SODIUM 10 MG TABLET PO (21:07)
[2020-06-18] MEDS: NORTRIPTYLINE HCL 10 MG CAPSULE PO (21:07)
[2020-06-19] VITALS (17 sets, daily range): BP systolic 92–116; BP diastolic 51–57; PULSE 62–90; RESP 16–20; TEMP 36.4–36.9; O2SAT 84–100
[2020-06-19] MEDS: ALBUTEROL SULFATE NEB 2.5 MG/3 ML INH INHALATION ×5 (00:07→23:50)
--- NOTE | 2020-06-19 00:10 | PC.NURSE ---
Dr. Christianson notified of pt's low blood pressure; No new orders at this time.
--- NOTE | 2020-06-19 03:20 | PC.NURSE ---
O2 continues. Has denied discomfort so far this shift. Resp even. Needed objects in reach.
[2020-06-19] MEDS: BUDESONIDE RESPULE NEB 0.5 MG/2 ML AMP INHALATION ×2 (05:34→18:50)
[2020-06-19] MEDS: LEVOTHYROXINE SODIUM 100 MCG, LEVOTHYROXINE SODIUM 25 MCG 125 MCG PO (05:58)
--- NOTE | 2020-06-19 06:16 | PC.NURSE ---
Denies need to void @ this time.
[2020-06-19] MEDS: CALCIUM CARBONATE (OSCAL) 500 MG TABLET PO (08:52)
[2020-06-19] MEDS: SPIRONOLACTONE 25 MG TABLET PO (08:53)
[2020-06-19] MEDS: APIXABAN 2.5 MG TABLET 5 MG PO ×2 (08:53→20:47)
[2020-06-19] MEDS: hydroCHLOROthiazide 25 MG TABLET PO (08:53)
[2020-06-19] MEDS: ESCITALOPRAM OXALATE 10 MG TABLET 20 MG PO (08:53)
[2020-06-19] MEDS: THERAPEUTIC MULTIVITAMINS/MINERALS TAB (*BKC) 1 TABLET PO (08:53)
[2020-06-19] MEDS: HYDROcodone/acetaminophen (*CRX) 5-325 MG TABLET 1 TAB PO ×2 (08:55→23:50)
--- NOTE | 2020-06-19 10:17 | HOMEO2EVAL ---
Home Oxygen Evaluation RC: Home Oxygen (O2) Evaluation Start: 06/19/20 07:53 Freq: ONCE Status: Active Protocol: RPE Activity Type Activity Date Activity User E-Sign Co-Sign Detail Recorded Client Recorded Date Recorded By Document 06/19/20 09:49 SJB [id number] 06/19/20 10:10 SJB Document 06/19/20 09:50 SJB [id number] 06/19/20 10:16 SJB Document 06/19/20 09:52 SJB [id number] 06/19/20 10:16 SJB Document 06/19/20 09:54 SJB [id number] 06/19/20 10:16 SJB 06/19/20 06/19/20 06/19/20 09:49 09:50 09:52 Home O2 Evaluation Test Phase Resting Resting Exercise Oxygen Delivery Room Air Nasal Cannula Nasal Cannula Oxygen Flow Rate (L/min) 2 4 Pulse Oximetry (90-100 %) 88 L 84 L 86 L Pulse Rate (60-100 beats/min) 90 90 88 Activity Tolerance Fair Fair Rating of Perceived Dyspnea (PD) +2 Mild, Some Difficulty, Noticeable to the Observer Rate of Perceived Exertion (PE) 12 Ambulation Distance (feet) Home Oxygen Evaluation Comments Pt on 2 lpm, O2 at 4 lpm, Sp02 at 84 just Sp02 at 86%, standing still just getting ready standing ready to take walk. to walk. Treatment Charges O2 Evaluation 06/19/20 09:54 Home O2 Evaluation Test Phase Exercise Oxygen Delivery Nasal Cannula Oxygen Flow Rate (L/min) 6 Pulse Oximetry (90-100 %) 89 L Pulse Rate (60-100 beats/min) Activity Tolerance Fair Rating of Perceived Dyspnea (PD) +3 Moderate Difficulty, But Can Continue Rate of Perceived Exertion (PE) 13 Somewhat Hard Ambulation Distance (feet) 124 Home Oxygen Evaluation Comments Pt walked 124 ft pushing wheelchair on 6 lpm, with 2 stops. Maintained an Sp02 of 88% and above. Treatment Charges
[2020-06-19] MEDS: MIRABEGRON 25 MG ER TABLET PO (17:14)
[2020-06-19] MEDS: FAMOTIDINE 20 MG TABLET 40 MG PO (17:15)
[2020-06-19] MEDS: MONTELUKAST SODIUM 10 MG TABLET PO (20:47)
[2020-06-19] MEDS: NORTRIPTYLINE HCL 10 MG CAPSULE PO (20:47)
[2020-06-20] VITALS (12 sets, daily range): BP systolic 113–147; BP diastolic 62–78; PULSE 68–95; RESP 16–20; TEMP 36.7–37.3; O2SAT 95–100
[2020-06-20] MEDS: BUDESONIDE RESPULE NEB 0.5 MG/2 ML AMP INHALATION ×2 (05:36→17:59)
[2020-06-20] MEDS: ALBUTEROL SULFATE NEB 2.5 MG/3 ML INH INHALATION ×4 (05:36→23:47)
[2020-06-20] MEDS: LEVOTHYROXINE SODIUM 100 MCG, LEVOTHYROXINE SODIUM 25 MCG 125 MCG PO (05:42)
[2020-06-20] MEDS: ACETAMINOPHEN 500 MG TABLET 1000 MG PO (07:47)
[2020-06-20] MEDS: THERAPEUTIC MULTIVITAMINS/MINERALS TAB (*BKC) 1 TABLET PO (09:01)
[2020-06-20] MEDS: SPIRONOLACTONE 25 MG TABLET PO (09:01)
[2020-06-20] MEDS: hydroCHLOROthiazide 25 MG TABLET PO (09:01)
[2020-06-20] MEDS: CALCIUM CARBONATE (OSCAL) 500 MG TABLET PO (09:01)
[2020-06-20] MEDS: APIXABAN 2.5 MG TABLET 5 MG PO ×2 (09:02→21:24)
[2020-06-20] MEDS: ESCITALOPRAM OXALATE 10 MG TABLET 20 MG PO (09:02)
[2020-06-20] MEDS: ALPRAZolam (*CRX) 0.25 MG TABLET PO (12:47)
[2020-06-20] MEDS: MIRABEGRON 25 MG ER TABLET PO (17:59)
[2020-06-20] MEDS: FAMOTIDINE 20 MG TABLET 40 MG PO (17:59)
[2020-06-20] MEDS: HYDROcodone/acetaminophen (*CRX) 5-325 MG TABLET 1 TAB PO (21:24)
[2020-06-20] MEDS: MONTELUKAST SODIUM 10 MG TABLET PO (21:24)
[2020-06-20] MEDS: NORTRIPTYLINE HCL 10 MG CAPSULE PO (21:24)
[2020-06-20] MEDS: DOCUSATE SODIUM 100 MG CAPSULE PO (21:29)
--- NOTE | 2020-06-20 22:27 | PC.NURSE ---
Patient resting. Continues on O2. PRN norco given for general discomfort
[2020-06-21] VITALS: PULSE 84; RESP 20; O2SAT 97
--- NOTE | 2020-06-21 02:12 | PC.NURSE ---
pt sleeping, no evidence of distress at this time, belongings within reach
[2020-06-21 05:32] VITALS: PULSE 84; RESP 16; O2SAT 98
[2020-06-21] MEDS: ALBUTEROL SULFATE NEB 2.5 MG/3 ML INH INHALATION (05:32)
[2020-06-21] MEDS: BUDESONIDE RESPULE NEB 0.5 MG/2 ML AMP INHALATION (05:32)
[2020-06-21 05:41] VITALS: PULSE 87; RESP 16; O2SAT 99
[2020-06-21 05:42] VITALS: PULSE 87; RESP 16; O2SAT 99
[2020-06-21 05:49] VITALS: PULSE 82; RESP 16; O2SAT 99
[2020-06-21] MEDS: LEVOTHYROXINE SODIUM 100 MCG, LEVOTHYROXINE SODIUM 25 MCG 125 MCG PO (05:49)
[2020-06-21 05:58] LABS: Basophils Absolute Auto 0.03 K/mm3 (0.00-0.10); Basophils Percent Auto 0.7 % (0.0-1.0); Eosinophils Absolute Auto 0.18 K/mm3 (0.02-0.50); Eosinophils Percent Auto 4.2 % (1.0-6.0); Hematocrit 34.8 % (35.0-42.0); Hemoglobin 11.2 g/dL (11.7-13.8); Immature Granulocyte Absolute 0.02 K/mm3 (0.00-0.00); Immature Granulocyte Percent A 0.5 % (0.0-0.0); Lymphocytes Absolute Auto 1.04 K/mm3 (1.10-4.50); Lymphocytes Percent Auto 24.5 % (18.0-42.0); Mean Corpuscular HGB Conc 32.2 g/dL (32.0-36.0); Mean Corpuscular Hemoglobin 30.2 pg (27.0-31.0); Mean Corpuscular Volume 93.8 fL (78.0-102.0); Mean Platelet Volume 10.5 fl (9.2-11.8); Monocytes Absolute Auto 0.57 K/mm3 (0.10-0.90); Monocytes Percent Auto 13.4 % (2.0-11.0); Neutrophils Absolute Auto 2.4 K/mm3 (1.7-7.2); Neutrophils Percent Auto 56.7 % (50.0-70.0); Platelet Count Result 272 K/mm3 (150-420); Red Blood Count 3.71 M/mm3 (4.20-5.40); Red Cell Distribution Width 14.6 % (11.6-14.4); White Blood Count 4.2 K/mm3 (4.8-10.8)
[2020-06-21 08:00] VITALS: BP 142/60; PULSE 75; RESP 20; TEMP 36.8; O2SAT 98
[2020-06-21] MEDS: APIXABAN 2.5 MG TABLET 5 MG PO (08:13)
[2020-06-21] MEDS: SPIRONOLACTONE 25 MG TABLET PO (08:13)
[2020-06-21] MEDS: hydroCHLOROthiazide 25 MG TABLET PO (08:14)
[2020-06-21] MEDS: DOCUSATE SODIUM 100 MG CAPSULE PO (08:14)
[2020-06-21] MEDS: CALCIUM CARBONATE (OSCAL) 500 MG TABLET PO (08:14)
[2020-06-21] MEDS: ESCITALOPRAM OXALATE 10 MG TABLET 20 MG PO (08:14)
[2020-06-21] MEDS: THERAPEUTIC MULTIVITAMINS/MINERALS TAB (*BKC) 1 TABLET PO (08:14)
[2020-06-21 08:55] LABS: Anion Gap 3 mmol/L (8-16); Blood Urea Nitrogen 8 mg/dL (7-18); Calcium 9.4 mg/dL (8.5-10.1); Carbon Dioxide 33 mmol/L (21-32); Chloride 104 mmol/L (98-108); Estimated CRCL calculation 103 ml/min; Estimated Glomerular Filt Rate > 60; Glucose 89 mg/dL (70-99); Osmolality Calculated 287 mOsm/kg (285-295); Potassium 3.7 mmol/L (3.5-5.1); Sodium 140 mmol/L (136-145)
[2020-06-21] MEDS: ALPRAZolam (*CRX) 0.25 MG TABLET PO (09:53)
--- NOTE | 2020-06-21 11:10 | P.DS_ITS ---
DS: Admitting Diagnosis Admitting Diagnosis Admitting Diagnosis: Generalized weakness, PE <Anshul WhittenRENETTAC - Last Filed: 06/21/20 11:21> DS: Discharge Diagnosis Discharge Diagnosis (1) Pulmonary emboli: Qualifiers: Acute cor pulmonale presence: unspecified Chronicity: acute Pulmonary embolism type: unspecified Qualified Code(s): I26.99 - Other pulmonary embolism without acute cor pulmonale <Anshul ReevesMIKAELA Gaines - Last Filed: 06/21/20 11:21> Code(s): I26.99 - Other pulmonary embolism without acute cor pulmonale <Anshul ReevesSUNG Gaines-C - Last Filed: 06/21/20 11:21> Status: Acute <Anshul WhittenMIKAELA - Last Filed: 06/21/20 11:21> Assessment and Plan: * Continue the use of Eliquis <Sanfordbenja LalaMIKAELA Gaines - Last Filed: 06/21/20 11:21> (2) Increased oxygen demand: Code(s): R68.89 - Other general symptoms and signs <Anshul ReevesMIKAELA Gaines - Last Filed: 06/21/20 11:21> Status: Acute <Anshul WhittenMIKAELA - Last Filed: 06/21/20 11:21> Assessment and Plan: * Possibly secondary due to residual Covid or PE * Continue use of supplementary oxygen * Patient will discharge on home oxygen <Anshul LalaMIKAELA Gaines - Last Filed: 06/21/20 11:21> (3) Anxiety: Code(s): F41.9 - Anxiety disorder, unspecified <Anshul ReevesSUNG Gaines-Raheel - Last Filed: 06/21/20 11:21> Status: Acute <Sanfordbenja LalaMIKAELA Gaines - Last Filed: 06/21/20 11:21> Assessment and Plan: * Patient given a Xanax before discharging she also have a small dosage of Xanax on discharge she will need to follow-up with her primary care physician for more pills * Continue Xanax and nortriptyline <SUNG Teran-Raheel - Last Filed: 06/21/20 11:21> (4) Physical deconditioning: Code(s): R53.81 - Other malaise <Anshul Whitten WAXER TENDER-C - Last Filed: 06/21/20 11:21> Status: Acute <Anshul Whitten WAXER TENDER-C - Last Filed: 06/21/20 11:21> Assessment and Plan: ? Exhibit tolerance during physical activity as evidenced by a normal fluctuation of vital signs during physical activity. ? Patient will be ability to perform required activities of daily living. ? Provide appropriate nutrition for healing and strength. ? Use appropriate to prevent falls. ? Continue physical therapy/occupational therapy. <Anshul WhittenSUYAPAP-C - Last Filed: 06/21/20 11:21> (5) Overactive bladder: Code(s): N32.81 - Overactive bladder <Anshul WhittenSUYAPAP-C - Last Filed: 06/21/20 11:21> Status: Chronic <Anshul WhittenSUYAPAP-C - Last Filed: 06/21/20 11:21> Assessment and Plan: * Continuemyrbetriq <Anshul WhittenSUYAPAP-C - Last Filed: 06/21/20 11:21> (6) Neuropathy: Code(s): G62.9 - Polyneuropathy, unspecified <Anshul Whitten WAXER TENDER-C - Last Filed: 06/21/20 11:21> Status: Chronic <Anshul Whitten WAXER TENDER-C - Last Filed: 06/21/20 11:21> Assessment and Plan: * Continue pregabalin <Anshul WhittenSUNG-C - Last Filed: 06/21/20 11:21> (7) Asthma: Qualifiers: Asthma complication type: unspecified Asthma persistence: unspecified Asthma severity: unspecified severity Qualified Code(s): J45.909 - Unspecified asthma, uncomplicated <Anshul Cardona SUYAPA WhittenP-C - Last Filed: 06/21/20 11:21> Code(s): J45.909 - Unspecified asthma, uncomplicated <Anshul Cardona Fish WAXER TENDER-C - Last Filed: 06/21/20 11:21> Status: Acute <Anshul Cardona SUYAPA WhittenP-C - Last Filed: 06/21/20 11:21> Assessment
--- NOTE | 2020-06-21 11:10 | PM.DS ---
DS: Admitting Diagnosis Admitting Diagnosis Admitting Diagnosis: Generalized weakness, PE <Anshul WhittenSUNG-C - Last Filed: 06/21/20 11:21> DS: Discharge Diagnosis Discharge Diagnosis (1) Pulmonary emboli: Qualifiers: Acute cor pulmonale presence: unspecified Chronicity: acute Pulmonary embolism type: unspecified Qualified Code(s): I26.99 - Other pulmonary embolism without acute cor pulmonale <Anshul Cardona SUNG Whitten-C - Last Filed: 06/21/20 11:21> Code(s): I26.99 - Other pulmonary embolism without acute cor pulmonale <Anshul Cardona SUNG Whitten-C - Last Filed: 06/21/20 11:21> Status: Acute <Anshul WhittenMIKAELA - Last Filed: 06/21/20 11:21> Assessment and Plan: Continue the use of Eliquis <Sanfordbenja LalaSUNG Gaines-C - Last Filed: 06/21/20 11:21> (2) Increased oxygen demand: Code(s): R68.89 - Other general symptoms and signs <Anshul ReevesSUNG Gaines-C - Last Filed: 06/21/20 11:21> Status: Acute <Anshul WhittenSUNG-C - Last Filed: 06/21/20 11:21> Assessment and Plan: Possibly secondary due to residual Covid or PE Continue use of supplementary oxygen Patient will discharge on home oxygen <Sanfordbenja LalaSUNG Gaines-C - Last Filed: 06/21/20 11:21> (3) Anxiety: Code(s): F41.9 - Anxiety disorder, unspecified <Anshul WhittenSUNG-C - Last Filed: 06/21/20 11:21> Status: Acute <Anshul ReevesSUNG Gaines-C - Last Filed: 06/21/20 11:21> Assessment and Plan: Patient given a Xanax before discharging she also have a small dosage of Xanax on discharge she will need to follow-up with her primary care physician for more pills Continue Xanax and nortriptyline <Anshul LalaSUNG Gaines-C - Last Filed: 06/21/20 11:21> (4) Physical deconditioning: Code(s): R53.81 - Other malaise <Anshul Whitten DERRICK OPERATOR-C - Last Filed: 06/21/20 11:21> Status: Acute <Anshul Whitten DERRICK OPERATOR-C - Last Filed: 06/21/20 11:21> Assessment and Plan: ? Exhibit tolerance during physical activity as evidenced by a normal fluctuation of vital signs during physical activity. ? Patient will be ability to perform required activities of daily living. ? Provide appropriate nutrition for healing and strength. ? Use appropriate to prevent falls. ? Continue physical therapy/occupational therapy. <Anshul Whitten DERRICK OPERATOR-C - Last Filed: 06/21/20 11:21> (5) Overactive bladder: Code(s): N32.81 - Overactive bladder <Anshul Whitten DERRICK OPERATOR-C - Last Filed: 06/21/20 11:21> Status: Chronic <Anshul Whitten DERRICK OPERATOR-C - Last Filed: 06/21/20 11:21> Assessment and Plan: Continuemyrbetriq <Anshul Whitten DERRICK OPERATOR-C - Last Filed: 06/21/20 11:21> (6) Neuropathy: Code(s): G62.9 - Polyneuropathy, unspecified <Anshul Whitten DERRICK OPERATOR-C - Last Filed: 06/21/20 11:21> Status: Chronic <Anshul Whitten DERRICK OPERATOR-C - Last Filed: 06/21/20 11:21> Assessment and Plan: Continue pregabalin <Anshul WhittenSUYAPAP-C - Last Filed: 06/21/20 11:21> (7) Asthma: Qualifiers: Asthma complication type: unspecified Asthma persistence: unspecified Asthma severity: unspecified severity Qualified Code(s): J45.909 - Unspecified asthma, uncomplicated <Anshul Whitten DERRICK OPERATOR-C - Last Filed: 06/21/20 11:21> Code(s): J45.909 - Unspecified asthma, uncomplicated <Anshul Whitten DERRICK OPERATOR-C - Last Filed: 06/21/20 11:21> Status: Acute <Anshul Whitten DERRICK OPERATOR-C - Last Filed: 06/21/20 11:21> Assessment and Plan: Continue nebulizers and inhalers <MIKAELA Teran - Last Filed: 06/21/20 11:21> (8) HTN (hypertension): Qualifiers: Hypertension type: essential hypertension Qualified Code(s): I10 - Essential (primary) hypertension <MIKAELA Teran - Last Filed: 06/21/20 11:21> Code(s): I10 - Esse
--- NOTE | 2020-06-21 11:45 | PC.NURSE ---
Patient discharged to home via private family vehicle (daughter). Saline lock was removed and patient and daughter verbalize understanding on the s/s of infection. Discharge instructions given to patient and to daughter Lex and they both verbalized understanding.
== END 2020-06-21 11:45 | disposition home health service (06) | DRG 176 ==
PROVIDERS: Nurse Practitioner; Admitting Provider Emergency Medicine; PCP Internal Medicine; Visit Provider Emergency Medicine
DX: I26.99 Other pulmonary embolism without acute cor pulmonale (principal); B94.8 Sequelae of other specified infectious and parasitic diseases; R53.81 Other malaise; I10 Essential (primary) hypertension; E03.9 Hypothyroidism, unspecified; E66.01 Morbid (severe) obesity due to excess calories; G62.9 Polyneuropathy, unspecified; N32.81 Overactive bladder; J45.909 Unspecified asthma, uncomplicated; Z96.1 Presence of intraocular lens; F41.9 Anxiety disorder, unspecified; Z96.659 Presence of unspecified artificial knee joint; Z98.41 Cataract extraction status, right eye; Z98.42 Cataract extraction status, left eye; Z90.49 Acquired absence of other specified parts of digestive tract; Z87.891 Personal history of nicotine dependence; Z99.81 Dependence on supplemental oxygen
CPT/HCPCS: 36415; 80048; 85025; 94618; 94640; 97110; 97161; 97165; 97530; 97535; A9270

== ENCOUNTER 2020-07-17 08:56 | Outpatient (RCR) | payer MEDICARE, MEDICAID, SELFPAY ==
--- NOTE | 2020-07-17 13:42 | PTOPEVAL ---
Thank you for referring Christiano Warner to [facility].? The patient is scheduled to be seen for therapy? __2__x/week for 12 visits. Please review, sign, date and return this plan of care ERIK. I agree with and certify that the following plan of care is medically necessary. 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.NUMBNESS RT LOWER LEG Cardiovascular History Hx Atrial Fibrillation Yes: Onset 06/16/20 Hx Deep Vein Thrombosis Yes: Multiple PE's right lung Respiratory History Hx Pneumonia Yes: COVID 2019 Gastrointestinal History Hx Appendectomy Yes Hx Cholecystectomy Yes Hx Gastric Bypass Surgery Yes: GASTRIC SLEEVE 2014 Hx Gastroesophageal Reflux Disease Yes Hx Other Gastrointestinal Disorders Yes: PANNICULECTOMY X 2 Genitourinary History Hx Other Genitourinary Disorders Yes: STRESS INCONTINENCE Musculoskeletal History Hx Crutches or Walker Use Yes Query Text:If Yes, Enter Crutches, Walker, or Both in the Comment Hematological History Hx Blood Transfusions Yes: 1979 POST PANNICULECTOMY Endocrine History Hx Hypothyroidism Yes HEENT History Hx Cataracts Yes: BILAT REMOVED Hx Sinus Problems Yes: ALLERGIES Integumentary History Hx Other Skin Disorders Yes: bottom, pericare excoriated. Reproductive History Hx Post Menopausal Yes Psychosocial History Hx Anxiety Yes Hx Depression Yes Pain History History of Any Previous or Ongoing No Significant History Instance of Pain Anesthesia History Hx Anesthesia Reactions No Significant History Evaluation Information Problem Diagnosis deconditioning anbd functional decline Onset 05/10/20 Subjective Information Pt. reports she was diagnosed Query Text:As Reported By Patient/ with covid 19 on 05/10/20. She Family was hospitalized till 06/21/20 . She reports that she has been receiving HH therapy since returning home. She was not on O2 before her dx but is currently
--- NOTE | 2020-07-30 15:45 | PTOPEVAL ---
Thank you for referring Christiano Warner to [facility].? The patient is scheduled to be seen for therapy? ____x/week for ___ weeks. Please review, sign, date and return this plan of care ERIK. I agree with and certify that the following plan of care is medically necessary. 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.NUMBNESS RT LOWER LEG Cardiovascular History Hx Atrial Fibrillation Yes: Onset 06/16/20 Hx Deep Vein Thrombosis Yes: Multiple PE's right lung Respiratory History Hx Pneumonia Yes: COVID 2019 Gastrointestinal History Hx Appendectomy Yes Hx Cholecystectomy Yes Hx Gastric Bypass Surgery Yes: GASTRIC SLEEVE 2014 Hx Gastroesophageal Reflux Disease Yes Hx Other Gastrointestinal Disorders Yes: PANNICULECTOMY X 2 Genitourinary History Hx Other Genitourinary Disorders Yes: STRESS INCONTINENCE Musculoskeletal History Hx Crutches or Walker Use Yes Query Text:If Yes, Enter Crutches, Walker, or Both in the Comment Hematological History Hx Blood Transfusions Yes: 1980 POST PANNICULECTOMY Endocrine History Hx Hypothyroidism Yes HEENT History Hx Cataracts Yes: BILAT REMOVED Hx Sinus Problems Yes: ALLERGIES Integumentary History Hx Other Skin Disorders Yes: bottom, pericare excoriated. Reproductive History Hx Post Menopausal Yes Psychosocial History Hx Anxiety Yes Hx Depression Yes Pain History History of Any Previous or Ongoing No Significant History Instance of Pain Anesthesia History Hx Anesthesia Reactions No Significant History Evaluation Information Problem Diagnosis deconditioning anbd functional decline Onset 05/10/20 Subjective Information Pt. reports she was diagnosed Query Text:As Reported By Patient/ with covid 19 on 05/10/20. She Family was hospitalized till 06/21/20 . She reports that she has been receiving HH therapy since returning home. She was not on O2 before her dx but is currently u
== END 2020-09-17 11:44 | disposition home or self-care (01) ==
LOC: CHSPT 08:56
PROVIDERS: PCP Internal Medicine; Visit Provider Internal Medicine
DX: R53.81 Other malaise (principal); Z86.16 Personal history of COVID-19
CPT/HCPCS: 97110; 97112; 97116; 97161; 97530

== ENCOUNTER 2020-07-29 11:45 | Outpatient (CLI) | payer MEDICARE, MEDICAID, SELFPAY ==
--- NOTE | ~2020-07-29 | XR_ITS ---
XR chest 2V DATE: 07/29/2020 12:17 INDICATION: Shortness of breath, cough Covid pneumonia. TECHNIQUE: PA and lateral views COMPARISON: 06/13/2020 portable AP chest 06/14/2020 CT pulmonary scan 12/23/2018 2 view chest FINDINGS: There are extensive interstitial infiltrates throughout both lungs, which likely due to int erstitial pneumonia and/or edema. There is cardiomegaly. Pulmonary vascularity may be increased, but no prominence of the fissures or p leural effusions. No pneumothorax. Diffuse osteopenia. IMPRESSION: Diffuse bilateral pulmonary interstitial infiltrates which may be due to interstitial pne umonia and/or edema Cardiomegaly Diffuse osteopenia. Reviewed, dictated and finalized at location A. NESS INSIGHT AND ANALYTICS MANAGER IMPRESSION: Diffuse bilateral pulmonary interstitial infiltrates which may be d ue to interstitial pneumonia and/or edema Cardiomegaly Diffuse osteopenia.
[2020-07-29 12:03] LABS: Basophils Absolute Auto 0.06 K/mm3 (0.00-0.10); Basophils Percent Auto 1.1 % (0.0-1.0); Eosinophils Absolute Auto 0.34 K/mm3 (0.02-0.50); Eosinophils Percent Auto 6.4 % (1.0-6.0); Hematocrit 38.3 % (35.0-42.0); Hemoglobin 11.9 g/dL (11.7-13.8); Immature Granulocyte Absolute 0.01 K/mm3 (0.00-0.00); Immature Granulocyte Percent A 0.2 % (0.0-0.0); Lymphocytes Absolute Auto 1.49 K/mm3 (1.10-4.50); Lymphocytes Percent Auto 28.1 % (18.0-42.0); Mean Corpuscular HGB Conc 31.1 g/dL (32.0-36.0); Mean Corpuscular Volume 93.4 fL (78.0-102.0); Monocytes Percent Auto 9.4 % (2.0-11.0); Neutrophils Absolute Auto 2.9 K/mm3 (1.7-7.2); Neutrophils Percent Auto 54.8 % (50.0-70.0); Platelet Count Result 269 K/mm3 (150-420); White Blood Count 5.3 K/mm3 (4.8-10.8)
[2020-07-29 12:35] LABS: Alanine Aminotransferase 20 U/L (14-59); Albumin Level 3.3 g/dL (3.4-5.0); Alkaline Phosphatase 54 U/L (46-116); Anion Gap 6 mmol/L (8-16); Aspartate Amino Transferase 18 U/L (15-37); Bilirubin,Total 0.4 mg/dL (0.00-1.00); Blood Urea Nitrogen 11 mg/dL (7-18); Calcium 9.4 mg/dL (8.5-10.1); Carbon Dioxide 34 mmol/L (21-32); Chloride 105 mmol/L (98-108); Estimated Glomerular Filt Rate > 60; Glucose 93 mg/dL (70-99); Osmolality Calculated 299 mOsm/kg (285-295); Potassium 3.6 mmol/L (3.5-5.1); Sodium 145 mmol/L (136-145); Thyroid Stimulating Hormone 0.71 uIU/mL (0.36-3.74); Total Protein 6.7 g/dL (6.4-8.2)
== END 2020-07-29 11:46 | disposition home or self-care (01) ==
PROVIDERS: PCP Internal Medicine; Visit Provider Internal Medicine
DX: E03.9 Hypothyroidism, unspecified (principal); Z51.89 Encounter for other specified aftercare; U07.1 COVID-19; J12.82 Pneumonia due to coronavirus disease 2019
CPT/HCPCS: 36415; 71046; 80053; 84443; 85025

== ENCOUNTER 2020-08-01 09:32 | Outpatient (CLI) | payer MEDICARE, MEDICAID, SELFPAY ==
[2020-08-01 09:40] VITALS: PULSE 65; O2SAT 98
[2020-08-01 09:42] VITALS: PULSE 84; O2SAT 86
[2020-08-01 09:45] VITALS: PULSE 84; O2SAT 94
--- NOTE | 2020-08-01 10:02 | HOMEO2EVAL ---
Home Oxygen Evaluation RC: Home Oxygen (O2) Evaluation Start: 08/01/20 09:50 Freq: Status: Active Protocol: RPE Activity Type Activity Date Activity User E-Sign Co-Sign Detail Recorded Client Recorded Date Recorded By Document 08/01/20 09:40 WALKER [id number] 08/01/20 10:01 SJB Document 08/01/20 09:42 SJB [id number] 08/01/20 10:01 SJB Document 08/01/20 09:45 SJB [id number] 08/01/20 10:01 SJB 08/01/20 08/01/20 08/01/20 09:40 09:42 09:45 Home O2 Evaluation Test Phase Resting Exercise Exercise Oxygen Delivery Room Air Room Air Nasal Cannula Oxygen Flow Rate (L/min) 3 Pulse Oximetry (90-100 %) 98 86 L 94 Pulse Rate (60-100 beats/min) 65 84 84 Activity Tolerance Good Good Rating of Perceived Dyspnea (PD) +2 Mild, Some +2 Mild, Some Difficulty, Difficulty, Noticeable to Noticeable to the Observer the Observer Rate of Perceived Exertion (PE) 13 Somewhat 13 Somewhat Hard Hard Ambulation Distance (feet) 64 128 Home Oxygen Evaluation Comments Pt stopped at Total walk 128 64 ft due to ft. Sp02 at 94 Sp02 at 84%. % on 3 lpm Home 02 restarted at her normal 3 lpm per pulsed tank. Continued walk back. Treatment Charges O2 Evaluation - Outpatient
== END 2020-08-01 09:33 | disposition home or self-care (01) ==
LOC: CHSLAB 09:34
PROVIDERS: PCP Internal Medicine; Visit Provider Internal Medicine
DX: U07.1 COVID-19 (principal); J12.82 Pneumonia due to coronavirus disease 2019
CPT/HCPCS: 94618

== ENCOUNTER 2020-11-18 15:15 | Outpatient (CLI) | payer MEDICARE, MEDICAID, SELFPAY ==
--- NOTE | ~2020-11-18 | XR_ITS ---
XR chest 2V DATE: 11/18/2020 15:47 INDICATION: Covid pneumonia follow-up TECHNIQUE: 2 views COMPARISON: 07/29/2020 2 view chest 06/13/2020 portable AP chest FINDINGS: There are likely chronic interstitial fibrotic changes throughout both lungs. No pulmonary consolidation, pleural effusion, pulmonary vascular congestion or pneumothorax. Mild cardiomegaly. Aortic calcification and tortuosity. Diffuse osteopenia. Prominent osteoarthritic spurring at the left glenohumeral joint. IMPRESSION: Diffuse interstitial fibrotic changes of the lungs Cardiomegaly, aortic atherosclerosis Reviewed, dictated and finalized at location A.
[2020-11-18 15:29] LABS: Basophils Absolute Auto 0.07 K/mm3 (0.00-0.10); Basophils Percent Auto 0.9 % (0.0-1.0); Eosinophils Absolute Auto 0.16 K/mm3 (0.02-0.50); Eosinophils Percent Auto 2.1 % (1.0-6.0); Hematocrit 40.8 % (35.0-42.0); Hemoglobin 13.2 g/dL (11.7-13.8); Immature Granulocyte Absolute 0.02 K/mm3 (0.00-0.00); Immature Granulocyte Percent A 0.3 % (0.0-0.0); Lymphocytes Absolute Auto 2.57 K/mm3 (1.10-4.50); Lymphocytes Percent Auto 34.1 % (18.0-42.0); Mean Corpuscular HGB Conc 32.4 g/dL (32.0-36.0); Mean Corpuscular Hemoglobin 28.8 pg (27.0-31.0); Mean Corpuscular Volume 88.9 fL (78.0-102.0); Mean Platelet Volume 10.7 fl (9.2-11.8); Monocytes Absolute Auto 0.65 K/mm3 (0.10-0.90); Monocytes Percent Auto 8.6 % (2.0-11.0); Neutrophils Absolute Auto 4.1 K/mm3 (1.7-7.2); Platelet Count Result 311 K/mm3 (150-420); Red Blood Count 4.59 M/mm3 (4.20-5.40); White Blood Count 7.5 K/mm3 (4.8-10.8)
[2020-11-18 16:13] LABS: Alanine Aminotransferase 23 U/L (14-59); Albumin Level 3.5 g/dL (3.4-5.0); Alkaline Phosphatase 70 U/L (46-116); Anion Gap 6 mmol/L (8-16); Aspartate Amino Transferase 17 U/L (15-37); Bilirubin,Total 0.4 mg/dL (0.00-1.00); Blood Urea Nitrogen 18 mg/dL (7-18); CRP < 0.5 mg/dL (0.0-0.9); Calcium 9.3 mg/dL (8.5-10.1); Carbon Dioxide 32 mmol/L (21-32); Chloride 105 mmol/L (98-108); Estimated Glomerular Filt Rate > 60; Glucose 90 mg/dL (70-99); Osmolality Calculated 297 mOsm/kg (285-295); Potassium 3.8 mmol/L (3.5-5.1); Sodium 143 mmol/L (136-145); Total Protein 7.2 g/dL (6.4-8.2)
== END 2020-11-18 15:16 | disposition home or self-care (01) ==
LOC: CHSIMG 15:19
PROVIDERS: PCP Internal Medicine; Visit Provider Internal Medicine
DX: Z09 Encounter for follow-up examination after completed treatment for conditions other than malignant neoplasm (principal); Z86.16 Personal history of COVID-19; J12.82 Pneumonia due to coronavirus disease 2019; Z79.899 Other long term (current) drug therapy
CPT/HCPCS: 36415; 71046; 80053; 85025; 86140

== ENCOUNTER 2021-01-27 15:25 | Outpatient (CLI) | payer MEDICARE, MEDICAID, SELFPAY ==
--- NOTE | ~2021-01-27 | XR_ITS ---
XR hip RT 2V w AP pelvis DATE: 01/27/2021 15:48 INDICATION: Posterior right hip pain for 2 weeks following of fall TECHNIQUE: AP pelvis. AP and lateral views of right hip COMPARISON: None FINDINGS: Diffuse osteopenia. No fracture or dislocation, avascular necrosis or bone destruction of the right hip. The pubic symphysis and sacroiliac joints are intact. No pelvic fracture or bone destruction is detec lorraine. IMPRESSION: Diffuse osteopenia Reviewed, dictated and finalized at location A. IMPRESSION: Diffuse osteopenia
== END 2021-01-27 15:26 | disposition home or self-care (01) ==
LOC: CHSIMG 15:27
PROVIDERS: PCP Internal Medicine; Visit Provider Internal Medicine
DX: M25.551 Pain in right hip (principal); R10.2 Pelvic and perineal pain
CPT/HCPCS: 73502

== ENCOUNTER 2021-02-04 10:00 | Outpatient (CLI) | payer MEDICARE, MEDICAID, SELFPAY ==
--- NOTE | ~2021-02-04 | CT_ITS ---
EXAMINATION: CT pelvis wo con DATE: 02/04/2021 10:31 INDICATION: Bilateral hip pain, right greater than left post fall 2-3 weeks prior. TECHNIQUE: High resolution computed tomography (CT) of the was performed without intravenous contrast . Additional sagittal and coronal reconstructions were performed. The dose-length product was 952.99 mGy-cm. COMPARISON: None FINDINGS: Possibly 5 mm left lateral listhesis of L4 on L5. Bone alignment is otherwise normal. No fracture. Mi ld osteoarthritis at the bilateral hips. No hip joint effusions. Moderate bilateral sacroiliac osteoa rthritis. Moderate disc height loss and severe bilateral facet osteoarthritis at L3-L4, L4-L5 and L5- S1. L5 is sacralized on the right. There are few small diverticula along the sigmoid colon. Bladder, uterus and bilateral adnexa are unremarkable. No free fluid in the pelvis. Small fat-containing left indirect inguinal hernia. IMPRESSION: 1. No hip fracture or other acute osseous abnormality. 2. Moderate to severe lumbar spondylosis. 3. Mild sigmoid diverticulosis. 4. Small fat-containing left inguinal hernia. Reviewed, dictated and finalized at location A.
--- NOTE | ~2021-02-04 | XR_ITS ---
EXAMINATION: XR lumbar spine 2-3V DATE: 02/04/2021 10:31 INDICATION: Right hip pain TECHNIQUE: Anteroposterior and lateral views of the lumbar spine, and cone-down lateral view of the l umbosacral junction were obtained. COMPARISON: MRI, 10/30/2017 FINDINGS: There are 2 mm of chronic anterolisthesis of L3 on L4. There is mild to moderate loss of in tervertebral disc space height throughout the lumbar spine, unchanged. Small degenerative osteophytes project from the anterior endplates of multiple vertebral bodies. There is no fracture. The vertebra l body heights are maintained. There is severe multilevel facet osteoarthritis. Calcified atheroscler osis is noted. Surgical changes are noted in the left upper abdomen. A moderate volume of colonic sto ol is present. IMPRESSION: 1. Moderate lumbar spondylosis without acute findings or significant interval change. Reviewed, dictated and finalized at location A. IMPRESSION: 1. Moderate lumbar spondylosis without acute findings or significant interval curry basilio
== END 2021-02-04 10:01 | disposition home or self-care (01) ==
LOC: CHSIMG 10:03
PROVIDERS: PCP Internal Medicine; Visit Provider Internal Medicine
DX: M25.551 Pain in right hip (principal)
CPT/HCPCS: 72100; 72192

== ENCOUNTER 2021-02-11 09:23 | Outpatient (RCR) | payer MEDICARE, MEDICAID, SELFPAY ==
--- NOTE | 2021-02-11 11:05 | PTOPEVAL ---
Thank you for referring Christiano Warner to [facility].? The patient is scheduled to be seen for therapy? ____x/week for ___ weeks. Please review, sign, date and return this plan of care ERIK. I agree with and certify that the following plan of care is medically necessary. 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.NUMBNESS RT LOWER LEG Cardiovascular History Hx Atrial Fibrillation Yes: Onset 06/16/20 Hx Deep Vein Thrombosis Yes: Multiple PE's right lung Respiratory History Hx Pneumonia Yes: COVID 2019 Gastrointestinal History Hx Appendectomy Yes Hx Cholecystectomy Yes Hx Gastric Bypass Surgery Yes: GASTRIC SLEEVE 2014 Hx Gastroesophageal Reflux Disease Yes Hx Other Gastrointestinal Disorders Yes: PANNICULECTOMY X 2 Genitourinary History Hx Other Genitourinary Disorders Yes: STRESS INCONTINENCE Musculoskeletal History Hx Crutches or Walker Use Yes Query Text:If Yes, Enter Crutches, Walker, or Both in the Comment Hematological History Hx Blood Transfusions Yes: 1979 POST PANNICULECTOMY Endocrine History Hx Hypothyroidism Yes HEENT History Hx Cataracts Yes: BILAT REMOVED Hx Sinus Problems Yes: ALLERGIES Integumentary History Hx Other Skin Disorders Yes: bottom, pericare excoriated. Reproductive History Hx Post Menopausal Yes Psychosocial History Hx Anxiety Yes Hx Depression Yes Pain History History of Any Previous or Ongoing No Significant History Instance of Pain Anesthesia History Hx Anesthesia Reactions No Significant History Evaluation Information Problem Diagnosis R hip pain Onset 01/17/21 Subjective Information Patient states that she was Query Text:As Reported By Patient/ pulling tree limbs and turned Family around and fell. She was able to get up on her own, but it was difficult. She states that she has the most difficulty with walking. She states getting up or sitting for a period of time is difficult
--- NOTE | 2021-04-29 13:10 | PCPTNOTE ---
04/29/21 - patient has not been to skilled PT in over a month. as of this date, she will be dc'd from skilled PT services and all progress towards goals will be taken from her most recent evaluation/note. ZAN
== END 2021-03-12 13:37 | disposition home or self-care (01) ==
LOC: CHSPT 09:23
PROVIDERS: PCP Internal Medicine; Visit Provider Internal Medicine
DX: M47.816 Spondylosis without myelopathy or radiculopathy, lumbar region (principal); M43.16 Spondylolisthesis, lumbar region
CPT/HCPCS: 97014; 97110; 97140; 97161; G0283

== ENCOUNTER 2021-04-01 18:49 | Emergency (ER) | payer MEDICARE, MEDICAID, SELFPAY ==
--- NOTE | ~2021-04-01 | XR_ITS ---
XR chest 2V 04/01/2021 19:14 Indication: Chest pain Procedure: 2 view chest Comparison: Comparison to multiple prior studies sequentially, with oldest reviewed study dated 09/2020. Findings: Mild chronic interstitial infiltrates. No acute focal pneumonia, edema or effusion. Borderl ine heart size. There is atherosclerosis and ectasia of the aorta. No pleural effusion or pneumothora x. Impression: 1: Mild chronic interstitial infiltrates. Reviewed, dictated and finalized at location A. Impression: 1: Mild chronic interstitial infiltrates.
--- NOTE | 2021-04-01 18:51 | ECG_ITS ---
Measurements Intervals [place] Rate: 64 P: 34 [place]: 197 QRS: -30 QRSD: 117 T: 45 QT: 419 QTc: 435 Interpretive Statements SINUS RHYTHM WITH SINUS ARRHYTHMIA ATRIAL PREMATURE COMPLEX INTRAVENTRICULAR CONDUCTION DELAY VOLTAGE CRITERIA FOR LVH BASELINE ARTIFACT- V1-V2 BORDERLINE ECG Electronically Signed On 04-02-2021 7:36:11 CDT by Ronnie Schmidt D.O.
--- NOTE | 2021-04-01 18:51 | ED.CHESTPAIN ---
HPI - Chest Pain General Chief Complaint: Chest Pain Stated Complaint: chest pain Time Seen by Provider: 04/01/21 18:51 Source: patient, family and RN notes reviewed Mode of arrival: ambulatory Limitations: no limitations History of Present Illness MD complaint: chest pain Pertinent past history: coronary artery disease and prior MA Onset (ago): day(s) (3) Timing of current episode: constant Onset: during rest Pain location: left chest Pain radiation: none Pain scale (0-10): 5 Quality: sharp Relieving factors: nothing Exacerbating factors: nothing Treatment prior to arrival: none Risk Factors Coronary artery disease risk factors: smoking history and hypertension Related Data Home Medications Medication Instructions Recorded Confirmed budesonide-formoterol HFA 80 2 puff INHALATION Q12H 07/11/20 04/01/21 mcg-4.5 mcg/actuation aerosol inhaler docusate sodium 50 mg capsule 50 mg PO TID 07/11/20 04/01/21 mv-mn-iron 22.5 mg-folic ac 400 1 tablet PO DAILY 07/11/20 04/01/21 mcg-vit K 500 [id number] chew tablet vit B12 50 mcg-iodine 75 mcg-mag 1 cap PO DAILY 07/11/20 04/01/21 100 ve-kdru-esuwlcyj-herb 193 capsule omeprazole 20 mg PO BID 04/01/21 04/01/21 ondansetron HCl 4 mg PO Q8H PRN 04/01/21 04/01/21 vitamin B complex [B 1 tablet PO DAILY 04/01/21 04/01/21 Complex-Vitamin B12] Allergies Allergy/AdvReac Type Severity Reaction Status Date / Time codeine Allergy Unknown Confusion Verified 04/01/21 19:07 Sulfa (Sulfonamide Allergy Unknown HIVES AND Verified 04/01/21 19:07 Antibiotics) ITCHING Review of Systems Review of Systems: All systems reviewed & are unremarkable except as noted in HPI and below Constitutional: Constitutional: Denies chills and Denies fever(s) Respiratory: Respiratory: Denies cough and Denies dyspnea Gastrointestinal: Gastrointestinal: Denies nausea and Denies vomiting Neurologic: Denies dizziness, Denies syncope and Denies focal weakness Endocrine: Endocrine: Denies excessive sweating PMFSH Past Medical History Medical History HTN (hypertension) Hypothyroidism Morbid obesity Nerve entrapment syndrome of lower extremity Surgery to repair foot drop on the right leg after right knee surgery Neuropathy Overactive bladder Surgical History Surgical History H/O bilateral cataract extraction History of appendectomy History of carpal tunnel release History of total knee arthroplasty Hx of cholecystectomy S/P tonsillectomy and adenoidectomy Family History Family History Father Hypertension Family history of renal failure Diabetes mellitus Mother Asthma Other Cerebrovascular accident Family history of alcoholism Family history of arthritis Family history of blood dyscrasia Family history of coronary artery disease Family history of lung disease Family history of malignant neoplasm Family history of mental disorder Social History Social History Social History: The patient stated that she never and had 2 children. Both of her daughters Lex and mark she desires to have is her durable power beck tender for healthcare. The patient is a full code. 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 She quit smoking in the 70s. She does not use any alcohol marijuana or illicit drugs. Smoking packs per day: 10 Smoking cigarettes per day: 200.0 Years smoked: 10 Smoking pack-years: 100.00 Smoking status: Never smoker Tobacco type: cigarettes Second hand tobacco smoke exposure: Yes Smoking end date: 06/07/69 Alcohol intake: never Drinks per week: 1 Substance use: never Substance use type: does not use Gender identity (if verbalized by the patient): Female Sexual Orientation (if Verb
[2021-04-01 18:53] VITALS: BP 154/83; PULSE 60; RESP 16; TEMP 36.5; O2SAT 97
[2021-04-01 19:08] LABS: Basophils Absolute Auto 0.07 K/mm3 (0.00-0.10); Basophils Percent Auto 0.8 % (0.0-1.0); Eosinophils Absolute Auto 0.21 K/mm3 (0.02-0.50); Eosinophils Percent Auto 2.3 % (1.0-6.0); Hematocrit 41.2 % (35.0-42.0); Hemoglobin 13.4 g/dL (11.7-13.8); Immature Granulocyte Absolute 0.02 K/mm3 (0.00-0.00); Immature Granulocyte Percent A 0.2 % (0.0-0.0); Lymphocytes Absolute Auto 2.52 K/mm3 (1.10-4.50); Lymphocytes Percent Auto 27.5 % (18.0-42.0); Mean Corpuscular HGB Conc 32.5 g/dL (32.0-36.0); Mean Corpuscular Hemoglobin 29.9 pg (27.0-31.0); Mean Platelet Volume 10.4 fl (9.2-11.8); Monocytes Absolute Auto 0.87 K/mm3 (0.10-0.90); Monocytes Percent Auto 9.5 % (2.0-11.0); Neutrophils Absolute Auto 5.5 K/mm3 (1.7-7.2); Neutrophils Percent Auto 59.7 % (50.0-70.0); Platelet Count Result 286 K/mm3 (150-420); Red Blood Count 4.48 M/mm3 (4.20-5.40); Red Cell Distribution Width 13.4 % (11.6-14.4); White Blood Count 9.2 K/mm3 (4.8-10.8)
[2021-04-01 19:25] LABS: Alanine Aminotransferase 28 U/L (14-59); Albumin Level 3.6 g/dL (3.4-5.0); Alkaline Phosphatase 71 U/L (46-116); Anion Gap 7 mmol/L (8-16); Aspartate Amino Transferase 20 U/L (15-37); Bilirubin,Total 0.3 mg/dL (0.00-1.00); Blood Urea Nitrogen 17 mg/dL (7-18); Calcium 9.1 mg/dL (8.5-10.1); Carbon Dioxide 33 mmol/L (21-32); Chloride 98 mmol/L (98-108); Estimated CRCL calculation 59 ml/min; Estimated Glomerular Filt Rate > 60; Glucose 85 mg/dL (70-99); Osmolality Calculated 286 mOsm/kg (285-295); Potassium 3.8 mmol/L (3.5-5.1); Sodium 138 mmol/L (136-145); Total Protein 7.7 g/dL (6.4-8.2)
[2021-04-01 19:27] LABS: CRP < 0.2 mg/dL (0.0-0.9)
[2021-04-01 19:38] VITALS: BP 173/80; PULSE 56; RESP 20; O2SAT 97
[2021-04-01 19:39] LABS: Troponin I 9.8 ng/L (0.00-60.4)
[2021-04-01] MEDS: traMADol HCL (*CRX) 50 MG TABLET PO (19:50)
[2021-04-01 20:01] VITALS: BP 166/83; PULSE 83; RESP 18; O2SAT 98
== END 2021-04-01 20:08 | disposition home or self-care (01) ==
PROVIDERS: Emergency Provider Emergency Medicine; PCP Internal Medicine
DX: R07.89 Other chest pain (principal); I10 Essential (primary) hypertension; E03.9 Hypothyroidism, unspecified; Z87.891 Personal history of nicotine dependence
CPT/HCPCS: 36415; 71046; 80053; 83735; 84484; 85025; 86140; 93005; 99283; 99284; A9270

== ENCOUNTER 2021-05-06 09:06 | Outpatient (CLI) | payer MEDICARE, MEDICAID, SELFPAY ==
--- NOTE | ~2021-05-06 | XR_ITS ---
XR chest 2V 05/06/2021 09:36 Indication: Cough for 3 weeks. Shortness of breath. Procedure: 2 view chest Comparison: Comparison to multiple prior studies sequentially, with oldest reviewed study dated 12/2020. Findings: There are mild chronic interstitial changes which are stable. Heart size normal. Mild ather osclerosis and ectasia of the aorta. No pleural effusion or pneumothorax. No acute osseous abnormalit y. Impression: 1: Stable mild chronic interstitial infiltrates. Reviewed, dictated and finalized at location B. GN PROJECT MANAGER Impression: 1: Stable mild chronic interstitial infiltrates.
== END 2021-05-06 09:07 | disposition home or self-care (01) ==
LOC: CHSIMG 09:08
PROVIDERS: PCP Internal Medicine; Visit Provider Internal Medicine
DX: R05.9 Cough, unspecified (principal)
CPT/HCPCS: 71046

== ENCOUNTER 2021-06-14 08:38 | Outpatient (CLI) | payer MEDICARE, MEDICAID, SELFPAY ==
--- NOTE | ~2021-06-14 | XR_ITS ---
EXAMINATION: XR sacrum coccyx min 2V EXAM DATE: 06/14/2021 09:29 INDICATION: Lumbar spondylosis. TECHNIQUE: Frontal, steep frontal, lateral projections of the sacrococcygeal region. Correlation is made to pelvic x-ray 01/27/2021. FINDINGS: There is lumbar levoscoliosis. Advanced lower lumbar arthropathy. Mild symmetric bilateral sacroiliac joint osteoarthritis. There are no acute sacral fractures or dislocations identified. Th ere is no subcutaneous gas. The soft tissue is unremarkable. There are no radiopaque foreign shy s. IMPRESSION: Mild sacroiliac osteoarthritis. Advanced lumbar facet arthropathy. Lumbar levoscoliosis. Reviewed, dictated and finalized at location A. ADMINISTRATOR
--- NOTE | ~2021-06-14 | MR_ITS ---
EXAMINATION: MR lumbar spine wo con DATE: 06/14/2021 09:30 INDICATION: Lumbar radiculopathy. TECHNIQUE: Magnetic resonance imaging (MRI) of the lumbar spine was performed without intravenous con trast. Sequences included sagittal T2-weighted FSE, sagittal T2-weighted FS FSE, sagittal T1-weighted FSE, and axial T2-weighted FSE. COMPARISON: Lumbar spine MRI 10/30/2017 FINDINGS: There is 11 degrees levoscoliosis of lumbar spine. There is 4 mm anterolisthesis of L3 on L 4. Vertebral body heights are normal. There is moderately decreased disc height at T12-L1, severely d ecreased disc height at L1-L2, L2-L3, and L3-L4, and mildly decreased disc height at L4-L5 with endpl ate remodeling. There is ligamentum flavum hypertrophy at all lumbar disc levels. The distal spinal c ord signal intensity is normal. The conus medullaris is at L1. The following disc levels are specific ally discussed: T12-L1: The disc is bulging. There is moderate bilateral facet joint osteoarthritis. There is mild bi lateral neural foraminal stenosis. There is mild central canal stenosis. L1-L2: The disc is bulging. There is severe bilateral facet joint osteoarthritis. There is moderate r ight and mild left neural foraminal stenosis. There is mild central canal stenosis. L2-L3: The disc is bulging and has an annular fissure. There is severe bilateral facet joint osteoart hritis. There is mild bilateral neural foraminal stenosis. There is moderate central canal stenosis. L3-L4: The disc is bulging and has an annular fissure. There is severe bilateral facet joint osteoart hritis. There is mild bilateral neural foraminal stenosis. There is severe central canal stenosis. L4-L5: The disc is bulging and has an annular fissure. There is severe bilateral facet joint osteoart hritis. There is mild right and moderate left neural foraminal stenosis. There is mild central canal stenosis. There is moderate stenosis of left lateral recess. L5-S1: There is a right foraminal protrusion. There is severe bilateral facet joint osteoarthritis. T here is mild bilateral neural foraminal stenosis. There is no central canal stenosis. IMPRESSION: 1. Severe lumbar spondylosis, mildly worsened from 10/30/2017. Reviewed, dictated and finalized at location A. AL INSPECTOR
[2021-06-14 08:54] LABS: Basophils Absolute Auto 0.04 K/mm3 (0.00-0.10); Basophils Percent Auto 0.6 % (0.0-1.0); Eosinophils Absolute Auto 0.19 K/mm3 (0.02-0.50); Eosinophils Percent Auto 2.7 % (1.0-6.0); Hematocrit 43.5 % (35.0-42.0); Hemoglobin 13.9 g/dL (11.7-13.8); Immature Granulocyte Absolute 0.02 K/mm3 (0.00-0.00); Immature Granulocyte Percent A 0.3 % (0.0-0.0); Lymphocytes Percent Auto 32.3 % (18.0-42.0); Mean Corpuscular Hemoglobin 30.4 pg (27.0-31.0); Mean Corpuscular Volume 95.2 fL (78.0-102.0); Mean Platelet Volume 10.5 fl (9.2-11.8); Monocytes Absolute Auto 0.65 K/mm3 (0.10-0.90); Monocytes Percent Auto 9.1 % (2.0-11.0); Neutrophils Absolute Auto 3.9 K/mm3 (1.7-7.2); Platelet Count Result 286 K/mm3 (150-420); Red Blood Count 4.57 M/mm3 (4.20-5.40); Red Cell Distribution Width 13.6 % (11.6-14.4); White Blood Count 7.1 K/mm3 (4.8-10.8)
[2021-06-14 09:39] LABS: Alanine Aminotransferase 22 U/L (14-59); Albumin Level 3.7 g/dL (3.4-5.0); Alkaline Phosphatase 64 U/L (46-116); Anion Gap 9 mmol/L (8-16); Aspartate Amino Transferase 19 U/L (15-37); Bilirubin,Total 0.6 mg/dL (0.00-1.00); Blood Urea Nitrogen 17 mg/dL (7-18); Calcium 9.5 mg/dL (8.5-10.1); Carbon Dioxide 31 mmol/L (21-32); Chloride 101 mmol/L (98-108); Estimated Glomerular Filt Rate > 60; Glucose 104 mg/dL (70-99); Magnesium 1.9 mg/dL (1.8-2.4); Osmolality Calculated 293 mOsm/kg (285-295); Sodium 141 mmol/L (136-145); Thyroid Stimulating Hormone 2.92 uIU/mL (0.36-3.74); Total Protein 7.5 g/dL (6.4-8.2)
== END 2021-06-14 08:39 | disposition home or self-care (01) ==
PROVIDERS: PCP Internal Medicine; Visit Provider Nurse Practitioner Adult Health
DX: E03.9 Hypothyroidism, unspecified (principal); J45.909 Unspecified asthma, uncomplicated; I10 Essential (primary) hypertension; M47.816 Spondylosis without myelopathy or radiculopathy, lumbar region; M54.16 Radiculopathy, lumbar region
CPT/HCPCS: 36415; 72148; 72220; 80053; 83735; 84443; 85025

== ENCOUNTER 2021-07-01 11:00 | Outpatient (CLI) | payer MEDICARE, SELFPAY ==
[2021-07-01 11:42] LABS: SARS-CoV-2 Ag Negative (Negative)
[2021-07-01 16:07] LABS: SARS-CoV-2 RNA PCR Negative (Negative)
== END 2021-07-01 11:01 | disposition home or self-care (01) ==
LOC: CHSLAB 11:04
PROVIDERS: PCP Internal Medicine; Visit Provider Internal Medicine
DX: R05.9 Cough, unspecified (principal); Z20.822 Contact with and (suspected) exposure to COVID-19
CPT/HCPCS: 87426; C9803; U0003; U0005

== ENCOUNTER 2021-08-19 06:49 | Outpatient (CLI) | payer MEDICARE, MEDICAID, SELFPAY ==
--- NOTE | ~2021-08-19 | MR_ITS ---
EXAMINATION: MR thoracic spine wo con DATE: 08/19/2021 08:22 INDICATION: Thoracic back pain. TECHNIQUE: Magnetic resonance imaging (MRI) of the thoracic spine was performed without intravenous c ontrast. Sagittal localizer T1-weighted FSE of the cervical spine was obtained. Thoracic spine sequen vic included sagittal T2-weighted FSE, sagittal T1-weighted FSE, sagittal T2-weighted FS FSE, and axi al T2-weighted FSE. COMPARISON: None FINDINGS: There is 5 degrees dextrocurvature of thoracic spine. Vertebral body heights are normal. Th ere is mildly decreased disc height from T3-T4 through T7-T8, moderately decreased disc height at T8- T9 and T9-T10, and mildly decreased disc height at T10-T11. There is multilevel facet joint osteoarth ritis, severe in upper thoracic spine. At T3-T4, there is a central extrusion with mild central canal stenosis. At T5-T6, there is a left central extrusion with mild central canal stenosis. At T9-T10, t here is a central extrusion with mild central canal stenosis. At T10-T11, the disc is bulging with mi ld central canal stenosis. On the right, there is mild neural foraminal stenosis from T1-T2 through T 4-T5. On the left, there is mild neural foraminal stenosis from T2-T3 through T4-T5. The spinal cord signal intensity is normal. IMPRESSION: 1. Moderate thoracic spondylosis. Reviewed, dictated and finalized at location A.
== END 2021-08-19 06:50 | disposition home or self-care (01) ==
LOC: CHSIMG 06:51
PROVIDERS: PCP Internal Medicine; Visit Provider Nurse Practitioner Adult Health
DX: M54.6 Pain in thoracic spine (principal)
CPT/HCPCS: 72146

== ENCOUNTER 2021-12-16 09:42 | Outpatient (CLI) | payer MEDICARE, MEDICAID, SELFPAY ==
[2021-12-16 10:12] LABS: Basophils Absolute Auto 0.06 K/mm3 (0.00-0.10); Eosinophils Absolute Auto 0.16 K/mm3 (0.02-0.50); Eosinophils Percent Auto 2.6 % (1.0-6.0); Hematocrit 42.7 % (35.0-42.0); Hemoglobin 13.4 g/dL (11.7-13.8); Immature Granulocyte Absolute 0.02 K/mm3 (0.00-0.00); Immature Granulocyte Percent A 0.3 % (0.0-0.0); Immature Platelet Fraction Pct 5.2 % (1.0-7.0); Lymphocytes Absolute Auto 1.27 K/mm3 (1.10-4.50); Lymphocytes Percent Auto 20.8 % (18.0-42.0); Mean Corpuscular HGB Conc 31.4 g/dL (32.0-36.0); Mean Corpuscular Hemoglobin 29.5 pg (27.0-31.0); Mean Corpuscular Volume 94.1 fL (78.0-102.0); Mean Platelet Volume 11.2 fl (9.2-11.8); Monocytes Absolute Auto 0.51 K/mm3 (0.10-0.90); Monocytes Percent Auto 8.4 % (2.0-11.0); Neutrophils Absolute Auto 4.1 K/mm3 (1.7-7.2); Neutrophils Percent Auto 66.9 % (50.0-70.0); Platelet Count Result 235 K/mm3 (150-420); Red Blood Count 4.54 M/mm3 (4.20-5.40); Red Cell Distribution Width 13.4 % (11.6-14.4); White Blood Count 6.1 K/mm3 (4.8-10.8)
--- NOTE | 2021-12-16 10:15 | ECG_ITS ---
Measurements Intervals [place] Rate: 99 P: [place]: 0 QRS: -27 QRSD: 116 T: 54 QT: 369 QTc: 474 Interpretive Statements ATRIAL FIBRILLATION INCOMPLETE RIGHT BUNDLE BRANCH BLOCK LEFT VENTRICULAR HYPERTROPHY BORDERLINE R WAVE PROGRESSION, ANTERIOR LEADS MINIMAL Q WAVES- HIGH LATERAL LEADS BASELINE ARTIFACT- I, II, III, AVR, AVL, AVF, V1 ABNORMAL ECG Electronically Signed On 12-16-2021 12:02:03 CDT by Ronnie Schmidt D.O.
[2021-12-16 10:30] LABS: Alanine Aminotransferase 18 U/L (14-59); Albumin Level 3.3 g/dL (3.4-5.0); Alkaline Phosphatase 66 U/L (46-116); Anion Gap 6 mmol/L (8-16); Aspartate Amino Transferase 21 U/L (15-37); Bilirubin,Total 0.5 mg/dL (0.00-1.00); Blood Urea Nitrogen 14 mg/dL (7-18); Carbon Dioxide 31 mmol/L (21-32); Chloride 106 mmol/L (98-108); Estimated Glomerular Filt Rate > 60; Glucose 84 mg/dL (70-99); Osmolality Calculated 295 mOsm/kg (285-295); Potassium 3.8 mmol/L (3.5-5.1); Sodium 143 mmol/L (136-145); Total Protein 7.3 g/dL (6.4-8.2)
== END 2021-12-16 09:43 | disposition home or self-care (01) ==
LOC: CHSLAB 09:46
PROVIDERS: PCP Internal Medicine; Visit Provider Internal Medicine
DX: E03.9 Hypothyroidism, unspecified (principal); I10 Essential (primary) hypertension; I49.9 Cardiac arrhythmia, unspecified
CPT/HCPCS: 36415; 80053; 84443; 85025; 85055; 93005

== ENCOUNTER 2022-01-20 07:52 | Outpatient (CLI) | payer MEDICARE, MEDICAID, SELFPAY ==
--- NOTE | ~2022-01-20 | MM_ITS ---
EXAMINATION: MM screening maulik BI w ginny HISTORY: Screening mammogram TECHNIQUE: Craniocaudal and mediolateral oblique 3-D tomosynthesis images were obtained and synthetic 2-D images were generated. CAD analysis was submitted and interpreted. COMPARISON: September 07, 2019 bilateral screening mammogram July 08, 2018 diagnostic left mammogram and limited left breast ultrasound July 05, 2018, Gabbie ry 2017 bilateral screening mammogram examinations BREAST PARENCHYMAL COMPOSITION: There are scattered areas of fibroglandular density. FINDINGS: Right breast: There is no evidence of suspicious mass, calcification, or architectural dist ortion to suggest malignancy in either breast. There has been no suspicious interval change. Left breast: Mild asymmetry is again noted in the upper outer left breast. A suspicious finding was r eported at 3:00 in the left breast on July 08, 2018 left breast ultrasound examination. Diagnostic left mammogram and left breast ultrasound examination are recommended IMPRESSION: 1. Asymmetry, upper outer left breast; suspicious finding reported 3:00 left breast on July 08 19 ultrasound examination 2. Diagnostic left mammogram and left breast ultrasound examination are recommended. BI-RADS Category 0: Incomplete; need additional imaging evaluation Reviewed, dictated and finalized at location A. IMPRESSION: 1. Asymmetry, upper outer left breast; suspicious finding reported 3:00 left br east on July 08, 2018 ultrasound examination 2. Diagnostic left mammogram and left breast ultrasound examination are recomme nded. BI-RADS Category 0: Incomplete; need additional imaging evaluation
== END 2022-01-20 07:53 | disposition home or self-care (01) ==
LOC: CHSIMG 07:53
PROVIDERS: PCP Internal Medicine; Visit Provider Internal Medicine
DX: Z12.31 Encounter for screening mammogram for malignant neoplasm of breast (principal)
CPT/HCPCS: 77063; 77067

== ENCOUNTER 2022-01-23 15:58 | Outpatient (CLI) | payer MEDICARE, MEDICAID, SELFPAY ==
--- NOTE | 2022-01-23 16:11 | ECG_ITS ---
Rate 91 NE 0 QRSd 110 QT 377 QTc 464 --[place]-- P QRS -24 T 22 ATRIAL FIBRILLATION BORDERLINE LEFT AXIS DEVIATION [QRS AXIS < -20] MODERATE VOLTAGE CRITERIA FOR LVH, CONSIDER NORMAL VARIANT [MEETS CRITERIA IN ONE OF: R(aVL), S(V1), R(V5), R(V5/V6)+S(V1)] ABNORMAL RHYTHM ECG Electronically Signed On 01-25-2022 15:17:27 CDT by Jessica Page M.D. COMPARED TO ECG 12/16/2021 10:12:35 NO SIGNIFICANT CHANGES MTDD
--- NOTE | 2022-01-27 10:34 | ECG_ITS ---
Rate 84 NM 0 QRSd 110 QT 365 QTc 433 --[place]-- P QRS -23 T 40 ATRIAL FIBRILLATION INCOMPLETE RIGHT BUNDLE BRANCH BLOCK VOLTAGE CRITERIA FOR LVH, ANTERIOR MYOCARDIAL INFARCTION , PROBABLY OLD Electronically Signed On 01-27-2022 12:42:08 CDT by Geoffrey Bolanos M.D. COMPARED TO ECG 01/23/2022 16:11:59 INCOMPLETE RIGHT BUNDLE-BRANCH BLOCK NOW PRESENT MYOCARDIAL INFARCT FINDING NOW PRESENT MTDD
== END 2022-01-23 15:59 | disposition home or self-care (01) ==
LOC: CHSCARD 16:02
PROVIDERS: PCP Internal Medicine; Visit Provider Specialist
DX: I48.91 Unspecified atrial fibrillation (principal)
CPT/HCPCS: 93005

== ENCOUNTER 2022-01-27 09:14 | Outpatient (CLI) | payer MEDICARE, MEDICAID, SELFPAY ==
--- NOTE | ~2022-01-27 | MMUS_ITS ---
EXAMINATION: MM diagnostic maulik LT w ginny, US breast LT limited HISTORY: Follow-up left breast asymmetry TECHNIQUE: Additional 3-D tomosynthesis images of the left breast were performed and synthetic 2-D im ages were generated. CAD analysis was submitted and interpreted. High resolution Limited left breast ultrasound was performed. COMPARISON: 01/20/2022 BREAST PARENCHYMAL COMPOSITION: Breast composed of scattered areas of fibroglandular density FINDINGS: MAMMOGRAPHIC FINDINGS: There is an ill-defined mass in the upper outer quadrant of the left breast with central fat lucency. No architectural distortion or suspicious calcifications. ULTRASOUND: Limited left breast ultrasound: At 2:00, 9 cm from the nipple there is an irregular shaped hypoechoic mass measuring up to 2.1 cm with dense posterior shadowing. IMPRESSION: 1. Ill-defined slightly irregular shaped left breast mass measuring up to 2.1 cm by ultrasound at the 2:00 position, 9 cm from the nipple. 2. Ultrasound-guided left breast biopsy recommended. BI-RADS category 4, suspicious findings. Reviewed, dictated and finalized at location A. IMPRESSION: 1. Ill-defined slightly irregular shaped left breast mass measuring up to 2.1 c m by ultrasound at the 2:00 position, 9 cm from the nipple. 2. Ultrasound-guided left breast biopsy recommended. BI-RADS category 4, suspicious findings.
--- NOTE | 2022-01-27 09:55 | ECG_ITS ---
Measurements Intervals [place] Rate: 84 P: [place]: 0 QRS: -23 QRSD: 110 T: 40 QT: 365 QTc: 433 Interpretive Statements ATRIAL FIBRILLATION INCOMPLETE RIGHT BUNDLE BRANCH BLOCK VOLTAGE CRITERIA FOR LVH, ANTERIOR MYOCARDIAL INFARCTION , PROBABLY OLD Electronically Signed On 01-27-2022 12:42:08 CDT by Geoffrey Bolanos M.D.
== END 2022-01-27 09:15 | disposition home or self-care (01) ==
LOC: CHSIMG 09:18
PROVIDERS: PCP Internal Medicine; Visit Provider Internal Medicine
DX: R92.8 Other abnormal and inconclusive findings on diagnostic imaging of breast (principal); I48.91 Unspecified atrial fibrillation; R00.1 Bradycardia, unspecified
CPT/HCPCS: 76642; 77061; 77065; 93005; G0279

== ENCOUNTER 2022-02-11 10:59 | Outpatient (CLI) | payer MEDICARE, SELFPAY ==
[2022-02-11 11:16] LABS: Basophils Absolute Auto 0.04 K/mm3 (0.00-0.10); Basophils Percent Auto 0.6 % (0.0-1.0); Eosinophils Absolute Auto 0.13 K/mm3 (0.02-0.50); Eosinophils Percent Auto 2.1 % (1.0-6.0); Hematocrit 43.4 % (35.0-42.0); Hemoglobin 13.7 g/dL (11.7-13.8); Immature Granulocyte Absolute 0.02 K/mm3 (0.00-0.00); Immature Granulocyte Percent A 0.3 % (0.0-0.0); Lymphocytes Absolute Auto 1.37 K/mm3 (1.10-4.50); Mean Corpuscular HGB Conc 31.6 g/dL (32.0-36.0); Mean Corpuscular Hemoglobin 29.4 pg (27.0-31.0); Mean Corpuscular Volume 93.1 fL (78.0-102.0); Mean Platelet Volume 10.2 fl (9.2-11.8); Monocytes Absolute Auto 0.58 K/mm3 (0.10-0.90); Monocytes Percent Auto 9.3 % (2.0-11.0); Neutrophils Absolute Auto 4.1 K/mm3 (1.7-7.2); Neutrophils Percent Auto 65.7 % (50.0-70.0); Platelet Count Result 306 K/mm3 (150-420); Red Blood Count 4.66 M/mm3 (4.20-5.40); Red Cell Distribution Width 13.9 % (11.6-14.4); White Blood Count 6.2 K/mm3 (4.8-10.8)
[2022-02-11 11:27] LABS: Anion Gap 8 mmol/L (8-16); Blood Urea Nitrogen 17 mg/dL (7-18); Calcium 9.1 mg/dL (8.5-10.1); Carbon Dioxide 29 mmol/L (21-32); Chloride 104 mmol/L (98-108); Estimated Glomerular Filt Rate > 60; Glucose 95 mg/dL (70-99); Osmolality Calculated 293 mOsm/kg (285-295); Potassium 4.1 mmol/L (3.5-5.1); Sodium 141 mmol/L (136-145)
[2022-02-11 11:32] LABS: Partial Thromboplastin Time 27.3 SEC (23.90-30.70); Prothrombin Time 11.2 Seconds (9.50-12.10)
== END 2022-02-11 11:00 | disposition home or self-care (01) ==
PROVIDERS: PCP Internal Medicine; Visit Provider Neurological Surgery
DX: Z01.818 Encounter for other preprocedural examination (principal); M47.896 Other spondylosis, lumbar region; Z96.82 Presence of neurostimulator
CPT/HCPCS: 36415; 80048; 85025; 85610; 85730

== ENCOUNTER 2022-03-29 03:46 | Emergency (ER) | payer MEDICARE, MEDICAID, SELFPAY ==
[2022-03-29] VITALS (21 sets, daily range): BP systolic 125–149; BP diastolic 76–91; PULSE 62–85; RESP 12–23; TEMP 36.4–36.6; O2SAT 91–98
--- NOTE | ~2022-03-29 | XR_ITS ---
EXAMINATION: XR chest 1V portable DATE: 03/29/2022 04:53 INDICATION: Chest pain TECHNIQUE: frontal view of the chest was obtained. COMPARISON: Chest radiograph dated 05/06/21 FINDINGS: The lungs remain clear with no focal airspace opacities, pulmonary edema, pleural effusion or pneumot horax. Mild cardiomegaly. Likely spinal stimulator lead projects over the right side of the midthorac ic spine. IMPRESSION: 1. Mild cardiomegaly. No other acute cardiopulmonary disease. Reviewed, dictated and finalized at location A.
--- NOTE | 2022-03-29 04:01 | ECG_ITS ---
Measurements Intervals [place] Rate: 77 P: [place]: 0 QRS: -31 QRSD: 121 T: 39 QT: 420 QTc: 477 Interpretive Statements ATRIAL FIBRILLATION LEFT AXIS DEVIATION [QRS AXIS < -30] POSSIBLE RIGHT VENTRICULAR CONDUCTION DELAY [RSR (QR) IN V1/V2] MODERATE VOLTAGE CRITERIA FOR LVH, CONSIDER NORMAL VARIANT [MEETS CRITERIA IN ONE OF: R(aVL), S(V1), R(V5), R(V5/V6)+S(V1)] COMPARED TO ECG 01/27/2022 10:34:04 LEFT-AXIS DEVIATION NOW PRESENT Electronically Signed On 03-29-2022 19:52:31 CDT by Jessica Page M.D.
--- NOTE | 2022-03-29 04:10 | ED.GENADULT ---
HPI - General Adult General Chief complaint: Chest Pain Stated complaint: Chest Pain History of Present Illness HPI narrative: The patient is a 72-year-old woman with a history of atrial fibrillation, on flecainide metoprolol and anticoagulated with Eliquis. She has not missed any doses of the Eliquis. Also with history of pulmonary embolism, COVID-19 pneumonia and ARDS in the past, COPD from prior cigarette use but no active cigarette use current Km on oxygen 1-2 L as needed at night. Also has history of hypertension, hypothyroidism, asthma, obesity, and anxiety. Has not had any myocardial infarctions or strokes in the past. She is not on any antiplatelet agents. She has been cardioverted for atrial fibrillation in February 2022 but this lasted only for 1 day and then she went back to atrial fibrillation. She is currently rate controlled. She, at 2:30 a.m. this morning, 03/29/2022, had an episode of chest discomfort, described as sharp, substernal, nonradiating, lasted 40 minutes and then resolved by the time EMS arrived. She received aspirin 324 mg by EMS and was transported here. Vital signs were stable during transfer. Her atrial fibrillation rate was between 70 and 80. She did have an episode of nausea with this chest discomfort but no dry heaves or vomiting. No diaphoresis. No abdominal pain. No fevers or chills or rhinorrhea or nasal congestion or sore throat but does have a nonproductive cough and she was coughing prior to the episode of chest discomfort. No urinary symptoms such as urgency frequency or hematuria. No change in her chronic back pain. She does have a stimulator in her back. She is currently pain-free and has been so for approximately 1 hour. Related Data Home Medications Medication Instructions Recorded Confirmed budesonide-formoterol HFA 80 2 puff inhalation Q12H 07/11/20 03/29/22 mcg-4.5 mcg/actuation aerosol inhaler (Symbicort) docusate sodium 50 mg capsule 50 mg PO TID 07/11/20 03/29/22 (Stool Softener) mv-mn-iron 22.5 mg-folic ac 400 1 tablet PO DAILY 07/11/20 03/29/22 mcg-vit K 500 [id number] chew tablet (DEKAs Bariatric) vit B12 50 mcg-iodine 75 mcg-mag 1 cap PO DAILY 07/11/20 03/29/22 100 tx-lgaq-vysznfkv-herb 193 capsule omeprazole 20 mg tablet,delayed 20 mg PO BID 04/01/21 03/29/22 release ondansetron HCl 4 mg tablet 4 mg PO Q8H PRN Nausea 04/01/21 03/29/22 vitamin B complex (B 1 tablet PO DAILY 04/01/21 03/29/22 Complex-Vitamin B12 tablet) albuterol sulfate 2.5 mg/0.5 mL 2.5 mg inhalation BID 03/29/22 03/29/22 solution for nebulization apixaban 5 mg tablet (Eliquis) 5 mg PO BID 03/29/22 03/29/22 duloxetine 20 mg capsule,delayed 20 mg PO DAILY 03/29/22 03/29/22 release flecainide 100 mg tablet 100 mg PO DAILY 03/29/22 03/29/22 hydrocodone 5 mg-acetaminophen 325 1 tablet PO Q8H PRN Agitation 03/29/22 03/29/22 mg tablet methocarbamol 500 mg tablet 500 mg PO TID 03/29/22 03/29/22 metoprolol succinate 25 mg 25 mg PO DAILY 03/29/22 03/29/22 tablet,extended release 24 hr tizanidine 2 mg tablet 2 mg PO Q8H 03/29/22 03/29/22 Allergies Allergy/AdvReac Type Severity Reaction Status Date / Time codeine Allergy Unknown Confusion Verified 04/01/21 19:07 Sulfa (Sulfonamide Allergy Unknown HIVES AND Verified 04/01/21 19:07 Antibiotics) ITCHING Review of Systems Review of Systems: All systems reviewed & are unremarkable except as noted in HPI and below Constitutional: Constitutional: Reports no additional constitutional complaints, Denies anorexia, Denies body ache(s), Denies chills, Denies excessive sweating, Denies fatigue, Denies fever(s), Denies frequent falls, Denies headache(s), Denies malaise and Denies poor appetite Eyes: Eyes: Reports no additional eye complaints, Denies blurry vision, Denies change in vision, Denies irritation, Denies itchy eyes and Denies photophobia ENT: Reports system reviewed and no additional complaints, except as docume
[2022-03-29 04:25] LABS: Basophils Absolute Auto 0.06 K/mm3 (0.00-0.10); Basophils Percent Auto 0.9 % (0.0-1.0); Eosinophils Absolute Auto 0.25 K/mm3 (0.02-0.50); Eosinophils Percent Auto 3.8 % (1.0-6.0); Hemoglobin 12.5 g/dL (11.7-13.8); Immature Granulocyte Absolute 0.01 K/mm3 (0.00-0.00); Immature Granulocyte Percent A 0.2 % (0.0-0.0); Lymphocytes Absolute Auto 1.87 K/mm3 (1.10-4.50); Lymphocytes Percent Auto 28.2 % (18.0-42.0); Mean Corpuscular HGB Conc 32.1 g/dL (32.0-36.0); Mean Corpuscular Volume 93.8 fL (78.0-102.0); Mean Platelet Volume 10.2 fl (9.2-11.8); Monocytes Absolute Auto 0.65 K/mm3 (0.10-0.90); Monocytes Percent Auto 9.8 % (2.0-11.0); Neutrophils Absolute Auto 3.8 K/mm3 (1.7-7.2); Neutrophils Percent Auto 57.1 % (50.0-70.0); Platelet Count Result 272 K/mm3 (150-420); Red Blood Count 4.16 M/mm3 (4.20-5.40); Red Cell Distribution Width 13.5 % (11.6-14.4); White Blood Count 6.6 K/mm3 (4.8-10.8)
[2022-03-29 04:44] LABS: Alanine Aminotransferase 30 U/L (14-59); Albumin Level 3.3 g/dL (3.4-5.0); Alkaline Phosphatase 76 U/L (46-116); Anion Gap 6 mmol/L (8-16); Aspartate Amino Transferase 17 U/L (15-37); Bilirubin,Total 0.5 mg/dL (0.00-1.00); Blood Urea Nitrogen 12 mg/dL (7-18); Calcium 8.8 mg/dL (8.5-10.1); Carbon Dioxide 32 mmol/L (21-32); Chloride 102 mmol/L (98-108); Estimated CRCL calculation 70 ml/min; Estimated Glomerular Filt Rate > 60; Glucose 104 mg/dL (70-99); NT Pro B Type Natriuretic Pept 655 pg/mL (0-125); Osmolality Calculated 289 mOsm/kg (285-295); Potassium 3.6 mmol/L (3.5-5.1); Sodium 140 mmol/L (136-145); Total Protein 7.1 g/dL (6.4-8.2); Troponin I 10.9 ng/L (0.00-60.4)
[2022-03-29 04:45] LABS: CRP < 0.5 mg/dL (0.0-0.9)
[2022-03-29 04:49] LABS: Appearance Urine Clear (Clear); Bilirubin Urine Negative (Negative); Blood Urine Negative (Negative); Glucose Urine UA Negative (Negative); Ketones Urine Negative (Negative); Leukocyte Esterase Ur 1+ LEU/UL (Negative); Nitrate Urine Negative (Negative); Protein Urine Negative (Negative); Urobilinogen Urine 0.2 mg/dL (0.2-1.0)
[2022-03-29 04:56] LABS: Add Urine Microscopic? YES; Color Urine Light Yellow (Yellow); Mucus Urine Moderate /lpf; Squamous Epithelial Cell Urine Occasional /hpf (Few); WBC Urine 0-3 /hpf (0-3)
--- NOTE | 2022-03-29 04:58 | PC.NURSE ---
Pt resting c eyes closed, Afib on monitor c HR 70, VSS, RR even and nonlabored.
[2022-03-29 05:01] LABS: D Dimer 0.45 mg/L (0.19-0.50)
[2022-03-29 05:38] LABS: Erythrocyte Sedimentation Rate 27 mm/hr (0-20)
--- NOTE | 2022-03-29 06:05 | PC.NURSE ---
2 hr troponin blood draw per ERP request. Pt resting comfortably, no changes, remains pain free at this time c VSS.
[2022-03-29 06:23] LABS: Troponin I 10.8 ng/L (0.00-60.4)
[2022-03-29] MEDS: CEPHALEXIN 500 MG CAPSULE PO (06:55)
== END 2022-03-29 07:05 | disposition home or self-care (01) ==
PROVIDERS: Emergency Provider Emergency Medicine; PCP Internal Medicine
DX: R07.89 Other chest pain (principal); I48.91 Unspecified atrial fibrillation; N39.0 Urinary tract infection, site not specified; I10 Essential (primary) hypertension; E03.9 Hypothyroidism, unspecified; Z87.891 Personal history of nicotine dependence; Z86.16 Personal history of COVID-19
CPT/HCPCS: 36415; 71045; 80053; 81001; 83880; 84484; 85025; 85380; 85652; 86140; 87086; 87088; 93005; 99284; A9270

== ENCOUNTER 2022-04-17 11:25 | Outpatient (CLI) | payer MEDICARE, MEDICAID, SELFPAY ==
--- NOTE | ~2022-04-17 | XR_ITS ---
XR chest 2V DATE: 04/17/2022 11:54 INDICATION: Cough, shortness of breath TECHNIQUE: PA and lateral views COMPARISON: 03/29/2022 portable AP chest at 0458 hours FINDINGS: Cardiomegaly. Aortic calcification and tortuosity. No hilar or mediastinal enlargement. No pulmonary consolidation, pleural effusion, pulmonary vascular congestion or pneumothorax is detect ed. Osteopenia. Electrodes overlie the posterior mid to lower thoracic spinal canal. IMPRESSION: Cardiomegaly, aortic atherosclerosis Osteopenia No active pulmonary disease Reviewed, dictated and finalized at location A. ISH MIXER
[2022-04-17 11:48] LABS: Basophils Absolute Auto 0.02 K/mm3 (0.00-0.10); Basophils Percent Auto 0.2 % (0.0-1.0); Eosinophils Absolute Auto 0.14 K/mm3 (0.02-0.50); Eosinophils Percent Auto 1.7 % (1.0-6.0); Hematocrit 42.8 % (35.0-42.0); Hemoglobin 13.5 g/dL (11.7-13.8); Immature Granulocyte Absolute 0.03 K/mm3 (0.00-0.00); Immature Granulocyte Percent A 0.4 % (0.0-0.0); Lymphocytes Absolute Auto 1.74 K/mm3 (1.10-4.50); Lymphocytes Percent Auto 21.3 % (18.0-42.0); Mean Corpuscular HGB Conc 31.5 g/dL (32.0-36.0); Mean Corpuscular Hemoglobin 29.6 pg (27.0-31.0); Mean Corpuscular Volume 93.9 fL (78.0-102.0); Mean Platelet Volume 10.4 fl (9.2-11.8); Monocytes Percent Auto 7.3 % (2.0-11.0); Neutrophils Absolute Auto 5.6 K/mm3 (1.7-7.2); Neutrophils Percent Auto 69.1 % (50.0-70.0); Platelet Count Result 270 K/mm3 (150-420); Red Blood Count 4.56 M/mm3 (4.20-5.40); Red Cell Distribution Width 13.6 % (11.6-14.4); White Blood Count 8.2 K/mm3 (4.8-10.8)
[2022-04-17 13:01] LABS: Alanine Aminotransferase 21 U/L (14-59); Albumin Level 3.5 g/dL (3.4-5.0); Alkaline Phosphatase 80 U/L (46-116); Anion Gap 8 mmol/L (8-16); Aspartate Amino Transferase 18 U/L (15-37); Bilirubin,Total 0.3 mg/dL (0.00-1.00); Blood Urea Nitrogen 16 mg/dL (7-18); Calcium 8.6 mg/dL (8.5-10.1); Carbon Dioxide 32 mmol/L (21-32); Chloride 104 mmol/L (98-108); Estimated Glomerular Filt Rate > 60; Glucose 83 mg/dL (70-99); Osmolality Calculated 298 mOsm/kg (285-295); Potassium 3.6 mmol/L (3.5-5.1); Sodium 144 mmol/L (136-145); Total Protein 7.3 g/dL (6.4-8.2)
== END 2022-04-17 11:26 | disposition home or self-care (01) ==
LOC: CHSLAB 11:29
PROVIDERS: PCP Internal Medicine; Visit Provider Internal Medicine
DX: R05.9 Cough, unspecified (principal)
CPT/HCPCS: 36415; 71046; 80053; 85025

== ENCOUNTER 2022-05-01 08:49 | Observation (INO) | payer MEDICARE, MEDICAID, SELFPAY ==
[2022-05-01] VITALS (23 sets, daily range): BP systolic 134–152; BP diastolic 79–101; PULSE 81–116; RESP 16–22; TEMP 36.4–36.6; O2SAT 93–97; BMI 48.9
--- NOTE | ~2022-05-01 | XR_ITS ---
XR chest 2V DATE: 05/01/2022 10:08 INDICATION: Shortness of breath, cough TECHNIQUE: PA and lateral views COMPARISON: 04/17/2022 PA and lateral chest FINDINGS: Cardiomegaly. Aortic calcification and tortuosity. Mild infiltrate or atelectasis is suggested in the right lower lung. No pleural effusion is evident. No pneumothorax. Osteopenia. Osteophytic change at the glenohumeral joints. Degenerative spurring of the thoracic spin e. IMPRESSION: Cardiomegaly Aortic calcification and tortuosity Mild infiltrate or atelectasis in the right lower lung Reviewed, dictated and finalized at location [facility]
--- NOTE | 2022-05-01 09:14 | ED.GENADULT ---
HPI - General Adult General Chief complaint: Shortness of Breath/Dyspnea Stated complaint: cough Time Seen by Provider: 05/01/22 09:12 History of Present Illness HPI narrative: patient 72-year-old white female with a history of COPD , AFib on Eliquis, history of right pulmonary embolism with COVID in 2020 in May, complains of cough mostly nonproductive for the last 2 weeks. She also complains of increasing shortness of breath over the last week. She uses breathing treatments twice a day. Denies any chest pain. She says when she coughs it hurts down to her tailbone. Denies any fever. Related Data Home Medications Medication Instructions Recorded Confirmed budesonide-formoterol HFA 80 2 puff inhalation Q12H 07/11/20 05/01/22 mcg-4.5 mcg/actuation aerosol inhaler (Symbicort) docusate sodium 50 mg capsule 50 mg PO TID 07/11/20 05/01/22 (Stool Softener) mv-mn-iron 22.5 mg-folic ac 400 1 tablet PO DAILY 07/11/20 05/01/22 mcg-vit K 500 [id number] chew tablet (DEKAs Bariatric) vit B12 50 mcg-iodine 75 mcg-mag 1 cap PO DAILY 07/11/20 05/01/22 100 gy-oirg-pryjczdz-herb 193 capsule omeprazole 20 mg tablet,delayed 20 mg PO BID 04/01/21 05/01/22 release ondansetron HCl 4 mg tablet 4 mg PO Q8H PRN Nausea 04/01/21 05/01/22 vitamin B complex (B 1 tablet PO DAILY 04/01/21 05/01/22 Complex-Vitamin B12 tablet) albuterol sulfate 2.5 mg/0.5 mL 2.5 mg inhalation BID 03/29/22 05/01/22 solution for nebulization apixaban 5 mg tablet (Eliquis) 5 mg PO BID 03/29/22 05/01/22 duloxetine 20 mg capsule,delayed 20 mg PO DAILY 03/29/22 05/01/22 release flecainide 100 mg tablet 100 mg PO DAILY 03/29/22 05/01/22 hydrocodone 5 mg-acetaminophen 325 1 tablet PO Q8H PRN Agitation 03/29/22 05/01/22 mg tablet metoprolol succinate 25 mg 25 mg PO DAILY 03/29/22 05/01/22 tablet,extended release 24 hr tizanidine 2 mg tablet 2 mg PO Q8H 03/29/22 05/01/22 Allergies Allergy/AdvReac Type Severity Reaction Status Date / Time Sulfa (Sulfonamide Allergy Unknown HIVES AND Verified 05/01/22 09:15 Antibiotics) ITCHING Review of Systems Review of Systems: All systems reviewed & are unremarkable except as noted in HPI and below Constitutional: Constitutional: Denies chills, Reports fatigue, Denies fever(s) and Denies weakness Eyes: Eyes: Reports no additional eye complaints ENT: Reports system reviewed and no additional complaints, except as documented Cardiovascular: Cardiovascular: Reports no additional cardiovascular complaints, Denies chest pain and Denies rapid heart rate Respiratory: Respiratory: Reports no additional respiratory complaints, Reports cough, Reports dyspnea and Reports wheezing Comments: she says she has been wheezing more than usual. Gastrointestinal: Gastrointestinal: Reports no additional gastrointestinal complaints Genitourinary: Genitourinary: Reports no additional female genitourinary complaints and Reports urinary incontinence ( Complains of stress incontinence with coughing.) Musculoskeletal: Musculoskeletal: Reports no additional musculoskeletal complaints and Reports back pain Integumentary/Breasts: Skin/Breast: Denies pruritus and Denies rash Neurologic: Reports system reviewed and no additional complaints, except as documented Psychiatric: Psychiatric: Reports no additional psychiatric complaints Hematologic/Lymphatic: Hematologic/Lymphatic: Reports no additional hematologic/lymphatic complaints and Denies easy bruising Allergic/Immunologic: Allergic/Immunologic: Reports no additional allergic/immunologic complaints and Reports wheezing PMFSH Past Medical History Medical History HTN (hypertension) Hypothyroidism Morbid obesity Nerve entrapment syndrome of lower extremity Surgery to repair foot drop on the right leg after right knee surgery Neuropathy Overactive bladder Surgical History Surgical History (Reviewed
[2022-05-01 09:33] LABS: Hematocrit 38.3 % (35.0-42.0); Hemoglobin 12.6 g/dL (11.7-13.8); Mean Corpuscular HGB Conc 32.9 g/dL (32.0-36.0); Mean Corpuscular Hemoglobin 30.4 pg (27.0-31.0); Mean Corpuscular Volume 92.3 fL (78.0-102.0); Mean Platelet Volume 10.8 fl (9.2-11.8); Platelet Count Result 228 K/mm3 (150-420); Red Blood Count 4.15 M/mm3 (4.20-5.40); Red Cell Distribution Width 13.8 % (11.6-14.4); White Blood Count 3.5 K/mm3 (4.8-10.8)
[2022-05-01] MEDS: methylPREDNISolone SOD SUCC 125 MG VIAL IV PUSH (09:39)
[2022-05-01 09:44] LABS: D Dimer 0.44 mg/L (0.19-0.50); INR 1.1; Prothrombin Time 11.5 Seconds (9.50-12.10)
--- NOTE | 2022-05-01 09:46 | ECG_ITS ---
Measurements Intervals Kimberly Rate: 80 P: HI: 0 QRS: -38 QRSD: 137 T: 58 QT: 317 QTc: 367 Interpretive Statements ATRIAL FIBRILLATION LEFT AXIS DEVIATION INTRAVENTRICULAR CONDUCTION DELAY BASELINE ARTIFACT- I, II, III, AVL, V5-V6 ABNORMAL ECG COMPARED TO ECG 03/29/2022 04:01:18 NO SIGNIFICANT CHANGES Electronically Signed On 05-01-2022 10:13:18 POTTER OR CERAMIC ARTIST by Ronnie Schmidt D.O.
[2022-05-01 09:53] LABS: Alanine Aminotransferase 17 U/L (14-59); Albumin Level 2.8 g/dL (3.4-5.0); Alkaline Phosphatase 59 U/L (46-116); Anion Gap 8 mmol/L (8-16); Aspartate Amino Transferase 20 U/L (15-37); Bilirubin,Total 0.3 mg/dL (0.00-1.00); Blood Urea Nitrogen 10 mg/dL (7-18); Calcium 8.5 mg/dL (8.5-10.1); Carbon Dioxide 30 mmol/L (21-32); Chloride 102 mmol/L (98-108); Estimated CRCL calculation 71 ml/min; Estimated Glomerular Filt Rate > 60; Glucose 102 mg/dL (70-99); Magnesium 1.4 mg/dL (1.8-2.4); NT Pro B Type Natriuretic Pept 210 pg/mL (0-125); Osmolality Calculated 289 mOsm/kg (285-295); Potassium 3.4 mmol/L (3.5-5.1); Sodium 140 mmol/L (136-145); Total Protein 6.8 g/dL (6.4-8.2); Troponin I 8.6 ng/L (0.00-60.4)
[2022-05-01 10:02] LABS: Band Neutrophils Percent 0 % (0-6); Basophils Absolute Manual 0.03 K/mm3 (0-0.1); Basophils Percent Manual 1 % (0-1); Eosinophils Absolute Manual 0.07 K/mm3 (0.02-0.5); Eosinophils Percent Manual 2 % (1-6); Lymphocytes Absolute Manual 0.63 K/mm3 (1.1-4.5); Lymphocytes Percent Manual 18 % (18-44); Monocytes Absolute Manual 0.66 K/mm3 (0.1-0.90); Monocytes Percent Manual 19 % (3-9); Neutrophils Percent Manual 60 % (46-73); Platelet Estimate Adequate (Adequate); Schistocytes None Seen (NORMAL); Total Cells Counted 100
[2022-05-01] MEDS: IPRATROPIUM 0.5 MG/ALBUTEROL SULFATE 2.5 MG AMPUL.NEB 3 ML INHALATION (10:06)
[2022-05-01 10:13] LABS: Add Urine Microscopic? NO; Appearance Urine Clear (Clear); Bilirubin Urine Negative (Negative); Blood Urine Negative (Negative); Color Urine Yellow (Yellow); Glucose Urine UA Negative (Negative); Ketones Urine Negative (Negative); Leukocyte Esterase Ur Negative LEU/UL (Negative); Nitrate Urine Negative (Negative); Protein Urine Negative (Negative); Specific Grav Ur 1.025 (1.010-1.020); Urobilinogen Urine 0.2 mg/dL (0.2-1.0)
[2022-05-01 10:26] LABS: Influenza A QL RT-PCR Positive (Negative); Influenza B QL RT-PCR Negative (Negative); SARS-CoV-2 RNA PCR Negative (Negative)
[2022-05-01 10:30] LABS: RSV RNA, RT-PCR Negative (Negative)
[2022-05-01] MEDS: MAGNESIUM SULF 2 GM/WATER 50ML 2 GM/50 ML BAG IVPB (11:35)
[2022-05-01 12:26] LABS: Magnesium 1.9 mg/dL (1.8-2.4)
--- NOTE | 2022-05-01 12:31 | ADMGEN ---
This patient, Christiano Warner, was admitted to 2nd Floor Room 202-2. Patient/family oriented to hospital policies and general routines including ID bracelet, bed and alarms, visiting hours, pain management, procedures, bathroom and other care routines, personal items, smoking policy, room service/diet, and visiting hours. Information on how to activate the Rapid Response Team has been discussed. Patient/Family are encouraged to report perceived risks to care and to ask questions if they do not understand what they are told or what they should do.
[2022-05-01] MEDS: APIXABAN 2.5 MG TABLET 5 MG PO (16:17)
[2022-05-01] MEDS: TIZANIDINE HCL 2 MG TABLET PO ×2 (16:17→21:11)
[2022-05-01] MEDS: BUDESONIDE/FORMOTEROL 80/4.5 MCG 6.9 GM INHALER (*SP) 2 PUFF INHALATION (18:23)
[2022-05-01] MEDS: PREGABALIN (*CRX) 100 MG CAPSULE PO (21:11)
[2022-05-01] MEDS: PREGABALIN (*CRX) 50 MG CAPSULE PO (21:11)
[2022-05-01] MEDS: LEVALBUTEROL NEB 1.25 MG/3 ML INHALATION (22:16)
[2022-05-02] VITALS (14 sets, daily range): BP systolic 113–142; BP diastolic 62–87; PULSE 68–100; RESP 14–20; TEMP 36.4–36.6; O2SAT 96–100
[2022-05-02] MEDS: IPRATROPIUM 0.5 MG/ALBUTEROL SULFATE 2.5 MG AMPUL.NEB 3 ML INHALATION ×4 (00:34→18:36)
[2022-05-02 05:29] LABS: Hemoglobin 11.6 g/dL (11.7-13.8); Mean Corpuscular HGB Conc 32.2 g/dL (32.0-36.0); Mean Corpuscular Hemoglobin 29.9 pg (27.0-31.0); Mean Corpuscular Volume 92.8 fL (78.0-102.0); Mean Platelet Volume 10.7 fl (9.2-11.8); Platelet Count Result 229 K/mm3 (150-420); Red Blood Count 3.88 M/mm3 (4.20-5.40); Red Cell Distribution Width 13.8 % (11.6-14.4)
[2022-05-02 05:44] LABS: Anion Gap 8 mmol/L (8-16); Blood Urea Nitrogen 10 mg/dL (7-18); Calcium 8.6 mg/dL (8.5-10.1); Carbon Dioxide 31 mmol/L (21-32); Chloride 102 mmol/L (98-108); Estimated CRCL calculation 75 ml/min; Estimated Glomerular Filt Rate > 60; Glucose 131 mg/dL (70-99); Osmolality Calculated 293 mOsm/kg (285-295); Potassium 3.7 mmol/L (3.5-5.1); Sodium 141 mmol/L (136-145)
[2022-05-02] MEDS: BUDESONIDE/FORMOTEROL 80/4.5 MCG 6.9 GM INHALER (*SP) 2 PUFF INHALATION ×2 (05:49→18:41)
[2022-05-02] MEDS: TIZANIDINE HCL 2 MG TABLET PO ×3 (05:49→21:24)
[2022-05-02] MEDS: LEVALBUTEROL NEB 1.25 MG/3 ML INHALATION ×3 (07:00→21:59)
[2022-05-02] MEDS: DULoxetine HCL 20 MG CAPSULE.DR PO (08:55)
[2022-05-02] MEDS: ESCITALOPRAM OXALATE 10 MG TABLET 20 MG PO (08:55)
[2022-05-02] MEDS: POTASSIUM CHLORIDE 20 MEQ TABLET PO (08:56)
[2022-05-02] MEDS: APIXABAN 2.5 MG TABLET 5 MG PO ×2 (08:56→17:07)
[2022-05-02] MEDS: PREGABALIN (*CRX) 25 MG CAPSULE 75 MG PO (08:57)
[2022-05-02] MEDS: FLECAINIDE ACETATE 100 MG TABLET PO (08:58)
--- NOTE | 2022-05-02 14:45 | PM.IMHP ---
H&P: HPI History of Present Illness Date/Time: 05/02/22 14:45 Chief Complaint: COPD Exacerbation, Pneumona Influenza A Narrative: 72-year-old female?history of COPD , hypertension, hypothyroidism, obesity, overactive bladder, AFib on Eliquis, history of right pulmonary embolism with COVID in 2020 in May, complains of cough mostly nonproductive for the last 2 weeks.? She also complains of increasing shortness of breath over the last week patient received breathing treatment IV antibiotics she did not require any oxygen patient tested positive for influenza A. . Restarted q.6 hours breathing treatment as well as IV steroids. We will continue with the IV antibiotics for the pneumonia and we will continue to monitor patient Review of Systems Review of Systems: Shortness of breath and weakness All systems reviewed & are unremarkable except as noted in HPI and below PMFSH Past Medical History Medical History HTN (hypertension) Hypothyroidism Morbid obesity Nerve entrapment syndrome of lower extremity Surgery to repair foot drop on the right leg after right knee surgery Neuropathy Overactive bladder Surgical History Surgical History H/O bilateral cataract extraction History of appendectomy History of carpal tunnel release History of total knee arthroplasty Hx of cholecystectomy S/P tonsillectomy and adenoidectomy Family History Family History Father Hypertension Family history of renal failure Diabetes mellitus Mother Asthma Other Cerebrovascular accident Family history of alcoholism Family history of arthritis Family history of blood dyscrasia Family history of coronary artery disease Family history of lung disease Family history of malignant neoplasm Family history of mental disorder Social History Social History Social History: The patient stated that she never and had 2 children. Both of her daughters Lex and mark she desires to have is her durable power trade mark attorney for healthcare. The patient is a full code. 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 She quit smoking in the 70s. She does not use any alcohol marijuana or illicit drugs. Smoking packs per day: 10 Smoking cigarettes per day: 200.0 Years smoked: 10 Smoking pack-years: 100.00 Smoking status: Former smoker Tobacco type: cigarettes Second hand tobacco smoke exposure: Yes Smoking end date: 06/07/69 Alcohol intake: former Drinks per week: 1 Substance use: never Substance use type: does not use Lack of Transportation: No Lack of Food: Never True Current Housing: I Have Housing Concerned About Future Housing: No Difficulty Paying Gas/Electric Bills: No Difficulty Paying for Meds: No Currently Unemployed: No Education: High School Diploma/GED Difficulty w/ Childcare or Family Care: No Gender identity (if verbalized by the patient): Female Sexual Orientation (if Verbalized by the Patient): Straight or Heterosexual Spiritual care concerns: No Comments At time as signature, I have reviewed and agree with nursing past medical, social, surgical and family history. Please see nursing chart for further information. There is no relevant family history pertinent to the presenting complaint. Meds Home Medications and Allergies Home Medications Medication Instructions Recorded Confirmed Type pregabalin 75 mg capsule 75 mg PO QAM 30 days #30 caps 05/30/20 05/01/22 Rx pregabalin 75 mg capsule 150 mg PO HS 30 days #0 caps 05/30/20 05/01/22 Rx albuterol sulfate 90 mcg/actuation 2 puff inhalation QID PRN SOB 30 06/21/20 05/01/22 Rx aerosol inhaler (Ventolin HFA) days #2 grams escitalopram oxalate 20 mg tablet 20 mg PO QAM 30 days
[2022-05-02] MEDS: PREGABALIN (*CRX) 50 MG CAPSULE PO (21:23)
[2022-05-02] MEDS: PREGABALIN (*CRX) 100 MG CAPSULE PO (21:23)
[2022-05-03] VITALS: BP 138/82; PULSE 98; RESP 17; TEMP 36.4; O2SAT 98
[2022-05-03] MEDS: IPRATROPIUM 0.5 MG/ALBUTEROL SULFATE 2.5 MG AMPUL.NEB 3 ML INHALATION ×2 (00:35→06:43)
[2022-05-03 00:36] VITALS: PULSE 89; RESP 18; O2SAT 96
[2022-05-03 00:39] VITALS: PULSE 89; RESP 18; O2SAT 98
--- NOTE | 2022-05-03 04:40 | PC.NURSE ---
Patient complained of a cough, and asked for cough medicine. Nurse practioner was called regarding another matter, and this request was also passed on. Nurse practioner called in an order for Azithromycin to be given at 0900, prior to discharge.
[2022-05-03] MEDS: BUDESONIDE/FORMOTEROL 80/4.5 MCG 6.9 GM INHALER (*SP) 2 PUFF INHALATION (05:58)
[2022-05-03] MEDS: TIZANIDINE HCL 2 MG TABLET PO (05:59)
[2022-05-03 06:46] VITALS: PULSE 80; RESP 20; O2SAT 96
[2022-05-03 08:00] VITALS: BP 131/72; PULSE 90; RESP 16; TEMP 36.4; O2SAT 97
[2022-05-03] MEDS: PREGABALIN (*CRX) 25 MG CAPSULE 75 MG PO (08:16)
[2022-05-03] MEDS: DULoxetine HCL 20 MG CAPSULE.DR PO (08:16)
[2022-05-03] MEDS: POTASSIUM CHLORIDE 20 MEQ TABLET PO (08:16)
[2022-05-03 08:17] VITALS: PULSE 88
[2022-05-03] MEDS: ESCITALOPRAM OXALATE 10 MG TABLET 20 MG PO (08:17)
[2022-05-03] MEDS: FLECAINIDE ACETATE 100 MG TABLET PO (08:17)
[2022-05-03] MEDS: APIXABAN 2.5 MG TABLET 5 MG PO (08:17)
--- NOTE | 2022-05-03 08:38 | PM.DS ---
DS: Admitting Diagnosis Discharge Date 05/03/2022 Admitting Diagnosis Dyspnea, Pneummonia, COPD exacerbation DS: Discharge Diagnosis Discharge Diagnosis (1) Influenza A (H1N1): Code(s): J10.1 - Influenza due to other identified influenza virus with other respiratory manifestations Status: Acute (2) Acute exacerbation of chronic obstructive pulmonary disease: Code(s): J44.1 - Chronic obstructive pulmonary disease with (acute) exacerbation Status: Acute Assessment and Plan: q.6 hours breathing treatments Oxygen as needed IV steroids IV antibiotics Pulse oxygenation checks Monitor for any sepsis or worsening of condition (3) Pneumonia: Code(s): J18.9 - Pneumonia, unspecified organism Status: Acute Assessment and Plan: q.6 hours breathing treatments Oxygen as needed IV steroids IV antibiotics Pulse oxygenation checks Monitor for any sepsis or worsening of condition (4) Atrial fibrillation with RVR: Code(s): I48.91 - Unspecified atrial fibrillation Status: Acute Assessment and Plan: continue anticoagulation Continue beta-noe DS: Summary Hospital Course Reason for hospitalization: pneumonia, influenza a, Hospital Course: 72-year-old female that was admitted for pneumonia and influenza a with some shortness of breath denied require oxygen but intermittent breathing treatments. Patient received IV steroids which will be converted to oral steroids she also received nebulizer treatments which she will begin to take at home. Patient was symptomatic we treated for influenza A continue to rest drink plenty of fluids she is able to eat and drink without any nausea vomiting. Patient's vitals prior to discharge was 131/72, 88 pulse, 16 respirations, 976 temp and 97% on room air. Patient's labs are potassium 3.7, sodium 141, BUN 10, creatinine 0.73, glucose was 131, WBC is 3.0, hemoglobin 11.6, platelets is 229 Time Spent with Patient Time attestation: Total time spent providing and/or coordinating discharge services: Exam Narrative: GENERAL:Well-appearing, well-nourished, and in no acute distress. HEAD:Normocephalic, atraumatic. EYES: PERRLA and EOMI. ENT: Nares clear, no rhinorrhea or epistaxis. Mucous membranes moist. NECK: Supple. CHEST: Clear to auscultation. No respiratory distress. HEART: Regular rate and rhythm.. Normal peripheral pulses. ABDOMEN: Soft, nontender, nondistended, normal active bowel sounds. EXTREMITIES: Normal range of motion. trace edemaedema. SKIN: Warm, dry, no rash. NEURO: No focal deficits. Alert and oriented x3. The DS: Data Data Completed and Pending Labs on day of discharge: Preliminary micro results at discharge 05/01/22 09:40 Blood Culture - Preliminary Blood 05/01/22 09:25 Blood Culture - Preliminary Blood Discharge Plan Discharge Attending physician on discharge: Rad Aquino Consulting providers: Elisa Matias ; Ronnie Schmidt ; Denis Hobson Discharging Clinician: Elisa Matias Anticipated Discharge Date/Time: 05/03/22 08:35 Patient Disposition: Home, Self-Care Activity: october shower Diet: diabetic Patient Instructions: Antibiotic Form, Benzonatate (By mouth), Azithromycin (By mouth), Methylprednisolone (By mouth), A-fib (Atrial Fibrillation) (DC), Viral Pneumonia (DC), Influenza (DC), Fall Prevention for Older Adults (DC), COPD (Chronic Obstructive Pulmonary Disease) (DC) Stand Alone Forms: General Discharge Information Follow-up/Referrals: Kj Carrillo MD [Primary Care Provider] - (Call and schedule appointment with your pcp) Discharge Medications: New azithromycin [Zithromax Z-Ok] 250 mg tablet See Rx Instructions .ROUTE .COMPLEX Qty: 6 0RF Rx Instructions: For 250 mg dose pack: take 500 mg today (day 1), then 250 mg for 4 days (days 2-5) methylprednisolone [Medrol (Ok)] 4 mg tablets,dose pack See Rx Instructions .
--- NOTE | 2022-05-03 10:50 | PC.NURSE ---
Patient discharged with daughter. New medications reviewed. taken to private vehicle by wheelchaor. transferred to car independently
--- NOTE | 2022-05-04 10:54 | PC.NURSE ---
Pt states she received and understood her discharge instructions. Pt has no other comments.
== END 2022-05-03 10:50 | disposition home or self-care (01) ==
LOC: CHSED 11:35 → CHS2ND 11:37
PROVIDERS: Nurse Practitioner Family; Admitting Provider Internal Medicine; Emergency Provider Emergency Medicine; PCP Internal Medicine; Visit Provider Internal Medicine
DX: J10.00 Influenza due to other identified influenza virus with unspecified type of pneumonia (principal); J44.1 Chronic obstructive pulmonary disease with (acute) exacerbation; I48.20 Chronic atrial fibrillation, unspecified; Z79.01 Long term (current) use of anticoagulants; Z86.711 Personal history of pulmonary embolism; I10 Essential (primary) hypertension; E03.9 Hypothyroidism, unspecified; E66.01 Morbid (severe) obesity due to excess calories; Z68.42 Body mass index [BMI] 45.0-49.9, adult; G62.9 Polyneuropathy, unspecified; N32.81 Overactive bladder; Z96.651 Presence of right artificial knee joint; Z90.49 Acquired absence of other specified parts of digestive tract; Z87.891 Personal history of nicotine dependence; Z20.822 Contact with and (suspected) exposure to COVID-19
CPT/HCPCS: 36415; 71046; 80048; 80053; 81003; 83735; 83880; 84484; 85025; 85027; 85380; 85610; 85730; 87040; 87637; 93005; 94640; 96365; 96366; 96367; 96375; 99285; A9270; G0378; J0456; J0696; J2930; J3475

== ENCOUNTER 2022-05-18 10:31 | Outpatient (CLI) | payer MEDICARE, MEDICAID, SELFPAY ==
--- NOTE | 2022-05-18 10:45 | ECG_ITS ---
Measurements Intervals Thayer Rate: 93 P: DE: 0 QRS: -26 QRSD: 131 T: 76 QT: 412 QTc: 515 Interpretive Statements ATRIAL FIBRILLATION IRBBB POOR R WAVE PROGRESSION COMPARED TO ECG 05/01/2022 09:46:55 NO SIGNIFICANT CHANGES Electronically Signed On 05-19-2022 19:13:56 ANESTHESIOLOGY TECHNOLOGIST by Jessica Page M.D.
== END 2022-05-18 10:32 | disposition home or self-care (01) ==
PROVIDERS: PCP Internal Medicine; Visit Provider Specialist
DX: I48.91 Unspecified atrial fibrillation (principal); R00.1 Bradycardia, unspecified
CPT/HCPCS: 93005

== ENCOUNTER 2022-08-17 22:35 | Emergency (ER) | payer MEDICARE, MEDICAID, SELFPAY ==
--- NOTE | ~2022-08-17 | CT_ITS ---
Noncontrast CT scan of the cervical spine Technique: Multiple contiguous axial [address] images of the cervical spine were obtained and rec onstructed in 2D sagittal and coronal planes on the acquisition scanner. Dose reduction technique was used on this scan by utilizing automated exposure control, adjustment of the mA and/or kV according to patient size. Clinical History: Pain Findings: No fractures or dislocations. There is reversal of the normal cervical lordosis. Mild dege nerative disc narrowing and mild uncovertebral degenerative change at C5-C6 and C6-C7. There are mild disc osteophyte complexes at C5-C6 and C6-C7, with probable mild canal stenosis at these levels. No prevertebral soft tissue swelling. Impression: No fracture or subluxation of the cervical spine. Degenerative change, as above. Reviewed, dictated and finalized at [facility]. Impression: No fracture or subluxation of the cervical spine. Degenerative change, as above.
--- NOTE | ~2022-08-17 | CT_ITS ---
Non-contrast Head CT History: Head injury Technique: Axial non-contrast imaging of the brain was performed. Dose reduction technique was used on this scan by utilizing automated exposure control and iterative reconstruction technique. The dose -length product (DLP) was 519.98 mGy-cm. Findings: There is no evidence of intracranial hemorrhage, mass lesion, or acute infarct. Brain par enchyma appears normal. The ventricles and subarachnoid spaces are normal in size. The calvarium ap pears normal. The visualized paranasal sinuses and mastoid air cells are clear. Impression: No significant abnormality seen. Reviewed, dictated and finalized at location . Impression: No significant abnormality seen.
[2022-08-17 22:41] VITALS: BP 124/61; PULSE 69; RESP 18; TEMP 36.6; O2SAT 96
--- NOTE | 2022-08-17 22:43 | ED.FALL ---
HPI - Fall General Chief Complaint: Head Injury Stated Complaint: Fall Source: patient Mode of arrival: ambulatory History of Present Illness HPI Narrative: 72-year-old female obesity, chronic pain status post nerve stimulator, anxiety, hypertension, hypothyroidism COPD/asthma intermittent home oxygen, pulmonary embolism, atrial fibrillation on Eliquis was -- leaning forwards when she fell and hit her right forehead. No loss consciousness. no focal neuro deficits. -- frontal headache. No nausea/ vomiting. No focal deficit. -- Subsequently she fell over on right side. she has bruising over her right forearm -- complains of chronic low back pain without any recent worsening. complaint: fall Onset (ago): hour(s) ( 1 hour ago) Fall from: from height (distance) ( around 2 ft) Fall witnessed: yes, by family Place fall occurred: home Loss of consciousness: none Prolonged down time: no Symptoms prior to fall: none Context: tripped/slipped Location of injury: head Location of injury - extremities: Right: forearm Severity: mild Associated symptoms (after fall): denies Related Data Home Medications Medication Instructions Recorded Confirmed budesonide-formoterol HFA 80 2 puff inhalation Q12H 07/11/20 08/17/22 mcg-4.5 mcg/actuation aerosol inhaler (Symbicort) docusate sodium 50 mg capsule 50 mg PO TID PRN Constipation 07/11/20 08/17/22 (Stool Softener) mv-mn-iron 22.5 mg-folic ac 400 1 tablet PO DAILY 07/11/20 05/01/22 mcg-vit K 500 [id number]-vfgv-B65 chew tablet (DEKAs Bariatric) vit B12 50 mcg-iodine 75 mcg-mag 1 cap PO DAILY 07/11/20 05/01/22 100 zq-ggmx-flegqxrr-herb 193 capsule omeprazole 20 mg tablet,delayed 20 mg PO BID 04/01/21 08/17/22 release ondansetron HCl 4 mg tablet 4 mg PO Q8H PRN Nausea 04/01/21 05/01/22 vitamin B complex (B 1 tablet PO DAILY 04/01/21 08/17/22 Complex-Vitamin B12 tablet) albuterol sulfate 2.5 mg/0.5 mL 2.5 mg inhalation BID 03/29/22 08/17/22 solution for nebulization apixaban 5 mg tablet (Eliquis) 5 mg PO BID 03/29/22 08/17/22 duloxetine 20 mg capsule,delayed 20 mg PO DAILY 03/29/22 08/17/22 release flecainide 100 mg tablet 100 mg PO BID 03/29/22 08/17/22 hydrocodone 5 mg-acetaminophen 325 1 tablet PO Q8H PRN Agitation 03/29/22 08/17/22 mg tablet metoprolol succinate 25 mg 25 mg PO DAILY 03/29/22 08/17/22 tablet,extended release 24 hr tizanidine 2 mg tablet 2 mg PO Q8H 03/29/22 08/17/22 famotidine 40 mg tablet 40 mg PO DAILY 08/17/22 08/17/22 Allergies Allergy/AdvReac Type Severity Reaction Status Date / Time Sulfa (Sulfonamide Allergy Unknown HIVES AND Verified 05/01/22 09:15 Antibiotics) ITCHING Review of Systems Review of Systems: All systems reviewed & are unremarkable except as noted in HPI and below Constitutional: Constitutional: Reports as per HPI and Reports no additional constitutional complaints Eyes: Eyes: Reports as per HPI and Reports no additional eye complaints ENT: Reports system reviewed and no additional complaints, except as documented Cardiovascular: Cardiovascular: Reports as per HPI and Reports no additional cardiovascular complaints Respiratory: Respiratory: Reports as per HPI and Reports no additional respiratory complaints Gastrointestinal: Gastrointestinal: Reports as per HPI and Reports no additional gastrointestinal complaints Genitourinary: Genitourinary: Reports no additional female genitourinary complaints and Reports as per HPI Musculoskeletal: Musculoskeletal: Reports no additional musculoskeletal complaints, Reports as per HPI and Reports back pain Comments: chronic low pain. Integumentary/Breasts: Skin/Breast: Reports system reviewed and no additional complaints, except as docu and Reports as per HPI Comments: Bruising right forearm Neurologic: Reports system reviewed and no additional complaints, except as documented and Reports as per HPI Psychiatric: Psychiatric: Reports no additional psychiatr
[2022-08-17] MEDS: ACETAMINOPHEN 500 MG TABLET 1000 MG PO (23:45)
[2022-08-18 00:06] VITALS: BP 110/76; PULSE 75; RESP 20; O2SAT 98
== END 2022-08-18 00:07 | disposition home or self-care (01) ==
PROVIDERS: Emergency Provider Internal Medicine Critical Care Medicine; PCP Internal Medicine
DX: S09.90XA Unspecified injury of head, initial encounter (principal); S50.11XA Contusion of right forearm, initial encounter; I10 Essential (primary) hypertension; E03.9 Hypothyroidism, unspecified; J44.9 Chronic obstructive pulmonary disease, unspecified; I48.91 Unspecified atrial fibrillation; Z99.81 Dependence on supplemental oxygen; Z79.01 Long term (current) use of anticoagulants; Z79.891 Long term (current) use of opiate analgesic; Z86.711 Personal history of pulmonary embolism; Z87.891 Personal history of nicotine dependence; W18.30XA Fall on same level, unspecified, initial encounter; Y92.009 Unspecified place in unspecified non-institutional (private) residence as the place of occurrence of the external cause
CPT/HCPCS: 70450; 72125; 99284

== ENCOUNTER 2022-09-05 13:24 | Emergency (ER) | payer MEDICARE, MEDICAID, SELFPAY ==
--- NOTE | ~2022-09-05 | XR_ITS ---
EXAMINATION: XR ribs LT 2V DATE: 09/05/2022 14:02 INDICATION: Left rib pain. Fall. TECHNIQUE: 2 views of the left ribs on 4 radiographs were obtained. COMPARISON: Chest 2 views 05/01/2022, chest CT 06/14/2020 FINDINGS: There is no left-sided pneumonia, pleural effusion, or pneumothorax. Cardiomegaly is noted. Epidural electrodes are noted. IMPRESSION: 1. No rib fracture. 2. Cardiomegaly. Reviewed, dictated and finalized at location [facility].
--- NOTE | ~2022-09-05 | CT_ITS ---
EXAMINATION: CT brain wo con DATE: 09/05/2022 13:52 INDICATION: Head injury. TECHNIQUE: Computed tomography (CT) of the head was performed without intravenous contrast. The mA wa s adjusted according to patient size. Iterative reconstruction technique was employed. The dose-lengt h product was 605.33 mGy-cm. COMPARISON: Head CT 08/17/2022 FINDINGS: There is no intracranial hemorrhage, acute infarction, or abnormal intracranial mass lesion . There are scattered areas of low attenuation in the cerebral white matter, which is within normal l imits for the patient's age. The ventricles are normal in size. There is mild mucosal thickening in t he ethmoid sinuses. There are likely changes of ocular lens replacement surgeries. The mastoid air ce lls are normal. IMPRESSION: 1. Normal aging brain. Reviewed, dictated and finalized at location A. IMPRESSION: 1. Normal aging brain.
[2022-09-05 13:29] VITALS: BP 143/75; PULSE 88; RESP 18; TEMP 36.8; O2SAT 100
[2022-09-05 13:38] LABS: Appearance Urine Slightly Cloudy (Clear); Bilirubin Urine Negative (Negative); Blood Urine 1+ (Negative); Color Urine Light Yellow (Yellow); Glucose Urine UA Negative (Negative); Ketones Urine Negative (Negative); Leukocyte Esterase Ur 3+ LEU/UL (Negative); Nitrate Urine Positive (Negative); Protein Urine Negative (Negative); Urobilinogen Urine 0.2 mg/dL (0.2-1.0); pH Urine 6.5 (5.0-8.0)
[2022-09-05 13:43] LABS: Add Urine Microscopic? YES; Bacteria Urine 2+ /hpf; Squamous Epithelial Cell Urine Few /hpf (Few); WBC Urine 31-50 /hpf (0-3)
[2022-09-05] MEDS: ACETAMINOPHEN 325 MG TABLET 650 MG PO (14:08)
--- NOTE | 2022-09-05 14:25 | ED.FALL ---
HPI - Fall General Chief Complaint: Fall Stated Complaint: fall Source: patient Mode of arrival: ambulatory Limitations: no limitations History of Present Illness HPI Narrative: this is a 72-year-old female presents with her daughter after she fell out of bed last night causing a a bump on the head is late at night apparently no loss of consciousness, went right back to bed and when she woke up this morning she had a headache, has some left-sided rib pain not sure if that was from the fall, with no bruising mild tenderness with palpation no shortness of breath no nausea vomiting no blurry vision. The patient does have a history of atrial fibrillation is currently on Eliquis. There is no chest pain no shortness of breath no abdominal pain, the patient does state that she thinks she may have a urinary tract infection, with some mild dysuria no hematuria no flank pain no fever chills. MD complaint: fall Onset (ago): day(s) Fall from: out of bed Fall witnessed: no Place fall occurred: home Loss of consciousness: none Prolonged down time: no Symptoms prior to fall: none Related Data Home Medications Medication Instructions Recorded Confirmed budesonide-formoterol HFA 80 2 puff inhalation Q12H 07/11/20 09/05/22 mcg-4.5 mcg/actuation aerosol inhaler (Symbicort) docusate sodium 50 mg capsule 50 mg PO TID PRN Constipation 07/11/20 09/05/22 (Stool Softener) mv-mn-iron 22.5 mg-folic ac 400 1 tablet PO DAILY 07/11/20 09/05/22 mcg-vit K 500 uju-bnje-N06 chew tablet (DEKAs Bariatric) vit B12 50 mcg-iodine 75 mcg-mag 1 cap PO DAILY 07/11/20 09/05/22 100 og-crgf-rktupasy-herb 193 capsule omeprazole 20 mg tablet,delayed 20 mg PO BID 04/01/21 09/05/22 release ondansetron HCl 4 mg tablet 4 mg PO Q8H PRN Nausea 04/01/21 09/05/22 vitamin B complex (B 1 tablet PO DAILY 04/01/21 09/05/22 Complex-Vitamin B12 tablet) albuterol sulfate 2.5 mg/0.5 mL 2.5 mg inhalation BID 03/29/22 09/05/22 solution for nebulization apixaban 5 mg tablet (Eliquis) 5 mg PO BID 03/29/22 09/05/22 duloxetine 20 mg capsule,delayed 20 mg PO DAILY 03/29/22 09/05/22 release flecainide 100 mg tablet 100 mg PO BID 03/29/22 09/05/22 hydrocodone 5 mg-acetaminophen 325 1 tablet PO Q8H PRN Agitation 03/29/22 09/05/22 mg tablet metoprolol succinate 25 mg 25 mg PO DAILY 03/29/22 09/05/22 tablet,extended release 24 hr tizanidine 2 mg tablet 2 mg PO Q8H 03/29/22 09/05/22 famotidine 40 mg tablet 40 mg PO DAILY 08/17/22 09/05/22 Allergies Allergy/AdvReac Type Severity Reaction Status Date / Time Sulfa (Sulfonamide Allergy Unknown HIVES AND Verified 05/01/22 09:15 Antibiotics) ITCHING Review of Systems Review of Systems: All systems reviewed & are unremarkable except as noted in HPI and below PMFSH Past Medical History Medical History HTN (hypertension) Hypothyroidism Morbid obesity Nerve entrapment syndrome of lower extremity Surgery to repair foot drop on the right leg after right knee surgery Neuropathy Overactive bladder Surgical History Surgical History H/O bilateral cataract extraction History of appendectomy History of carpal tunnel release History of total knee arthroplasty Hx of cholecystectomy S/P tonsillectomy and adenoidectomy Family History Family History Father Hypertension Family history of renal failure Diabetes mellitus Mother Asthma Other Cerebrovascular accident Family history of alcoholism Family history of arthritis Family history of blood dyscrasia Family history of coronary artery disease Family history of lung disease Family history of malignant neoplasm Family history of mental disorder Social History Social History Social History: The patient stated that she never
[2022-09-05] MEDS: cefTRIAXone 1 GM, LIDOCAINE HCL 1% LOCAL INJ 2.1 ML IM (14:27)
[2022-09-05 14:36] VITALS: BP 128/71; PULSE 88; RESP 18; TEMP 36.8; O2SAT 97
--- NOTE | 2022-09-08 12:44 | PC.NURSE ---
FINAL URINE CULTURE RESULTS: GREATER THAN 100,000 FU/ML OF ESCHERICHIA COLI. PT WAS GIVEN RX FOR MACROBID. NO FURTHER TX NEEDED PER CULTURE AND SENSITIVITIES AND DR CARVER.
== END 2022-09-05 14:52 | disposition home or self-care (01) ==
PROVIDERS: Emergency Provider Emergency Medicine; PCP Internal Medicine
DX: N39.0 Urinary tract infection, site not specified (principal); I48.20 Chronic atrial fibrillation, unspecified; I10 Essential (primary) hypertension; E03.9 Hypothyroidism, unspecified; G62.9 Polyneuropathy, unspecified; E66.01 Morbid (severe) obesity due to excess calories; Z79.01 Long term (current) use of anticoagulants; Z96.659 Presence of unspecified artificial knee joint; Z87.891 Personal history of nicotine dependence
CPT/HCPCS: 70450; 71100; 81001; 87077; 87086; 87088; 87186; 96372; 99284; A9270; J0696

== ENCOUNTER 2022-10-19 08:30 | Outpatient (CLI) | payer MEDICARE, MEDICAID, SELFPAY ==
--- NOTE | ~2022-10-19 | CT_ITS ---
EXAMINATION: CT abdomen pelvis wo/w con DATE: 10/19/2022 09:46 INDICATION: Left adrenal mass. TECHNIQUE: Computed tomography (CT) of the abdomen and pelvis was performed without and with 100 mL O mnipaque 350 intravenous contrast. Automated exposure control and iterative reconstruction technique were employed. The dose-length product was 3304.14 mGy-cm. COMPARISON: CT abdomen 01/14/2016 FINDINGS: The visualized portions of the lung bases demonstrate mild atelectasis and chronic lung dis ease. A calcified right lung nodule and calcified right hilar lymph nodes are consistent with old gra nulomatous disease. No pleural effusion. Cardiomegaly is noted. No pericardial effusion. There is a s mall sliding hiatal hernia. There are changes of gastric sleeve procedure. The liver is normal. The g allbladder is absent. Calcifications in the spleen are consistent with old granulomatous disease. The pancreas and right adrenal gland are normal. There is a 3.9 cm mass in left adrenal gland that measu red 3.6 cm on 01/14/2016. Precontrast, postcontrast, and 15 minute delayed postcontrast images demonstr ate an absolute washout of 78% and a relative washout of 56%, consistent with an adenoma. There is co rtical thinning of right kidney. There is a 4 mm stone in right kidney. Left kidney is normal. There is diverticulosis of the colon without evidence of diverticulitis. There are no dilated loops of krystian l. The appendix is not visualized. There is calcified atherosclerosis of the aorta and many of the ot her arteries. There is a left inguinal hernia containing fat. There are no pathologically enlarged ly mph nodes. There is no free intraperitoneal fluid. Epidural electrodes are noted. There is severe tho racic and lumbar spondylosis. IMPRESSION: 1. 3.9 cm left adrenal adenoma, stable from 01/14/2016. Reviewed, dictated and finalized at location A.
[2022-10-19 08:56] LABS: Estimated Glomerular Filt Rate > 60
== END 2022-10-19 08:31 | disposition home or self-care (01) ==
LOC: CHSIMG 08:31
PROVIDERS: PCP Internal Medicine; Visit Provider Internal Medicine
DX: E27.8 Other specified disorders of adrenal gland (principal)
CPT/HCPCS: 74178; Q9967

== ENCOUNTER 2023-01-26 12:05 | Outpatient (CLI) | payer MEDICARE, MEDICAID, SELFPAY ==
--- NOTE | ~2023-01-26 | XR_ITS ---
XR knee LT 3V 01/26/2023 12:24 Indication: Left knee pain Procedure: 3 views left knee Comparison: 10/29/2016 Findings: Moderate osteoarthritis of the left knee. Osteopenia. No fracture or traumatic malalignment . Osteopenia. Impression: 1: Moderate osteoarthritis of the left knee. Reviewed, dictated and finalized at location L. Impression: 1: Moderate osteoarthritis of the left knee.
== END 2023-01-26 12:06 | disposition home or self-care (01) ==
LOC: CHSIMG 12:07
PROVIDERS: PCP Internal Medicine; Visit Provider Internal Medicine
DX: M17.12 Unilateral primary osteoarthritis, left knee (principal)
CPT/HCPCS: 73562

== ENCOUNTER 2023-03-24 13:36 | Outpatient (CLI) | payer MEDICARE, MEDICAID, SELFPAY ==
--- NOTE | ~2023-03-24 | XR_ITS ---
EXAMINATION: XR wrist RT min 3V DATE: 03/24/2023 13:59 INDICATION: Right wrist pain post fall one month prior TECHNIQUE: Posteroanterior, ulnar deviation, oblique, and lateral views of the right wrist were obtai chey. COMPARISON: Right hand radiographs dated 03/15/2017 FINDINGS: Alignment is normal. No fracture. Mild osteoarthritis at the distal radioulnar, wrist, triscaphe, fir st carpometacarpal and first metacarpophalangeal joints. Soft tissues are unremarkable. IMPRESSION: 1. Mild polyarticular osteoarthritis at the right hand and wrist. Reviewed, dictated and finalized at location A.
== END 2023-03-24 13:37 | disposition home or self-care (01) ==
LOC: CHSIMG 13:39
PROVIDERS: PCP Internal Medicine; Visit Provider Internal Medicine
DX: S69.91XA Unspecified injury of right wrist, hand and finger(s), initial encounter (principal); M19.031 Primary osteoarthritis, right wrist
CPT/HCPCS: 73110

== ENCOUNTER 2023-04-09 12:10 | Emergency (ER) | payer MEDICARE, MEDICAID, SELFPAY ==
--- NOTE | ~2023-04-09 | XR_ITS ---
EXAMINATION: XR chest 2V DATE: 04/09/2023 12:20 INDICATION: Cough. TECHNIQUE: Frontal and lateral views of the chest were obtained. COMPARISON: Chest 2 views 05/01/2022, CT abdomen and pelvis 10/19/2022 FINDINGS: There is no pneumonia, pleural effusion, pneumothorax. Cardiomegaly is noted. Electrodes ov erlie thoracic spine. IMPRESSION: 1. Cardiomegaly. Reviewed, dictated and finalized at location E. IMPRESSION: 1. Cardiomegaly.
[2023-04-09 12:16] VITALS: BP 187/97; PULSE 77; RESP 20; TEMP 36.7; O2SAT 94
--- NOTE | 2023-04-09 12:16 | ECG_ITS ---
Measurements Intervals [place] Rate: 62 P: 57 CT: 198 QRS: -36 QRSD: 130 T: 23 QT: 429 QTc: 438 Interpretive Statements SINUS RHYTHM LEFT AXIS DEVIATION INCOMPLETE RIGHT BUNDLE BRANCH BLOCK DELAYED PRECORDIAL R/S TRANSITION LEFT VENTRICULAR HYPERTROPHY BASELINE ARTIFACT- II, III, AVR, AVL, AVF, V5-V6 BORDERLINE ECG COMPARED TO ECG 05/18/2022 10:48:22 SINUS RHYTHM NOW PRESENT LEFT-AXIS DEVIATION NOW PRESENT Electronically Signed On 04-09-2023 13:55:53 CDT by Ronnie Schmidt D.O.
--- NOTE | 2023-04-09 12:19 | ED.URI ---
HPI - URI/Sore Throat General Chief Complaint: Upper Respiratory Infection Stated Complaint: cough sore throat Time Seen by Provider: 04/09/23 12:13 Source: patient Mode of arrival: ambulatory Limitations: no limitations History of Present Illness HPI Narrative: patient is 73-year-old female with cough for the past 2 weeks. She has a back stimulator but still having worse back pain after all the coughing. No chest pain but slight shortness of breath. She has COPD and CHF and asthma. History of AFib. MD elicited complaint: cough, sore throat and nasal congestion Pertinent past history: COPD and asthma Onset (ago): week(s) (2) Consistency: constant Severity: moderate Pain scale (0-10): 5 Description of mucous: clear and yellow Able to tolerate fluids by mouth: Yes Exacerbating factors: nothing Relieving factors: nothing Associated symptoms: nasal congestion, sore throat, cough and shortness of breath Treatments prior to arrival: acetaminophen and ibuprofen Related Data Home Medications Medication Instructions Recorded Confirmed budesonide-formoterol HFA 80 2 puff inhalation Q12H 07/11/20 04/09/23 mcg-4.5 mcg/actuation aerosol inhaler (Symbicort) docusate sodium 50 mg capsule 50 mg PO TID PRN Constipation 07/11/20 04/09/23 (Stool Softener) mv-mn-iron 22.5 mg-folic ac 400 1 tablet PO DAILY 07/11/20 04/09/23 mcg-vit K 500 [id number] chew tablet (DEKAs Bariatric) vit B12 50 mcg-iodine 75 mcg-mag 1 cap PO DAILY 07/11/20 04/09/23 100 hi-xdla-[id number]-herb 193 capsule omeprazole 20 mg tablet,delayed 20 mg PO BID 04/01/21 04/09/23 release ondansetron HCl 4 mg tablet 4 mg PO Q8H PRN Nausea 04/01/21 04/09/23 vitamin B complex (B 1 tablet PO DAILY 04/01/21 04/09/23 Complex-Vitamin B12 tablet) albuterol sulfate 2.5 mg/0.5 mL 2.5 mg inhalation BID 03/29/22 04/09/23 solution for nebulization apixaban 5 mg tablet (Eliquis) 5 mg PO BID 03/29/22 04/09/23 duloxetine 20 mg capsule,delayed 20 mg PO DAILY 03/29/22 04/09/23 release flecainide 100 mg tablet 100 mg PO BID 03/29/22 04/09/23 hydrocodone 5 mg-acetaminophen 325 1 tablet PO Q8H PRN Agitation 03/29/22 04/09/23 mg tablet metoprolol succinate 25 mg 25 mg PO DAILY 03/29/22 04/09/23 tablet,extended release 24 hr tizanidine 2 mg tablet 2 mg PO Q8H 03/29/22 04/09/23 famotidine 40 mg tablet 40 mg PO DAILY 08/17/22 04/09/23 Allergies Allergy/AdvReac Type Severity Reaction Status Date / Time Sulfa (Sulfonamide Allergy Unknown HIVES AND Verified 04/09/23 12:33 Antibiotics) ITCHING Review of Systems Review of Systems: All systems reviewed & are unremarkable except as noted in HPI and below Constitutional: Constitutional: Reports no additional constitutional complaints Eyes: Eyes: Reports no additional eye complaints ENT: Reports system reviewed and no additional complaints, except as documented Cardiovascular: Cardiovascular: Reports no additional cardiovascular complaints Respiratory: Respiratory: Reports no additional respiratory complaints Gastrointestinal: Gastrointestinal: Reports no additional gastrointestinal complaints Genitourinary: Genitourinary: Reports no additional female genitourinary complaints Musculoskeletal: Musculoskeletal: Reports no additional musculoskeletal complaints Integumentary/Breasts: Skin/Breast: Reports system reviewed and no additional complaints, except as docu Neurologic: Reports system reviewed and no additional complaints, except as documented Psychiatric: Psychiatric: Reports no additional psychiatric complaints Endocrine: Endocrine: Reports no additional endocrine complaints Hematologic/Lymphatic: Hematologic/Lymphatic: Reports no additional hematologic/lymphatic complaints Allergic/Immunologic: Allergic/Immunologic: Reports no additional allergic/immunologic complaints PMFSH Past Medical History Medical History HTN (hypertension) Hypo
[2023-04-09 12:28] VITALS: O2SAT 94
[2023-04-09 12:39] LABS: Basophils Absolute Auto 0.05 K/mm3 (0.00-0.10); Basophils Percent Auto 1.1 % (0.0-1.0); Eosinophils Absolute Auto 0.14 K/mm3 (0.02-0.50); Hematocrit 40.8 % (35.0-42.0); Hemoglobin 13.3 g/dL (11.7-13.8); Immature Granulocyte Absolute 0.02 K/mm3 (0.00-0.00); Immature Granulocyte Percent A 0.4 % (0.0-0.0); Lymphocytes Absolute Auto 1.05 K/mm3 (1.10-4.50); Lymphocytes Percent Auto 22.4 % (18.0-42.0); Mean Corpuscular HGB Conc 32.6 g/dL (32.0-36.0); Mean Corpuscular Hemoglobin 30.4 pg (27.0-31.0); Mean Corpuscular Volume 93.2 fL (78.0-102.0); Mean Platelet Volume 9.9 fl (9.2-11.8); Monocytes Absolute Auto 0.53 K/mm3 (0.10-0.90); Monocytes Percent Auto 11.3 % (2.0-11.0); Neutrophils Absolute Auto 2.9 K/mm3 (1.7-7.2); Neutrophils Percent Auto 61.8 % (50.0-70.0); Platelet Count Result 289 K/mm3 (150-420); Red Blood Count 4.38 M/mm3 (4.20-5.40); Red Cell Distribution Width 13.5 % (11.6-14.4); White Blood Count 4.7 K/mm3 (4.8-10.8)
[2023-04-09 12:49] LABS: Appearance Urine Clear (Clear); Bilirubin Urine Negative (Negative); Blood Urine Negative (Negative); Color Urine Light Yellow (Yellow); Glucose Urine UA Negative (Negative); Ketones Urine Negative (Negative); Leukocyte Esterase Ur 1+ LEU/UL (Negative); Nitrate Urine Negative (Negative); Protein Urine Negative (Negative); Specific Grav Ur 1.015 (1.010-1.020)
[2023-04-09 12:55] LABS: Add Urine Microscopic? YES; Bacteria Urine Trace /hpf; RBC Urine None seen /hpf (0-2); Squamous Epithelial Cell Urine Occasional /hpf (Few); WBC Urine 0-5 /hpf (0-3)
[2023-04-09 12:57] LABS: Lactic Acid Reflex 1.5 mmol/L (0.4-2.0); Partial Thromboplastin Time 31.2 SEC (23.90-30.70); Prothrombin Time 11.3 Seconds (9.50-12.10)
[2023-04-09 13:07] LABS: Alanine Aminotransferase 18 U/L (14-59); Alkaline Phosphatase 84 U/L (46-116); Anion Gap 7 mmol/L (8-16); Aspartate Amino Transferase 11 U/L (15-37); Bilirubin,Total 0.5 mg/dL (0.00-1.00); Blood Urea Nitrogen 12 mg/dL (7-18); Calcium 9.5 mg/dL (8.5-10.1); Carbon Dioxide 31 mmol/L (21-32); Chloride 103 mmol/L (98-108); Estimated CRCL calculation 75 ml/min; Estimated Glomerular Filt Rate > 60; Glucose 91 mg/dL (70-99); NT Pro B Type Natriuretic Pept 108 pg/mL (0-450); Osmolality Calculated 291 mOsm/kg (285-295); Potassium 3.8 mmol/L (3.5-5.1); Sodium 141 mmol/L (136-145); Total Protein 7.1 g/dL (6.4-8.2)
[2023-04-09 13:08] LABS: Troponin I 9.8 ng/L (0.00-60.4)
[2023-04-09 13:12] LABS: Strep Group A RT-PCR Not Detected (Negative)
[2023-04-09 13:18] LABS: Influenza A QL RT-PCR Negative (Negative); Influenza B QL RT-PCR Negative (Negative); SARS-CoV-2 RNA PCR Negative (Negative)
[2023-04-09 13:20] LABS: RSV RNA, RT-PCR Negative (Negative)
[2023-04-09 13:34] VITALS: BP 183/82; PULSE 58; RESP 20; TEMP 36.7; O2SAT 100
--- NOTE | 2023-04-11 13:39 | PC.NURSE ---
cultures reviewed blood no growth, urine, no growth
--- NOTE | 2023-04-15 13:28 | PC.NURSE ---
final blood culture report reviewed. no growth after 5 days. no change in plan of care.
== END 2023-04-09 13:38 | disposition home or self-care (01) ==
PROVIDERS: Emergency Provider Emergency Medicine; PCP Internal Medicine
DX: B34.9 Viral infection, unspecified (principal); J44.9 Chronic obstructive pulmonary disease, unspecified; I11.0 Hypertensive heart disease with heart failure; I50.9 Heart failure, unspecified; E03.9 Hypothyroidism, unspecified; G58.9 Mononeuropathy, unspecified; Z87.891 Personal history of nicotine dependence; Z79.51 Long term (current) use of inhaled steroids; Z79.891 Long term (current) use of opiate analgesic; Z79.01 Long term (current) use of anticoagulants; Z20.822 Contact with and (suspected) exposure to COVID-19
CPT/HCPCS: 36415; 71046; 80053; 81001; 83605; 83880; 84484; 85025; 85610; 85730; 87040; 87086; 87637; 87651; 93005; 99284

== ENCOUNTER 2023-04-18 08:00 | Emergency (ER) | payer MEDICARE, MEDICAID, SELFPAY ==
--- NOTE | ~2023-04-18 | CT_ITS ---
EXAMINATION: CT brain wo con DATE: 04/18/2023 08:53 INDICATION: Headache. TECHNIQUE: Computed tomography (CT) of the head was performed without intravenous contrast. The mA wa s adjusted according to patient size. Iterative reconstruction technique was employed. The dose-lengt h product was 681.00 mGy-cm. COMPARISON: Head CT 09/05/2022 FINDINGS: There are scattered areas of low attenuation in the cerebral white matter, which is within normal limits for the patient's age. There is no intracranial hemorrhage, acute infarction, or abnorm al intracranial mass lesion. The ventricles are normal in size. There are likely changes of ocular le ns replacement surgeries. The paranasal sinuses are clear. The mastoid air cells are normal. IMPRESSION: 1. Normal aging brain. Reviewed, dictated and finalized at location E. RY ENVELOPE MACHINE OPERATOR IMPRESSION: 1. Normal aging brain.
--- NOTE | ~2023-04-18 | XR_ITS ---
EXAMINATION: XR forearm RT 2V DATE: 04/18/2023 08:53 INDICATION: Right forearm injury. TECHNIQUE: 2 views of right forearm were obtained. COMPARISON: None. FINDINGS: Bone alignment is normal. No fracture. There is mild elbow joint osteoarthritis. No elbow j oint effusion. IMPRESSION: 1. Mild elbow joint osteoarthritis. Reviewed, dictated and finalized at location E. RTAKER ASSISTANT
--- NOTE | ~2023-04-18 | XR_ITS ---
EXAMINATION: XR humerus RT DATE: 04/18/2023 08:54 INDICATION: Right upper arm pain. Fall. TECHNIQUE: 2 views of right humerus on 4 radiographs were obtained. COMPARISON: None. FINDINGS: Bone alignment is normal. No fracture. There is mild osteoarthritis of the elbow joint. The re is moderate osteoarthritis of acromioclavicular joint and glenohumeral joint. IMPRESSION: 1. Polyarticular osteoarthritis. Reviewed, dictated and finalized at location E. SVERSE ABDOMINAL MUSCLE NURSE
[2023-04-18 08:12] VITALS: BP 158/93; PULSE 63; RESP 18; TEMP 35.8; O2SAT 99
--- NOTE | 2023-04-18 08:19 | ECG_ITS ---
Measurements Intervals [place] Rate: 56 P: 79 ID: [id number] QRS: -28 QRSD: 123 T: 27 QT: 458 QTc: 445 Interpretive Statements SINUS BRADYCARDIA INCOMPLETE RIGHT BUNDLE BRANCH BLOCK VOLTAGE CRITERIA FOR LVH BASELINE ARTIFACT- I, II, III, AVR, AVL, AVF, V1 BORDERLINE ECG COMPARED TO ECG 04/09/2023 12:56:03 SINUS BRADYCARDIA NOW PRESENT Electronically Signed On 04-18-2023 12:14:33 EQUITY RESEARCH ASSOCIATE by Ronnie Schmidt D.O.
--- NOTE | 2023-04-18 08:19 | ED.FALL ---
HPI - Fall General Chief Complaint: Wound/Laceration Stated Complaint: skin tear Time Seen by Provider: 04/18/23 08:08 Source: patient and family Mode of arrival: ambulatory Limitations: no limitations History of Present Illness HPI Narrative: 72-year-old female with history of obesity, chronic pain status post nerve stimulator, anxiety, hypertension, hypothyroidism, COPD/asthma intermittent home oxygen use, pulmonary embolism,? atrial fibrillation s/p ablation on? Eliquis and metoprolol, presents to ER with family after falling off her bed this morning. Said she was trying to talk to her grand kids and accidentally rolled off the bed, landing on her right side, also hit her head. Denied pain at the moment. Has some lacerations in her RUE. Denied any dizziness, loss of consciousness before the fall. Said she has no acute change in her health recently. complaint: fall Onset (ago): hour(s) Fall from: out of bed Fall witnessed: yes, by family Place fall occurred: home Loss of consciousness: none Prolonged down time: no Symptoms prior to fall: none Context: tripped/slipped Location of injury: head Location of injury - extremities: Right: forearm Severity: moderate Severity scale (1-10): 5 Related Data Home Medications Medication Instructions Recorded Confirmed budesonide-formoterol HFA 80 2 puff inhalation Q12H 07/11/20 04/18/23 mcg-4.5 mcg/actuation aerosol inhaler (Symbicort) docusate sodium 50 mg capsule 50 mg PO TID PRN Constipation 07/11/20 04/18/23 (Stool Softener) mv-mn-iron 22.5 mg-folic ac 400 1 tablet PO DAILY 07/11/20 04/18/23 mcg-vit K 500 [id number] chew tablet (DEKAs Bariatric) vit B12 50 mcg-iodine 75 mcg-mag 1 cap PO DAILY 07/11/20 04/18/23 100 la-veyi-orvbcxmy-herb 193 capsule omeprazole 20 mg tablet,delayed 20 mg PO BID 04/01/21 04/18/23 release ondansetron HCl 4 mg tablet 4 mg PO Q8H PRN Nausea 04/01/21 04/18/23 vitamin B complex (B 1 tablet PO DAILY 04/01/21 04/18/23 Complex-Vitamin B12 tablet) albuterol sulfate 2.5 mg/0.5 mL 2.5 mg inhalation BID 03/29/22 04/18/23 solution for nebulization apixaban 5 mg tablet (Eliquis) 5 mg PO BID 03/29/22 04/18/23 duloxetine 20 mg capsule,delayed 20 mg PO DAILY 03/29/22 04/18/23 release flecainide 100 mg tablet 100 mg PO BID 03/29/22 04/18/23 hydrocodone 5 mg-acetaminophen 325 1 tablet PO Q8H PRN Agitation 03/29/22 04/18/23 mg tablet metoprolol succinate 25 mg 25 mg PO DAILY 03/29/22 04/18/23 tablet,extended release 24 hr tizanidine 2 mg tablet 2 mg PO Q8H 03/29/22 04/18/23 famotidine 40 mg tablet 40 mg PO DAILY 08/17/22 04/18/23 Allergies Allergy/AdvReac Type Severity Reaction Status Date / Time Sulfa (Sulfonamide Allergy Unknown HIVES AND Verified 04/18/23 08:12 Antibiotics) ITCHING Review of Systems Constitutional: Constitutional: Reports as per HPI and Reports no additional constitutional complaints Eyes: Eyes: Reports as per HPI and Reports no additional eye complaints ENT: Reports system reviewed and no additional complaints, except as documented and Reports as per HPI Cardiovascular: Cardiovascular: Reports as per HPI and Reports no additional cardiovascular complaints Respiratory: Respiratory: Reports as per HPI and Reports no additional respiratory complaints Gastrointestinal: Gastrointestinal: Reports as per HPI and Reports no additional gastrointestinal complaints Genitourinary: Genitourinary: Reports as per HPI Musculoskeletal: Musculoskeletal: Reports no additional musculoskeletal complaints and Reports as per HPI Integumentary/Breasts: Skin/Breast: Reports system reviewed and no additional complaints, except as docu and Reports as per HPI Neurologic: Reports system reviewed and no additional complaints, except as documented and Reports as per HPI Psychiatric: Psychiatric: Reports no additional psychiatric complaints and Reports as per HPI Endocrine: Endocrine: Reports no additional endocrine compl
[2023-04-18 08:35] LABS: Hematocrit 38.9 % (35.0-42.0); Hemoglobin 12.3 g/dL (11.7-13.8); Mean Corpuscular HGB Conc 31.6 g/dL (32.0-36.0); Mean Corpuscular Hemoglobin 29.5 pg (27.0-31.0); Mean Corpuscular Volume 93.3 fL (78.0-102.0); Mean Platelet Volume 10.1 fl (9.2-11.8); Platelet Count Result 270 K/mm3 (150-420); Red Blood Count 4.17 M/mm3 (4.20-5.40); Red Cell Distribution Width 13.7 % (11.6-14.4); White Blood Count 5.6 K/mm3 (4.8-10.8)
[2023-04-18 08:50] LABS: Alanine Aminotransferase 19 U/L (14-59); Albumin Level 2.9 g/dL (3.4-5.0); Alkaline Phosphatase 79 U/L (46-116); Anion Gap 2 mmol/L (8-16); Aspartate Amino Transferase 16 U/L (15-37); Bilirubin,Total 0.5 mg/dL (0.00-1.00); Blood Urea Nitrogen 10 mg/dL (7-18); Calcium 8.8 mg/dL (8.5-10.1); Carbon Dioxide 36 mmol/L (21-32); Chloride 104 mmol/L (98-108); Estimated CRCL calculation 68 ml/min; Estimated Glomerular Filt Rate > 60; Glucose 99 mg/dL (70-99); Osmolality Calculated 293 mOsm/kg (285-295); Potassium 3.7 mmol/L (3.5-5.1); Sodium 142 mmol/L (136-145); Total Protein 6.8 g/dL (6.4-8.2)
[2023-04-18 09:34] VITALS: BP 187/98; PULSE 54; RESP 16; TEMP 36.3; O2SAT 100
== END 2023-04-18 09:39 | disposition home or self-care (01) ==
PROVIDERS: Emergency Provider Emergency Medicine; PCP Internal Medicine
DX: S51.811A Laceration without foreign body of right forearm, initial encounter (principal); S09.90XA Unspecified injury of head, initial encounter; I10 Essential (primary) hypertension; E03.9 Hypothyroidism, unspecified; J44.9 Chronic obstructive pulmonary disease, unspecified; Z99.81 Dependence on supplemental oxygen; Z79.899 Other long term (current) drug therapy; Z79.01 Long term (current) use of anticoagulants; Z87.891 Personal history of nicotine dependence; W06.XXXA Fall from bed, initial encounter; Y92.009 Unspecified place in unspecified non-institutional (private) residence as the place of occurrence of the external cause
CPT/HCPCS: 36415; 70450; 73060; 73090; 80053; 85027; 93005; 99284

== ENCOUNTER 2023-05-06 08:05 | Outpatient (CLI) | payer MEDICARE, MEDICAID, SELFPAY ==
--- NOTE | ~2023-05-06 | XR_ITS ---
EXAMINATION: XR thoracic spine 2V DATE: 05/06/2023 08:29 INDICATION: Insertion of spinal cord stimulator. TECHNIQUE: 3 views of thoracic spine were obtained. COMPARISON: None. FINDINGS: There is 9 degrees dextrocurvature of thoracic spine. There is kyphosis of thoracic spine. There is decreased disc height at most levels, severe at many levels in the mid and lower thoracic sp ine. There are endplate osteophytes at most levels. Epidural electrodes are noted at T8. IMPRESSION: 1. Severe thoracic spondylosis. Reviewed, dictated and finalized at location A. RIBUTOR PUBLICATIONS
== END 2023-05-06 08:06 | disposition home or self-care (01) ==
LOC: CHSLAB 08:08
PROVIDERS: PCP Internal Medicine; Visit Provider Neurological Surgery
DX: Z96.89 Presence of other specified functional implants (principal); M43.04 Spondylolysis, thoracic region
CPT/HCPCS: 72070

== ENCOUNTER 2023-05-28 19:28 | Emergency (ER) | payer MEDICARE, MEDICAID, SELFPAY ==
--- NOTE | ~2023-05-28 | CT_ITS ---
EXAMINATION: CT brain wo con DATE: 05/28/2023 19:53 INDICATION: Injury/laceration at top of the head TECHNIQUE: Computed tomography (CT) of the head was performed without intravenous contrast. The mA wa s adjusted according to patient size. Iterative reconstruction technique was employed. Exam dose: 60 5.33 mGy-cm total exam DLP. COMPARISON: 04/18/2023 CT brain FINDINGS: No intracranial mass lesion or hemorrhage or cerebrovascular accident is detected. No midli ne shift or mass effect. Normal ventricular size. No subdural or epidural hematoma. No fracture or bone destruction of the cranial vault. IMPRESSION: No significant abnormality Reviewed, dictated and finalized at Location A. Reviewed, dictated and finalized at location A. IMPRESSION: No significant abnormality
--- NOTE | 2023-05-28 19:31 | ED.WOUNDLAC ---
HPI - Wound/Laceration General Chief Complaint: Wound/Laceration Stated Complaint: fall/lac Time Seen by Provider: 05/28/23 19:30 Source: patient and family Mode of arrival: ambulatory Limitations: no limitations History of Present Illness HPI narrative: patient is a 73-year-old female with a left frontal scalp laceration after hitting it on the cabinet. No loss of consciousness. Tetanus unclear last date. Patient is on Eliquis. Onset (ago): minute(s) (30) Location: scalp Place: home Patient tetanus UTD: No Context: accidental Associated symptoms: none Related Data Home Medications Medication Instructions Recorded Confirmed budesonide-formoterol HFA 80 2 puff inhalation Q12H 07/11/20 04/18/23 mcg-4.5 mcg/actuation aerosol inhaler (Symbicort) docusate sodium 50 mg capsule 50 mg PO TID PRN Constipation 07/11/20 04/18/23 (Stool Softener) mv-mn-iron 22.5 mg-folic ac 400 1 tablet PO DAILY 07/11/20 04/18/23 mcg-vit K 500 [id number] chew tablet (DEKAs Bariatric) vit B12 50 mcg-iodine 75 mcg-mag 1 cap PO DAILY 07/11/20 04/18/23 100 vo-pqho-woawmyic-herb 193 capsule omeprazole 20 mg tablet,delayed 20 mg PO BID 04/01/21 04/18/23 release ondansetron HCl 4 mg tablet 4 mg PO Q8H PRN Nausea 04/01/21 04/18/23 vitamin B complex (B 1 tablet PO DAILY 04/01/21 04/18/23 Complex-Vitamin B12 tablet) albuterol sulfate 2.5 mg/0.5 mL 2.5 mg inhalation BID 03/29/22 04/18/23 solution for nebulization apixaban 5 mg tablet (Eliquis) 5 mg PO BID 03/29/22 04/18/23 duloxetine 20 mg capsule,delayed 20 mg PO DAILY 03/29/22 04/18/23 release flecainide 100 mg tablet 100 mg PO BID 03/29/22 04/18/23 hydrocodone 5 mg-acetaminophen 325 1 tablet PO Q8H PRN Agitation 03/29/22 04/18/23 mg tablet metoprolol succinate 25 mg 25 mg PO DAILY 03/29/22 04/18/23 tablet,extended release 24 hr tizanidine 2 mg tablet 2 mg PO Q8H 03/29/22 04/18/23 famotidine 40 mg tablet 40 mg PO DAILY 08/17/22 04/18/23 Allergies Allergy/AdvReac Type Severity Reaction Status Date / Time Sulfa (Sulfonamide Allergy Unknown HIVES AND Verified 05/28/23 19:47 Antibiotics) ITCHING Review of Systems Review of Systems: All systems reviewed & are unremarkable except as noted in HPI and below Constitutional: Constitutional: Reports no additional constitutional complaints Eyes: Eyes: Reports no additional eye complaints ENT: Reports system reviewed and no additional complaints, except as documented Cardiovascular: Cardiovascular: Reports no additional cardiovascular complaints Respiratory: Respiratory: Reports no additional respiratory complaints Gastrointestinal: Gastrointestinal: Reports no additional gastrointestinal complaints Genitourinary: Genitourinary: Reports no additional female genitourinary complaints Musculoskeletal: Musculoskeletal: Reports no additional musculoskeletal complaints Integumentary/Breasts: Skin/Breast: Reports system reviewed and no additional complaints, except as docu Neurologic: Reports system reviewed and no additional complaints, except as documented Psychiatric: Psychiatric: Reports no additional psychiatric complaints Endocrine: Endocrine: Reports no additional endocrine complaints Hematologic/Lymphatic: Hematologic/Lymphatic: Reports no additional hematologic/lymphatic complaints Allergic/Immunologic: Allergic/Immunologic: Reports no additional allergic/immunologic complaints PMFSH Past Medical History Medical History HTN (hypertension) Hypothyroidism Morbid obesity Nerve entrapment syndrome of lower extremity Surgery to repair foot drop on the right leg after right knee surgery Neuropathy Overactive bladder Surgical History Surgical History H/O bilateral cataract extraction History of appendectomy History of carpal tunnel release History of total knee arthroplasty Hx of cholecyst
[2023-05-28] MEDS: TETANUS,DIPHTHERIA,AC PERTUSSIS ADULT 0.5 ML (ADACEL) IM (19:36)
[2023-05-28 19:43] VITALS: BP 142/78; PULSE 57; RESP 20; TEMP 36.4; O2SAT 96
== END 2023-05-28 20:32 | disposition home or self-care (01) ==
LOC: CHSED 20:14
PROVIDERS: Emergency Provider Emergency Medicine; PCP Internal Medicine
DX: S01.01XA Laceration without foreign body of scalp, initial encounter (principal); I10 Essential (primary) hypertension; E03.9 Hypothyroidism, unspecified; Z87.891 Personal history of nicotine dependence; Z23 Encounter for immunization; W45.8XXA Other foreign body or object entering through skin, initial encounter; Y92.009 Unspecified place in unspecified non-institutional (private) residence as the place of occurrence of the external cause
CPT/HCPCS: 12002; 70450; 90471; 90715; 99284

== ENCOUNTER 2023-09-07 16:59 | Emergency (ER) | payer MEDICARE, MEDICAID, SELFPAY ==
[2023-09-07 17:04] VITALS: BP 167/79; PULSE 84; RESP 18; TEMP 36.9; O2SAT 100
--- NOTE | 2023-09-07 17:04 | ED.SKABFB ---
HPI - Skin/Abscess/Foreign Bdy General Chief complaint: Skin/Abscess/Foreign Body Stated complaint: L finger lacerations Time Seen by Provider: 09/07/23 17:03 Source: patient Mode of arrival: ambulatory Limitations: no limitations History of Present Illness HPI narrative: Patient is a 73-year-old female with left ring finger laceration after cutting meat for the freezer. Tetanus shot up-to-date. complaint: laceration Onset (ago): minute(s) (30) Tetanus up to date: yes Location: L hand ( Ring finger palmar surface) Severity: mild Severity scale (1-10): 1 Quality: aching Pain Consistency: intermittent Relieving factors: none Exacerbating factors: none Context: none Associated symptoms: denies other symptoms Treatments prior to arrival: none Related Data Home Medications Medication Instructions Recorded Confirmed budesonide-formoterol HFA 80 2 puff inhalation Q12H 07/11/20 04/18/23 mcg-4.5 mcg/actuation aerosol inhaler (Symbicort) docusate sodium 50 mg capsule 50 mg PO TID PRN Constipation 07/11/20 04/18/23 (Stool Softener) mv-mn-iron 22.5 mg-folic ac 400 1 tablet PO DAILY 07/11/20 04/18/23 mcg-vit K 500 [id number] chew tablet (DEKAs Bariatric) vit B12 50 mcg-iodine 75 mcg-mag 1 cap PO DAILY 07/11/20 04/18/23 100 zh-iqfj-mtmvafcs-herb 193 capsule omeprazole 20 mg tablet,delayed 20 mg PO BID 04/01/21 04/18/23 release ondansetron HCl 4 mg tablet 4 mg PO Q8H PRN Nausea 04/01/21 04/18/23 vitamin B complex (B 1 tablet PO DAILY 04/01/21 04/18/23 Complex-Vitamin B12 tablet) albuterol sulfate 2.5 mg/0.5 mL 2.5 mg inhalation BID 03/29/22 04/18/23 solution for nebulization apixaban 5 mg tablet (Eliquis) 5 mg PO BID 03/29/22 04/18/23 duloxetine 20 mg capsule,delayed 20 mg PO DAILY 03/29/22 04/18/23 release flecainide 100 mg tablet 100 mg PO BID 03/29/22 04/18/23 hydrocodone 5 mg-acetaminophen 325 1 tablet PO Q8H PRN Agitation 03/29/22 04/18/23 mg tablet metoprolol succinate 25 mg 25 mg PO DAILY 03/29/22 04/18/23 tablet,extended release 24 hr tizanidine 2 mg tablet 2 mg PO Q8H 03/29/22 04/18/23 famotidine 40 mg tablet 40 mg PO DAILY 08/17/22 04/18/23 Allergies Allergy/AdvReac Type Severity Reaction Status Date / Time Sulfa (Sulfonamide Allergy Unknown HIVES AND Verified 09/07/23 17:06 Antibiotics) ITCHING Review of Systems Review of Systems: All systems reviewed & are unremarkable except as noted in HPI and below Constitutional: Constitutional: Reports no additional constitutional complaints Eyes: Eyes: Reports no additional eye complaints ENT: Reports system reviewed and no additional complaints, except as documented Cardiovascular: Cardiovascular: Reports no additional cardiovascular complaints Respiratory: Respiratory: Reports no additional respiratory complaints Gastrointestinal: Gastrointestinal: Reports no additional gastrointestinal complaints Genitourinary: Genitourinary: Reports no additional female genitourinary complaints Musculoskeletal: Musculoskeletal: Reports no additional musculoskeletal complaints Integumentary/Breasts: Skin/Breast: Reports system reviewed and no additional complaints, except as docu Neurologic: Reports system reviewed and no additional complaints, except as documented Psychiatric: Psychiatric: Reports no additional psychiatric complaints Endocrine: Endocrine: Reports no additional endocrine complaints Hematologic/Lymphatic: Hematologic/Lymphatic: Reports no additional hematologic/lymphatic complaints Allergic/Immunologic: Allergic/Immunologic: Reports no additional allergic/immunologic complaints PMFSH Past Medical History Medical History HTN (hypertension) Hypothyroidism Morbid obesity Nerve entrapment syndrome of lower extremity Surgery to repair foot drop on the right leg after right knee surgery Neuropathy Overactive bladder Surgical History Surgical History
[2023-09-07] MEDS: LIDOCAINE HCL 1% LOCAL INJ 10 ML VIAL 5 ML INFILTRATE (17:07)
[2023-09-07] MEDS: NEOMYCIN/POLYMYXIN/BACITRACIN OINTMENT PACKET 1 PACKET TOPICAL (17:40)
== END 2023-09-07 17:43 | disposition home or self-care (01) ==
LOC: CHSED 17:39
PROVIDERS: Emergency Provider Emergency Medicine; PCP Internal Medicine
DX: S61.215A Laceration without foreign body of left ring finger without damage to nail, initial encounter (principal); W26.0XXA Contact with knife, initial encounter; I10 Essential (primary) hypertension; E03.9 Hypothyroidism, unspecified; E66.01 Morbid (severe) obesity due to excess calories; Z68.42 Body mass index [BMI] 45.0-49.9, adult; Z87.891 Personal history of nicotine dependence
CPT/HCPCS: 12001; 99282

== ENCOUNTER 2023-09-24 10:33 | Outpatient (CLI) | payer MEDICARE, MEDICAID, SELFPAY ==
[2023-09-24 10:54] LABS: Basophils Absolute Auto 0.05 K/mm3 (0.00-0.10); Eosinophils Absolute Auto 0.13 K/mm3 (0.02-0.50); Eosinophils Percent Auto 2.7 % (1.0-6.0); Hematocrit 39.6 % (35.0-42.0); Hemoglobin 12.6 g/dL (11.7-13.8); Immature Granulocyte Absolute 0.01 K/mm3 (0.00-0.00); Immature Granulocyte Percent A 0.2 % (0.0-0.0); Lymphocytes Absolute Auto 1.24 K/mm3 (1.10-4.50); Lymphocytes Percent Auto 25.9 % (18.0-42.0); Mean Corpuscular HGB Conc 31.8 g/dL (32-36); Mean Corpuscular Hemoglobin 28.7 pg (27.0-31.0); Mean Corpuscular Volume 90.2 fL (78.0-102.0); Mean Platelet Volume 9.9 fl (9.2-11.8); Monocytes Absolute Auto 0.45 K/mm3 (0.10-0.90); Monocytes Percent Auto 9.4 % (2.0-11.0); Neutrophils Percent Auto 60.8 % (50.0-70.0); Platelet Count Result 277 K/mm3 (150-420); Red Blood Count 4.39 M/mm3 (4.20-5.40); Red Cell Distribution Width 13.9 % (11.6-14.4); White Blood Count 4.8 K/mm3 (4.8-10.8)
[2023-09-24 11:10] LABS: Appearance Urine Clear (Clear); Bilirubin Urine Negative (Negative); Blood Urine Trace-intact (Negative); Color Urine Light Yellow (Yellow); Glucose Urine UA Negative (Negative); Ketones Urine Negative (Negative); Leukocyte Esterase Ur 1+ (Negative); Nitrate Urine Negative (Negative); Protein Urine Negative (Negative); Urobilinogen Urine 0.2 mg/dL (0.2-1.0)
[2023-09-24 11:14] LABS: Add Urine Microscopic? YES; RBC Urine 0-2 /hpf (0-2)
[2023-09-24 11:15] LABS: Bacteria Urine 2+ /hpf; Squamous Epithelial Cell Urine Few /hpf (Few)
[2023-09-24 12:22] LABS: Alanine Aminotransferase 22 U/L (14-59); Albumin Level 3.4 g/dL (3.4-5.0); Alkaline Phosphatase 76 U/L (46-116); Anion Gap 3 mmol/L (4-12); Aspartate Amino Transferase 15 U/L (15-37); Bilirubin,Total 0.5 mg/dL (0.00-1.00); Blood Urea Nitrogen 12 mg/dL (7-18); Calcium 8.9 mg/dL (8.5-10.1); Carbon Dioxide 35 mmol/L (21-32); Chloride 103 mmol/L (98-108); Cholesterol 194 mg/dL (0-200); Estimated Glomerular Filt Rate > 60; Glucose 93 mg/dL (70-99); HDL Direct 66 mg/dL (40-60); LDL Cholesterol Calculated 108 mg/dL (<130); Magnesium 1.7 mg/dL (1.8-2.4); Osmolality Calculated 291 mOsm/kg (285-295); Sodium 141 mmol/L (136-145); Triglycerides 99 mg/dL (0-150)
== END 2023-09-24 10:34 | disposition home or self-care (01) ==
LOC: CHSLAB 10:36
PROVIDERS: PCP Internal Medicine; Visit Provider Internal Medicine
DX: I10 Essential (primary) hypertension (principal); I48.91 Unspecified atrial fibrillation; E03.9 Hypothyroidism, unspecified
CPT/HCPCS: 36415; 80053; 80061; 81001; 83735; 84443; 85025

== ENCOUNTER 2023-09-30 12:15 | Outpatient (CLI) | payer MEDICARE, MEDICAID, SELFPAY ==
--- NOTE | ~2023-09-30 | DEXA_ITS ---
? Bone Density Report? Name:? MENDYADAM Negron Patient ID:??? [id number] Age:? 73 Sex:? Female Ethnicity:? White Date of : 1950 Indication: postmenopausal; screening for osteoporosis; height loss; asthma or emphysema; Referring Provider: Kj Carrillo Study: Bone densitometry was performed. Exam Date: September 30, 2023 Accession number: [id number] Bone Density: Region? BMD??? T-score? Z-score?? Classification AP Spine(L2, L3, L4)? 1.212??? 1.2?3.7? Normal Femoral Neck (Left)? 0.745?? -0.9? 1.2? Normal Total Hip (Left)? 0.818?? -1.0? 0.8?Normal Femoral Neck (Right)? 0.724?? -1.1? 1.0? Osteopenia Total Hip (Right)? 0.820?? -1.0? 0.8? Normal Femoral Neck Mean? 0.735?? -1.0? 1.1? Normal Total Hip Mean? 0.819?? -1.0? 0.8? Normal World Health Organization criteria for BMD impression classify patients as: Normal (T-score at or above -1.0), Osteopenia (T-score between -1.0 and -2.5), or Osteoporosis (T-score at or below -2.5). 10-year Fracture Risk(1): Major Osteoporotic Fracture? 8.3% Hip Fracture? 1.2% Reported Risk Factors: [place] (), Neck BMD=0.724, BMI=49.2 (1) FRAX? Version 3.08. Fracture probability calculated for an untreated patient. Fracture probability may be lower if the patient has received treatment. Clinical Information Provided by Patient: Has used the following medications: Calcium Has the following medical conditions: Asthma or Emphysema Patient maximum height was 64 Menopause Age: 48 No regular weight bearing exercise Drinks caffeinated beverages Onset of menses at age 7 Number of children 2 Impression: The patient has low bone mass, based on the Right Femoral Neck T- score. Discussion: BONE DENSITY IS LOW AT ONE OR MORE SKELETAL SITES. This patient's lowest T-score is low at one or more skeletal sites.? It meets the World Health Organization's (WHO) criteria for ?low bone mass?? (T-score between -1.0 and -2.5).? The patient's 10-year risk of fracture as calculated by FRAX is less than the threshold where pharmacological therapy is recommended by the National Osteoporosis Foundation (NOF).? However, all treatment decisions require clinical judgment and consideration of individual patient factors, including patient preferences, comorbidities, previous drug use, risk factors not captured in the FRAX model (e.g., frailty, falls, vitamin D deficiency, increased bone turnover, interval significant decline in bone density) and possible under or overestimation of fracture risk by FRAX. The patient should follow a healthful lifestyle (good nutrition with adequate calcium and vitamin D, and appropriate weight-bearing exercise). Follow-Up: Consider repeating this study in 2 to 3 years to reassess this patient's status, or sooner if there is some new clinical indication. Reported by: Dr. Denis Hobson on 09/30/2023 3:05:00 PM. NIECY
--- NOTE | ~2023-09-30 | MM_ITS ---
EXAMINATION: MM screening maulik BI w ginny HISTORY: Screening mammogram TECHNIQUE: Craniocaudal and mediolateral oblique 3-D tomosynthesis images were obtained and synthetic 2-D images were generated. CAD analysis was submitted and interpreted. COMPARISON: 01/27/2022, 01/20/2022, 09/07/2019 BREAST PARENCHYMAL COMPOSITION:Not Dense. The breasts are almost entirely fatty FINDINGS: No suspicious mass, calcification, or architectural distortion are identified in either chuckie ast to suggest malignancy. There has been no suspicious interval change. IMPRESSION: No mammographic evidence of malignancy. Recommend routine screening mammography in one year. BI-RADS Category 1: Negative Reviewed, dictated and finalized at location .
== END 2023-09-30 12:16 | disposition home or self-care (01) ==
LOC: CHSIMG 12:16
PROVIDERS: PCP Internal Medicine; Visit Provider Internal Medicine
DX: Z12.31 Encounter for screening mammogram for malignant neoplasm of breast (principal); Z78.0 Asymptomatic menopausal state; M85.88 Other specified disorders of bone density and structure, other site
CPT/HCPCS: 77063; 77067; 77080

== ENCOUNTER 2023-12-26 13:15 | Emergency (ER) | payer MEDICARE, MEDICAID, SELFPAY ==
--- NOTE | ~2023-12-26 | XR_ITS ---
XR hip RT 2V w AP pelvis DATE: 12/26/2023 13:41 INDICATION: Fall. Lateral right hip pain. TECHNIQUE: AP pelvis. AP and lateral views of right hip. COMPARISON: 01/27/2021 right hip FINDINGS: Osteopenia. Levoscoliosis of the lumbar spine. The pubic symphysis and sacroiliac joints are intact. No pelvic fracture or bone destruction is detected. Hip joint spaces are symmetric and relatively preserved. No fracture or dislocation, avascular necrosis or bone destruction of the right hip. IMPRESSION: No pelvic or right hip fracture or dislocation is detected Reviewed, dictated and finalized at location A.
[2023-12-26 13:20] VITALS: BP 127/69; PULSE 60; RESP 20; TEMP 36.9; O2SAT 93
--- NOTE | 2023-12-26 13:24 | ED.FALL ---
HPI - Fall General Chief Complaint: Fall Stated Complaint: skin tear, fall injury Time Seen by Provider: 12/26/23 13:19 Source: patient Mode of arrival: ambulatory Limitations: no limitations History of Present Illness HPI Narrative: 73 year old female presents to the Emergency Department complaining of fall. Patient states she fell on first step she was trying to go up. She has skin tear to right forearm. Complains of some right hip pain. She did ambulate [with her walker] since falling. Denies striking head, loss of consciousness. Denies chest pain or shortness of breath. Denies back or abdominal pain. 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) Fall from: standing Place fall occurred: home Loss of consciousness: none Context: tripped/slipped Location of injury: other (right forearm skin tear and right hip pain) Related Data Home Medications Medication Instructions Recorded Confirmed budesonide-formoterol HFA 80 2 puff inhalation Q12H 07/11/20 12/26/23 mcg-4.5 mcg/actuation aerosol inhaler (Symbicort) docusate sodium 50 mg capsule 50 mg PO TID PRN Constipation 07/11/20 12/26/23 (Stool Softener) mv-mn-iron 22.5 mg-folic ac 400 1 tablet PO DAILY 07/11/20 12/26/23 mcg-vit K 500 [id number]-[id number]-[id number] chew tablet (DEKAs Bariatric) vit B12 50 mcg-iodine 75 mcg-mag 1 cap PO DAILY 07/11/20 12/26/23 100 fn-andv-cczmhora-herb 193 capsule omeprazole 20 mg tablet,delayed 20 mg PO BID 04/01/21 12/26/23 release ondansetron HCl 4 mg tablet 4 mg PO Q8H PRN Nausea 04/01/21 12/26/23 vitamin B complex (B 1 tablet PO DAILY 04/01/21 12/26/23 Complex-Vitamin B12 tablet) albuterol sulfate 2.5 mg/0.5 mL 2.5 mg inhalation BID 03/29/22 12/26/23 solution for nebulization apixaban 5 mg tablet (Eliquis) 5 mg PO BID 03/29/22 12/26/23 duloxetine 20 mg capsule,delayed 20 mg PO DAILY 03/29/22 12/26/23 release flecainide 100 mg tablet 100 mg PO BID 10/23/22 07/21/24 hydrocodone 5 mg-acetaminophen 325 1 tablet PO Q8H PRN Agitation 03/29/22 12/26/23 mg tablet metoprolol succinate 25 mg 25 mg PO DAILY 03/29/22 12/26/23 tablet,extended release 24 hr tizanidine 2 mg tablet 2 mg PO Q8H 03/29/22 12/26/23 famotidine 40 mg tablet 40 mg PO DAILY 08/17/22 12/26/23 Allergies Allergy/AdvReac Type Severity Reaction Status Date / Time Sulfa (Sulfonamide Allergy Unknown HIVES AND Verified 12/26/23 13:23 Antibiotics) ITCHING Review of Systems Review of Systems: All systems reviewed & are unremarkable except as noted in HPI and below Constitutional: Constitutional: Reports as per HPI Eyes: Eyes: Reports as per HPI ENT: Reports system reviewed and no additional complaints, except as documented and Denies dizziness Cardiovascular: Cardiovascular: Reports as per HPI and Denies chest pain Respiratory: Respiratory: Reports as per HPI and Denies dyspnea Gastrointestinal: Gastrointestinal: Reports as per HPI and Denies abdominal pain Genitourinary: Genitourinary: Reports no additional female genitourinary complaints Musculoskeletal: Musculoskeletal: Reports no additional musculoskeletal complaints Comments: right hip pain Integumentary/Breasts: Skin/Breast: Reports system reviewed and no additional complaints, except as docu Comments: skin tear right forearm Neurologic: Reports system reviewed and no additional complaints, except as documented, Denies dizziness, Denies syncope, Denies headache(s) and Denies focal weakness PMFSH Past Medical History Medical History HTN (hypertension) Hypothyroidism Morbid obesity Nerve entrapment syndrome of lower extremity Surgery to repair foot drop on the right leg after right knee surgery Neuropathy Overactive bladder Surgical History Surgical History H/O bilateral cataract extraction History of appendectomy History of carpal tunnel release History of
--- NOTE | 2023-12-26 13:28 | PC.NURSE ---
Patient taken down to radiology
--- NOTE | 2023-12-26 13:37 | PC.NURSE ---
Patient back in room from xray
[2023-12-26 14:07] VITALS: BP 127/69; PULSE 60; RESP 20; TEMP 36.9; O2SAT 93
== END 2023-12-26 14:07 | disposition home or self-care (01) ==
PROVIDERS: Emergency Provider Emergency Medicine; PCP Internal Medicine
DX: S51.811A Laceration without foreign body of right forearm, initial encounter (principal); S70.01XA Contusion of right hip, initial encounter; I10 Essential (primary) hypertension; E03.9 Hypothyroidism, unspecified; Z79.899 Other long term (current) drug therapy; Z79.01 Long term (current) use of anticoagulants; Z79.891 Long term (current) use of opiate analgesic; Z87.891 Personal history of nicotine dependence; W10.9XXA Fall (on) (from) unspecified stairs and steps, initial encounter
CPT/HCPCS: 73502; 99283

== ENCOUNTER 2024-05-01 10:36 | Outpatient (CLI) | payer MEDICARE, MEDICAID, SELFPAY ==
[2024-05-01 10:56] LABS: Basophils Absolute Auto 0.05 K/mm3 (0.00-0.10); Basophils Percent Auto 0.8 % (0.0-1.0); Eosinophils Absolute Auto 0.17 K/mm3 (0.02-0.50); Eosinophils Percent Auto 2.7 % (1.0-6.0); Hematocrit 39.8 % (35.0-42.0); Immature Granulocyte Absolute 0.02 K/mm3 (0.00-0.00); Immature Granulocyte Percent A 0.3 % (0.0-0.0); Lymphocytes Absolute Auto 1.49 K/mm3 (1.10-4.50); Lymphocytes Percent Auto 23.2 % (18.0-42.0); Mean Corpuscular HGB Conc 32.7 g/dL (32-36); Mean Corpuscular Hemoglobin 29.3 pg (27.0-31.0); Mean Corpuscular Volume 89.6 fL (78.0-102.0); Mean Platelet Volume 10.3 fl (9.2-11.8); Monocytes Absolute Auto 0.64 K/mm3 (0.10-0.90); Neutrophils Absolute Auto 4.04 K/mm3 (1.70-7.20); Platelet Count Result 285 K/mm3 (150-420); Red Blood Count 4.44 M/mm3 (4.20-5.40); Red Cell Distribution Width 13.9 % (11.6-14.4); White Blood Count 6.4 K/mm3 (4.8-10.8)
[2024-05-01 11:52] LABS: Alanine Aminotransferase 20 U/L (14-59); Albumin Level 3.3 g/dL (3.4-5.0); Alkaline Phosphatase 72 U/L (46-116); Anion Gap 5 mmol/L (4-12); Aspartate Amino Transferase 17 U/L (15-37); Bilirubin,Total 0.5 mg/dL (0.00-1.00); Blood Urea Nitrogen 10 mg/dL (7-18); Calcium 9.5 mg/dL (8.5-10.1); Carbon Dioxide 33 mmol/L (21-32); Chloride 100 mmol/L (98-108); Estimated Glomerular Filt Rate > 60; Glucose 70 mg/dL (70-99); Magnesium 1.4 mg/dL (1.8-2.4); NT Pro B Type Natriuretic Pept 98 pg/mL (0-450); Osmolality Calculated 283 mOsm/kg (285-295); Potassium 4.6 mmol/L (3.5-5.1); Sodium 138 mmol/L (136-145); Thyroid Stimulating Hormone 2.15 uIU/mL (0.36-3.74); Total Protein 6.9 g/dL (6.4-8.2)
== END 2024-05-01 10:37 | disposition home or self-care (01) ==
LOC: CHSLAB 10:38
PROVIDERS: PCP Internal Medicine; Visit Provider Internal Medicine
DX: I10 Essential (primary) hypertension (principal); M79.89 Other specified soft tissue disorders; M54.50 Low back pain, unspecified; E03.9 Hypothyroidism, unspecified; R06.02 Shortness of breath
CPT/HCPCS: 36415; 80053; 83735; 83880; 84443; 85025

== ENCOUNTER 2024-06-07 11:18 | Emergency (ER) | payer MEDICARE, MEDICAID, SELFPAY ==
--- NOTE | ~2024-06-07 | XR_ITS ---
EXAMINATION: XR chest 2V DATE: 06/07/2024 12:04 INDICATION: Persistent productive cough TECHNIQUE: PA and lateral views of the chest were obtained. COMPARISON: Chest radiograph dated 04/09/2023 FINDINGS: The lungs are clear with no focal airspace opacities, pulmonary edema, pleural effusion or pneumothor ax. Cardiomegaly. Spinal stimulator lead projecting over the central canal of the midthoracic spine. IMPRESSION: 1. Cardiomegaly. No acute cardiopulmonary disease. Reviewed, dictated and finalized at location A. STRIAL SALES REPRESENTATIVE
[2024-06-07 11:18] VITALS: BP 153/92; PULSE 79; RESP 17; TEMP 36.3; O2SAT 99
--- NOTE | 2024-06-07 11:22 | ED_ITS ---
HPI - SOB/Dyspnea General Chief Complaint: Upper Respiratory Infection Stated Complaint: cough Time Seen by Provider: 06/07/24 11:21 Source: patient and family Mode of arrival: ambulatory Limitations: no limitations History of Present Illness HPI Narrative: Patient is a 74-year-old female with a cough for the past 3-4 weeks. Family is concerned about pneumonia. No chest pain or shortness of breath. due to all the coughing, she is having some sciatica on the right. MD elicited complaint: cough Pertinent past history: COPD Onset (ago): week(s) (3-4) Context: choking/aspiration Timing: constant and progressively worsening Severity: moderate Exacerbating factors: nothing Relieving factors: nothing Known history of: COPD Associated symptoms: cough Treatment prior to arrival: oxygen ( At night 2 L; CPAP as well) and bronchodilator ( at night albuterol and steroid inhaled via nebulizer) Related Data Home oxygen amount: 2 liters ( q.h.s.) Home Medications ?Medication ?Instructions ?Recorded ?Confirmed ?Last Taken ?Type budesonide-formoterol HFA 80 2 puff inhalation Q12H 07/11/20 06/07/24 04/01/21 History mcg-4.5 mcg/actuation aerosol inhaler (Symbicort) docusate sodium 50 mg capsule 50 mg PO TID PRN Constipation 07/11/20 06/07/24 04/01/21 History (Stool Softener) mv-mn-iron 22.5 mg-folic ac 400 1 tablet PO DAILY 07/11/20 06/07/24 Unknown History mcg-vit K 500 [id number] chew tablet (DEKAs Bariatric) vit B12 50 mcg-iodine 75 mcg-mag 1 cap PO DAILY 07/11/20 06/07/24 04/01/21 History 100 an-qbbb-ckxiaryi-herb 193 capsule omeprazole 20 mg tablet,delayed 20 mg PO BID 04/01/21 06/07/24 04/01/21 History release ondansetron HCl 4 mg tablet 4 mg PO Q8H PRN Nausea 04/01/21 06/07/24 Unknown History vitamin B complex (B 1 tablet PO DAILY 04/01/21 06/07/24 04/01/21 History Complex-Vitamin B12 tablet) albuterol sulfate 2.5 mg/0.5 mL 2.5 mg inhalation BID 03/29/22 06/07/24 Unknown History solution for nebulization apixaban 5 mg tablet (Eliquis) 5 mg PO BID 03/29/22 06/07/24 Unknown History duloxetine 20 mg capsule,delayed 20 mg PO DAILY 03/29/22 06/07/24 Unknown History release flecainide 100 mg tablet 100 mg PO BID 03/29/22 06/07/24 Unknown History hydrocodone 5 mg-acetaminophen 325 1 tablet PO Q8H PRN Agitation 03/29/22 06/07/24 Unknown History mg tablet metoprolol succinate 25 mg 25 mg PO DAILY 03/29/22 06/07/24 Unknown History tablet,extended release 24 hr tizanidine 2 mg tablet 2 mg PO Q8H 03/29/22 06/07/24 Unknown History famotidine 40 mg tablet 40 mg PO DAILY 08/17/22 06/07/24 Unknown History Allergies Allergy/AdvReac Type Severity Reaction Status Date / Time Sulfa (Sulfonamide Allergy Unknown HIVES AND Verified 06/07/24 11:24 Antibiotics) ITCHING Review of Systems Review of Systems: All systems reviewed & are unremarkable except as noted in HPI and below Constitutional: Constitutional: Reports no additional constitutional complaints Eyes: Eyes: Reports no additional eye complaints ENT: Reports system reviewed and no additional complaints, except as documented Cardiovascular: Cardiovascular: Reports no additional cardiovascular complaints Respiratory: Respiratory: Reports no additional respiratory complaints Gastrointestinal: Gastrointestinal: Reports no additional gastrointestinal complaints Genitourinary: Genitourinary: Reports no additional female genitourinary complaints Musculoskeletal: Musculoskeletal: Reports no additional musculoskeletal complaints Integumentary/Breasts: Skin/Breast: Reports system reviewed and no additional complaints, except as docu Neurologic: Reports system reviewed and no additional complaints, except as documented Psychiatric: Psychiatric: Reports no additional psychiatric complaints Endocrine: Endocrine: Reports no additional endocrine complaints Hematologic/Lymphatic: Hematologic/Lymphatic: Reports no additional hematologic/lymphatic complaints Allergic/Immunologic: Allergic/Immunologic: Reports no additional allergic/immunologic complaints [facility] Past Medical History Medical History Overactive bladder Neuropathy Nerve entrapment syndrome of lower extremity Surgery to repair foot drop on the right leg after right knee surgery Hypothyroidism HTN (hypertension) Morbid obesity Surgical History Surgical History H/O bilateral cataract extraction S/P tonsillectomy and adenoidectomy History of carpal tunnel release Hx of cholecystectomy History of appendectomy History of total knee arthroplasty Family History Family History Father Hypertension Family history of renal failure Diabetes mellitus Mother Asthma Other Cerebrovascular accident Family history of alcoholism Family history of arthritis Family history of blood dyscrasia Family history of coronary artery disease Family history of lung disease Family history of malignant neoplasm Family history of mental disorder Social History Social History Social History: The patient stated that she never and had 2 children. Both of her daughters Lex and mark she desires to have is her durable power estate planning attorney for healthcare. The patient is a full code. 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 She quit smoking in the 70s. She does not use any alcohol marijuana or illicit drugs. Smoking packs per day: 10 Smoking cigarettes per day: 200.0 Years smoked: 10 Smoking pack-years: 100.00 Smoking status: Former smoker Tobacco type: cigarettes Second hand tobacco smoke exposure: Yes Smoking end date: 06/07/69 Alcohol intake: former Drinks per week: 1 Substance use: never Substance use type: does not use Lack of Transportation: No Lack of Food: Never True Current Housing: I Have Housing Concerned About Future Housing: No Difficulty Paying Gas/Electric Bills: No Difficulty Paying for Meds: No Currently Unemployed: No Education: High School Diploma/GED Difficulty w/ Childcare or Family Care: No Living arrangements: alone Gender identity (if verbalized by the patient): Female Sexual Orientation (if Verbalized by the Patient): Straight or Heterosexual Spiritual care concerns: No Exam 2 Const: General: healthy appearing Nutritional Appearance: well nourished Orientation/consciousness: patient oriented x3 Limitations: no limitations HENMT: Head: normal to inspection Ears: external ears normal Face/Nose/Sinus: Normal external nose present Face and sinus: normal facial exam Eyes: Conjunctivae: conjunctivae normal Pupils: Equal, round and reactive pupils present EOM: EOMs intact bilaterally Neck: Neck: normal visual inspection Chest: Chest palpation & inspection: normal inspection of the chest Resp: Effort & Inspection: normal respiratory effort and not labored Auscultation: clear to auscultation bilaterally, no crackles, no rales, no rhonchi, no wheezes, breath sounds present and diminished lung sounds diffuse Cardio: Rate: regular rate Rhythm: regular rhythm Heart sounds: no murmurs GI: GI Palp: Yes Soft to palpation Auscultation: normal bowel sounds : General: Yes bladder normal to palpation Back/Spine/Pelvis: Back: no CVA tenderness Skin: General skin exam: normal color Rashes: no rashes Wounds: no wounds Neuro: General: patient oriented x3 Cranial nerves: Yes Nystagmus not present Speech: normal speech Psych: Mental Status: mental status grossly normal Affect: normal affect Attitude: cooperative Course Vital Signs Vital signs: Vital Signs Temperature 36.3 C L 06/07/24 11:18 Pulse Rate 79 06/07/24 11:18 Respiratory Rate 17 06/07/24 11:18 Blood Pressure 153/92 H 06/07/24 11:18 Pulse Oximetry 99 06/07/24 11:18 Oxygen Delivery Room Air 06/07/24 11:18 Temperature 36.3 C L 06/07/24 11:18 Pulse Rate 79 06/07/24 11:18 Respiratory Rate 17 06/07/24 11:18 Blood Pressure 153/92 H 06/07/24 11:18 Pulse Oximetry 99 06/07/24 11:34 Oxygen Delivery Room Air 06/07/24 11:34 MDM - SOB/Dyspnea MDM Narrative Medical decision making narrative: Patient is a 74-year-old female with COPD having a flare at this time. We will do a COVID panel swab and a chest x-ray. We will give her steroids and nebulizer at this time. Lab Data Attestation: I reviewed the patient's lab results. Labs: Lab Results 06/07/24 Range/Units 11:32 Influenza A (RT-PCR) Negative (Negative) Influenza B (RT-PCR) Negative (Negative) RSV (RT-PCR) Positive A (Negative) SARS-CoV-2 RNA (RT-PCR) Negative (Negative) Imaging Data Attestation: I personally reviewed and interpreted this imaging study as foll ows: Radiologist's impression: Chest x-ray is negative for acute process Discharge Plan Discharge Clinical Impression: Acute exacerbation of chronic obstructive pulmonary disease Respiratory syncytial virus (RSV) Qualifiers: RSV infection type: acute bronchiolitis Qualified Code(s): J21.0 - Acute bronchiolitis due to respiratory syncytial virus Sciatica Qualifiers: Laterality: right Qualified Code(s): M54.31 - Sciatica, right side Patient Disposition: Home, Self-Care Condition: Improved Instructions: Antibiotic Form, COPD (Chronic Obstructive Pulmonary Disease) (DC), RSV (Respiratory Syncytial Virus) Infection (ED) Patient Language: [place] Prescriptions: New codeine-guaifenesin [Guaifenesin AC] 10-100 mg/5 mL liquid 5 ml PO Q6H PRN (Reason: cough) Qty: 120 0RF hydrocodone-acetaminophen 5-325 mg tablet 1 tablet PO Q8H PRN (Reason: pain) Qty: 30 0RF azithromycin 250 mg tablet See Rx Instructions .ROUTE .COMPLEX Qty: 6 0RF Rx Instructions: For 250 mg dose pack: take 500 mg today (day 1), then 250 mg for 4 days (days 2-5) methylprednisolone [Medrol (Ok)] 4 mg tablets,dose pack See Rx Instructions .ROUTE .COMPLEX Qty: 21 0RF Rx Instructions: orally per package directions ipratropium-albuterol 0.5 mg-3 mg(2.5 mg base)/3 mL solution for nebulization 3 ml inhalation QID PRN (Reason: shortness of breath or wheezing) Qty: 90 0RF No Action benzonatate 200 mg capsule 200 mg PO TID PRN (Reason: cough) Qty: 20 0RF spironolacton-hydrochlorothiaz 25-25 mg tablet 1 tablet PO QAM 30 Days Qty: 30 0RF levothyroxine 125 mcg tablet 125 mcg PO QAM 30 Days Qty: 30 0RF montelukast 10 mg tablet 10 mg PO HS 30 Days Qty: 30 0RF albuterol sulfate [Ventolin HFA] 90 mcg/actuation Hfa Aerosol Inhaler 2 puff INHALATION QID PRN (Reason: SOB) 30 Days Qty: 2 0RF Complete Multivitamin Tablet 1 tablet PO DAILY 30 Days Qty: 30 0RF escitalopram oxalate 20 mg tablet 20 mg PO QAM 30 Days Qty: 30 0RF mirabegron [Myrbetriq] 25 mg tablet extended release 24 hr 25 mg PO QPM 30 Days Qty: 30 0RF ondansetron HCl 4 mg tablet 4 mg PO Q8H PRN (Reason: Nausea) vitamin B complex [B Complex-Vitamin B12] Tablet 1 tablet PO DAILY omeprazole 20 mg tablet,delayed release (DR/EC) 20 mg PO BID flecainide 100 mg tablet 100 mg PO BID metoprolol succinate 25 mg tablet extended release 24 hr 25 mg PO DAILY tizanidine 2 mg tablet 2 mg PO Q8H hydrocodone-acetaminophen 5-325 mg Tablet 1 tablet PO Q8H PRN (Reason: Agitation) duloxetine 20 mg capsule,delayed release(DR/EC) 20 mg PO DAILY Eliquis 5 mg tablet 5 mg PO BID albuterol sulfate 2.5 mg/0.5 mL solution for nebulization 2.5 mg inhalation BID famotidine 40 mg tablet 40 mg PO DAILY hydrocodone-acetaminophen 5-325 mg tablet 1 tablet PO Q8H PRN (Reason: pain) Qty: 20 0RF budesonide-formoterol [Symbicort] 80-4.5 mcg/actuation HFA aerosol inhaler 2 puff inhalation Q12H DEKAs Bariatric 22.5 mg-400 mcg -500 mcg-10 mg tablet,chewable 1 tablet PO DAILY [id number] 50 mcg-75 mcg -100 mg capsule 1 cap PO DAILY Stool Softener 50 mg capsule 50 mg PO TID PRN (Reason: Constipation) pregabalin 75 mg capsule 150 mg PO HS 30 Days Qty: 0 0RF pregabalin 75 mg capsule 75 mg PO QAM 30 Days Qty: 30 0RF Follow-up/Referrals: Kj Carrillo MD [Primary Care Provider] - Time of Disposition: 12:30
[2024-06-07 11:34] VITALS: O2SAT 99
--- NOTE | 2024-06-07 11:37 | PC.NURSE ---
Covid culture sent to lab
[2024-06-07] MEDS: methylPREDNISolone SOD SUCC 125 MG VIAL IM (11:38)
[2024-06-07] MEDS: IPRATROPIUM 0.5 MG/ALBUTEROL SULFATE 2.5 MG AMPUL.NEB 3 ML INHALATION (11:40)
[2024-06-07 12:11] LABS: SARS-CoV-2 RNA PCR Negative (Negative)
[2024-06-07 12:12] LABS: Influenza A QL RT-PCR Negative (Negative); Influenza B QL RT-PCR Negative (Negative); RSV RNA, RT-PCR Positive (Negative)
[2024-06-07 12:35] VITALS: BP 139/60; PULSE 69; RESP 17; TEMP 36.4; O2SAT 97
== END 2024-06-07 12:35 | disposition home or self-care (01) ==
PROVIDERS: Emergency Provider Emergency Medicine; PCP Internal Medicine
DX: J44.0 Chronic obstructive pulmonary disease with (acute) lower respiratory infection (principal); J21.0 Acute bronchiolitis due to respiratory syncytial virus; J44.1 Chronic obstructive pulmonary disease with (acute) exacerbation; M54.31 Sciatica, right side; I10 Essential (primary) hypertension; E03.9 Hypothyroidism, unspecified; G58.9 Mononeuropathy, unspecified; E66.01 Morbid (severe) obesity due to excess calories; Z87.891 Personal history of nicotine dependence; Z99.81 Dependence on supplemental oxygen; Z79.51 Long term (current) use of inhaled steroids; Z79.01 Long term (current) use of anticoagulants; Z20.822 Contact with and (suspected) exposure to COVID-19
CPT/HCPCS: 71046; 87637; 96372; 99283; J2919

== ENCOUNTER 2024-09-28 10:53 | Outpatient (CLI) | payer MEDICARE, MEDICAID, SELFPAY ==
[2024-09-28 11:12] LABS: Hematocrit 38.1 % (35.0-42.0); Mean Corpuscular HGB Conc 31.5 g/dL (32-36); Mean Corpuscular Hemoglobin 28.4 pg (27.0-31.0); Mean Corpuscular Volume 90.3 fL (78.0-102.0); Mean Platelet Volume 9.9 fl (9.2-11.8); Platelet Count Result 274 K/mm3 (150-420); Red Blood Count 4.22 M/mm3 (4.20-5.40); Red Cell Distribution Width 14.2 % (11.6-14.4)
[2024-09-28 11:13] LABS: Add Urine Microscopic? YES; Appearance Urine Clear (Clear); Bilirubin Urine Negative (Negative); Blood Urine Negative (Negative); Color Urine Light Yellow (Yellow); Glucose Urine UA Negative (Negative); Ketones Urine Negative (Negative); Leukocyte Esterase Ur Trace (Negative); Nitrate Urine Negative (Negative); Protein Urine Negative (Negative); Urobilinogen Urine 0.2 mg/dL (0.2-1.0)
[2024-09-28 11:16] LABS: Bacteria Urine Rare /hpf; RBC Urine 0-2 /hpf (0-2); Squamous Epithelial Cell Urine Rare /hpf (Few); WBC Urine 0-3 /hpf (0-3)
[2024-09-28 11:54] LABS: Alanine Aminotransferase 20 U/L (14-59); Albumin Level 3.4 g/dL (3.4-5.0); Alkaline Phosphatase 77 U/L (46-116); Anion Gap 4 mmol/L (4-12); Aspartate Amino Transferase 18 U/L (15-37); Bilirubin,Total 0.6 mg/dL (0.00-1.00); Blood Urea Nitrogen 15 mg/dL (7-18); Calcium 9.3 mg/dL (8.5-10.1); Carbon Dioxide 34 mmol/L (21-32); Chloride 103 mmol/L (98-108); Cholesterol 192 mg/dL (0-200); Estimated Glomerular Filt Rate > 60; Glucose 93 mg/dL (70-99); HDL Direct 70 mg/dL (40-60); LDL Cholesterol Calculated 105 mg/dL (<130); Osmolality Calculated 292 mOsm/kg (285-295); Potassium 4.6 mmol/L (3.5-5.1); Sodium 141 mmol/L (136-145); Thyroid Stimulating Hormone 2.73 uIU/mL (0.36-3.74); Total Protein 7.2 g/dL (6.4-8.2); Triglycerides 85 mg/dL (0-150)
--- OUTSIDE RECORDS SUMMARY | 2024-09-28 12:24 | XMS_ITS | Referral Summary ---
Author Organization [facility] Address [address] [place] [address] Care Team Providers Care Crop Pest Control Specialist Name Role Phone Kj Carrillo MD Primary Care Provider Kj Carrillo MD Unavailable Allergies Active Allergy Reactions Criticality Noted Date Comments Sulfa (Sulfonamide Antibiotics) Rash Medium 03/08 Medications HYDROcodone-michelle taminophen (HYCET) solution 7.5-325 mg/15 mLIndications:P ain Take 15 mL by mouth every 6 (six) hours as needed for pain. Active VENTOLIN HFA 90 mcg/actuation inhaler INHALE 1-2 PUFFS BY MOUTH EVERY 4 HOURS NEEDED 4 8 Active levothyroxine (SYNTHROID, LEVOTHROID) 125 mcg tablet Take 112 mcg by mouth daily 1 9 Active raNITIdine (ZANTAC) 150 mg tablet Take by mouth 2 (two) times a day as needed. 1 9 Active calcium-magnesi um-zinc 333-133-5 mg tablet Take 1 tablet by mouth daily Active amLODIPine (NORVASC) 2.5 mg tablet Take 1 tablet (2.5 mg total) by mouth daily 4 Active apixaban (Eliquis) 5 mg tablet Take 1 tablet (5 mg total) by mouth 2 (two) times a day 2 Active budesonide (PULMICORT) 0.5 mg/2 mL nebulizer solution Inhale 2 mL (0.5 mg total) 2 (two) times a day Active cyanocobalamin (Vitamin B-12) 1,000 mcg tablet Take 1 tablet (1,000 mcg total) by mouth daily Active cyclobenzaprine (FLEXERIL) 10 mg tablet Take 1 tablet (10 mg total) by mouth 3 (three) times a day as needed Active docusate sodium (COLACE) 100 mg capsule Take 1 capsule (100 mg total) by mouth daily Active DULoxetine DR (CYMBALTA) 20 mg capsule Take 1 capsule (20 mg total) by mouth 2 (two) times a day 2 Active escitalopram (LEXAPRO) 10 mg tablet Take 2 tablets (20 mg total) by mouth daily 4 Active famotidine (PEPCID) 40 mg tablet Take 1 tablet (40 mg total) by mouth daily 0 Active metoprolol XL (TOPROL-XL) 25 mg extended release tablet Take 0.5 tablets (12.5 mg total) by mouth daily 2 Active mirabegron ER (Myrbetriq) 25 mg tablet extended release 24 hr Take 1 tablet (25 mg total) by mouth daily 2 Active montelukast (SINGULAIR) 10 mg tablet Take 1 tablet (10 mg total) by mouth nightly 0 Active omeprazole (PriLOSEC) 20 mg capsule Take 1 capsule (20 mg total) by mouth 2 (two) times a day 2 Active pregabalin (LYRICA) 75 mg capsule Take 1 capsule (75 mg total) by mouth 0 Active spironolactone- hydroCHLOROthia zide (ALDACTAZIDE) 25-25 mg per tablet Take 1 tablet by mouth directory clerk before breakfast 0 Active tiZANidine (ZANAFLEX) 2 mg tablet Take 1 tablet (2 mg total) by mouth every 8 (eight) hours as needed 2 Active tobramycin-dexA METHasone (TOBRADEX) ophthalmic solution Administer 1 drop into both eyes once 4 Active erythromycin (ILOTYCIN) ophthalmic ointment Apply to right eye 3 (three) times a day 3.5 g 1 4 Active Active Problems Problem Noted Date Diagnosed Date Mammogram abnormal 07/27/2018 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 Hypertension 04/01/2017 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 Social History Tobacco Use Types Packs/Day Years Used Date Smoking Tobacco: Former Cigarettes Q uit: 1988 Smokeless Tobacco: Never Tobacco Cessation:Counseling Given: Not Answered Alcohol Use Standard Drinks/Week Comments Yes 0 (1 standard drink = 0.6 oz pur e alcohol) rare Comments No Sex and Gender Information Value Date Recorded Sex Assigned at Not on file Legal Sex Female 9:31 AM ENGINE 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 Gender Identity Not on file Sexual Orientation Not on file Last Filed Vital Signs Vital Sign Reading Time Taken Comments Blood Pressure 138/56 12/02/2017 8:02 AM CDT Pulse 57 12/02/2017 8:02 AM CDT Temperature 36.6 C (97.9 F) 12/02/2017 8:02 AM CDT Respiratory Rate 17 12/02/2017 8:02 AM CDT Oxygen Saturation 95% 12/02/2017 8:02 AM CDT Inhaled Oxygen Concentration - - Weight 105.7 kg (233 lb) 07/27/2018 1:06 PM ENGINE TESTER Height 152.4 cm (5') 07/27/2018 1:06 PM ENGINE TESTER Body Mass Index 45.5 07/27/2018 1:06 PM ENGINE TESTER Plan of Treatment Not on file Insurance [facility] MEDICARE ADVANTAGE MEDICARE IDPA [facility] MEDICARE Advance Directives For more information, please contact: [phone] * Full Code (Latest Code Status on File) Date Activated Date Inactivated Comments 12/01/2017 12:26 PM 12/02/2017 1:18 PM Care Teams Crop Pest Control Specialist Relationship Specialty Start Date End Date Kj Carrillo MD PCP - General Internal Medicine 07/11/18 Kj Carrillo MD 07/11/18
--- OUTSIDE RECORDS SUMMARY | 2024-09-28 12:24 | XMS_ITS | Encounter Summary ---
Author Organization [facility] Address [address] [place] [address] Care Team Providers Care Steel Worker Name Role Phone Kj Carrillo MD Primary Care Provider [phone] Yong Simons MD Unavailable [phone] Luz Land APRN, NP-C Unavailable [phone] Bonifacio Brown MD Unavailable [phone] Mookie Gonzales MD Unavailable [phone] Neena Camp MD Unavailable Angie YoonC Unavailable [phone] Encounter Details Date Type Department Care Team (Late st Contact Info) Description 09/30/2022 Hospital Orders Only [facility] Lab Pre/Post [address] [place] [address] Mookie Gonzales MD [address] [place] [address] Social History Tobacco Use Types Packs/Day Years Used Date Smoking Tobacco: Former Cigarettes Q uit: 1985 Smokeless Tobacco: Never Alcohol Use Standard Drinks/Week Comments No 0 (1 standard drink = 0.6 oz pur e alcohol) Comments Unknown Sex and Gender Information Value Date Recorded Sex Assigned at Female 07/19/2024 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 No / Unsure 10/02/2022 1:32 PM CDT documented as of this encounter Plan of Treatment Upcoming Encounters Date Type Department Care Team (Late st Contact Info) Description 12/28/2024 9:00 AM CDT Appointment [address] [place] [address] Neena Camp MD [address] [place] [address] 01/15/2025 11:00 AM CDT Office Visit [facility] [address] [facility] [place] [address] Neena Camp MD [address] [place] [address] documented as of this encounter Visit Diagnoses Not on filedocumented in this encounter Care Teams Steel Worker Relationship Specialty Start Date End Date Kj Carrillo MD [address] [place] [address] PCP - General INTERNAL MEDICINE 01/14/16 Yong Simons MD [address] [place] [address] [place] House Detective CARDIOVASCULAR DISEASE 09/02/16 09/30/23 Luz Land, HOTEL SUPPLIES SALESPERSON, PRORATE CLERK-C [address] [facility] [address] [place] [address] NURSE PRACTITIONER 01/29/22 09/30/23 Bonifacio Brown MD [address] [place] [address] NEUROLOGICAL SURGERY 01/29/22 Mookie Gonzales MD [address] [place] [address] Consulting Physician CLINICAL CARDIAC ELECTROPHYSIOLOGY 05/21/22 Neena Camp MD [address] [place], [place] [address] Consulting Physician CARDIOVASCULAR DISEASE 10/01/23 Angie Yoon PA-C [address] [place], [place] [address] Referring Physician PHYSICIAN PERSONAL PROPERTY APPRAISER 01/18/24 documented as of this encounter
--- OUTSIDE RECORDS SUMMARY | 2024-09-28 12:24 | XMS_ITS | Encounter Summary ---
Author Organization [facility] Address [address] [place] [address] Care Team Providers Care Metal Weather Stripper Name Role Phone Kj Carrillo MD Primary Care Provider [phone] Davis Plata MD Unavailable [phone] Yong Simons MD Unavailable [phone] Luz Land APRN, NP-C Unavailable Bonifacio Brown MD Unavailable [phone] Mookie Gonzales MD Unavailable Neena Camp MD Unavailable Angie Yoon-C Unavailable [phone] Encounter Details Date Type Department Care Team (Late st Contact Info) Description 08/27/2014 Abstract [facility] [address] [place] [address] Davis Plata MD [address] [place] [address] Social History Tobacco Use Types Packs/Day Years Used Date Smoking Tobacco: Former Cigarettes Q uit: 1985 Alcohol Use Standard Drinks/Week Comments No 0 (1 standard drink = 0.6 oz pur e alcohol) Comments Unknown Sex and Gender Information Value Date Recorded Sex Assigned at Female 07/19/2024 6:27 AM SITE DIRECTOR Legal Sex Female 9:45 PM CDT Gender Identity Not on file Sexual Orientation Not on file Occupation Industry Job Start Date Job End Date Not on file Not on file Not on file Not on file documented as of this encounter Plan of Treatment Upcoming Encounters Date Type Department Care Team (Late st Contact Info) Description 12/28/2024 9:00 AM CDT Appointment [place] [facility] [address] [facility] [place] [address] Neena Camp MD [address] [place], [place] [phone] 01/15/2025 11:00 AM CDT Office Visit [facility] [address] [facility] [place] [address] Neena Camp MD [address] [place], [place] [address] documented as of this encounter Visit Diagnoses Not on filedocumented in this encounter Care Teams Metal Weather Stripper Relationship Specialty Start Date End Date Kj Carrillo MD [address] [place] [phone] PCP - General INTERNAL MEDICINE 01/14/16 Davis Plata MD [address] [place] [address] [place] Risk Assessment Consultant CARDIOVASCULAR DISEASE 01/14/16 01/28/22 Yong Simons MD [address] [place] [address] [place] Risk Assessment Consultant CARDIOVASCULAR DISEASE 09/02/16 09/30/23 Luz Land APRN, COMMUNITY YOUTH SECRETARY-C [address] [facility] [address] [place] [address] NURSE PRACTITIONER 01/29/22 09/30/23 Bonifacio Brown MD [address] [address] NEUROLOGICAL SURGERY 01/29/22 Mookie Gonzales MD [address] [place] [address] Consulting Physician CLINICAL CARDIAC ELECTROPHYSIOLOGY 05/21/22 Neena Camp MD [address] [place], [place] [address] Consulting Physician CARDIOVASCULAR DISEASE 10/01/23 Angie Yoon PA-C [address] [place] [address] Referring Physician PHYSICIAN LEAD TRAINER 01/18/24 documented as of this encounter
--- OUTSIDE RECORDS SUMMARY | 2024-09-28 12:24 | XMS_ITS | Encounter Summary ---
Author Organization [facility] Address [address] [place] [address] Care Team Providers Care Hi Lo Driver Name Role Phone Kj Carrillo MD Primary Care Provider [phone] Yong Simons MD Unavailable [phone] Luz Land APRN, NP-C Unavailable Bonifacio Brown MD Unavailable [phone] Mookie Gonzales MD Unavailable [phone] Neena Camp MD Unavailable Angie Yoon PA-C Unavailable [phone] Encounter Details Date Type Department Care Team (Late st Contact Info) Description 10/06/2022 Hospital Orders Only [facility] Anesthesia [address] [place] [address] Cheli Mohan RN Anesthesia Record Procedure Summary Procedure Name Responsible Anesthesiologist Anesthesia Start Time Anesthesia Stop Time XA A-FIB ABLATION Parish Ortiz II, MD 10/08/22 1316 09/27 1728 Events Date Time Event Comment 10/08/2022 1206 1316 An Start Patient ID and consent checked and patient reassessed. 1316 An Start Data 1316 Preoxygenation 1322 An Induction The patient was reevaluated immediately before moderate or deep sedation use and before anesthesia induction. 1325 An Intubation 1332 Anesthesia Ready 1427 AN Cardioversion 1715 An Extubation 1721 an stop data 1727 Post Anesthetic Care Handoff I completed my handoff to the receiving nurse during which we: 1. Identified the patient 2. Identified the responsible provider 3. Reviewed the pertinent medical history 4. Discussed the surgical course 5. Reviewed intra-op anesthesia management and issues during anesthesia 6. Set expectations for post-procedure period 7. Allowed opportunity for questions and acknowledgement of understanding. 1728 An Stop Meds * Agents No agents on file. * Blood No blood administrations on file. Lines, Drains, and Airways Type Details Placement Removal Valdez Catheter 10/08/22; No; I & O - Strict I&O or Critically ill requiring I&O Q1-2hrs; Stat lock; 16 Fr. 10/08/22 0000 by Denis Whiting RN 10/09/22 0511 by Leticia Wiggins RN Peripheral IV Placement Date: 09/27; Placement Time: 1114; Placed Outside of This Facility?: No; Size: 18 G; Orientation: Left; Location: Antecubital; Site Prep: Alcohol; Local Anesthetic: None; Inserted By: kelby rn; Insertion attempts: 1; Ultrasound-guided Placement?: No; Patient Tolerance: Tolerated well; Removal Date: 10/09/22; Removal Time: 1125 10/08/22 1114 by Bernadine Conroy RN 10/09/22 1125 by Automatic Discharge Provider ETT Placement Date: 09/27; Placement Time: 1325; Mask Ventilate: Prior to intubation, Easy; Size (mm) : 7; Endotracheal: Oral, Oropharyngeal airway, Stylet used; Blade Type: MAC 3; Placement Method: Direct Laryngoscopy (blade type in comment); View Grade: 1; Viewable Anatomy: Epiglottis, Arytenoid, Vocal cords; Insertion Attempts: 1; Placement Verified By: Capnography, Auscultation, Chest Rise; Placed By: JULIOCESAR; Removal Date: 10/08/22; Removal Time: 17110/08/22 1325 by Keon Mejía CRNA 10/08/22 1715 by Keon Mejía CRNA Arterial Line Placement Date: 09/27; Placement Time: 133 (created via procedure documentation); Placed Outside of This Facility?: No; Size: 20; Orientation: Right; Location: Radial; Local Anesthetic: None; Insertion Attempts: 1; Patient Tolerance: Tolerated well; Removal Date: 10/08/22; Removal Time: 1822; Removal Reason: Therapy Completed 10/08/22 133 by Parish Ortiz II, MD 10/08/221821 by Denis Whiting RN documented in this encounter Social History Tobacco Use Types Packs/Day Years Used Date Smoking Tobacco: Former Cigarettes Q uit: 1985 Smokeless Tobacco: Never Alcohol Use Standard Drinks/Week Comments No 0 (1 standard drink = 0.6 oz pur e alcohol) Humiliation, Afraid, Rape, and Kick questionnair e Answer Date Recorded Within the last year, have y ou been afraid of your partner or ex-partner? No 10/08/2022 Within the last year, have y ou been humiliated or emotionally abused in other ways by your partner or ex-partner? No Within the last year, have y ou been kicked, hit, slapped, or otherwise physically hurt by your partner or ex-partner? No 10/08/2022 Within the last year, have y ou been raped or forced to have any kind of sexual activity by your partner or ex-partner? No 10/08/2022 Overall Financial Resource Strain (CARDIA) Answe r Date Recorded How hard is it for you to pa y for the very basics like food, housing, medical care, and heating? Not very hard 10/08/2022 Hunger Vital Sign Answer Date Recorded Within the past 12 months, y ou worried that your food would run out before you got the money to buy more. Never true 10/09/19 Within the past 12 months, t he food you bought just didn't last and you didn't have money to get more. Never true 10/08/2022 PRAPARE - Transportation Answer Date Re corded In the past 12 months, has l ack of transportation kept you from medical appointments or from getting medications? No 09/2022 In the past 12 months, has l ack of transportation kept you from meetings, work, or from getting things needed for daily living? No 10/08/2022 Housing Stability Vital Sign Answer Oskar e Recorded In the last 12 months, was t here a time when you were not able to pay the mortgage or rent on time? No 10/08/2022 In the last 12 months, how many places have you lived? 1 10/08/2022 In the last 12 months, was t here a time when you did not have a steady place to sleep or slept in a care home (including now)? No 10/08/2022 Comments Unknown Sex and Gender Information Value Date Recorded Sex Assigned at Female 07/19/2024 6:27 AM CHEESE CUTTER Legal Sex Female 9:45 PM CDT Gender Identity Not on file Sexual Orientation Not on file Occupation Industry Job Start Date Job End Date Not on file Not on file Not on file Not on file COVID-19 Exposure Response Date Recorded In the last 10 days, have isai u been in contact with someone who was confirmed or suspected to have Coronavirus/COVID-19? No / Unsure 10/08/2022 10:23 AM CDT documented as of this encounter Functional Status * Question Answer Date of Assessment Author Status Are you deaf or do you have serious difficulty hearing No 10/08/2022 11:38 PM EMIGDIOT Leticia Wiggins RN Active Are you blind or do you have serious difficulty seeing, even when wearing glasses? No 10/08/2022 11:38 PM EMIGDIOT Leticia Wiggins RN Active * Calculated C-SSRS Risk Score (Lifetime/Recent) Answer Date of Assessment Author Status No Risk Indicated 10/08/2022 11:04 AM EMIGDIOT Ja Conroy se, RN Active * Enterprise Suicide Severity Rating Scale (Screener/Recent Self-Report) Question Answer Date of Assessment Author Status 1. Wish to be (Past 1 Month) No 10/08/2022 11:04 AM Bernadine Grijalva RN Act luisana 2. Non-Specific Active Suicidal Thoughts (Past 1 Month) No 10/08/2022 11:04 AM Bernadine Grijalva RN Act luisana 6. Suicidal Behavior (Lifetime) No 10/08/2022 11:04 AM Bernadine Grijalva RN Act luisana documented as of this encounter Mental Status * Question Answer Entry Date Author Status Because of a physical, mental, or emotional condition, do you have serious difficulty concentrating, remembering, or making decisions? No 10/08/2022 11:38 PM Leticia Jacobs RN Active documented in this encounter Plan of Treatment Upcoming Encounters Date Type Department Care Team (Late st Contact Info) Description 12/28/2024 9:00 AM CDT Appointment [facility] [address] [facility] [place] [address] Neena Camp MD [address] [place], [place] [address] 01/15/2025 11:00 AM CDT Office Visit [facility] [facility] [address] [place] [address] Neena Camp MD [address] [place] [address] documented as of this encounter Visit Diagnoses Not on filedocumented in this encounter Care Teams Hi Lo Driver Relationship Specialty Start Date End Date Kj Carrillo MD [address] [place] [address] PCP - General INTERNAL MEDICINE 01/14/16 Yong Simons MD [address] [place] [address] [place] Drywall Carrier CARDIOVASCULAR DISEASE 09/02/16 09/30/23 Luz Land, BARREL POLISHER, FUSION JUNCTURE GRINDER-C [address] [facility] [address] [place] [address] NURSE PRACTITIONER 01/29/22 09/30/23 Bonifacio Brown MD [address] [place] [address] NEUROLOGICAL SURGERY 01/29/22 Mookie Gonzales MD [address] [place] [address] Consulting Physician CLINICAL CARDIAC ELECTROPHYSIOLOGY 05/21/22 Neena Camp MD [address] [place] [address] Consulting Physician CARDIOVASCULAR DISEASE 10/01/23 Angie Yoon PA-C [address] [place] [address] Referring Physician PHYSICIAN CENTER MEDICAL SPECIALIST 01/18/24 documented as of this encounter
--- OUTSIDE RECORDS SUMMARY | 2024-09-28 12:24 | XMS_ITS | Encounter Summary ---
Author Organization [facility] Address [address] [place] [address] Care Team Providers Care Senior Business Development Manager Name Role Phone Kj Carrillo MD Primary Care Provider [phone] Davis Plata MD Unavailable [phone] Yong Simons MD Unavailable [phone] Luz Land APRN FRONT MAKER LOCKSTITCH-C Unavailable Bonifacio Brown MD Unavailable [phone] Mookie Gonzales MD Unavailable [phone] Neena Camp MD Unavailable Angie Yoon-C Unavailable [phone] Encounter Details Date Type Department Care Team (Latest Contact Info) Description 04/12/2018 Abstract [facility] , Kristin Stein MD Social History Tobacco Use Types Packs/Day Years Used Date Smoking Tobacco: Former Cigarettes Q uit: 1985 Smokeless Tobacco: Never Alcohol Use Standard Drinks/Week Comments No 0 (1 standard drink = 0.6 oz pur e alcohol) Comments Unknown Sex and Gender Information Value Date Recorded Sex Assigned at Female 07/19/2024 6: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 [address] [place] [address] Neena Camp MD [address] [place] [address] 01/15/2025 11:00 AM CDT Office Visit [facility] [place] [address] Neena Camp MD [address] [place] [address] documented as of this encounter Visit Diagnoses Not on filedocumented in this encounter Care Teams Senior Business Development Manager Relationship Specialty Start Date End Date Kj Carrillo MD [address] [place] [address] PCP - General INTERNAL MEDICINE 01/14/16 Davis Plata MD [address] [place] [address] [place] Social Media Marketing Analyst CARDIOVASCULAR DISEASE 01/14/16 01/28/22 Yong Simons MD [address] [place] [address] [place] Social Media Marketing Analyst CARDIOVASCULAR DISEASE 09/02/16 09/30/23 Luz Land APRN, FRONT MAKER LOCKSTITCH-C [address] [facility] [address] [place] [address] NURSE PRACTITIONER 01/29/22 09/30/23 Bonifacio Brown MD [address] [place] [address] NEUROLOGICAL SURGERY 01/29/22 Mookie Gonzales MD [address] [place] [address] Consulting Physician CLINICAL CARDIAC ELECTROPHYSIOLOGY 05/21/22 Neena Camp MD [address] [place] [address] Consulting Physician CARDIOVASCULAR DISEASE 10/01/23 Angie Yoon PA-C [address] [place] [address] Referring Physician PHYSICIAN MARINATOR 01/18/24 documented as of this encounter
--- OUTSIDE RECORDS SUMMARY | 2024-09-28 12:25 | XMS_ITS | Encounter Summary ---
Author Organization [facility] Address [address] [place] [address] Care Team Providers Care Loss Prevention Agent Name Role Phone Kj Carrillo MD Primary Care Provider [phone] Kj Carrillo MD Unavailable [phone] Reason for Visit * Diagnostic Imaging (Routine) - Closed Specialty Diagnoses / Procedures Referred By Carl plascencia Referred To Contact Procedures Breast Imaging Screening Outside Reference Aft, Yajaira Wilson MD PhD [address] [place] [address] Phone: tel: fax: Referral ID Status Reason Start Date Expiration Date Visits Re quested Visits Authorized [id number] Closed 03/23/2022 04/22/2023 1 1 Encounter Details Date Type Department Care Team (Late st Contact Info) Description 09/07/2019 Hospital Encounter [facility] [address] [place] [id number] Social History Tobacco Use Types Packs/Day Years Used Date Smoking Tobacco: Former Cigarettes Q uit: 1988 Smokeless Tobacco: Never Alcohol Use Standard Drinks/Week Comments Yes 0 (1 standard drink = 0.6 oz pur e alcohol) rare Comments No Sex and Gender Information Value Date Recorded Sex Assigned at Not on file Legal Sex Female 9:31 AM BREAD STACKER Gender Identity Not on file Sexual Orientation [...] only and have not been reviewed by [facility] Radiology. There will be no report generated by a [facility] Radiologist. Narrative [facility] - 03/23/2022 1:10 PM CDT EXAMINATION: Images For Reference Purposes Only us Yajaira Ball MD PhD IMG MAMMO PROCEDURES Final Result [facility] documented in this encounter Visit Diagnoses Not on filedocumented in this encounter Care Teams Loss Prevention Agent Relationship Specialty Start Date End Date Kj Carrillo MD PCP - General Internal Medicine 07/11/18 Kj Carrillo MD 07/11/18 documented as of this encounter
--- OUTSIDE RECORDS SUMMARY | 2024-09-28 12:25 | XMS_ITS | Clinical Summary ---
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 Surgical History Surgery Date Site/Laterality Comments GASTRECTOMY Gastrectomy Sleeve - (Added by TW Conv) KNEE SURGERY Knee Surgery - (Added by TW Conv) TN EXCISION EXCESSIVE SKIN & SUBQ TISSUE ABDOMEN Abdominoplasty - (Added by TW Conv) GASTRECTOMY Gastrectomy Sleeve - (Added by TW Conv) TN APPENDECTOMY Appendectomy - (Added by TW Conv) PERONEAL NERVE DECOMPRESSION 06/07/2016 - 06/06/2017 REPLACEMENT TOTAL KNEE 06/07/2016 - 06/06/2017 Right ABDOMINOPLASTY , 2015 CARPAL TUNNEL RELEASE 06/07/2015 - 06/06/2016 Bilateral HIATAL HERNIA REPAIR 06/07/2013 - 06/06/2014 GASTRIC BYPASS 06/07/2013 - 06/06/2014 gastric sleeve CHOLECYSTECTOMY 1970s APPENDECTOMY 1970s TUBAL LIGATION CATARACT EXTRACTION Bilateral Medical History Medical History Date Comments Cramp and spasm Leg cramps - (Ad ded by TW Conv) Epiphora Watering of eye - (Added by TW Conv) Dry eye syndrome Dry eye - (Adde d by TW Conv) Personal history of other di seases of the digestive system History of constipation - (A dded by TW Conv) HTN (hypertension) GERD (gastroesophageal reflux disease) Hiatal hernia s/p repair 2013 Hypothyroidism Depression Obesity Seasonal allergies Nerve injury Anxiety Generalized headache Overweight Family History Medical History Relation Name Comments Heart defect Brother 1 Heart problem - (Added by TW Conv) Colon cancer Brother 2 Family history of colon cancer - (Added by TW Conv) Heart defect Father Heart problem - (Added by TW Conv) Relation Name Status Comments Brother 1 Brother 2 Father Social History Tobacco Use Types Packs/Day Years Used Date Smoking Tobacco: Former Cigarettes Q uit: 1987 Smokeless Tobacco: Never Tobacco Cessation:Counseling Given: Not Answered Alcohol Use Standard Drinks/Week Comments Yes 0 (1 standard drink = 0.6 oz pur e alcohol) rare Comments No Sex and Gender Information Value Date Recorded Sex Assigned at Not on file Legal Sex Female 9:31 AM INTERNAL SALES ENGINEER Gender Identity Not on file Sexual Orientation Not on file Obstetrics History Last Filed Vital Signs Vital Sign Reading Time Taken Comments Blood Pressure 138/56 12/02/2017 8:02 AM CDT Pulse 57 12/02/2017 8:02 AM CDT Temperature 36.6 C (97.9 F) 12/02/2017 8:02 AM CDT Respiratory Rate 17 12/02/2017 8:02 AM CDT Oxygen Saturation 95% 12/02/2017 8:02 AM CDT Inhaled Oxygen Concentration - - Weight 105.7 kg (233 lb) 07/27/2018 1:06 PM INTERNAL SALES ENGINEER Height 152.4 cm (5') 07/27/2018 1:06 PM INTERNAL SALES ENGINEER Body Mass Index 45.5 07/27/2018 1:06 PM INTERNAL SALES ENGINEER Plan of Treatment Health Maintenance Due Date Last Done Comments Depression Screening 1950 Fall Risk Assessment 1950 Hepatitis C Screening 1950 Osteoporosis Screening-Bone Density Scan 1950 Hepatitis B Screening 1966 Well Visit 65+ 2013 Pneumococcal vaccine 65+ (2 of 2 - PCV) 09/05/2014 09/05/2013 Zoster Vaccine (2 of 3) 08/14/2015 06/19/2015 Covid-19 Vaccine (3 - 2023-2 5 season) 2024 08/15/2021, 07/25/2021 Influenza Vaccine (#1) 2024 , 03/13/2020, 03/15/2019, Additional history exists DTaP/Tdap/Td Vaccine (2 - Td or Tdap) 03/15/2025 03/15/2015 Insurance IDPA [facility] MEDICARE ADVANTAGE MEDICARE IDMO [facility] MEDICARE Advance Directives For more information, please contact: [phone] * Full Code (Latest Code Status on File) Date Activated Date Inactivated Comments 12/01/2017 12:26 PM 12/02/2017 1:18 PM Care Teams Supervisor Speech Relationship Specialty Start Date End Date Kj Carrillo MD PCP - General Internal Medicine 07/11/18 Kj Carrillo MD 07/11/18
--- OUTSIDE RECORDS SUMMARY | 2024-09-28 12:25 | XMS_ITS | Clinical Summary ---
Author Organization [facility] Address [address] [place] [address] Care Team Providers Care Wood Carver Hand Name Role Phone Kj Carrillo MD Primary Care Provider [phone] Source Comments [facility],non-owned Affiliates and Associated Physician Practices is amultiple site organization consisting of ambulatory clinics and hospital sitesin [place], [place], [place] and [place]. This disclosure is being madepursuant to the Care Everywhere program and may not contain all information available regarding this patient. Last updated 18.[facility] Allergies Active Allergy Reactions Criticality Noted Date Comments Codeine Other 01/16/2016 Sulfa Drugs Urticaria Medium 09/04/2016 Medications * Be aware that medications may not be up to date on this document. Alwaysverify current medications with the patient. escitalopram (Lexapro) 20 MG tablet Take 1 (one) tablet by mouth once daily 01/16/2022 Active Eliquis 5 MG tablet Take 1 (one) tablet by mouth 2 times daily 01/13/2022 Active budesonide (Pulmicort) 0.5 MG/2ML nebulizer suspension Inhale 2 mL by mouth 2 times daily Active acetaminophen (Tylenol) 500 MG tablet Take 1 (one) tablet by mouth every 6 hours as needed Active albuterol HFA (Proventil; Ventolin; Proair) 108 (90 Base) MCG/ACT inhaler Inhale 2 (two) puffs by mouth every 6 hours as needed Active calcium-magnesi um-zinc 333-133-5 MG tablet Take 1 (one) tablet by mouth once daily Active Cyanocobalamin 1000 MCG Take 1 (one) tablet by mouth once daily Active DULoxetine (Cymbalta) 20 MG capsule Take 1 (one) capsule by mouth 2 times daily 12/21/2021 Active famotidine (Pepcid) 40 MG tablet Take 1 (one) tablet by mouth once daily 12/22/2021 Active levothyroxine (Synthroid) 125 MCG tablet Take 1 (one) tablet by mouth once daily 11/12/2021 Active Myrbetriq 25 MG tablet Take 1 (one) tablet by mouth once daily 12/10/2021 Active montelukast (Singulair) 10 MG tablet TAKE 1 TABLET BY MOUTH EVERY DAY IN THE EVENING 12/22/2021 Active omeprazole (PriLOSEC) 20 MG capsule Take 1 (one) capsule by mouth 2 times daily 11/19/2021 Active pregabalin (Lyrica) 75 MG capsule 12/16/2021 Active spironolactone- hydroCHLOROthia zide (Aldactazide 25) 25-25 MG tablet TAKE 1 TABLET BY MOUTH EVERY DAY IN THE MORNING 01/13/2022 Active Multiple Vitamin (MULTI-VITAMIN DAILY PO) Active docusate sodium (Colace) 100 MG capsule Take 1 (one) capsule by mouth once daily Active HYDROcodone-michelle taminophen ([place]) 5-325 MG tablet Take 1 (one) tablet by mouth 2 times daily as needed for Pain 20 tablet 02/19/2022 Active methocarbamol (Robaxin) 500 MG tablet Take 1 (one) tablet by mouth every 8 hours as needed for Muscle Spasms 20 tablet 02/19/2022 Active tiZANidine (Zanaflex) 2 MG tablet Take 1 (one) tablet by mouth every 8 hours as needed 02/19/2022 Active flecainide (Tambocor) 100 MG tablet Take 1 (one) tablet by mouth 2 times daily 03/18/2022 Active metoprolol succinate XL 24hr (Toprol XL) 25 MG tablet Take 1 (one) tablet by mouth once daily 03/18/2022 Active Active Problems Problem Noted Date Diagnosed Date Chronic bilateral low back pain Social History Tobacco Use Types Packs/Day Years Used Date Smoking Tobacco: Former Cigarettes Smokeless Tobacco: Never Tobacco Cessation:Counseling Given: Not Answered Alcohol Use Standard Drinks/Week Comments Not Currently 0 (1 standard drink = 0.6 oz pur e alcohol) AUDIT-C Answer Date Recorded Q1: How often do you have a drink containing alcohol? Never 02/19/2022 Q2: How many drinks containi ng alcohol do you have on a typical day when you are drinking? Patient does not drink Q3: How often do you have si x or more drinks on one occasion? Never 02/19/2022 Comments Unknown Sex and Gender Information Value Date Recorded Sex Assigned at Not on file Legal Sex Female 3:47 PM CDT Gender Identity Not on file Sexual Orientation Not on file Last Filed Vital Signs Vital Sign Reading Time Taken Comments Blood Pressure 163/83 05/10/2023 9:04 AM BRIDGE ENGINEER Pulse 64 05/10/2023 9:04 AM BRIDGE ENGINEER Temperature 36.6 C (97.8 F) 05/10/2023 9:04 AM BRIDGE ENGINEER Respiratory Rate 18 04/13/2022 8:44 AM BRIDGE ENGINEER Oxygen Saturation 95% 05/10/2023 9:04 AM BRIDGE ENGINEER Inhaled Oxygen Concentration - - Weight 124.3 kg (274 lb) 05/10/2023 9:04 AM BRIDGE ENGINEER Height 160 cm (5' 3 ) 04/13/2022 8:44 AM BRIDGE ENGINEER Body Mass Index 48.54 04/13/2022 8:44 AM BRIDGE ENGINEER Plan of Treatment Health Maintenance Due Date Last Done Comments BONE DENSITY TESTING 1950 HEPATITIS C SCREENING 03/23/1966 DTAP/TDAP/TD VACCINES (1 - Tdap) 1967 PNEUMOCOCCAL VACCINE 50+ (1 of 1 - PCV) 1998 ZOSTER VACCINE (1 of 2) 1998 Respiratory Syncytial Virus (RSV) Vaccine Pt: or over 60 yrs (1 - 1-dose 75+ series) 2023 COVID-19 VACCINE ( - 2023-2 5 season) 2024 DEPRESSION SCREENING 06/07/2024 MEDICARE AWV CALENDAR YEAR 2024 INFLUENZA VACCINE (Season Ended) 2025 HEPATITIS B VACCINE Aged Out No longe r eligible based on patient's age to complete this topic HIB VACCINE Aged Out No longer eligi ble based on patient's age to complete this topic HPV VACCINE Aged Out No longer eligi ble based on patient's age to complete this topic MENINGOCOCCAL (Group B) VACC INE SHARED DECISION-MAKING Aged Out No longer eligibl e based on patient's age to complete this topic MENINGOCOCCAL GROUPS A/C/Y/W VACCINE Aged Out No longer eligible b ased on patient's age to complete this topic Medical Devices Implanted Type Area Land Resource Specialist Device Identifier Shelf Expiration Date Model / Serial / Lot Lead Nrstm 60cm Penta 3mm Pdl 16 [facility] - [id number] Implanted:Qty : 1 on 02/19/2022 by Bonifacio Brown MD at [facility] N/A: Spine Thoracic Advanced Neuromod[employer] Systems 05/04/2023 [id number] / [id number] / Gntr Nrstm 1.95inx2.19in Proclaim Elt - [id number] Implanted:Qty : 1 on 02/19/2022 by Bonifacio Brown MD at [facility] Right: Back [employer] 11/20/2023 [id number] / [id number] / Slnt Dura Duraseal Pg Trilysine Amine 5 Implanted:Qty : 1 on 02/19/2022 by Bonifacio Brown MD at [facility] Right: Back Integra Vericalci[employer] Danielle 04/06/2023 [id number] / / [id number] Insurance MEDICARE MEDICAID - OUT OF STATE MEDICAID - [place] [facility] MANAGED MEDICARE ADV Care Teams Wood Carver Hand Relationship Specialty Start Date End Date Kj Carrillo MD [address] [place] [address] PCP - General 12/10/21
--- OUTSIDE RECORDS SUMMARY | 2024-09-28 12:25 | XMS_ITS | Clinical Summary ---
Author Organization [facility] Address [address] [place] [address] Care Team Providers Care Candy Supervisor Name Role Phone Kj Carrillo MD Primary Care Provider [phone] Bonifacio Brown MD Unavailable [phone] Mookie Baker MD Unavailable [phone] Neena Camp MD Unavailable Angie Yoon PA-C Unavailable [phone] Allergies Active Allergy Reactions Criticality Noted Date Comments Codeine Nausea Only 01/16/2016 Sulfa Antibiotics Hives 09/04/2016 Medications Multiple Vitamins-Minera ls ([facility] OR) Take 1 tablet by mouth daily. 5 Active vitamin B-12 1000 MCG tablet Take 1 tablet (1,000 mcg total) by mouth daily. Active escitalopram 20 MG tablet Take 1 tablet (20 mg total) by mouth daily. 0 Active famotidine 40 MG tablet Take 1 tablet (40 mg total) by mouth daily. 0 Active montelukast 10 MG tablet Take 1 tablet (10 mg total) by mouth every evening. 0 Active pregabalin 75 MG capsule Take 1 capsule (75 mg total) by mouth. 1 capsule every morning and 2 capsules at bedtime 0 Active spironolactone- hydroCHLOROthia zide 25-25 MG tablet Take 1 tablet by mouth every morning. 0 Active HYDROcodone-michelle taminophen 5-325 MG tablet Take 1 tablet by mouth as needed for Pain. Active acetaminophen 500 MG tablet Take 1 tablet (500 mg total) by mouth every 6 (six) hours as needed for Pain. Active albuterol sulfate HFA 108 (90 Base) MCG/ACT inhaler Inhale 2 puffs into the lungs every 6 (six) hours as needed for Wheezing. Active cyclobenzaprine 10 MG tablet Take 1 tablet (10 mg total) by mouth 3 (three) times daily as needed for Muscle Spasms. Active omeprazole (PRILOSEC) 20 MG capsule Take 1 capsule (20 mg total) by mouth 2 (two) times a day. 2 Active DULoxetine (CYMBALTA) 20 MG capsule Take 1 capsule (20 mg total) by mouth 2 (two) times daily. 2 Active MYRBETRIQ 25 MG 24 hr tablet Take 1 tablet (25 mg total) by mouth daily. 2 Active ELIQUIS 5 MG tablet Take 1 tablet (5 mg total) by mouth 2 (two) times daily. 2 Active budesonide (PULMICORT) 0.5 MG/2ML nebulizer solution Take 2 mLs (0.5 mg total) by nebulization 2 (two) times daily. Active calcium-magnesi um-zinc 333-133-5 MG Tab Take 1 tablet by mouth daily. Active Docusate Sodium (STOOL SOFTENER OR) Take 1 tablet by mouth 2 (two) times a day. Active amLODIPine (NORVASC) 2.5 MG tablet Take 1 tablet (2.5 mg total) by mouth daily. 30 tablet 11 4 Active levothyroxine (SYNTHROID) 112 MCG tablet Take 1 tablet (112 mcg total) by mouth daily. 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) 02/13/2020 Hypothyroid 02/25/2018 Bradycardia 10/04/2016 Anxious depression 10/04/2016 Abnormal ECG 01/23/2016 Essential (primary) hypertension 01/23/2016 Asthma (HHS/HCC) Nonrheumatic mitral valve regurgitation S/P ablation of atrial fibrillation Pulmonary emboli (HHS/HCC) S/P gastric bypass Resolved Problems Problem Noted Date Diagnosed Date Resolved Date Preop cardiovascular exam 01/23/2016 Encounters Date Type Department Care Team Description 07/19/2024 9:00 AM PAVING AND SURFACING LABOURER Office Visit [facility] [address] [place] [address] Angie Yoon PA-C Follow Up 07/19/2024 6:28 AM PAVING AND SURFACING LABOURER - 07/19/2024 11:59 PM PAVING AND SURFACING LABOURER Hospital Encounter [facility] [address] [place] [address] Angie Yoon PA-C Discharge Disposition: Home or Self Care (Routine Discharge) 07/19/2024 Travel 07/13/2024 Orders Only [facility] [address] [place] [address] Mookie Baker MD from Last 3 Months Family History Medical History Relation Comments Cancer Brother 1 Heart Attack Brother 2 agent orange Brother 3 No Known Problems Brother 4 Diabetes Father Heart Attack Father Hypertension Father Kidney Disease Father Open Heart Father No Known Problems Maternal Grandfather No Known Problems Maternal Grandmother Asthma Mother TB Paternal Grandfather No Known Problems Paternal Grandmother Hypertension Sister Lupus Sister Relation Status Comments Brother 1 (Age 46) colon cancer Brother 2 Brother 3 Alive Brother 4 Alive Father (Age 68) Heart attack, Diabetes, HTN, Kidney disease Maternal Grandfather Maternal Grandmother Mother (Age 27) Paternal Grandfather Paternal Grandmother Sister Alive Social History Tobacco Use Types Packs/Day Years [...] money to buy more. Never true 10/09/19 23 Within the past 12 months, t he [...] place to sleep or slept in a custodial (including now)? No 10/08/2022 Comments Unknown Sex and Gender Information Value Date Recorded Sex Assigned at Female 07/19/2024 6:27 AM PAVING AND SURFACING LABOURER Legal Sex Female 9:45 PM CDT Gender Identity Not on file Sexual Orientation Not on file Occupation Industry Job Start Date Job End Date Not on file Not on file Not on file Not on file Last Filed Vital Signs Vital Sign Reading Time Taken Comments Blood Pressure 142/89 07/19/2024 9:05 AM PAVING AND SURFACING LABOURER Pulse 65 07/19/2024 9:05 AM PAVING AND SURFACING LABOURER Temperature 36.5 C (97.7 F) 10/09/2022 8:46 AM CDT Respiratory Rate 12 07/19/2024 9:05 AM PAVING AND SURFACING LABOURER Oxygen Saturation 92% 07/19/2024 9:05 AM PAVING AND SURFACING LABOURER Inhaled Oxygen Concentration - - Weight 125.5 kg (276 lb 9.6 oz) 07/19/2024 9:05 AM PAVING AND SURFACING LABOURER Height 160 cm (5' 3 ) 07/19/2024 9:05 AM PAVING AND SURFACING LABOURER Body Mass Index 49 07/19/2024 9:05 AM PAVING AND SURFACING LABOURER Plan of Treatment Upcoming Encounters Date Type Department Care Team (Late st Contact Info) Description 12/28/2024 9:[address] [facility] [place] [address] Neena Camp MD [address] [place], [place] [id number] 01/15/2025 11:00 AM CDT Office Visit [facility] [address] [place] [address] Neena Camp MD [address] [place], [place] [phone] Health Maintenance Due Date Last Done Comments Hepatitis C 1968 Pneumococcal Vaccine: 50+ Years (1 of 2 - PCV) 1967 AAA SCREENING 2013 Annual Medicare Wellness Visit 2013 Dexa Scan (General) 2013 Zoster Vaccines (2 of 3) 08/14/2015 06/19/2015 RSV Immunization or 60+ Years (1 - 1-dose 75+ series) 2023 COVID-19 Vaccine (3 - 2023-2 5 season) 2024 08/15/2021, 07/25/2021 DTaP, Tdap and Td Vaccines ( 2 - Td or Tdap) 03/15/2025 03/15/2015 Meningococcal B Vaccine Aged Out No l onger eligible based on patient's age to complete this topic Meningococcal Vaccine Aged Out No ekaterina wilber eligible based on patient's age to complete this topic RSV Immunizations Under 20 Months Aged Out No longer eligible b ased on patient's age to complete this topic Procedures Procedure Name Priority Date/Time Associated Diagnosis Comments ECG 12-LEAD Routine 07/19/2024 8:09 AM PAVING AND SURFACING LABOURER Persistent atrial fibrillation (CMS/HCC HHS/HCC) from Last 3 Months Results * ECG 12 lead (HOSPITAL PERFORMED ONLY) (07/19/2024 8:09 AM PAVING AND SURFACING LABOURER) 07/19/2024 8:09 AM PAVING AND SURFACING LABOURER Narrative [facility] - 07/20/2024 5:25 AM PAVING AND SURFACING LABOURER [address] [place] [address] Test Date: 2024-07-19 Pat Name: ADAM WARNER Department: 3 Room: Gender: Female Carpet Yarn Winder Operator: : 1950 Requested By: MOOKIE BAKER Order Number: [id number] Reading MD: Mookie Baker Measurements Intervals Independence Rate: 57 P: 79 LA: 191 QRS: 37 QRSD: 119 T: 72 QT: 449 QTc: 439 Interpretive Statements SINUS BRADYCARDIA MODERATE INTRAVENTRICULAR CONDUCTION DELAY NG AND SURFACING LABOURER Procedure Note Mookie Baker MD - 07/20/[address] [place] [address] Test Date: 2024-07-19 Pat Name: ADAM WARNER Department: 3 Room: Gender: Female Carpet Yarn Winder Operator: : 1950 Requested By: MOOKIE BAKER Order Number: [id number] Reading : Mookie Baker Measurements Intervals Independence Rate: 57 P: 79 LA: 191 QRS: 37 QRSD: 119 T: 72 QT: 449 QTc: 439 Interpretive Statements SINUS BRADYCARDIA MODERATE INTRAVENTRICULAR CONDUCTION DELAY NG AND SURFACING LABOURER us Mookie Baker MD ECG ORDERABLES Final Res ult [facility] from Last 3 Months Insurance MEDICAID MEDICAID Member Subscriber Plan / Payer (Ef fective 2017-Present) Name:Adam Warner Relation to Subscriber:Self Name:Adam Warner Payer ID:Not on file Group ID:Not on file Type:Not on file Address: [address] Advance Directives * Full Code (Latest Code Status on File) Date Activated Date Inactivated Comments 10/08/2022 8:12 PM 10/09/2022 11:25 AM Care Teams Candy Supervisor Relationship Specialty Start Date End Date Kj Carrillo MD [address] [place] [id number] PCP - General INTERNAL MEDICINE 01/14/16 Bonifacio Brown MD [address] [phone] NEUROLOGICAL SURGERY 01/29/22 Mookie Baker MD [address] [place] [address] Consulting Physician CLINICAL CARDIAC ELECTROPHYSIOLOGY 05/21/22 Neena Camp MD [address], [place] [id number] Consulting Physician CARDIOVASCULAR DISEASE 10/01/23 Angie Yoon PA-C [address] [place], [place] [address] Referring Physician PHYSICIAN TRANSITIONS MANAGER 01/18/24
[2024-09-29 14:09] LABS: CRP < 0.5 mg/dL (<1.0)
== END 2024-09-28 10:54 | disposition home or self-care (01) ==
LOC: CHSLAB 10:57
PROVIDERS: PCP Internal Medicine; Visit Provider Internal Medicine
DX: I10 Essential (primary) hypertension (principal); E03.9 Hypothyroidism, unspecified; I48.91 Unspecified atrial fibrillation
CPT/HCPCS: 36415; 80053; 80061; 81001; 84443; 85027; 86140

== ENCOUNTER 2024-10-02 08:37 | Outpatient (CLI) | payer MEDICARE, MEDICAID, SELFPAY ==
--- NOTE | ~2024-10-02 | MM_ITS ---
EXAMINATION: MM screening maulik BI w ginny HISTORY: Screening mammogram TECHNIQUE: Craniocaudal and mediolateral oblique 3-D tomosynthesis images were obtained and synthetic 2-D images were generated. CAD analysis was submitted and interpreted. COMPARISON: 09/30/2023, 01/20/2022 BREAST PARENCHYMAL COMPOSITION:Not Dense. The breasts are almost entirely fatty FINDINGS: No suspicious mass, calcification, or architectural distortion are identified in either chuckie ast to suggest malignancy. There has been no suspicious interval change. IMPRESSION: No mammographic evidence of malignancy. Recommend routine screening mammography in one year. BI-RADS Category 1: Negative Reviewed, dictated and finalized at location .
--- OUTSIDE RECORDS SUMMARY | 2024-10-02 08:56 | XMS_ITS | Clinical Summary ---
Author Organization [facility] Address [address] [facility] [place] [address] Care Team Providers Care Golf Club Head Former Name Role Phone Kj Carrillo MD Primary Care Provider [phone] Source Comments [facility],non-owned Affiliates and Associated Physician Practices is amultiple site organization consisting of ambulatory clinics and hospital sitesin [place], [place], [place] and [place]. This disclosure is being madepursuant to the Care Everywhere program and may not contain all information available regarding this patient. Last updated 18.[facility] Allergies Active Allergy Reactions Criticality Noted Date [...] by mouth once daily Active HYDROcodone-michelle taminophen ([place]) 5-325 MG tablet Take 1 (one) tablet [...] Comments Blood Pressure 163/83 05/10/2023 9:04 AM COVER SEAMER Pulse 64 05/10/2023 9:04 AM COVER SEAMER Temperature 36.6 C (97.8 F) 05/10/2023 9:04 AM COVER SEAMER Respiratory Rate 18 04/13/2022 8:44 AM COVER SEAMER Oxygen Saturation 95% 05/10/2023 9:04 AM COVER SEAMER Inhaled Oxygen Concentration - - Weight 124.3 kg (274 lb) 05/10/2023 9:04 AM COVER SEAMER Height 160 cm (5' 3 ) 04/13/2022 8:44 AM COVER SEAMER Body Mass Index 48.54 04/13/2022 8:44 AM COVER SEAMER Plan of Treatment Health Maintenance Due Date [...] this topic Medical Devices Implanted Type Area Hammer Mill Operator Device Identifier Shelf Expiration Date Model / Serial / Lot Lead Nrstm 60cm Penta 3mm Pdl 16 [facility] - [id number] Implanted:Qty : 1 on 02/19/2022 by Bonifacio Brown MD at [facility] N/A: Spine Thoracic Advanced Neuromodulation Systems 05/04/2023 [id number] / [id number] / Gntr Nrstm 1.95inx2.19in Proclaim Elt - [id number] Implanted:Qty : 1 on 02/19/2022 by Bonifacio Brown MD at [facility] Right: Back [employer] 11/20/2023 [id number] / [id number] / Slnt Dura Duraseal Pg Trilysine Amine 5 Implanted:Qty : 1 on 02/19/2022 by Bonifacio Brown MD at [facility] Right: Back Integra [employer] Danielle 04/06/2023 [id number] / / [id number] Insurance MEDICARE MEDICAID - OUT OF STATE MED[place]ID - [place] [facility] MANAGED MEDICARE ADV Care Teams Golf Club Head Former Relationship Specialty Start Date End Date Kj Carrillo MD [address] [place] [address] PCP - General 12/10/21
--- OUTSIDE RECORDS SUMMARY | 2024-10-02 08:56 | XMS_ITS | Encounter Summary ---
Author Organization [facility] Address [address] [place] [address] Care Team Providers Care Stereotyper Apprentice Name Role Phone Kj Carrillo MD Primary Care Provider [phone] Yong Simons MD Unavailable [phone] Luz Land APRN, NP-C Unavailable Bonifacio Brown MD Unavailable [phone] Mookie Gonzales MD Unavailable [phone] Neena Camp MD Unavailable Angie Yoon PA-C Unavailable [phone] Encounter Details Date Type Department Care Team (Late st Contact Info) Description 10/06/2022 Hospital Orders Only [facility] Anesthesia [address] [place] [address] Cheli Mohan RN Anesthesia Record Procedure Summary [...] place to sleep or slept in a group home (including now)? No 10/08/2022 Comments Unknown Sex and Gender Information Value Date Recorded Sex Assigned at Female 07/19/2024 6:27 AM CHROME TANNER Legal Sex Female 9:45 PM CDT Gender [...] EMIGDIOT Ja Conroy se, RN Active * [place] Suicide Severity Rating Scale (Screener/Recent Self-Report) Question [...] Info) Description 12/28/2024 9:00 AM CDT Appointment [facility] [address] [facility] [place] [address] Neena Camp MD [address] [place], [place] [address] 01/15/2025 11:00 AM CDT Office Visit [facility] [address] [place] [address] Neena Camp MD [address] [place] [address] documented as of this encounter Visit Diagnoses Not on filedocumented in this encounter Care Teams Stereotyper Apprentice Relationship Specialty Start Date End Date Kj Carrillo MD [address] [place] [address] PCP - General INTERNAL MEDICINE 01/14/16 Yong Simons MD [address] [place] [address] [employer]yllis Operating Systems Programmer CARDIOVASCULAR DISEASE 09/02/16 09/30/23 Luz Land, WASTE OIL PUMPER, TECH WRITER-C [address] [facility] [address] [place] [address] NURSE PRACTITIONER 01/29/22 09/30/23 Bonifacio Brown MD [address] [place] [address] NEUROLOGICAL SURGERY 01/29/22 Mookie Gonzales MD [address] [place] [address] Consulting Physician CLINICAL CARDIAC ELECTROPHYSIOLOGY 05/21/22 Neena Camp MD [address] [place] [address] Consulting Physician CARDIOVASCULAR DISEASE 10/01/23 Angie Yoon PA-C [address] [place] [address] Referring Physician PHYSICIAN CRUDE OIL TREATER 01/18/24 documented as of this encounter
--- OUTSIDE RECORDS SUMMARY | 2024-10-02 08:56 | XMS_ITS | Encounter Summary ---
Author Organization [facility] Address [address] [place] [address] Care Team Providers Care Technician Preventative Medicine Name Role Phone Kj Carrillo MD Primary Care Provider [phone] Davis Plata MD Unavailable [phone] Yong Simons MD Unavailable Luz Land APRN, NP-C Unavailable Bonifacio Brown MD Unavailable [phone] Mookie Gonzales MD Unavailable Neena Camp MD Unavailable Angie Yoon-C Unavailable [phone] Encounter Details Date Type Department Care Team (Late st Contact Info) Description 08/27/2014 Abstract [facility] [address] [place] [address] Davis Plata MD [address] [place] [address] Social History Tobacco Use Types Packs/Day Years Used Date Smoking Tobacco: Former Cigarettes Q uit: 1985 Alcohol Use Standard Drinks/Week Comments No 0 (1 standard drink = 0.6 oz pur e alcohol) Comments Unknown Sex and Gender Information Value Date Recorded Sex Assigned at Female 07/19/2024 6:27 AM PLASTER BLOCK LAYER Legal Sex Female 9:45 PM CDT Gender Identity Not on file Sexual Orientation Not on file Occupation Industry Job Start Date Job End Date Not on file Not on file Not on file Not on file documented as of this encounter Plan of Treatment Upcoming Encounters Date Type Department Care Team (Late st Contact Info) Description 12/28/2024 9:00 AM CDT Appointment [facility] [address] [place] [address] Neena Camp MD [address] [place], [place] [phone] 01/15/2025 11:00 AM CDT Office Visit [facility] [address] [facility] [address] Neena Camp MD [address] [place], [place] [address] documented as of this encounter Visit Diagnoses Not on filedocumented in this encounter Care Teams Technician Preventative Medicine Relationship Specialty Start Date End Date Kj Carrillo MD [address] [place] [address] PCP - General INTERNAL MEDICINE 01/14/16 Davis Plata MD [address] [place] [address] [employer]adera Balance Weigher CARDIOVASCULAR DISEASE 01/14/16 01/28/22 Yong Simons MD [address] [place] [address] [employer] Balance Weigher CARDIOVASCULAR DISEASE 09/02/16 09/30/23 Luz Land APRN, EMT/DISPATCHER-C [address] [facility] [address] [place] [address] NURSE PRACTITIONER 01/29/22 09/30/23 Bonifacio Brown MD [address] [place] [address] NEUROLOGICAL SURGERY 01/29/22 Mookie Gonzales MD [address] [place] [address] Consulting Physician CLINICAL CARDIAC ELECTROPHYSIOLOGY 05/21/22 Neena Camp MD [address] [place], [place] [address] Consulting Physician CARDIOVASCULAR DISEASE 10/01/23 Angie Yoon PA-C [address] [place] [address] Referring Physician PHYSICIAN FILLER ROOM ATTENDANT 01/18/24 documented as of this encounter
--- OUTSIDE RECORDS SUMMARY | 2024-10-02 08:56 | XMS_ITS | Clinical Summary ---
Author Organization [facility] Address [address] [place] [address] Care Team Providers Care Dimensional Integration Engineer Name Role Phone Kj Carrillo MD Primary Care Provider [phone] Bonifacio Brown MD Unavailable [phone] Mookie Baker MD Unavailable [phone] Neena Camp MD Unavailable Angie Yoon PA-C Unavailable [phone] Allergies Active Allergy Reactions Criticality Noted Date Comments Codeine Nausea Only 01/16/2016 Sulfa Antibiotics Hives 09/04/2016 Medications Multiple Vitamins-Minera ls ([facility] OR) Take 1 tablet by [...] Department Care Team Description 07/19/2024 9:00 AM HOUSING LIAISON Office Visit [facility] [address] [place] [address] Angie Yoon PA-C Follow Up 07/19/2024 6:28 AM HOUSING LIAISON - 07/19/2024 11:59 PM HOUSING LIAISON Hospital Encounter [facility] [address] [place] [address] Angie Yoon PA-C Discharge Disposition: Home or Self Care (Routine Discharge) 07/19/2024 Travel 07/13/2024 Orders Only [facility] [address] [place] [address] Mookie Baker MD from Last 3 Months [...] place to sleep or slept in a intermediate (including now)? No 10/08/2022 Comments Unknown Sex and Gender Information Value Date Recorded Sex Assigned at Female 07/19/2024 6:27 AM HOUSING LIAISON Legal Sex Female 9:45 PM CDT Gender Identity Not on file Sexual Orientation Not on file Occupation Industry Job Start Date Job End Date Not on file Not on file Not on file Not on file Last Filed Vital Signs Vital Sign Reading Time Taken Comments Blood Pressure 142/89 07/19/2024 9:05 AM HOUSING LIAISON Pulse 65 07/19/2024 9:05 AM HOUSING LIAISON Temperature 36.5 C (97.7 F) 10/09/2022 8:46 AM CDT Respiratory Rate 12 07/19/2024 9:05 AM HOUSING LIAISON Oxygen Saturation 92% 07/19/2024 9:05 AM HOUSING LIAISON Inhaled Oxygen Concentration - - Weight 125.5 kg (276 lb 9.6 oz) 07/19/2024 9:05 AM HOUSING LIAISON Height 160 cm (5' 3 ) 07/19/2024 9:05 AM HOUSING LIAISON Body Mass Index 49 07/19/2024 9:05 AM HOUSING LIAISON Plan of Treatment Upcoming Encounters Date Type Department Care Team (Late st Contact Info) Description 12/28/2024 9:[address] [facility] [place] [address] Neena Camp MD [address] [place], [place] [address] 01/15/2025 11:00 AM CDT Office Visit [facility] [address] [place] [address] Neena Camp MD [address] [place], [place] [phone] Health Maintenance Due Date Last Done Comments [...] Comments ECG 12-LEAD Routine 07/19/2024 8:09 AM HOUSING LIAISON Persistent atrial fibrillation (CMS/HCC HHS/HCC) from Last 3 Months Results * ECG 12 lead (HOSPITAL PERFORMED ONLY) (07/19/2024 8:09 AM HOUSING LIAISON) 07/19/2024 8:09 AM HOUSING LIAISON Narrative [facility] - 07/20/2024 5:25 AM HOUSING LIAISON [address] [place] [address] Test Date: 2024-07-19 Pat Name: ADAM WARNER Department: 3 Room: Gender: Female Catalyst Supervisor: : 1950 Requested By: MOOKIE BAKER Order Number: [id number] Reading MD: Mookie Baker Measurements Intervals [place] Rate: 57 P: 79 HI: 191 QRS: 37 QRSD: 119 T: 72 QT: 449 QTc: 439 Interpretive Statements SINUS BRADYCARDIA MODERATE INTRAVENTRICULAR CONDUCTION DELAY ING LIAISON Procedure Note Mookie Baker MD - 07/20/[address] [place] [address] Test Date: 2024-07-19 Pat Name: ADAM WARNER Department: 3 Room: Gender: Female Catalyst Supervisor: : 1950 Requested By: MOOKIE BAKER Order Number: [id number] Reading : Mookie Baker Measurements Intervals [place] Rate: 57 P: 79 HI: 191 QRS: 37 QRSD: 119 T: 72 QT: 449 QTc: 439 Interpretive Statements SINUS BRADYCARDIA MODERATE INTRAVENTRICULAR CONDUCTION DELAY ING LIAISON us Mookie Baker MD ECG ORDERABLES Final Res ult [facility] from Last 3 Months Insurance MEDICAID MEDICAID Member Subscriber Plan / Payer (Ef fective 2017-Present) Name:Adam Warner Relation to Subscriber:Self Name:Adam Warner Payer ID:Not on file Group ID:Not on file Type:Not on file Address: [address] Advance Directives * Full Code (Latest Code Status on File) Date Activated Date Inactivated Comments 10/08/2022 8:12 PM 10/09/2022 11:25 AM Care Teams Dimensional Integration Engineer Relationship Specialty Start Date End Date Kj Carrillo MD [address] [place] [address] PCP - General INTERNAL MEDICINE 01/14/16 Bonifacio Brown MD [address] [place] [address] NEUROLOGICAL SURGERY 01/29/22 Mookie Baker MD [address] [place] [address] Consulting Physician CLINICAL CARDIAC ELECTROPHYSIOLOGY 05/21/22 Neena Camp MD [address] [place], [place] [address] Consulting Physician CARDIOVASCULAR DISEASE 10/01/23 Angie Yoon PA-C [address] [place], [place] [address] Referring Physician PHYSICIAN HOME CARE MANAGER RN 01/18/24
--- OUTSIDE RECORDS SUMMARY | 2024-10-02 08:56 | XMS_ITS | Encounter Summary ---
Author Organization [facility] Address [address] [place] [address] Care Team Providers Care Call Center Representative Name Role Phone Kj Carrillo MD Primary Care Provider [phone] Yong Simons MD Unavailable [phone] Luz Land APRN, NP-C Unavailable [phone] Bonifacio Brown MD Unavailable [phone] Mookie Gonzales MD Unavailable [phone] Neena Camp MD Unavailable Angie YoonC Unavailable [phone] Encounter Details Date Type Department Care Team (Late st Contact Info) Description 09/30/2022 Hospital Orders Only [facility] Pre/Post [address] [place] [address] Mookie Gonzales MD [address] [place] [address] Social History Tobacco Use Types Packs/Day Years Used Date Smoking Tobacco: Former Cigarettes Q uit: 1985 Smokeless Tobacco: Never Alcohol Use Standard Drinks/Week Comments No 0 (1 standard drink = 0.6 oz pur e alcohol) Comments Unknown Sex and Gender Information Value Date Recorded Sex Assigned at Female 07/19/2024 6:27 AM TOOL MARKER Legal Sex Female 9:45 PM CDT Gender [...] Info) Description 12/28/2024 9:00 AM CDT Appointment [address] [place] [address] Neena Camp MD [address] [place] [address] 01/15/2025 11:00 AM CDT Office Visit [facility] [address] [facility] [place] [address] Neena Camp MD [address] [place] [address] documented as of this encounter Visit Diagnoses Not on filedocumented in this encounter Care Teams Call Center Representative Relationship Specialty Start Date End Date Kj Carrillo MD [address] [place] [address] PCP - General INTERNAL MEDICINE 01/14/16 Yong Simons MD [address] [place] [address] [place] Truck Driver Supervisor CARDIOVASCULAR DISEASE 09/02/16 09/30/23 Luz Land, GRAY MIXING OPERATOR, ELECTRICAL TEST TECHNICIAN-C [address] [facility] [address] [place] [address] NURSE PRACTITIONER 01/29/22 09/30/23 Bonifacio Brown MD [address] [place] [address] NEUROLOGICAL SURGERY 01/29/22 Mookie Gonzales MD [address] [place] [address] Consulting Physician CLINICAL CARDIAC ELECTROPHYSIOLOGY 05/21/22 Neena Camp MD [address] [place], [place] [address] Consulting Physician CARDIOVASCULAR DISEASE 10/01/23 Angie Yoon PA-C [address] [place], [place] [address] Referring Physician PHYSICIAN JUVENILE JUSTICE SPECIALIST 01/18/24 documented as of this encounter
--- OUTSIDE RECORDS SUMMARY | 2024-10-02 08:56 | XMS_ITS | Clinical Summary ---
Author Organization [facility] Address [address] [place] [address] Care Team Providers Care Director Of Search Engine Marketing Name Role Phone Kj Carrillo MD Primary Care Provider [phone] Kj Carrillo MD Unavailable [phone] Allergies Active Allergy Reactions Criticality Noted [...] per tablet Take 1 tablet by mouth data warehouse administrator before breakfast 0 Active tiZANidine (ZANAFLEX) 2 [...] Knee Surgery - (Added by TW Conv) ND EXCISION EXCESSIVE SKIN & SUBQ TISSUE ABDOMEN Abdominoplasty - (Added by TW Conv) GASTRECTOMY Gastrectomy Sleeve - (Added by TW Conv) ND APPENDECTOMY Appendectomy - (Added by TW Conv) [...] on file Legal Sex Female 9:31 AM ATHLETIC EVENTS SCORER Gender Identity Not on file Sexual Orientation [...] 105.7 kg (233 lb) 07/27/2018 1:06 PM ATHLETIC EVENTS SCORER Height 152.4 cm (5') 07/27/2018 1:06 PM ATHLETIC EVENTS SCORER Body Mass Index 45.5 07/27/2018 1:06 PM ATHLETIC EVENTS SCORER Plan of Treatment Health Maintenance Due Date [...] Td or Tdap) 03/15/2025 03/15/2015 Insurance IDPA [facility] MEDICARE ADVANTAGE MEDICARE [facility] MEDIC[facility] Advance Directives For more information, please contact: [phone] * Full Code (Latest Code Status on File) Date Activated Date Inactivated Comments 12/01/2017 12:26 PM 12/02/2017 1:18 PM Care Teams Director Of Search Engine Marketing Relationship Specialty Start Date End Date Kj Carrillo MD PCP - General Internal Medicine 07/11/18 Kj Carrillo MD 07/11/18
--- OUTSIDE RECORDS SUMMARY | 2024-10-02 08:56 | XMS_ITS | Encounter Summary ---
Author Organization [facility] Address [address] [place] [address] Care Team Providers Care Roller Hand Name Role Phone Kj Carrillo MD Primary Care Provider [phone] Davis Plata MD Unavailable [phone] Yong Simons MD Unavailable [phone] Luz Land APRN CONCRETE MIXING PLANT LABORER-C Unavailable Bonifacio Brown MD Unavailable [phone] Mookie Gonzales MD Unavailable [phone] Neena Camp MD Unavailable Angie Yoon-C Unavailable [phone] Encounter Details Date Type Department Care Team (Latest Contact Info) Description 04/12/2018 Abstract [facility] , Kristin Stein MD Social History Tobacco Use Types Packs/Day Years Used Date Smoking Tobacco: Former Cigarettes Q uit: 1985 Smokeless Tobacco: Never Alcohol Use Standard Drinks/Week Comments No 0 (1 standard drink = 0.6 oz pur e alcohol) Comments Unknown Sex and Gender Information Value Date Recorded Sex Assigned at Female 07/19/2024 6:27 AM TRANSCRIPTER Legal Sex Female 9:45 PM CDT Gender [...] CDT Appointment [facility] [address] [place] [address] Neena Camp MD [address] [place] [address] 01/15/2025 11:00 AM CDT Office Visit [facility] [place] [address] Neena Camp MD [address] [place] [address] documented as of this encounter Visit Diagnoses Not on filedocumented in this encounter Care Teams Roller Hand Relationship Specialty Start Date End Date Kj Carrillo MD [address] [place] [address] PCP - General INTERNAL MEDICINE 01/14/16 Davis Plata MD [address] [place] [address] Henry Store Management Trainee CARDIOVASCULAR DISEASE 01/14/16 01/28/22 Yong Simons MD [address] [place] [address] Henry Store Management Trainee CARDIOVASCULAR DISEASE 09/02/16 09/30/23 Luz Land APRN, CONCRETE MIXING PLANT LABORER-C [address] [facility] [address] [place] [address] NURSE PRACTITIONER 01/29/22 09/30/23 Bonifacio Brown MD [address] [address] NEUROLOGICAL SURGERY 01/29/22 Mookie Gonzales MD [address] [place] [address] Consulting Physician CLINICAL CARDIAC ELECTROPHYSIOLOGY 05/21/22 Neena Camp MD [address] [place] [address] Consulting Physician CARDIOVASCULAR DISEASE 10/01/23 Angie Yoon PA-C [address] [place] [address] Referring Physician PHYSICIAN MONORAIL OPERATOR 01/18/24 documented as of this encounter
--- OUTSIDE RECORDS SUMMARY | 2024-10-02 08:56 | XMS_ITS | Referral Summary ---
Author Organization [facility] Address [address] [place] [address] Care Team Providers Care Residential Door Installer Name Role Phone Kj Carrillo MD Primary Care Provider [phone] Kj Carrillo MD Unavailable [phone] Allergies Active Allergy Reactions Criticality Noted [...] per tablet Take 1 tablet by mouth optimization analyst before breakfast 0 Active tiZANidine (ZANAFLEX) 2 [...] on file Legal Sex Female 9:31 AM PUG MACHINE OPERATOR Gender Identity Not on file Sexual Orientation [...] 105.7 kg (233 lb) 07/27/2018 1:06 PM PUG MACHINE OPERATOR Height 152.4 cm (5') 07/27/2018 1:06 PM PUG MACHINE OPERATOR Body Mass Index 45.5 07/27/2018 1:06 PM PUG MACHINE OPERATOR Plan of Treatment Not on file Insurance IDWA [facility] MEDICARE ADVANTAGE MEDICARE IDPA [facility] MEDICARE Advance Directives For more information, please contact: [phone] * Full Code (Latest Code Status on File) Date Activated Date Inactivated Comments 12/01/2017 12:26 PM 12/02/2017 1:18 PM Care Teams Residential Door Installer Relationship Specialty Start Date End Date Kj Carrillo MD PCP - General Internal Medicine 07/11/18 Kj Carrillo MD 07/11/18
--- OUTSIDE RECORDS SUMMARY | 2024-10-02 08:56 | XMS_ITS | Encounter Summary ---
Author Organization [facility] Address [address] [place] [address] Care Team Providers Care Crib Pad Maker Name Role Phone Kj Carrillo MD Primary Care Provider [phone] Kj Carrillo MD Unavailable [phone] Reason for Visit * Diagnostic Imaging (Routine) - Closed Specialty Diagnoses / Procedures Referred By Carl plascencia Referred To Contact Procedures Breast Imaging Screening Outside Reference Aft, Yajaira Wilson MD PhD [address] [place] [address] Phone: tel: fax: Referral ID Status Reason Start Date Expiration Date Visits Re quested Visits Authorized [id number] Closed 03/23/2022 04/22/2023 1 1 Encounter Details Date Type Department Care Team (Late st Contact Info) Description 09/07/2019 Hospital Encounter [facility] [address] [place] [id number] Social History Tobacco Use Types Packs/Day Years Used Date Smoking Tobacco: Former Cigarettes Q uit: 1988 Smokeless Tobacco: Never Alcohol Use Standard Drinks/Week Comments Yes 0 (1 standard drink = 0.6 oz pur e alcohol) rare Comments No Sex and Gender Information Value Date Recorded Sex Assigned at Not on file Legal Sex Female 9:31 AM ELECTRIC MOTOR CONTROLS ASSEMBLER Gender Identity Not on file Sexual Orientation [...] only and have not been reviewed by [facility]iology. There will be no report generated by a [facility] Radiologist. Narrative [facility]_M[facility]MO[facility] - 03/23/2022 1:10 PM CDT EXAMINATION: Images For Reference Purposes Only us Yajaira Ball MD PhD IMG MAMMO PROCEDURES Final Result [facility] documented in this encounter Visit Diagnoses Not on filedocumented in this encounter Care Teams Crib Pad Maker Relationship Specialty Start Date End Date Kj Carrillo MD PCP - General Internal Medicine 07/11/18 Kj Carrillo MD 07/11/18 documented as of this encounter
== END 2024-10-02 08:38 | disposition home or self-care (01) ==
PROVIDERS: PCP Internal Medicine; Visit Provider Internal Medicine
DX: Z12.31 Encounter for screening mammogram for malignant neoplasm of breast (principal)
CPT/HCPCS: 77063; 77067

== ENCOUNTER 2025-01-09 14:11 | Outpatient (CLI) | payer MEDICARE, MEDICAID, SELFPAY ==
--- OUTSIDE RECORDS SUMMARY | 2025-01-09 14:18 | XMS_ITS | Encounter Summary ---
Author Organization [facility] Address [address] [place] [address] Care Team Providers Care Directional Drill Operator Name Role Phone Kj Carrillo MD Primary Care Provider [phone] Yong Simons MD Unavailable [phone] Luz Land APRN, NP-C Unavailable [phone] Bonifacio Brown MD Unavailable [phone] Mookie Gonzales MD Unavailable [phone] Neena Camp MD Unavailable Angie YoonC Unavailable [phone] Encounter Details Date Type Department Care Team (Late st Contact Info) Description 09/30/2022 Hospital Orders Only [facility] Pre/Post [address] [place] [address] Mookie Gonzales MD [address] [place] [address] Social History Tobacco Use Types Packs/Day Years Used Date Smoking Tobacco: Former Cigarettes Q uit: 1985 Smokeless Tobacco: Never Alcohol Use Standard Drinks/Week Comments No 0 (1 standard drink = 0.6 oz pur e alcohol) Comments Unknown Sex and Gender Information Value Date Recorded Sex Assigned at Female 07/19/2024 6:27 AM SERVICE CONTROL OPERATOR Legal Sex Female 9:45 PM CDT Gender Identity Not on file Sexual Orientation Not on file Occupation Industry Job Start Date Job End Date Not on file Not on file Not on file Not on file Travel History Travel Start Travel End [place] 12/18/2024 12/22/2024 COVID-19 Exposure Response Date Recorded In the last 10 days, have yo u been in contact with someone who was confirmed or suspected to have Coronavirus/COVID-19? No / Unsure 10/02/2022 1:32 PM CDT documented as of this encounter Plan of Treatment Upcoming Encounters Date Type Department Care Team (Late st Contact Info) Description 01/15/2025 11:00 AM CDT Office Visit [facility] [address] [place] [address] Neena Camp MD [address] [place], [place] [address] 08/01/2025 10:30 AM SERVICE CONTROL OPERATOR Office Visit [facility] [address] [place] [address] Mookie Gonzales MD [address] [place] [address] documented as of this encounter Visit Diagnoses Not on filedocumented in this encounter Care Teams Directional Drill Operator Relationship Specialty Start Date End Date Kj Carrillo MD [address] [place] [address] PCP - General INTERNAL MEDICINE 01/14/16 Yong Simons MD [address] [place] [address] Marion Editorial Assistant CARDIOVASCULAR DISEASE 09/02/16 09/30/23 Luz Land APRN, DOMESTIC VIOLENCE COUNSELOR-C [address] [facility] [address] [place] [phone] NURSE PRACTITIONER 01/29/22 09/30/23 Bonifacio Brown MD [address] [place] [address] NEUROLOGICAL SURGERY 01/29/22 Mookie Gonzales MD [address] [place] [address] Consulting Physician CLINICAL CARDIAC ELECTROPHYSIOLOGY 05/21/22 Neena Camp MD [address] [place], [place] [address] Consulting Physician CARDIOVASCULAR DISEASE 10/01/23 Angie Yoon PA-C [address] [place] [address] Referring Physician PHYSICIAN EDITOR 01/18/24 documented as of this encounter
--- OUTSIDE RECORDS SUMMARY | 2025-01-09 14:18 | XMS_ITS | Clinical Summary ---
Author Organization [facility] Address [address] [place] [address] Care Team Providers Care Palliative Care Coordinator Name Role Phone Kj Carrillo MD Primary Care Provider [phone] Bonifacio Brown MD Unavailable [phone] Mookie Gonzales MD Unavailable [phone] Neena Camp MD Unavailable Angie Yoon PA-C Unavailable [phone] Allergies Active Allergy Reactions Criticality Noted Date Comments Codeine Nausea Only 01/16/2016 Sulfa Antibiotics Hives 09/04/2016 Medications Multiple Vitamins-Minera ls ([facility]) Take 1 tablet by mouth daily. [...] mouth 2 (two) times a day. Active levothyroxine (SYNTHROID) 112 MCG tablet Take 1 tablet (112 mcg total) by mouth daily. 4 Active metoprolol succinate ER (TOPROL-XL) 25 MG 24 hr tabletIndicatio ns:Atrial fibrillation, unspecified type (CMS/HCC HHS/HCC) take 1/2 tablet by mouth every day 60 tablet 2 4 Active amLODIPine (NORVASC) 2.5 MG tablet TAKE 1 TABLET BY MOUTH EVERY DAY 90 tablet 3 5 Active Active Problems Problem Noted Date Diagnosed [...] Encounters Date Type Department Care Team Description 01/02/2025 Orders Only [facility] [address] [place] [address] Neena Camp MD 12/28/2024 8:39 AM CDT - 12/28/2024 11:59 PM CDT Hospital Encounter [facility] [address] [place] [address] Neena Camp MD Discharge Disposition: Home or Self Care (Routine Discharge) 12/28/2024 Travel from Last 3 Months Family History Medical [...] place to sleep or slept in a nursing home (including now)? No 10/08/2022 Comments Unknown Sex and Gender Information Value Date Recorded Sex Assigned at Female 07/19/2024 6:27 AM PREPRESS STRIPPER Legal Sex Female 9:45 PM CDT Gender Identity Not on file Sexual Orientation Not on file Occupation Industry Job Start Date Job End Date Not on file Not on file Not on file Not on file Travel History Travel Start Travel End [place] 12/18/2024 12/22/2024 Last Filed Vital Signs Vital Sign Reading Time Taken Comments Blood Pressure 142/89 07/19/2024 9:05 AM PREPRESS STRIPPER Pulse 65 07/19/2024 9:05 AM PREPRESS STRIPPER Temperature 36.5 C (97.7 F) 10/09/2022 8:46 AM CDT Respiratory Rate 12 07/19/2024 9:05 AM PREPRESS STRIPPER Oxygen Saturation 92% 07/19/2024 9:05 AM PREPRESS STRIPPER Inhaled Oxygen Concentration - - Weight 125.5 kg (276 lb 9.6 oz) 07/19/2024 9:05 AM PREPRESS STRIPPER Height 160 cm (5' 3) 07/19/2024 9:05 AM PREPRESS STRIPPER Body Mass Index 49 07/19/2024 9:05 AM PREPRESS STRIPPER Plan of Treatment Upcoming Encounters Date Type Department Care Team (Late st Contact Info) Description 01/15/2025 11:00 AM CDT Office Visit [facility] [address] [place] [address] Neena Camp MD [address] [place], [place] [phone] 08/01/2025 10:30 AM PREPRESS STRIPPER Office Visit [facility] [address] [place] [phone] Mookie Gonzales MD [address] [place], [place] [address] Health Maintenance Due Date Last Done Comments [...] Procedure Name Priority Date/Time Associated Diagnosis Comments USE ECHOCARDIOGRAM Routine 12/28/2024 9: 32 AM CDT Nonrheumatic mitral valve regurgitation from Last 3 Months Results * USE ECHOCARDIOGRAM (12/28/2024 9:32 AM CDT) Anatomical Region Laterality Modality Cardiac Ultrasound 12/28/2024 8:57 AM CDT Narrative 12/28/2024 8:32 PM CDT Echocardiography Report Pat.Name: Christiano Warner Pat.ID: [id number] .Date: 12/28/2024 Refer.MD: Sujatha, [facility] Exam Time: 8:57:00 AM Study Type:[facility] Height: 63 in Weight: 279 lb BSA: 2.23 m2 Age: 10 1950,74Y Sex: F Sonogrphr: Sf Pat. Stat.:Outpatient Reason for Study:Nonrheumatic mitral valve regurgitation Procedures: Study performed at [place], [place] and interpreted by [facility]. 2D, M-mode, Doppler, Color Flow ++++++++++++++++++++++++++++++++++++ SUMMARY: ++++++++++++++++++++++++++++++++++++ The left ventricular size is normal. Estimated left ventricular ejection fraction is 55-60%. The right ventricular size is mildly enlarged. Right ventricular systolic function is normal. Moderate proximal septal hypertrophy. Inferior vena cava shows >50% collapse with respiration consistent with normal right atrial pressure. Mild mitral regurgitation. Myxomatous degeneration of mitral valve. Mild tricuspid regurgitation. ++++++++++++++++++++++++++++++++++++ FINDINGS: ++++++++++++++++++++++++++++++++++++ LV: The left ventricular size is normal. The left ventricular systolic function is normal. Estimated left ventricular ejection fraction is 55-60%. Left ventricular diastolic function is abnormal. RV: The right ventricular size is mildly enlarged. Right ventricular systolic function is normal. IVS: Moderate proximal septal hypertrophy. LA: The left atrial size is moderately enlarged. RA: Right atrial size is moderately enlarged. ROBBIE: No evidence of pericardial effusion. AO: The proximal ascending aorta measures 3.6 cm. PA: Pulmonary artery not well visualized. SVn: Inferior vena cava is normal. Inferior vena cava shows >50% collapse with respiration consistent with normal right atrial pressure. AV: The aortic valve is trileaflet. There is no aortic stenosis. There is no evidence of aortic regurgitation. MV: Mild mitral regurgitation. Calcified posterior mitral annulus. Mean gradient 3 mmHg. Myxomatous degeneration of mitral valve. PV: Trace to mild pulmonic regurgitation. Pulmonic valve not well visualized. TV: Structurally normal tricuspid valve. Mild tricuspid regurgitation. <Electronic Signature> 12/28/2024 08:32 PM Neena Camp M.D. Procedure Note Neena Camp MD - 12/28/2024 Echocardiography Report Pat.Name: Christiano Warner Pat.ID: [id number] .Date: 12/28/2024 Refer.MD: Sujatha, [facility] Exam Time: 8:57:00 AM Study Type:[facility] Height: 63 in Weight: 279 lb BSA: 2.23 m2 Age: 10 1950,74Y Sex: F Sonogrphr: Pat. Stat.:Outpatient Reason for Study:Nonrheumatic mitral valve regurgitation Procedures: Study performed at [place], [place] and interpreted by [facility]. 2D, M-mode, Doppler, Color Flow ++++++++++++++++++++++++++++++++++++ SUMMARY: ++++++++++++++++++++++++++++++++++++ The left ventricular size is normal. Estimated left ventricular ejection fraction is 55-60%. The right ventricular size is mildly enlarged. Right ventricular systolic function is normal. Moderate proximal septal hypertrophy. Inferior vena cava shows >50% collapse with respiration consistent with normal right atrial pressure. Mild mitral regurgitation. Myxomatous degeneration of mitral valve. Mild tricuspid regurgitation. ++++++++++++++++++++++++++++++++++++ FINDINGS: ++++++++++++++++++++++++++++++++++++ LV: The left ventricular size is normal. The left ventricular systolic function is normal. Estimated left ventricular ejection fraction is 55-60%. Left ventricular diastolic function is abnormal. RV: The right ventricular size is mildly enlarged. Right ventricular systolic function is normal. IVS: Moderate proximal septal hypertrophy. LA: The left atrial size is moderately enlarged. RA: Right atrial size is moderately enlarged. ROBBIE: No evidence of pericardial effusion. AO: The proximal ascending aorta measures 3.6 cm. PA: Pulmonary artery not well visualized. SVn: Inferior vena cava is normal. Inferior vena cava shows >50% collapse with respiration consistent with normal right atrial pressure. AV: The aortic valve is trileaflet. There is no aortic stenosis. There is no evidence of aortic regurgitation. MV: Mild mitral regurgitation. Calcified posterior mitral annulus. Mean gradient 3 mmHg. Myxomatous degeneration of mitral valve. PV: Trace to mild pulmonic regurgitation. Pulmonic valve not well visualized. TV: Structurally normal tricuspid valve. Mild tricuspid regurgitation. <Electronic Signature> 12/28/2024 08:32 PM Neena Camp M.D. Neena Camp MD ECHO Final Result from Last 3 Months Insurance MEDICAID MEDICAID [facility] Advance Directives * Full Code (Latest Code Status on File) Date Activated Date Inactivated Comments 10/08/2022 8:12 PM 10/09/2022 11:25 AM Care Teams Palliative Care Coordinator Relationship Specialty Start Date End Date Kj Carrillo MD [address] [place] [address] PCP - General INTERNAL MEDICINE 01/14/16 Bonifacio Brown MD [address] [place] [address] NEUROLOGICAL SURGERY 01/29/22 Mookie Gonzales MD [address] [place] [address] Consulting Physician CLINICAL CARDIAC ELECTROPHYSIOLOGY 05/21/22 Neena Camp MD [address] [place] [address] Consulting Physician CARDIOVASCULAR DISEASE 10/01/23 Angie Yoon PA-C [address] [place] [address] Referring Physician PHYSICIAN DELIVERY ROUTE DRIVER 01/18/24
--- OUTSIDE RECORDS SUMMARY | 2025-01-09 14:18 | XMS_ITS | Clinical Summary ---
Author Organization [facility] Address [address] [place] [address] Care Team Providers Care Beater Engineer Name Role Phone Kj Carrillo MD Primary Care Provider [phone] Kj Carrillo MD Unavailable [phone] Allergies Active Allergy Reactions Criticality Noted [...] per tablet Take 1 tablet by mouth stripper printed circuit boards before breakfast 0 Active tiZANidine (ZANAFLEX) 2 [...] Knee Surgery - (Added by TW Conv) MI EXCISION EXCESSIVE SKIN & SUBQ TISSUE ABDOMEN Abdominoplasty - (Added by TW Conv) GASTRECTOMY Gastrectomy Sleeve - (Added by TW Conv) [place] APPENDECTOMY Appendectomy - (Added by TW Conv) [...] on file Legal Sex Female 9:31 AM EDUCATIONAL ADMINISTRATOR Gender Identity Not on file Sexual Orientation [...] 105.7 kg (233 lb) 07/27/2018 1:06 PM EDUCATIONAL ADMINISTRATOR Height 152.4 cm (5') 07/27/2018 1:06 PM EDUCATIONAL ADMINISTRATOR Body Mass Index 45.5 07/27/2018 1:06 PM EDUCATIONAL ADMINISTRATOR Plan of Treatment Health Maintenance Due Date [...] season) 2024 08/15/2021, 07/25/2021 Influenza Vaccine (#1) 2025 , 03/13/2020, 03/15/2019, Additional history exists DTaP/Tdap/Td Vaccine (2 - Td or Tdap) 03/15/2025 03/15/2015 Insurance IDPA [facility] MEDICARE ADVANTAGE MEDICARE [facility] Address: [address] [address] [place] [address] IDWY [facility] MEDICARE [facility] Address: [address] [address] [place] [address] Advance Directives For more information, please contact: [phone] * Full Code (Latest Code Status on File) Date Activated Date Inactivated Comments 12/01/2017 12:26 PM 12/02/2017 1:18 PM Care Teams Beater Engineer Relationship Specialty Start Date End Date Kj Carrillo MD PCP - General Internal Medicine 07/11/18 Kj Carrillo MD 07/11/18
--- OUTSIDE RECORDS SUMMARY | 2025-01-09 14:18 | XMS_ITS | Clinical Summary ---
Author Organization [facility] Address [address] [place] [address] Care Team Providers Care Printing Manager Name Role Phone Kj Carrillo MD Primary Care Provider [phone] Source Comments [facility],non-owned Affiliates and Associated Physician Practices is amultiple site organization consisting of ambulatory clinics and hospital sitesin [place], [place], [place] and [place]. This disclosure is being madepursuant to the Care Everywhere program and may not contain all information available regarding this patient. Last updated 18.[facility] Allergies Active Allergy Reactions Criticality Noted Date [...] by mouth once daily Active HYDROcodone-michelle taminophen ([place]) 5-325 MG tablet Take 1 (one) tablet [...] Comments Blood Pressure 163/83 05/10/2023 9:04 AM SURFACER OPERATOR Pulse 64 05/10/2023 9:04 AM SURFACER OPERATOR Temperature 36.6 C (97.8 F) 05/10/2023 9:04 AM SURFACER OPERATOR Respiratory Rate 18 04/13/2022 8:44 AM SURFACER OPERATOR Oxygen Saturation 95% 05/10/2023 9:04 AM SURFACER OPERATOR Inhaled Oxygen Concentration - - Weight 124.3 kg (274 lb) 05/10/2023 9:04 AM SURFACER OPERATOR Height 160 cm (5' 3) 04/13/2022 8:44 AM SURFACER OPERATOR Body Mass Index 48.54 04/13/2022 8:44 AM SURFACER OPERATOR Plan of Treatment Health Maintenance Due Date [...] MEDICARE AWV CALENDAR YEAR 2024 INFLUENZA VACCINE (#1) 2025 HEPATITIS B VACCINE Aged Out No [...] this topic Medical Devices Implanted Type Area Test Grader Device Identifier Shelf Expiration Date Model / Serial / Lot Lead Nrstm 60cm Penta 3mm Pdl 16 [facility] - [id number] Implanted:Qty : 1 on 02/19/2022 by Bonifacio Brown MD at [facility] N/A: Spine Thoracic Advanced Neu[employer] 05/04/2023 [id number] / [id number] / Gntr Nrstm 1.95inx2.19in [employer] Elt - [id number] Implanted:Qty : 1 on 02/19/2022 by Bonifacio Brown MD at [facility] Right: Back [employer] 11/20/2023 [id number] / [id number] / Slnt Dura Duraseal Pg Trilysine Amine 5 Implanted:Qty : 1 on 02/19/2022 by Bonifacio Brown MD at [facility] Right: Back [employer] Danielle 04/06/2023 [id number] / / [id number] Insurance MEDICARE MEDICAID - OUT OF STATE MEDICAID - [place] [facility] MANAGED MEDICARE ADV Care Teams Printing Manager Relationship Specialty Start Date End Date Kj Carrillo MD [address] [place] [address] PCP - General 12/10/21
--- OUTSIDE RECORDS SUMMARY | 2025-01-09 14:18 | XMS_ITS | Encounter Summary ---
Author Organization [facility] Address [address] [place] [address] Care Team Providers Care Health Care Administrator Name Role Phone Kj Carrillo MD Primary Care Provider [phone] Kj Carrillo MD Unavailable [phone] Reason for Visit * Diagnostic Imaging (Routine) - Closed Specialty Diagnoses / Procedures Referred By Carl plascencia Referred To Contact Procedures Breast Imaging Screening Outside Reference Aft, Yajaira Wilson MD PhD [address] [place] [address] Phone: tel: fax: Referral ID Status Reason Start Date Expiration Date Visits Re quested Visits Authorized [id number] Closed 03/23/2022 04/22/2023 1 1 Encounter Details Date Type Department Care Team (Late st Contact Info) Description 09/07/2019 Hospital Encounter [facility] [address] [place] [id number] Social History Tobacco Use Types Packs/Day Years Used Date Smoking Tobacco: Former Cigarettes Q uit: 1988 Smokeless Tobacco: Never Alcohol Use Standard Drinks/Week Comments Yes 0 (1 standard drink = 0.6 oz pur e alcohol) rare Comments No Sex and Gender Information Value Date Recorded Sex Assigned at Not on file Legal Sex Female 9:31 AM CAPITAL CAMPAIGN FUNDRAISER Gender Identity Not on file Sexual Orientation [...] only and have not been reviewed by [facility]. There will be no report generated by a [facility]ologist. Narrative [facility] - 03/23/2022 1:10 PM CDT EXAMINATION: Images For Reference Purposes Only us Yajaira Ball MD PhD IMG MAMMO PROCEDURES Final Result [facility] documented in this encounter Visit Diagnoses Not on filedocumented in this encounter Care Teams Health Care Administrator Relationship Specialty Start Date End Date Kj Carrillo MD PCP - General Internal Medicine 07/11/18 Kj Carrillo MD 07/11/18 documented as of this encounter
--- OUTSIDE RECORDS SUMMARY | 2025-01-09 14:18 | XMS_ITS | Encounter Summary ---
Author Organization [facility] Address [address] [place] [address] Care Team Providers Care De Icer Element Winder Name Role Phone Kj Carrillo MD Primary Care Provider [phone] Yong Simons MD Unavailable [phone] Luz Land APRN, NP-C Unavailable Bonifacio Brown MD Unavailable [phone] Mookie Gonzales MD Unavailable [phone] Neena Camp MD Unavailable Angie Yoon PA-C Unavailable [phone] Encounter Details Date Type Department Care Team (Late st Contact Info) Description 10/06/[address] [facility] Anesthesia [address] [place] [address] Cheli Mohan RN Anesthesia Record Procedure Summary [...] place to sleep or slept in a [facility] (including now)? No 10/08/2022 Comments Unknown Sex and Gender Information Value Date Recorded Sex Assigned at Female 07/19/2024 6:27 AM COMPANY LAUNDRY WORKER Legal Sex Female 9:45 PM CDT Gender Identity Not on file Sexual Orientation Not on file Occupation Industry Job Start Date Job End Date Not on file Not on file Not on file Not on file Travel History Travel Start Travel End [place] 12/18/2024 12/22/2024 COVID-19 Exposure Response Date Recorded [...] serious difficulty hearing No 10/08/2022 11:38 PM Leticia Jacobs RN Active Are you blind or do you have serious difficulty seeing, even when wearing glasses? No 10/08/2022 11:38 PM EMIGDIOT Leticia Wiggins RN Active * Calculated C-SSRS Risk Score (Lifetime/Recent) Answer Date of Assessment Author Status No Risk Indicated 10/08/2022 11:04 AM EMIGDIOT Ja Conroy se, RN Active * [place] Suicide Severity Rating Scale (Screener/Recent Self-Report) Question [...] Description 01/15/2025 11:00 AM CDT Office Visit [facility] [address] [place] [address] Neena Camp MD [address] [place] [address] 08/01/2025 10:30 AM COMPANY LAUNDRY WORKER Office Visit [facility] [address] [place] [address] Mookie Gonzales MD [address] [place] [address] documented as of this encounter Visit Diagnoses Not on filedocumented in this encounter Care Teams De Icer Element Winder Relationship Specialty Start Date End Date Kj Carrillo MD [address] [place] [phone] PCP - General INTERNAL MEDICINE 01/14/16 Yong Simons MD [address] [place] [phone] [place] Steam Heating Installer CARDIOVASCULAR DISEASE 09/02/16 09/30/23 Luz Land APRN, CARBON BRUSH MAKER-C [address] [place] [address] [address] [place] [address] NURSE PRACTITIONER 01/29/22 09/30/23 Bonifacio Brown MD [facility] [place] [address] NEUROLOGICAL SURGERY 01/29/22 Mookie Gonzales MD [address] [place] [address] Consulting Physician CLINICAL CARDIAC ELECTROPHYSIOLOGY 05/21/22 Neena Camp MD [address] [place] [address] Consulting Physician CARDIOVASCULAR DISEASE 10/01/23 Angie Yoon PA-C [address] [place] [address] Referring Physician PHYSICIAN HEAD OF VISUAL MERCHANDISING 01/18/24 documented as of this encounter
--- OUTSIDE RECORDS SUMMARY | 2025-01-09 14:18 | XMS_ITS | Patient Health Record ---
Author Organization [facility] Address [address] [place], [place] [address] Care Team Providers Care Mortgage Loan Closer Name Role Phone Kj Carrillo Unavailable Unavailable Reason For Referral No Information Medications Medication SIG (Take, Route, Frequency, Duration) Notes Start Date End Date Status vitamin B12 1 MG Oral Tablet ORAL vitamin B12 1 MG Oral TabletOriginal Medicationvitamin B12 1 MG Oral Tablet *Reorder from [employer] for eRx and Interaction Alerts* Active levothyroxine sodium 0.1 MG Oral Tablet [Synthroid] ORAL levothyroxine sodium 0.1 MG Oral Tablet [Synthroid]Original Medicationlevothyroxine sodium 0.1 MG Oral Tablet [Synthroid] *Reorder from [employer] for eRx and Interaction Alerts* Active hydroCHLOROthiazide 12.5 MG Oral Tablet ORAL hydrochlorothiazide 12.5 MG Oral TabletOriginal Medicationhydrochlorothiazide 12.5 MG Oral Tablet *Reorder from [employer] for eRx and Interaction Alerts* Active citalopram 10 MG Oral Tablet ORAL citalopram 10 MG Oral TabletOriginal Medicationcitalopram 10 MG Oral Tablet *Reorder from [employer] for eRx and Interaction Alerts* 016 Active calcium carbonate 1250 MG / cholecalciferol 0.01 MG Oral Tablet ORAL calcium carbonate 1250 MG / cholecalciferol 0.01 MG Oral TabletOriginal Medicationcalcium carbonate 1250 MG / cholecalciferol 0.01 MG Oral Tablet *Reorder from [employer] for eRx and Interaction Alerts* 016 Active Plan Of Treatment No Information Insurance Providers Payer Name Payer Address Payer Phone Subscriber Number Group Number Insured Name Patient Relationship to Insured Coverage Start Date Coverage End Date Medicare Part B [facility] [address] [place] [phone] [id number] ADAM BROOKE Self - patient is the insured
--- OUTSIDE RECORDS SUMMARY | 2025-01-09 14:18 | XMS_ITS | Encounter Summary ---
Author Organization [facility] Address [address] [place] [address] Care Team Providers Care Mineral Economist Name Role Phone Kj Carrillo MD Primary Care Provider [phone] Davis Plata MD Unavailable + [phone] Yong Simons MD Unavailable Luz Land APRN, NP-C Unavailable Bonifacio Brown MD Unavailable [phone] Mookie Gonzales MD Unavailable Neena Camp MD Unavailable Angie Yoon-C Unavailable [phone] Encounter Details Date Type Department Care Team (Late st Contact Info) Description 08/27/2014 Abstract [facility] [address] [place] [address] Davis Plata MD [address] [place] [address] Social History Tobacco Use Types Packs/Day Years Used Date Smoking Tobacco: Former Cigarettes Q uit: 1985 Alcohol Use Standard Drinks/Week Comments No 0 (1 standard drink = 0.6 oz pur e alcohol) Comments Unknown Sex and Gender Information Value Date Recorded Sex Assigned at Female 07/19/2024 6:27 AM COMPUTER VIDEO GAME DESIGNER Legal Sex Female 9:45 PM CDT Gender Identity Not on file Sexual Orientation Not on file Occupation Industry Job Start Date Job End Date Not on file Not on file Not on file Not on file Travel History Travel Start Travel End [place] 12/18/2024 12/22/2024 documented as of this encounter Plan of Treatment Upcoming Encounters Date Type Department Care Team (Late st Contact Info) Description 01/15/2025 11:00 AM CDT Office Visit [facility] [address] [place] [address] Neena Camp MD [address] [place] [address] 08/01/2025 10:30 AM COMPUTER VIDEO GAME DESIGNER Office Visit [facility] [address] [place] [address] Mookie Gonzales MD [address] [place], [place] [address] documented as of this encounter Visit Diagnoses Not on filedocumented in this encounter Care Teams Mineral Economist Relationship Specialty Start Date End Date Kj Carrillo MD [address] [place] [address] PCP - General INTERNAL MEDICINE 01/14/16 Davis Plata MD [address] [place] [address] Fleming Manga Artist CARDIOVASCULAR DISEASE 01/14/16 01/28/22 Yong Simons MD [address] [place] [address] Fleming Manga Artist CARDIOVASCULAR DISEASE 09/02/16 09/30/23 Luz Land, ATM MANAGER, CODE AND TEST CLERK-C [address] [facility] [address] [place] [address] NURSE PRACTITIONER 01/29/22 09/30/23 Bonifacio Brown MD [address] [place] [address] NEUROLOGICAL SURGERY 01/29/22 Mookie Gonzales MD [address] [place] [address] Consulting Physician CLINICAL CARDIAC ELECTROPHYSIOLOGY 05/21/22 Neena Camp MD [address] [place] [address] Consulting Physician CARDIOVASCULAR DISEASE 10/01/23 Angie Yoon PA-C [address] [place] [address] Referring Physician PHYSICIAN METAL SLITTER 01/18/24 documented as of this encounter
--- OUTSIDE RECORDS SUMMARY | 2025-01-09 14:18 | XMS_ITS | Encounter Summary ---
Author Organization [facility] Address [address] [place] [address] Care Team Providers Care Software Sales Representative Name Role Phone Kj Carrillo MD Primary Care Provider [phone] Davis Plata MD Unavailable + [phone] Yong Simons MD Unavailable [phone] Luz Land APRN ADMINISTRATIVE CLERK-C Unavailable Bonifacio Brown MD Unavailable [phone] Mookie Gonzales MD Unavailable [phone] Neena Camp MD Unavailable Angie Yoon-C Unavailable [phone] Encounter Details Date Type Department Care Team (Latest Contact Info) Description 04/12/2018 Abstract [facility] , Kristin Stein MD Social History Tobacco Use Types Packs/Day Years Used Date Smoking Tobacco: Former Cigarettes Q uit: 1985 Smokeless Tobacco: Never Alcohol Use Standard Drinks/Week Comments No 0 (1 standard drink = 0.6 oz pur e alcohol) Comments Unknown Sex and Gender Information Value Date Recorded Sex Assigned at Female 07/19/2024 6:27 AM LEAD MASSAGE THERAPIST Legal Sex Female 9:45 PM CDT Gender Identity Not on file Sexual Orientation Not on file Occupation Industry Job Start Date Job End Date Not on file Not on file Not on file Not on file Travel History Travel Start Travel End [place] 12/18/2024 12/22/2024 documented as of this encounter Plan of Treatment Upcoming Encounters Date Type Department Care Team ( Contact Info) Description 01/15/2025 11:00 AM CDT Office Visit [facility] [address] [place] [address] Neena Camp MD [address] [place] [address] 08/01/2025 10:30 AM LEAD MASSAGE THERAPIST Office Visit [facility] [address] [place] [address] Mookie Gonzales MD [address] [place] [address] documented as of this encounter Visit Diagnoses Not on filedocumented in this encounter Care Teams Software Sales Representative Relationship Specialty Start Date End Date Kj Carrillo MD [address] [place] [address] PCP - General INTERNAL MEDICINE 01/14/16 Davis Plata MD [address] [place] [address] Hopewell Dragger CARDIOVASCULAR DISEASE 01/14/16 01/28/22 Yong Simons MD [address] [place] [address] Hopewell Dragger CARDIOVASCULAR DISEASE 09/02/16 09/30/23 Luz Land APRN, ADMINISTRATIVE CLERK-C [address] [facility] [address] [place] [address] NURSE PRACTITIONER 01/29/22 09/30/23 Bonifacio Brown MD [address] [address] NEUROLOGICAL SURGERY 01/29/22 Mookie Gonzales MD [address] [place] [address] Consulting Physician CLINICAL CARDIAC ELECTROPHYSIOLOGY 05/21/22 Neena Camp MD [address] [place], [place] [address] Consulting Physician CARDIOVASCULAR DISEASE 10/01/23 Angie Yoon PA-C [address] [place] [address] Referring Physician PHYSICIAN PRESIDENT AND CHIEF COMMERCIAL OFFICER 01/18/24 documented as of this encounter
--- OUTSIDE RECORDS SUMMARY | 2025-01-09 14:18 | XMS_ITS | Referral Summary ---
Author Organization [facility] Address [address] [place] [address] Care Team Providers Care Painter Ordnance Name Role Phone Kj Carrillo MD Primary Care Provider [phone] Kj Carrillo MD Unavailable [phone] Allergies Active Allergy Reactions Criticality Noted [...] per tablet Take 1 tablet by mouth cis coordinator before breakfast 0 Active tiZANidine (ZANAFLEX) 2 [...] on file Legal Sex Female 9:31 AM TIP MENDER Gender Identity Not on file Sexual Orientation [...] 105.7 kg (233 lb) 07/27/2018 1:06 PM TIP MENDER Height 152.4 cm (5') 07/27/2018 1:06 PM TIP MENDER Body Mass Index 45.5 07/27/2018 1:06 PM TIP MENDER Plan of Treatment Not on file Insurance IDMN [facility] MEDICARE ADVANTAGE MEDICARE IDPA [facility] MEDICARE Advance Directives For more information, please contact: [phone] * Full Code (Latest Code Status on File) Date Activated Date Inactivated Comments 12/01/2017 12:26 PM 12/02/2017 1:18 PM Care Teams Painter Ordnance Relationship Specialty Start Date End Date Kj Carrillo MD PCP - General Internal Medicine 07/11/18 Kj Carrillo MD 07/11/18
[2025-01-09 14:37] LABS: Hematocrit 39.4 % (35.0-42.0); Hemoglobin 12.2 g/dL (11.7-13.8); Mean Corpuscular HGB Conc 31.0 g/dL (32-36); Mean Corpuscular Hemoglobin 27.9 pg (27.0-31.0); Mean Corpuscular Volume 90.2 fL (78.0-102.0); Platelet Count Result 283 K/mm3 (150-420); Red Blood Count 4.37 M/mm3 (4.20-5.40); White Blood Count 5.9 K/mm3 (4.8-10.8)
[2025-01-09 15:47] LABS: Alanine Aminotransferase 13 U/L (6-35); Albumin Level 4.0 g/dL (3.5-5.1); Alkaline Phosphatase 62 U/L (38-126); Anion Gap 0 mmol/L (4-12); Aspartate Amino Transferase 24 U/L (14-36); Bilirubin,Total 0.5 mg/dL (0.2-1.3); Blood Urea Nitrogen 13 mg/dL (7-17); Calcium 10.0 mg/dL (8.4-10.2); Carbon Dioxide 35 mmol/L (22-30); Chloride 105 mmol/L (98-107); Cholesterol 171 mg/dL (0-200); Estimated Glomerular Filt Rate > 60; Glucose 94 mg/dL (65-110); HDL Direct 54 mg/dL; Magnesium 1.7 mg/dL (1.6-2.3); Osmolality Calculated 290 mOsm/kg (285-295); Potassium 4.7 mmol/L (3.4-5.0); Sodium 140 mmol/L (137-145); Total Protein 6.8 g/dL (6.3-8.2); Triglycerides 117 mg/dL (<150)
[2025-01-09 16:16] LABS: Thyroid Stimulating Hormone 0.712 uIU/mL (0.465-4.680)
[2025-01-10 07:55] LABS: NT Pro B Type Natriuretic Pept 60 pg/mL (19.9-100)
== END 2025-01-09 14:12 | disposition home or self-care (01) ==
LOC: CHSLAB 14:12
PROVIDERS: PCP Internal Medicine; Visit Provider Internal Medicine
DX: E78.5 Hyperlipidemia, unspecified (principal); E03.9 Hypothyroidism, unspecified; I11.0 Hypertensive heart disease with heart failure
CPT/HCPCS: 36415; 80053; 80061; 83735; 83880; 84443; 85027

== ENCOUNTER 2025-04-16 10:33 | Outpatient (CLI) | payer MEDICARE, SELFPAY ==
--- OUTSIDE RECORDS SUMMARY | 2019-09-06 23:00 | XMS_ITS | Encounter Summary ---
Author Organization [facility] Healthcare Address [address] [place] [address] Care Team Providers Care Steamfitter Name Role Phone Kj Carrillo MD Primary Care Provider [phone] Kj Carrillo MD Unavailable [phone] Reason for Visit * Diagnostic Imaging (Routine) - Closed Specialty Diagnoses / Procedures Referred By Carl plascencia Referred To Contact Procedures Breast Imaging Screening Outside Reference Aft, Yajaira Wilson MD PhD [address] [place] [address] Phone: tel: fax: Referral ID Status Reason Start Date Expiration Date Visits Re quested Visits Authorized [id number] Closed 03/23/2022 04/22/2023 1 1 Encounter Details Date Type Department Care Team (Late st Contact Info) Description 09/07/2019 Hospital Encounter [facility] [address] [place] [address] [phone] Social History Tobacco Use Types Packs/Day Years Used Date Smoking Tobacco: Former Cigarettes Q uit: 1988 Smokeless Tobacco: Never Alcohol Use Standard Drinks/Week Comments Yes 0 (1 standard drink = 0.6 oz pur e alcohol) rare Comments No Sex and Gender Information Value Date Recorded Sex Assigned at Not on file 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 Sex 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 There will be no report generated by a [facility] Radiologist. Narrative [facility]_MAMMO_[facility] - 03/23/2022 1:10 PM CDT EXAMINATION: Images For Reference Purposes Only us Yajaira Ball MD PhD IMG MAMMO PROCEDURES Final Result [facility] documented in this encounter Visit Diagnoses Not on filedocumented in this encounter Care Teams Steamfitter Relationship Specialty Start Date End Date Kj Carrillo MD PCP - General Internal Medicine 07/11/18 Kj Carrillo MD 07/11/18 documented as of this encounter
--- NOTE | ~2025-04-16 | XR_ITS ---
EXAMINATION: XR shoulder RT min 2V, 04/16/2025 10:30 ORACLE APPLICATION ARCHITECT HISTORY: BILATERAL SHOULDER PAIN COMPARISON: No comparisons available. Findings: No acute fracture or malalignment. Severe degenerative changes Soft tissues unremarkable. Impression: No acute fracture or malalignment. Reviewed, dictated and finalized at location P. LE APPLICATION ARCHITECT Impression: No acute fracture or malalignment.
--- NOTE | ~2025-04-16 | XR_ITS ---
EXAMINATION: XR shoulder LT min 2V, 04/16/2025 10:30 DRILL PRESS OPERATOR HELPER HISTORY: BILATERAL SHOULDER PAIN COMPARISON: No comparisons available. Findings: No acute fracture or malalignment. Severe degenerative changes Soft tissues unremarkable. Impression: No acute fracture or malalignment. Reviewed, dictated and finalized at location P. L PRESS OPERATOR HELPER Impression: No acute fracture or malalignment.
--- OUTSIDE RECORDS SUMMARY | 2025-04-16 11:21 | XMS_ITS | Clinical Summary ---
Author Organization [facility] Address [address] [place] [address] Care Team Providers Care Under Seal Operator Name Role Phone Kj Carrillo MD Primary Care Provider [phone] Kj Carrillo MD Unavailable [phone] Allergies Active Allergy Reactions Criticality Noted [...] per tablet Take 1 tablet by mouth financial services assistant before breakfast 0 Active tiZANidine (ZANAFLEX) 2 [...] Knee Surgery - (Added by TW Conv) [place] EXCISION EXCESSIVE SKIN & SUBQ TISSUE ABDOMEN Abdominoplasty - (Added by TW Conv) GASTRECTOMY Gastrectomy Sleeve - (Added by TW Conv) [place] APPENDECTOMY Appendectomy - (Added by TW Conv) [...] on file Legal Sex Female 9:31 AM VICE PRINCIPAL Gender Identity Not on file Sexual Orientation [...] 105.7 kg (233 lb) 07/27/2018 1:06 PM VICE PRINCIPAL Height 152.4 cm (5') 07/27/2018 1:06 PM VICE PRINCIPAL Body Mass Index 45.5 07/27/2018 1:06 PM VICE PRINCIPAL Plan of Treatment Health Maintenance Due Date Last Done Comments Depression Screening 1948 Fall Risk Assessment 1950 Hepatitis C Screening 1950 Osteoporosis Screening-Bone Density Scan 1950 Hepatitis B Screening 1966 Well Visit 65+ 2013 Pneumococcal vaccine 65+ (2 of 2 - PCV) 09/05/2014 09/05/2013 Zoster Vaccine (2 of 3) 08/14/2015 06/19/2015 Covid-19 Vaccine (3 - 2024-2 6 season) 2025 08/15/2021, 07/25/2021 Influenza Vaccine (#1) 2025 , 03/13/2020, 03/15/2019, Additional history exists DTaP/Tdap/Td Vaccine (2 - Td or Tdap) 03/15/2025 03/15/2015 Insurance IDPA [facility] MEDICARE ADVANTAGE MEDICARE IDMT [facility] MEDIC[facility] Advance Directives For more information, please contact: [phone] * Full Code (Latest Code Status on File) Date Activated Date Inactivated Comments 12/01/2017 12:26 PM 12/02/2017 1:18 PM Care Teams Under Seal Operator Relationship Specialty Start Date End Date Kj Carrillo MD PCP - General Internal Medicine 07/11/18 Kj Carrillo MD 07/11/18
--- OUTSIDE RECORDS SUMMARY | 2025-04-16 11:21 | XMS_ITS | Clinical Summary ---
Author Organization [facility] Address [address] [facility] [place] [address] Care Team Providers Care Patient Financial Counselor Name Role Phone Kj Carrillo MD Primary Care Provider [phone] Source Comments [facility],non-owned Affiliates and Associated Physician Practices is amultiple site organization consisting of ambulatory clinics and hospital sitesin [place], [place], [place] and [place]. This disclosure is being madepursuant to the Care Everywhere program and may not contain all information available regarding this patient. Last updated 18.[facility] Allergies Active Allergy Reactions Criticality Noted Date [...] by mouth once daily Active HYDROcodone-michelle taminophen (Ventura) 5-325 MG tablet Take 1 (one) tablet [...] Comments Blood Pressure 163/83 05/10/2023 9:04 AM OUTDOOR ADVENTURE GUIDES Pulse 64 05/10/2023 9:04 AM OUTDOOR ADVENTURE GUIDES Temperature 36.6 C (97.8 F) 05/10/2023 9:04 AM OUTDOOR ADVENTURE GUIDES Respiratory Rate 18 04/13/2022 8:44 AM OUTDOOR ADVENTURE GUIDES Oxygen Saturation 95% 05/10/2023 9:04 AM OUTDOOR ADVENTURE GUIDES Inhaled Oxygen Concentration - - Weight 124.3 kg (274 lb) 05/10/2023 9:04 AM OUTDOOR ADVENTURE GUIDES Height 160 cm (5' 3) 04/13/2022 8:44 AM OUTDOOR ADVENTURE GUIDES Body Mass Index 48.54 04/13/2022 8:44 AM OUTDOOR ADVENTURE GUIDES Plan of Treatment Health Maintenance Due Date Last Done Comments BONE DENSITY TESTING 1950 HEPATITIS C SCREENING 03/23/1966 DTAP/TDAP/TD VACCINES (1 - Tdap) 1967 PNEUMOCOCCAL VACCINE 50+ (1 of 1 - PCV) 1998 ZOSTER VACCINE (1 of 2) 1998 Respiratory Syncytial Virus (RSV) Vaccine Pt: or over 60 yrs (1 - 1-dose 75+ series) 2023 DEPRESSION SCREENING 06/07/2024 MEDICARE AWV CALENDAR YEAR 2024 COVID-19 VACCINE (1 - 2023-2 5 season) 2025 INFLUENZA VACCINE (#1) 2025 HEPATITIS B VACCINE [...] this topic Medical Devices Implanted Type Area Ordinary Seaman Device Identifier Shelf Expiration Date Model / Serial / Lot Lead Nrstm 60cm Penta 3mm Pdl 16 [facility] - [id number] Implanted:Qty : 1 on 02/19/2022 by Bonifacio Brown MD at Formerly named [facility] N/A: Spine Thoracic [employer] 05/04/2023 [id number] / [id number] / Gntr Nrstm 1.95inx2.19in [employer] Elt - [id number] Implanted:Qty : 1 on 02/19/2022 by Bonifacio Brown MD at Formerly named [facility] Right: Back [employer] 11/20/2023 [id number] / [id number] / Slnt Dura Duraseal Pg Trilysine Amine 5 Implanted:Qty : 1 on 02/19/2022 by Bonifacio Brown MD at Formerly named [facility] Right: Back [employer] Danielle 04/06/2023 [id number] / / [id number] Insurance MEDICARE MEDICAID - OUT OF STATE MEDICAID - [place] [facility] MANAGED MEDICARE ADV Care Teams Patient Financial Counselor Relationship Specialty Start Date End Date Kj Carrillo MD [address] [place] [address] PCP - General 12/10/21
== END 2025-04-16 10:34 | disposition home or self-care (01) ==
LOC: CHSIMG 10:34
PROVIDERS: PCP Internal Medicine; Visit Provider Internal Medicine
DX: M25.512 Pain in left shoulder (principal); M25.511 Pain in right shoulder
CPT/HCPCS: 73030